=== PATIENT | male | born 1950 | race Caucasian/White ===

== ENCOUNTER 2020-09-12 17:52 | Inpatient (IN) | payer MEDICARE, MEDICAID ==
[~2020-09-12] VITALS: Ht 182.9 cm; Wt 71.2 kg
[2020-09-12 18:42] VITALS: BP 128/100
[2020-09-12 18:50] LABS: HEMATOCRIT 50.7 % (42.0-52.0); HEMOGLOBIN 16.4 G/DL (14.2-18.0); MEAN CORPUSCULAR VOLUME 89 FL (80-99); PLATELET COUNT 230 K/UL (150-450); RED CELL DISTRIBUTION WIDTH 14.4 % (11.6-14.8)
[2020-09-12 19:06] LABS: CALCIUM 8.7 MG/DL (8.5-10.1); CREATININE 1.7 MG/DL (0.55-1.30); POTASSIUM 3.9 MMOL/L (3.5-5.1)
--- NOTE | 2020-09-12 19:06 | Diagnostic Imaging Report ---
EXAM: CT Head Without Intravenous Contrast CLINICAL HISTORY: AMS TECHNIQUE: Axial computed tomography images of the head/brain without intravenous contrast. CTDI is 53.4 mGy and DLP is 1059.7 mGy-cm. One or more of the following dose reduction techniques were used: automated exposure control, adjustment of the mA and/or kV according to patient size, use of iterative reconstruction technique. COMPARISON: No previous studies. FINDINGS: Brain: No abnormal extra-axial collection. No hemorrhage. Midline shift: No midline shift or mass-effect Ventricles: There is prominence of the ventricular system, cortical sulci, basilar cisterns, compatible with age related atrophy. Bones/joints: Calvarium is within normal limits. No acute fracture. Soft tissues: Unremarkable. Sinuses: Visualized sinuses are unremarkable. Mastoid air cells: Mastoid air cells are well pneumatized. Other findings: Axial and coronal images are provided. IMPRESSION: 1. Age-related changes. 2. No acute intracranial pathology is detected. 3. If there is concern for etiology such as early acute lacunar infarcts, magnetic resonance imaging of the brain with diffusion-weighted sequences should be performed.
[2020-09-12 19:20] LABS: ALBUMIN 3.1 G/DL (3.4-5.0); ALBUMIN/GLOBULIN RATIO 0.9 (1.0-2.7); BILIRUBIN,TOTAL 0.7 MG/DL (0.2-1.0); CKMB 0.6 NG/ML (0.0-3.6)
[2020-09-12] MEDS ORDERED: Vancomycin 1 GM in NS 275 ML IVPB ONE (19:45)
[2020-09-12] MEDS ORDERED: Piperacillin/Tazobactam 3.375 GM in NS 110 ML IVPB ONE (19:45)
--- NOTE | 2020-09-12 19:45 | Emergency Room Report ---
History of Present Illness General Chief Complaint: Generalized Weakness Source: Medical Record Present Illness HPI 70-year-old male here with cough, shortness of breath, abdominal discomfort. Patient appears slightly confused and is slow to respond to questions. However he is able to answer questions albeit slowly. Says that he is having a cough with some shortness of breath and also lower abdominal pain. Patient is a history of COPD. However he is a poor historian and is unable to provide me with further information such as his past medical history or medication regimen or how long he has been having his symptoms. Denies headaches, vision changes, chest pain, back pain, diarrhea, dysuria. Allergies: Coded Allergies: No Known Allergies (Unverified , 09/12/20) COVID-19 Screening Contact w/high risk pt: Yes Experienced COVID-19 symptoms?: No COVID-19 Testing performed STOCK PARTS INSPECTOR: No COVID-19 Testing Source: [facility] Nursing Documentation-[facility] History Of Psychiatric Problem: Yes - schizophrenia Review of Systems All Other Systems: negative except mentioned in HPI Physical Exam Vital Signs Date Time Temp Pulse Resp B/P (MAP) Pulse Ox O2 Delivery O2 Flow Rate FiO2 09/12/20 18:05 99.5 133 18 128/100 (109) 96 Room Air Sp02 EP Interpretation: reviewed, normal General Appearance: no apparent distress, non-toxic, other - Appears slightly confused and slow to respond to questions, but does answer questions a ppropriately Head: normocephalic, atraumatic Eyes: bilateral eye normal inspection, bilateral eye PERRL ENT: hearing grossly normal, normal pharynx, no angioedema, normal voice Neck: full range of motion, supple/symm/no masses Respiratory: chest non-tender, lungs clear, normal breath sounds, speaking full sentences Cardiovascular #1: regular rate, rhythm, no edema Cardiovascular #2: 2+ carotid (R), 2+ carotid (L), 2+ radial (R), 2+ radial (L), 2+ dorsalis pedis (R), 2+ dorsalis pedis (L) Gastrointestinal: normal bowel sounds, soft, non-distended, no guarding, no rebound, other - Subjective abdominal mild tenderness on palpation diffusely, but no distention or rebound or guarding Rectal: deferred Genitourinary: normal inspection, no CVA tenderness Musculoskeletal: back normal, normal range of motion, calf tenderness, gait/station normal, non-tender Neurologic: alert, motor strength/tone normal, oriented x3, sensory intact, responsive, speech normal, other - Slow to respond to questions but is awake and alert and responsive Psychiatric: judgement/insight normal, memory normal, mood/affect normal, no suicidal/homicidal ideation Reflexes: 3+ bicep (R), 3+ bicep (L), 3+ tricep (R), 3+ tricep (L), 3+ knee (R), 3+ knee (L) Lymphatic: no adenopathy Medical Decision Making Diagnostic Impression: Primary Impression: SBO (small bowel obstruction) Additional Impressions: Bowel perforation Sepsis Lactic acidosis Abdominal pain ER Course EKG: Rate 129 bpm, no ischemia, intervals WNL. No ectopy Rhythm strip: patient monitored for arrhythmias - no malignant dysrhythmias, runs of PVCs, nor pauses noted Chest x-ray: No infiltrate/effusion. Mediastinum within normal limits. Distended stomach CT abdomen pelvis: Small bowel obstruction. Free amount of intra-abdominal free air. Inflammatory changes in the mesentery in the right midabdomen laterally possibly representing transition point for obstruction. Bowel ischemia cannot be excluded. Diffuse gallbladder wall thickening. Small loculated pneumothorax right posterior medial at the right lung base of uncertain significance CT head: Unremarkable Total critical care time: Approximately 45 minutes Due to a high probability of clinically significant, life threatening deteri oration, the patient required the highest level of preparedness to intervene emergently and I personally spent this critical care time directly and personally managing the patient. This critical care time included obtaining a history, examining the patient, pulse oximetry, ordering and reviewing studies, ordering treatments, evaluating response to treatment and updating management plan as needed, frequent reassessment and discussion with other providers as well as arranging for ultimate disposition. This critical to care time was performed to assess and manage the high probability of life-threatening deterioration that could result in multiorgan failure. This critical care time is separate from the separately billable procedures and treating other patients. Laboratory Tests Test 09/12/20 18:35 09/12/20 19:13 09/12/20 19:15 09/12/20 20:15 White Blood Count 11.0 K/UL (4.8-10.8) H Red Blood Count 5.70 M/UL (4.70-6.10) Hemoglobin 16.4 G/DL (14.2-18.0) Hematocrit 50.7 % (42.0-52.0) Mean Corpuscular Volume 89 FL (80-99) Mean Corpuscular Hemoglobin 28.8 PG (27.0-31.0) Mean Corpuscular Hemoglobin Concent 32.3 G/DL (32.0-36.0) Red Cell Distribution Width 14.4 % (11.6-14.8) Platelet Count 230 K/UL (150-450) Mean Platelet Volume 7.0 FL (6.5-10.1) Neutrophils (%) (Auto) % (45.0-75.0) Lymphocytes (%) (Auto) % (20.0-45.0) Monocytes (%) (Auto) % (1.0-10.0) Eosinophils (%) (Auto) % (0.0-3.0) Basophils (%) (Auto) % (0.0-2.0) Neutrophils % (Manual) Pending Lymphocytes % (Manual) Pending Platelet Estimate Pending Platelet Morphology Pending Prothrombin Time 13.0 SEC (9.30-11.50) H Prothrombin Time INR 1.2 (0.9-1.1) H Activated Partial Thromboplast Time 31 SEC (23-33) Sodium Level 139 MMOL/L (136-145) Potassium Level 3.9 MMOL/L (3.5-5.1) Chloride Level 105 MMOL/L (98-107) Carbon Dioxide Level 27 MMOL/L (21-32) Anion Gap 8 mmol/L (5-15) Blood Urea Nitrogen 15 mg/dL (7-18) Creatinine 1.7 MG/DL (0.55-1.30) H Estimated Glomerular Filtration Rate 40.0 mL/min (>60) Glucose Level 123 MG/DL (74-106) H Lactic Acid Level 3.70 mmol/L (0.4-2.0) H 2.40 mmol/L (0.66-2.22) H Calcium Level 8.7 MG/DL (8.5-10.1) Total Bilirubin 0.7 MG/DL (0.2-1.0) Aspartate Amino Transferase (AST) 12 U/L (15-37) L Alanine Aminotransferase (ALT) 7 U/L (12-78) L Alkaline Phosphatase 133 U/L (46-116) H Total Creatine Kinase 78 U/L (26-308) Creatine Kinase MB 0.6 NG/ML (0.0-3.6) Creatine Kinase MB Relative Index 0.7 Troponin I 0.000 ng/mL (0.000-0.056) Total Protein 6.7 G/DL (6.4-8.2) Albumin 3.1 G/DL (3.4-5.0) L Globulin 3.6 g/dL Albumin/Globulin Ratio 0.9 (1.0-2.7) L Arterial Blood pH 7.422 (7.350-7.450) Arterial Blood Partial Pressure CO2 36.8 mmHg (35.0-45.0) Arterial Blood Partial Pressure O2 74.4 mmHg (75.0-100.0) L Arterial Blood HCO3 23.4 mmol/L (22.0-26.0) Arterial Blood Oxygen Saturation 94.5 % (95-100) L Arterial Blood Base Excess -0.5 (-2-2) Josse Test Positive Ammonia 66 umol/L (11-32) H Microbiology Date/Time Source Procedure Growth Status 09/12/20 18:35 Nasopharynx SARS-CoV-2 RdRp Gene Assay - Final Complete 70-year-old male here with generalized weakness and abdominal distention. Patient was largely hemodynamically stable in the emergency department however was tachycardic at 125 bpm on arrival. His tachycardia resolved however with a 30 cc/kg fluid bolus. Initial lactate was 3.7. Repeat lactate after the 30 cc/kg fluid bolus was 2.4. Chest x-ray largely unremarkable aside from a distended abdomen. The patient underwent a CT abdomen pelvis which shows the acute findings noted above. Patient was merely started on vancomycin and Zosyn. I immediately consulted general surgery Dr. Morrow who agreed that the patient needed emergent surgery tonight. Patient will be kept in the emergency department until he is brought to the operating room. I informed the patient's admitting physician who agreed with the plan. Patient will be brought to the intensive care unit after the operating room. Last Vital Signs Date Time Temp Pulse Resp B/P (MAP) Pulse Ox O2 Delivery O2 Flow Rate FiO2 09/12/20 18:42 133 18 Room Air 09/12/20 18:42 99.5 128/100 96 Referrals: Vania Dwyer MD (PCP) Luis Carlos Ball M.D. Sep 12, 2020 19:45
[2020-09-12] MEDS ORDERED: Omnipaque-300 100ml vial INJ PRN (20:00)
--- NOTE | 2020-09-12 20:50 | Diagnostic Imaging Report ---
EXAM: CT Abdomen and Pelvis Without Intravenous Contrast CLINICAL HISTORY: PAIN TECHNIQUE: Axial computed tomography images of the abdomen and pelvis without intravenous contrast. CTDI is 6.4 mGy and DLP is 359.8 mGy-cm. One or more of the following dose reduction techniques were used: automated exposure control, adjustment of the mA and/or kV according to patient size, use of iterative reconstruction technique. COMPARISON: No previous study. FINDINGS: Lung bases: Evaluation of the right lung base reveals patchy airspace disease presumably on the basis of scarring and atelectasis. Atypical pneumonia cannot be excluded. Presumed areas of scarring atelectasis at the left lung base. Again atypical pneumonia cannot be excluded. Pleural space: Best seen on sagittal image 79 and axial image 32, there is a very small posterior medial loculated pneumothorax at the right lung base of uncertain etiology and significance. Mediastinum: Small hiatal hernia. The distal esophagus is patulous and fluid-filled. ABDOMEN: Liver: Diffuse fatty infiltration of the liver is noted. Gallbladder and bile ducts: Cholelithiasis within the gallbladder is noted. Evaluation of the wall the gallbladder is limited due to motion artifact. Minimal thickening of the gallbladder wall cannot be excluded. Ultrasound imaging is suggested. No ductal dilation. Pancreas: Unremarkable. No ductal dilation. Spleen: Spleen enhance uniformly. Adrenals: Unremarkable. No mass. Kidneys and ureters: Nonspecific stranding about the perinephric spaces without hydronephrosis. 0.2 cm nonobstructing calculus upper pole region of the left kidney. Stomach and bowel: No free intra-abdominal air raising concern for ruptured viscus. This finding is best seen on coronal image 4647 at the dome of the liver. Large quantity of our presumed ingested material in the stomach which is moderately distended. Dilated loops of small bowel containing fluid and fecal material are noted left hypogastrium extending to the right hypogastrium worrisome for are mid to distal small bowel obstruction. There is extensive inflammatory process at the lateral right mid abdomen with air gas bubbles indicative of microperforations of bowel. This finding is best seen on coronal image 30. This may be the transitional zone for obstruction. Minimal distention of the rectosigmoid with stool. No mucosal thickening. PELVIS: Appendix: No findings to suggest acute appendicitis. Bladder: Unremarkable. No stones. Reproductive: Prostate gland is enlarged and measures 4 x 5 cm with coarse calcifications within it centrally. ABDOMEN and PELVIS: Intraperitoneal space: Small quantity of ascites surrounding the liver. Minimal simple free fluid extending about the right paracolic gutter. No free air. Bones/joints: Evaluation of bone window images reveals findings of moderate degenerative disc disease. Moderate to severe osteoarthritic changes about the sacroiliac joints are noted. Alignment of the thoracolumbar spine is unremarkable. Sacrum and coccyx are unremarkable. No acute fracture. Soft tissues: Ischiorectal fat is clean. Vasculature: Atherosclerotic disease of the abdominal aorta without change in caliber. No abdominal aortic aneurysm. Lymph nodes: No retroperitoneal lymphadenopathy. No pelvic or inguinal lymphadenopathy. IMPRESSION: 1. The dominant finding on the current study is are small bowel obstruction. 2. Free intra-abdominal air is noted. 3. There is inflammatory changes in the mesentery of the mid right abdomen laterally possibly representing the transition point for obstruction. Bowel ischemia cannot be excluded. 4. There is cholelithiasis. 5. Possible diffuse gallbladder wall thickening. 6. Very small are loculated pneumothorax posterior medially at the right lung base of uncertain significance. 7. Surgical consultation is highly advised. <MYCVCSECTION> Communications: 09/12/20 20:52 Call Doctor Regarding Above results, called Dr. Ball on 09/12 20:55 (-07:00)
[2020-09-12 21:20] LABS: INR 1.2 (0.9-1.1)
[2020-09-12 21:27] VITALS: BP 119/67
--- NOTE | 2020-09-12 22:04 | Consultation ---
History of Present Illness General Date patient seen: Sep 12, 2020 Reason for Hospitalization: Generalized Weakness Present Illness HPI 70M with multiple medical comorbidities, hx of copd, tobacco abuse, presented to [facility] for weakness, sob, abdominal discomfort. mild leukocytosis, lactic acidosis, ct with sbo and free air. surgery called to evaluate and assist with care. patient seen in ED, chart reviewed, patient examined. he is awake, alert, responsive c/o abd pain. no n/v/f/c. cannot recall past history. no prior abd surgery he can recall, no prior colonoscopy he can recall. poor historian. Allergies: Coded Allergies: No Known Allergies (Unverified , 09/12/20) COVID-19 Screening Contact w/high risk pt: Yes Experienced COVID-19 symptoms?: No Patient History Limited by: age, other History Provided By: Patient, Medical Record, PMD Healthcare decision maker Resuscitation status Advanced Directive on File Past Medical/Surgical History Past Medical/Surgical History: (1) Lactic acidosis (2) Bowel perforation (3) Sepsis (4) SBO (small bowel obstruction) (5) Abdominal pain Review of Systems Review of Symptoms General ROS: no weight loss or fever Psychological ROS: no depression or mood changes, no memory loss Ophthalmic ROS: no visual changes or eye irritation ENT ROS: no nasal congestion, hearing loss, dizziness Allergy and Immunology ROS: no allergic symptoms or urticaria Hematological and Lymphatic ROS: no swollen glands, unusual bleeding or bruising Endocrine ROS: no polyuria, polydipsia, weight changes, temperature intolerance Respiratory ROS: no cough, shortness of breath, or wheezing Cardiovascular ROS: no chest pain or dyspnea on exertion Gastrointestinal ROS: ++ abdominal pain, --bright red blood in stool. Musculoskeletal ROS: no myalgias or arthralgias Neurological ROS: no TIA or stroke symptoms Dermatological ROS: no new or changing skin lesions, rashes or pruritis Physical Exam Physical Exam General appearance: alert, cooperative, no distress, appears stated age Head: Normocephalic, without obvious abnormality, atraumatic Eyes: conjunctivae/corneas clear. PERRL, EOM's intact. Fundi benign Throat: Lips, mucosa, and tongue normal. Teeth and gums normal Neck: supple, symmetrical, trachea midline, no adenopathy, thyroid: not enlarged, symmetric, no tenderness/mass/nodules, no carotid bruit and no JVD Lungs: clear to auscultation bilaterally Heart: regular rate and rhythm, S1, S2 normal, no murmur, click, rub or gallop Abdomen: somewhat firm, generalized tender. Bowel sounds decreased, peritonitis, distended. No masses, no organomegaly Extremities: extremities normal, atraumatic, no cyanosis or edema Pulses: 2+ and symmetric Skin: Skin color, texture, turgor normal. No rashes or lesions Neurologic: Grossly normal Last 24 Hour Vital Signs Date Time Temp Pulse Resp B/P (MAP) Pulse Ox O2 Delivery O2 Flow Rate FiO2 09/12/20 21:27 98.6 116 22 119/67 96 Room Air 09/12/20 18:42 133 18 Room Air 09/12/20 18:42 99.5 18 128/100 96 Room Air 09/12/20 18:05 99.5 133 18 128/100 (109) 96 Room Air Laboratory Tests Test 09/12/20 18:35 09/12/20 19:13 09/12/20 19:15 09/12/20 20:15 White Blood Count 11.0 K/UL (4.8-10.8) H Red Blood Count 5.70 M/UL (4.70-6.10) Hemoglobin 16.4 G/DL (14.2-18.0) Hematocrit 50.7 % (42.0-52.0) Mean Corpuscular Volume 89 FL (80-99) Mean Corpuscular Hemoglobin 28.8 PG (27.0-31.0) Mean Corpuscular Hemoglobin Concent 32.3 G/DL (32.0-36.0) Red Cell Distribution Width 14.4 % (11.6-14.8) Platelet Count 230 K/UL (150-450) Mean Platelet Volume 7.0 FL (6.5-10.1) Neutrophils (%) (Auto) % (45.0-75.0) Lymphocytes (%) (Auto) % (20.0-45.0) Monocytes (%) (Auto) % (1.0-10.0) Eosinophils (%) (Auto) % (0.0-3.0) Basophils (%) (Auto) % (0.0-2.0) Differential Total Cells Counted 100 Neutrophils % (Manual) 72 % (45-75) Lymphocytes % (Manual) 4 % (20-45) L Monocytes % (Manual) 1 % (1-10) Eosinophils % (Manual) 0 % (0-3) Basophils % (Manual) 0 % (0-2) Band Neutrophils 23 % (0-8) H Platelet Estimate Adequate Platelet Morphology Normal Polychromasia 1+ Prothrombin Time 13.0 SEC (9.30-11.50) H Prothromb Time International Ratio 1.2 (0.9-1.1) H Activated Partial Thromboplast Time 31 SEC (23-33) Sodium Level 139 MMOL/L (136-145) Potassium Level 3.9 MMOL/L (3.5-5.1) Chloride Level 105 MMOL/L (98-107) Carbon Dioxide Level 27 MMOL/L (21-32) Anion Gap 8 mmol/L (5-15) Blood Urea Nitrogen 15 mg/dL (7-18) Creatinine 1.7 MG/DL (0.55-1.30) H Estimat Glomerular Filtration Rate 40.0 mL/min (>60) Glucose Level 123 MG/DL (74-106) H Lactic Acid Level 3.70 mmol/L (0.4-2.0) H 2.40 mmol/L (0.66-2.22) H Calcium Level 8.7 MG/DL (8.5-10.1) Total Bilirubin 0.7 MG/DL (0.2-1.0) Aspartate Amino Transf (AST/SGOT) 12 U/L (15-37) L Alanine Aminotransferase (ALT/SGPT) 7 U/L (12-78) L Alkaline Phosphatase 133 U/L (46-116) H Total Creatine Kinase 78 U/L (26-308) Creatine Kinase MB 0.6 NG/ML (0.0-3.6) Creatine Kinase MB Relative Index 0.7 Troponin I 0.000 ng/mL (0.000-0.056) Total Protein 6.7 G/DL (6.4-8.2) Albumin 3.1 G/DL (3.4-5.0) L Globulin 3.6 g/dL Albumin/Globulin Ratio 0.9 (1.0-2.7) L Arterial Blood pH 7.422 (7.350-7.450) Arterial Blood Partial Pressure CO2 36.8 mmHg (35.0-45.0) Arterial Blood Partial Pressure O2 74.4 mmHg (75.0-100.0) L Arterial Blood HCO3 23.4 mmol/L (22.0-26.0) Arterial Blood Oxygen Saturation 94.5 % (95-100) L Arterial Blood Base Excess -0.5 (-2-2) Josse Test Positive Ammonia 66 umol/L (11-32) H Microbiology Date/Time Source Procedure Growth Status 09/12/20 18:35 Nasopharynx SARS-CoV-2 RdRp Gene Assay - Final Complete Height (Feet): 6 Height (Inches): 0.00 Weight (Pounds): 185 Medications Current Medications Medications (Trade) Dose Ordered Sig/Jojo Route PRN Reason Start Time Stop Time Status Last Admin Dose Admin Iohexol (OMNIPAQUE-300 100ml) 100 ml NOW PRN INJ Radiology Procedure 09/12/20 20:00 09/14/20 19:59 Assessment/Plan Problem List: (1) Lactic acidosis ICD Codes: E87.2 - Acidosis SNOMED: 73016308 (2) Bowel perforation Assessment & Plan: 70M sbo, free air, lactic acidosis, leukocytosis, generalized tenderness with peritonitis covid negative ct reviewed. labs reviewed exam as above. discussed findings with patient. unfortunately not sure if he truly understands that degree of concern given ct findings and exam. he is full code, expressed desire to live, and has been otherwise functional and per report goes outside to smoke daily. given above, condition, and goals of care surgery emergency is indicated and recommended. npo iv fluids iv abx to OR for exploratory laparotomy, possible bowel resection, possible ostomy thank you ICD Codes: K63.1 - Perforation of intestine (nontraumatic) SNOMED: 68976702 (3) Sepsis ICD Codes: A41.9 - Sepsis, unspecified organism SNOMED: 27243287 (4) SBO (small bowel obstruction) Assessment & Plan: Lung bases: Evaluation of the right lung base reveals patchy airspace disease presumably on the basis of scarring and atelectasis. Atypical pneumonia cannot be excluded. Presumed areas of scarring atelectasis at the left lung base. Again atypical pneumonia cannot be excluded. Pleural space: Best seen on sagittal image 79 and axial image 32, there is a very small posterior medial loculated pneumothorax at the right lung base of uncertain etiology and significance. Mediastinum: Small hiatal hernia. The distal esophagus is patulous and fluid-filled. ABDOMEN: Liver: Diffuse fatty infiltration of the liver is noted. Gallbladder and bile ducts: Cholelithiasis within the gallbladder is noted. Evaluation of the wall the gallbladder is limited due to motion artifact. Minimal thickening of the gallbladder wall cannot be excluded. Ultrasound imaging is suggested. No ductal dilation. Pancreas: Unremarkable. No ductal dilation. Spleen: Spleen enhance uniformly. Adrenals: Unremarkable. No mass. Kidneys and ureters: Nonspecific stranding about the perinephric spaces without hydronephrosis. 0.2 cm nonobstructing calculus upper pole region of the left kidney. Stomach and bowel: No free intra-abdominal air raising concern for ruptured viscus. This finding is best seen on coronal image 4647 at the dome of the liver. Large quantity of our presumed ingested material in the stomach which is moderately distended. Dilated loops of small bowel containing fluid and fecal material are noted left hypogastrium extending to the right hypogastrium worrisome for are mid to distal small bowel obstruction. There is extensive inflammatory process at the lateral right mid abdomen with air gas bubbles indicative of microperforations of bowel. This finding is best seen on coronal image 30. This may be the transitional zone for obstruction. Minimal distention of the rectosigmoid with stool. No mucosal thickening. PELVIS: Appendix: No findings to suggest acute appendicitis. Bladder: Unremarkable. No stones. Reproductive: Prostate gland is enlarged and measures 4 x 5 cm with coarse calcifications within it centrally. ABDOMEN and PELVIS: Intraperitoneal space: Small quantity of ascites surrounding the liver. Minimal simple free fluid extending about the right paracolic gutter. No free air. Bones/joints: Evaluation of bone window images reveals findings of moderate degenerative disc disease. Moderate to severe osteoarthritic changes about the sacroiliac joints are noted. Alignment of the thoracolumbar spine is unremarkable. Sacrum and coccyx are unremarkable. No acute fracture. Soft tissues: Ischiorectal fat is clean. Vasculature: Atherosclerotic disease of the abdominal aorta without change in caliber. No abdominal aortic aneurysm. Lymph nodes: No retroperitoneal lymphadenopathy. No pelvic or inguinal lymphadenopathy. IMPRESSION: 1. The dominant finding on the current study is are small bowel obstruction. 2. Free intra-abdominal air is noted. 3. There is inflammatory changes in the mesentery of the mid right abdomen laterally possibly representing the transition point for obstruction. Bowel ischemia cannot be excluded. 4. There is cholelithiasis. 5. Possible diffuse gallbladder wall thickening. 6. Very small are loculated pneumothorax posterior medially at the right lung base of uncertain significance. 7. Surgical consultation is highly advised. ICD Codes: K56.609 - Unspecified intestinal obstruction, unspecified as to partial versus complete obstruction SNOMED: 884205244 (5) Abdominal pain ICD Codes: R10.9 - Unspecified abdominal pain SNOMED: 35837715 Cam Morrow Sep 12, 2020 22:03
--- NOTE | 2020-09-12 22:04 | Pre-Procedure Note/Attestation ---
Pre-Procedure Note/Attestation Complete Prior to Procedure Planned Procedure: not applicable Procedure Narrative: exploratory laparotomy, possible bowel resection, possible ostomy Indications for Procedure Pre-Operative Diagnosis: sbo with perforated viscus Attestation I attest that I discussed the nature of the procedure; its benefits; risks and complications; and alternatives (and the risks and benefits of such alternatives), prior to the procedure, with the patient (or the patient's legal authorization representative). I attest that, if there was a reasonable possibility of needing a blood transfusion, the patient (or the patient's legal authorization representative) was given the [facility] standardized written summary, pursuant to the [place] Blood Safety Act ([place] Health and Safety Code # 1645, as amended). I attest that I re-evaluated the patient just prior to the surgery and that there has been no change in the patient's H&P, except as documented below: Cam Morrow Sep 12, 2020 22:04
--- NOTE | 2020-09-12 22:06 | Anethesia Preoperative Eval ---
Anesthesia Pre-op PMH/ROS General Date of Evaluation: Sep 12, 2020 Time of Evaluation: 22:31 Anesthesiologist: James ASA Score: ASA 4 - Emergency Mallampati Score Class I : Soft palate, uvula, fauces, pillars visible Class II: Soft palate, uvula, fauces visible Class III: Soft palate, base of uvula visible Class IV: Only hard plate visible Mallampati Classification: Class II Surgeon: Cristhian Diagnosis: Abd Pain Surgical Procedure: Exploratory Laparotomy, Bowel Resection Anesthesia History: none Social History: current smoker Family History: no anesthesia problems Allergies: Coded Allergies: No Known Allergies (Unverified , 09/12/20) Medications: see eMAR Patient NPO?: Yes Past Medical History Pulmonary: Reports: COPD Gastrointestinal/Genitourinary: Reports: other - Free Air Abd Neurologic/Psychiatric: Reports: dementia, CVA Anesthesia Pre-op Phys. Exam Physician Exam Last Vital Signs Date Time Temp Pulse Resp B/P (MAP) Pulse Ox O2 Delivery O2 Flow Rate FiO2 09/12/20 21:27 98.6 116 22 119/67 96 Room Air Constitutional: NAD Neurologic: CN 2-12 intact Cardiovascular: RRR Respiratory: CTA Gastrointestinal: S/NT/ND Airway Exam Mallampati Score: Class II MO: limited ROM: limited Teeth: missing, intact Anesthesia Pre-op A/P Labs Hematology Test 09/12/20 18:35 White Blood Count 11.0 K/UL (4.8-10.8) H Red Blood Count 5.70 M/UL (4.70-6.10) Hemoglobin 16.4 G/DL (14.2-18.0) Hematocrit 50.7 % (42.0-52.0) Mean Corpuscular Volume 89 FL (80-99) Mean Corpuscular Hemoglobin 28.8 PG (27.0-31.0) Mean Corpuscular Hemoglobin Concent 32.3 G/DL (32.0-36.0) Red Cell Distribution Width 14.4 % (11.6-14.8) Platelet Count 230 K/UL (150-450) Mean Platelet Volume 7.0 FL (6.5-10.1) Neutrophils (%) (Auto) % (45.0-75.0) Lymphocytes (%) (Auto) % (20.0-45.0) Monocytes (%) (Auto) % (1.0-10.0) Eosinophils (%) (Auto) % (0.0-3.0) Basophils (%) (Auto) % (0.0-2.0) Differential Total Cells Counted 100 Neutrophils % (Manual) 72 % (45-75) Lymphocytes % (Manual) 4 % (20-45) L Monocytes % (Manual) 1 % (1-10) Eosinophils % (Manual) 0 % (0-3) Basophils % (Manual) 0 % (0-2) Band Neutrophils 23 % (0-8) H Platelet Estimate Adequate Platelet Morphology Normal Polychromasia 1+ Coagulation Test 09/12/20 18:35 Prothrombin Time 13.0 SEC (9.30-11.50) H Prothromb Time International Ratio 1.2 (0.9-1.1) H Activated Partial Thromboplast Time 31 SEC (23-33) Chemistry Test 09/12/20 18:35 09/12/20 19:15 09/12/20 20:15 Sodium Level 139 MMOL/L (136-145) Potassium Level 3.9 MMOL/L (3.5-5.1) Chloride Level 105 MMOL/L (98-107) Carbon Dioxide Level 27 MMOL/L (21-32) Anion Gap 8 mmol/L (5-15) Blood Urea Nitrogen 15 mg/dL (7-18) Creatinine 1.7 MG/DL (0.55-1.30) H Estimat Glomerular Filtration Rate 40.0 mL/min (>60) Glucose Level 123 MG/DL (74-106) H Lactic Acid Level 3.70 mmol/L (0.4-2.0) H 2.40 mmol/L (0.66-2.22) H Calcium Level 8.7 MG/DL (8.5-10.1) Total Bilirubin 0.7 MG/DL (0.2-1.0) Aspartate Amino Transf (AST/SGOT) 12 U/L (15-37) L Alanine Aminotransferase (ALT/SGPT) 7 U/L (12-78) L Alkaline Phosphatase 133 U/L (46-116) H Total Creatine Kinase 78 U/L (26-308) Creatine Kinase MB 0.6 NG/ML (0.0-3.6) Creatine Kinase MB Relative Index 0.7 Troponin I 0.000 ng/mL (0.000-0.056) Total Protein 6.7 G/DL (6.4-8.2) Albumin 3.1 G/DL (3.4-5.0) L Globulin 3.6 g/dL Albumin/Globulin Ratio 0.9 (1.0-2.7) L Ammonia 66 umol/L (11-32) H Risk Assessment & Plan Assessment: ASA 4E Plan: GA, SED, GlideScope Status Change Before Surgery: No Pre-Antibiotics Dru Grams Ancef IV Given Within 1 Hr of Incision: Yes Time Given: 22:56 Willy Ramirez MD Sep 12, 2020 22:06
[2020-09-12] MEDS ORDERED: Rocuronium Bromide 50mg/5ml Inj IV ONE (22:09)
[2020-09-12] MEDS ORDERED: Midazolam 2mg/2ml Inj IVP PRN (22:15)
[2020-09-12] MEDS ORDERED: Labetalol 5mg/ml 20ml vial IV PRN (22:15)
[2020-09-12] MEDS ORDERED: oxyCODONE HCL/Acetaminophen 5/325mg ORAL PRN (22:15)
[2020-09-12] MEDS ORDERED: Hydromorphone 0.5mg/0.5ml inj IVP PRN (22:15)
[2020-09-12] MEDS ORDERED: DiphenhydrAMINE 50mg/ml Inj IVP PRN (22:15)
[2020-09-12] MEDS ORDERED: Meperidine 25mg/1ml Inj (FOR RIGORS ONLY) IV PRN (22:15)
[2020-09-12] MEDS ORDERED: HYDROcodone/Acetamin 7.5/325 tab ORAL PRN (22:15)
[2020-09-12] MEDS ORDERED: HYDROcodone/Acetamin 5/325 tab ORAL PRN (22:15)
[2020-09-12] MEDS ORDERED: fentaNYL 100 mcg/2 mL IV PRN (22:15)
[2020-09-12] MEDS ORDERED: Metoclopramide 10mg/2ml Inj IVP PRN (22:15)
[2020-09-12] MEDS ORDERED: LR 1000ml 1,000 ML IVLG SCH (22:15)
[2020-09-12] MEDS ORDERED: Atropine Sulfate 0.4mg/ml inj IVP PRN (22:15)
[2020-09-12] MEDS ORDERED: LORazepam Inj 2mg/ml 1ml IV PRN (22:15)
[2020-09-12] MEDS ORDERED: Ketorolac 30mg Inj IV PRN ×2 (22:15)
[2020-09-12] MEDS ORDERED: Sodium Chloride 10ml vial INJ ONE (22:16)
[2020-09-12] MEDS ORDERED: Lidocaine 1% MPF 10mg/ml 5ml ONE (22:16)
[2020-09-12] MEDS ORDERED: fentaNYL 100 mcg/2 mL IV ONE ×2 (22:20→23:43)
--- NOTE | 2020-09-12 22:27 | Immediate Post-Op Evaluation ---
Immediate Post-Op Evalulation Immediate Post-Op Evalulation Procedure: Exploratory Laparotomy, Bowel Resection Date of Evaluation: Sep 12, 2020 Time of Evaluation: 01:18 IV Fluids: 2000 LR Blood Products: 1000 ALB Estimated Blood Loss: 100 Urinary Output: 0 Blood Pressure Systolic: 148 Blood Pressure Diastolic: 78 Pulse Rate: 112 Respiratory Rate: 20 - Mech Vent O2 Sat by Pulse Oximetry: 100 Temperature (Fahrenheit): 98.4 Pain Score (1-10): 2 Nausea: No Vomiting: No Complications 0 Patient Status: no response, patent, ventilated, none Hydration Status: adequate Dru Grams Ancef IV Given Within 1 Hr of Incision: Yes Time Given: 22:56 Willy Ramirez MD Sep 12, 2020 22:27
[2020-09-12] MEDS ORDERED: NS Irrig 1000ml ONE (23:00)
[2020-09-12] MEDS ORDERED: LR 1000ml ONE (23:00)
[2020-09-12] MEDS ORDERED: Sterile Water Irrig 1000ml IRRIG ONE (23:00)
[2020-09-12] MEDS ORDERED: NeoSporin Gu Irrig 1ml Amp IRRIG ONE (23:11)
[2020-09-12] MEDS ORDERED: Bacitracin 50000 Units Vial ONE (23:11)
[2020-09-12] MEDS ORDERED: Ketamine 500mg/10ml vial ONE (23:41)
[2020-09-13] VITALS (43 sets, daily range): BP systolic 93–169; BP diastolic 45–86
[2020-09-13] MEDS ORDERED: Acetaminophen 650 MG SUPP RECTAL PRN (00:45)
--- NOTE | 2020-09-13 00:55 | Brief Operative Note ---
Immediate Post Operative Note Operative Note Pre-op Diagnosis: sbo with perforated viscus Procedure: 1. exploratory laparotomy 2. right colectomy with primary side to side anastomosis 3. small bowel resection 4. cholecystectomy 5. abdominal washout and closure Post-op Diagnosis: 1. small bowel obstruction at ileocecal valve etiology unknown possible mass 2. perforated cecum 3. acute cholecystitis Surgeon: nancy morrow md Anesthesiologist: kaveh allen md Anesthesia: general Specimen: yes - small bowel, right colectomy, gallbladder Complications: none Condition: stable Fluids: see records Estimated Blood Loss: volume - 50cc Drains: none Implant(s) used?: No Nancy Morrow Sep 13, 2020 00:55
[2020-09-13] MEDS ORDERED: Morphine Sulfate 4mg/ml Inj (IV USE ONLY) IVP PRN (01:00)
[2020-09-13] MEDS ORDERED: DiphenhydrAMINE 50mg/ml Inj IVP PRN (01:00)
[2020-09-13] MEDS ORDERED: Metoclopramide 10mg/2ml Inj IVP PRN (01:00)
[2020-09-13] MEDS ORDERED: Morphine Sulfate 2mg/ml Inj(IV/IM USE ONLY) IVP PRN ×2 (01:00)
[2020-09-13] MEDS: D5 1/2NS w/KCl 20mEq 1,000 ML IV SCH ×3 (01:39→17:26)
[2020-09-13] MEDS: Piperacillin/Tazobactam 3.375 GM in NS 110 ML IVPB SCH ×3 (01:40→17:25)
[2020-09-13 05:17] LABS: BASOPHILS % (AUTO) 2.8 % (0.0-2.0); HEMATOCRIT 40.4 % (42.0-52.0); HEMOGLOBIN 13.8 G/DL (14.2-18.0); LYMPHOCYTES % (AUTO) 7.4 % (20.0-45.0); MEAN CORPUSCULAR VOLUME 84 FL (80-99); NEUTROPHILS % (AUTO) 84.8 % (45.0-75.0); PLATELET COUNT 180 K/UL (150-450); RED BLOOD COUNT 4.83 M/UL (4.70-6.10); RED CELL DISTRIBUTION WIDTH 12.9 % (11.6-14.8); WHITE BLOOD COUNT 6.6 K/UL (4.8-10.8)
[2020-09-13 05:40] LABS: INR 1.6 (0.9-1.1)
[2020-09-13 05:57] LABS: ALANINE AMINOTRANSFERASE 16 U/L (12-78); ALBUMIN 3.1 G/DL (3.4-5.0); ALBUMIN/GLOBULIN RATIO 1.6 (1.0-2.7); ALKALINE PHOSPHATASE 73 U/L (46-116); ASPARTATE AMINO TRANSFERASE 40 U/L (15-37); BILIRUBIN,TOTAL 0.5 MG/DL (0.2-1.0); BLOOD UREA NITROGEN 16 mg/dL (7-18); CALCIUM 7.3 MG/DL (8.5-10.1); CARBON DIOXIDE 27 MMOL/L (21-32); CHLORIDE 105 MMOL/L (98-107); CREATININE 1.2 MG/DL (0.55-1.30); POTASSIUM 4.3 MMOL/L (3.5-5.1); SODIUM 139 MMOL/L (136-145)
--- NOTE | 2020-09-13 06:45 | Operative Note - Dictated ---
DATE OF OPERATION: 09/13/2020 PREOPERATIVE DIAGNOSES: 1. Perforated viscus. 2. Small-bowel obstruction. 3. Lactic acidosis. 4. Potential cholecystitis. POSTOPERATIVE DIAGNOSES: 1. Small bowel obstruction at the level of the ileocecal valve, secondary to unknown etiology, potential tumor mass in cecum. 2. Perforated cecum. 3. Cholecystitis with large gallstones in contracted thickened gallbladder. OPERATION PERFORMED: 1. Exploratory laparotomy. 2. Right colectomy.with primary side to side ileocolonic anastomosis 3. Small bowel resection. 4. Open cholecystectomy. 5. Abdominal washout and closure. ATTENDING SURGEON: Cam Morrow M.D. ATHLETIC SCOUT: None. ANESTHESIOLOGIST: Willy Ramirez M.D. 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 ESTIMATED BLOOD LOSS: 50 mL. IV FLUIDS: Please see anesthesia records. COMPLICATIONS: None. COUNTS: Sponge and needle count correct x2. WOUND CLASSIFICATION: Class 4. SPECIMENS: 1. Right colectomy. 2. Small bowel. 3. Gallbladder with contained stones. 4. Abdominal peritoneal cultures. DRAINS: None. INDICATIONS FOR PROCEDURE: This is a 70-year-old male, who presented to [facility] for evaluation, at which time was noted to be distended and have a tender abdomen and CT scan was performed identifying perforated viscus with free air and a small bowel obstruction, transition point in the right lower quadrant. The patient had lactic acidosis, leukocytosis, and on examination a generalized tender abdomen consistent with peritonitis. The patient was resuscitated in the emergency department and taken emergently to the operating room for intervention. I had a discussion with the patient regarding risks, benefits, and alternatives of the surgery, and I explained to him the findings and the serious concern given the perforated viscus of unknown etiology. The patient is a poor historian, but was very clear that he had the will and desire to live. Per him and report, he is a care facility patient, walks and lives normally, otherwise smokes cigarettes daily outside and lives a simple life. He has had no next of kin or power of emergency medical technician/driver and states he makes his own decisions. Given the above findings and the patient's condition, goals of care, and care plan, surgery is medically necessary indicated and strongly recommended. The patient was taken emergently to the operating room from the emergency department. OPERATIVE NOTE: The patient was taken to the operating room and placed on the operating table in supine position with bilateral arms out. All bony prominences were well padded. SCDs were placed. Preoperative time-out taken identifying the patient, procedure, operative staff, and surgical staff. General anesthesia was induced and the patient was intubated. NG-tube was placed and the stomach was decompressed and over 2 liters was evacuated. A Priest catheter was inserted using standard sterile technique. Abdomen was clipped, prepped, and draped in the standard surgical fashion. A midline incision was made and carried down through the subcutaneous tissue to the fascia, which was incised. Entry into the abdomen was obtained and purulent murky fluid was immediately identified and evacuated. A Bookwalter was placed and the abdomen was inspected. The small bowel was noted to be dilated and inflamed. Upon evaluation, there was murky purulent fluid throughout the abdomen in all quadrants and the pelvis. This was suctioned out. Abdomen was irrigated and suctioned clean. The bowel was then identified. The stomach was identified, otherwise in normal condition with NG-tube in place and being decompressed. Omentum was otherwise benign. The small bowel was run from the ligament of Treitz to the ileocecal valve. The small bowel was distended fluid-filled and gas-filled consistent with bowel obstruction and no abnormalities were noted from the ligament of Treitz to the terminal ileum. At the distal terminal ileum, there was a significant decrease in size of the terminal ileum leading into the cecum at the ileocecal valve. At this point, the cecum was clearly identified and viewed and noted to be perforated into the anterior portion of the mid cecum. The perforation was clearly identified as there were stool evacuating out of it. At this time, there were no large masses identified, but there was significant thickening and concern for potential tumor as the patient is unknown when his last colonoscopy was. Given these findings, we inspected the remainder of the bowel and proceeded with surgery. The ascending colon was severely inflamed followed by the transverse colon, which was otherwise normal, but distended with air and the descending colon and sigmoid colon within normal limits up to the peritoneal reflection. Of note, the sigmoid colon was floppy, but without complication. The spleen was not visualized, palpated, and no significant abnormality noted. The left and right lobe of the liver were palpated and coarse, but no masses identified. The gallbladder was identified and as stated in the CT scan and prior, there was concern for acute cholecystitis and it was clearly evident in the operating room that the patient did have a very thickened gallbladder wall and 2 very large stones within the gallbladder. There was concern for the potential active acute cholecystitis or cholecystitis chronic with potential acute and the current surgery being performed and the potential of a gallbladder disease or a problem. Given the gallbladder with stones and thickening wall and abnormal appearance, decision was made to proceed with a cholecystectomy in the patient's best interest. The gallbladder dome was grasped with a grasper and using the top-down technique, was divided off the liver bed with electrocautery. Once at the infundibulum was clearly identified, the cystic duct and artery were clearly noted. The cystic artery was tied off with a 3-0 silk tie and ligated with electrocautery. The cystic duct was identified at the level of the infundibulum and ligated and divided using a linear 55 mm stapler. The gallbladder was sent to pathology for review. Of note, this portion of the procedure was performed after the right colectomy, but prior to the re-anastomosis. Once the clear identifiable bowel obstruction level and the perforation of cecum was identified, decision made to proceed with a right colectomy. The white line of Toldt location was identified and the peritoneal lining was significantly inflamed. An incision was made in the peritoneal lining and was carried up towards the hepatic flexure. The splenic flexure was released and the right colon and cecum were released down to its mesenteric pedicle. The terminal ileum was identified approximately 5 to 10 cm away from the ileocecal valve. Window was made in the mesentery and the terminal ileum was divided using a 55 mm linear stapler. The mesentery was then divided using the LigaSure device. The level of the right colic artery was identified and taken down all the way to the mesentery. There were significant lymph nodes identified in this area potentially from tumor or as well inflammatory. The artery and vein were dissected clearly and the artery was doubly ligated with #0 silk tie and divided and the vein was ligated with #0 silk tie and divided high at the mesentery. A point of division was identified in the transverse colon right side. A window was made in the mesentery at the healthy portion of the colon and it was divided using a linear 55 mm stapler. The remainder of the mesentery was divided and the right colectomy was performed, so no pathology for review. The abdomen was irrigated and suctioned clear in all quadrants in the pelvis after the right colectomy was performed and the cholecystectomy was performed. At this time, the gallbladder fossa was identified, noted to be hemostatic and without complication. The remainder of the bowel was re-evaluated as was all abdominal organs. No other abnormalities or intraoperative complications identified. We then turned our attention to performing a meek-go-opyl anastomosis ileocolonic. The bowel ends of the right transverse colon and small bowel were identified. At this time, after the dissection, the small bowel did not look very healthy at the distal end potentially from inflammation as well as blood supply. A second piece of 5-10 cm of small bowel required resection. A window was made in the mesentery and a linear 55 stapler was used and the bowel was divided. The mesentery was then divided using the Virdiaunderbeat energy device. The bowel ends were then brought together and a small enterotomy made in the colon and the small bowel at the staple line. A linear stapler was inserted and fired. A iumw-sz-vwal anastomosis without complication was performed. Staple line was identified, noted to be hemostatic and intact. A second linear stapler was then used and the remaining enterotomy defect for anastomosis was closed. A hemostatic appropriately wide patent [id number] anastomosis was performed. Good blood supply was identified. No leakage or abnormality was noted. At this time, the bowel was returned to its anatomic position. The omentum was draped over the small bowel and we began the closure of the procedure. The fascia was reapproximated using #0 looped PDS suture. Skin incision was reapproximated after subcutaneous tissue was cleaned with surgical jennifer. Dressings were applied. The patient was taken directly to the intensive care unit for resuscitation and extubation when appropriate. The patient has the tobacco abuse history and COPD and will require slow weaning of ventilatory support. Cam Morrow M.D. DR: ELROY JOB#: [id number] CC: BRAXTON
[2020-09-13] MEDS ORDERED: Pantoprazole Inj IVP SCH (09:00)
--- NOTE | 2020-09-13 09:17 | Consultation ---
Consult Note Consult Note I am asked to evaluate the patient at the request of Dr. Barney for fluid and electrolyte management. Patient seen in ICU room D Patient examined, discussed with RN Patient intubated, has Priest catheter. Patient had exploratory laparotomy last night. Emergency room note: 70-year-old male here with cough, shortness of breath, abdominal discomfort. Patient appears slightly confused and is slow to respond to questions. However he is able to answer questions albeit slowly. Says that he is having a cough with some shortness of breath and also lower abdominal pain. Patient is a history of COPD. However he is a poor historian and is unable to provide me with further information such as his past medical history or medication regimen or how long he has been having his symptoms. Denies headaches, vision changes, chest pain, back pain, diarrhea, dysuria. Allergies: No Known Allergies (Unverified , 09/12/20) COVID-19 Screening Contact w/high risk pt: Yes Experienced COVID-19 symptoms?: No COVID-19 Testing performed MANTEL CRAFTSMAN: No COVID-19 Testing Source: unk History Of Psychiatric Problem: Yes - schizophrenia PHYSICAL EXAMINATION: GENERAL: Elderly man, seen in the ICU. HEENT: Normocephalic, atraumatic. The patient is intubated. NECK: Supple. CHEST: Revealed coarse breath sounds. CARDIOVASCULAR: Revealed a regular rate. ABDOMEN: Mildly distended with a large abdominal dressing. EXTREMITIES: Revealed no edema. LABORATORY AND DIAGNOSTIC DATA: Labs show white count of 6.6, hemoglobin of 13.8, hematocrit of 40, and platelet count is 180. Sodium 139, potassium 4.3, BUN of 16, creatinine 1.2, glucose of 166. Lactic acid 2.4. His initial troponin was negative. . Assessment/Plan Lactic acidosis Bowel perforation Sepsis COPD Fatty Liver Post surgery results: 1. Small bowel obstruction at the level of the ileocecal valve, secondary to unknown etiology, potential tumor mass. 2. Perforated cecum. 3. Acute cholecystitis. Plan: Postop care Check urine analysis IV fluid management Keep the electrolytes and renal parameters in check Antibiotics Per consultants CT scan of the abdomen and pelvis showed diffuse fatty liver and small bowel obstruction, free air in the peritoneum, cholelithiasis, diffuse gallbladder wall thickening. Price Heart MD Sep 13, 2020 09:17
--- NOTE | 2020-09-13 12:07 | Cardiology Report ---
APPROVED REPORT EKG Measurement Heart [id number] <Conclusion> Sinus tachycardia Otherwise normal ECG
--- NOTE | 2020-09-13 14:15 | Consultation ---
DATE OF CONSULTATION: 09/13/2020 INFECTIOUS DISEASES CONSULTATION CONSULTING PHYSICIAN: Delio Edgar MD PRIMARY ATTENDING PHYSICIAN: Vania Dwyer MD REASON FOR CONSULTATION: Sepsis, bowel perforation, acute cholecystitis. HISTORY OF PRESENT ILLNESS: This is a 70-year-old white male admitted yesterday from home complaining of weakness, shortness of breath, and abdominal discomfort. CT scan of the abdomen and pelvis showed free peritoneal air. He went to operation last night and had exploratory laparotomy that showed small bowel obstruction at the level of the ileocecal valve secondary to unknown etiology, perforated cecum, acute cholecystitis. The patient had small bowel resection, right colectomy, open cholecystectomy, and abdominal washout. He remains intubated after operation and is in ICU. PAST MEDICAL HISTORY: COPD and nicotine abuse. ALLERGIES: No known drug allergies. MEDICATIONS: Getting heparin, Protonix, Zosyn, Reglan, Zofran, morphine. SOCIAL HISTORY: Single. No other history obtainable. The patient currently is on restraints. PHYSICAL EXAMINATION: VITAL SIGNS: Temperature 96.7, pulse 107, blood pressure 124/63. GENERAL APPEARANCE: Seems to have normal weight. HEAD AND NECK: Orally intubated, has NG tube connected to suction. HEART: Tachycardic. LUNGS: Coarse sounds and rhonchi on mechanical ventilator. ABDOMEN: Flat. Has midline surgical dressing. EXTREMITIES: No edema. NEUROLOGIC: Open eyes and has some communication with nodding. LABORATORY AND DIAGNOSTIC DATA: WBC today is 6.6 and at the admission was 11, hemoglobin 13.8, hematocrit 40.4, platelet 180. Sodium 139, potassium 4.3, chloride 105, bicarb 27, BUN 16, creatinine 1.2. Lactic acid at the time of admission was 2.4, currently is 1. Lipase is 19. COVID-[address] scan of the abdomen and pelvis showed diffuse fatty liver and small bowel obstruction, free air in the peritoneum, cholelithiasis, diffuse gallbladder wall thickening. IMPRESSION: 1. Sepsis. 2. Small bowel obstruction and perforation. 3. Acute cholecystitis. 4. COPD. 5. Fatty liver. 6. Preoperative respiratory failure. RECOMMENDATION: 1. Continue Zosyn. 2. We will follow up the cultures. 3. We will follow up the pathology report. At the end of my exam, I thank Dr. Dwyer, for involving me in the care of this patient. Delio Edgar M.D. DR: Sapphire JOB#: [id number] CC: [email or web address]
--- NOTE | 2020-09-13 15:53 | Diagnostic Imaging Report ---
Indication: Reason For Exam: SOB Technique: Single AP view of the chest. Comparison: CT abdomen pelvis performed on same-day. Findings: The cardiomediastinal silhouette is within normal limits. Streaky left basilar airspace opacity is noted. There is patchy retrocardiac airspace opacity. There is a left upper lobe opacity, which may also be due to mucous plugging. No pneumothorax or pleural effusion. No acute osseous abnormality. Gaseous distention of multiple loops of bowel are partially visualized in the upper abdomen, better appreciated on same-day CT abdomen pelvis. IMPRESSION: Retrocardiac and left basilar airspace opacity corresponding to mucous plugging and atelectasis seen on same day CT abdomen pelvis.
--- NOTE | 2020-09-13 17:15 | Consultation ---
DATE OF CONSULTATION: 09/13/2020 PULMONARY/ICU CONSULTATION HISTORY OF PRESENT ILLNESS: This is a 70-year-old male admitted to the hospital with respiratory failure. The patient presented yesterday with cough, shortness of breath, and confusion. He was seen and evaluated and was found to have significant distention of the abdomen. He is tachycardic and hypotensive with high lactate. He underwent imaging studies including pelvic and abdomen CT, which showed free intra-abdominal air. The patient was seen urgently by General Surgery and he was taken expeditiously to the OR for laparotomy. He was found to have SBO at the level of ileocecal valve and a perforated cecum as well as cholecystitis. The patient underwent open cholecystectomy, abdominal washout and closure, small-bowel resection, right colectomy, and laparotomy by Dr. Cam Morrow. At this time, the patient remains intubated in ICU; he is currently being weaned. At this time, the patient is unable to provide any further history. PAST MEDICAL HISTORY: COPD. REVIEW OF SYSTEMS: Not obtainable. PHYSICAL EXAMINATION: GENERAL: Reveals a 70-year-old male. VITAL SIGNS: Blood pressure is 120/60, heart rate is 104, respirations are 22, O2 saturation 99% on AC/spontaneous mode on FiO2 of 40%. HEENT: Unremarkable. CHEST: Decreased breath sounds bilaterally. ABDOMEN: Soft and nondistended. Surgical dressings are noted. EXTREMITIES: There is no peripheral edema. NEUROLOGIC: Unavailable due to poor mental status. IMAGING STUDIES: As Discussed above. LABORATORY DATA: Lab testing shows normal CBC and BMP with glucose of 166. Lactic acid 1.0 now. CRP is 11.6. Coags are negative except for INR 1.6. ABG, pH 7.42, pCO2 of 36, pO2 of 74. IMPRESSION: 1. Cecal perforation. 2. Status post right colectomy, open cholecystectomy, and abdominal washout. 3. History of COPD. 4. Schizophrenia. DISCUSSION: Admit to ICU. We will wean and attempt to extubate. The patient needs broad-spectrum antibiotics. Currently, I note that he is on IV fluids, subcu heparin, morphine, Protonix, and Zosyn. IV fluids are in place. He received vancomycin also yesterday. We will monitor and wean. We will follow carefully. Venkatesh Lambert M.D. DR: Marsha JOB#: [id number] CC:
--- NOTE | 2020-09-13 17:45 | History and Physical Report ---
DATE OF ADMISSION: 09/12/2020 HISTORY OF PRESENT ILLNESS: Patient came in with weakness, altered mental status, was found to have free air on the imaging, was taken to the operating room emergently by Dr. Morrow, was found to have perforated colon with mass removed from the colon. Partial colectomy was done. Patient also was found to have acute cholecystitis, so cholecystectomy as well. Patient had fecal stool matter everywhere in the abdomen according to Dr. Morrow. Patient is admitted to ICU post operation exploratory laparotomy. Patient is intubated. Cannot get any history from the patient at this point. PAST MEDICAL HISTORY: COPD, heavy smoker, GERD, and psychosis. PAST SURGICAL HISTORY: Other than what he had before none. ALLERGIES: No known allergies. MEDICATIONS: Unable to obtain. Need to call the admitting facility to get the medications. FAMILY HISTORY: Unable to obtain. SOCIAL HISTORY: Patient has history of smoking. No history of alcohol or illicit drugs. Comes [facility] [place]. REVIEW OF SYSTEMS: Unable to obtain. Patient is intubated. However, according to facility patient came in because of weakness and altered mental status and confusion. PHYSICAL EXAMINATION: VITAL SIGNS: Pulse is 104, blood pressure is 111/61, temperature not recorded. HEENT: PERRLA. Patient is intubated. CHEST: Bilaterally clear to auscultation. CARDIOVASCULAR: Tachycardic. No murmurs. GASTROINTESTINAL: Soft. Positive bowel sounds. Hypoactive bowel sounds, but they are present. Status post exploratory laparotomy. EXTREMITIES: Dorsal pedis pulses are present. Moves all four extremities. Patient is actually restrained. LABORATORY DATA: Initially WBC was 11, hemoglobin 16.4, platelets 230. Sodium 139, potassium 4.3, chloride 105, glucose of 166, BUN of 16, creatinine 1.2. ASSESSMENT AND PLAN: Perforated viscus status post partial colectomy, acute cholecystitis status post cholecystectomy, mass was removed and biopsy was sent from the colon, stool fecal matter everywhere, sepsis, small bowel obstruction, COPD, respiratory failure, intubation. I have consulted Dr. Li, Dr. Heart, Dr. Venkatesh Lambert, Dr. Delio Edgar, Dr. Morrow, and Dr. De Paz to help with the management of this very complicated patient and the above findings on the imaging as well as abnormal laboratories. Antibiotics per Dr. Delio Edgar. Patient is in the intensive care unit. Vania Dwyer M.D. DR: MILTON JOB#: [id number] CC:
[2020-09-13 18:30] LABS: APPEARANCE,URINE VERY CLOUDY; BILIRUBIN, URINE NEGATIVE (NEGATIVE); COLOR,URINE AMBER; GLUCOSE, URINE (UA) NEGATIVE (NEGATIVE); KETONES,URINE 1+ (NEGATIVE); LEUKOCYTE ESTERASE ,URINE NEGATIVE (NEGATIVE); NITRITE,URINE NEGATIVE (NEGATIVE); PH,URINE 5 (4.5-8.0); PROTEIN,URINE 2+ (NEGATIVE); UROBILINOGEN,URINE NORMAL MG/DL (0.0-1.0)
--- NOTE | 2020-09-13 19:31 | Cardiac Electrophysiology PN ---
Subjective Subjective Seen in ICU and ICU team [id number] Objective Last 24 Hour Vital Signs Date Time Temp Pulse Resp B/P (MAP) Pulse Ox O2 Delivery O2 Flow Rate FiO2 09/13/20 18:45 115 25 30 09/13/20 18:00 110 24 115/69 (84) 99 09/13/20 17:23 106 22 30 09/13/20 17:00 103 25 117/66 (83) 99 09/13/20 16:00 Mechanical Ventilator 09/13/20 16:00 30 09/13/20 16:00 109 09/13/20 16:00 106 25 116/67 (83) 98 09/13/20 15:13 108 25 30 09/13/20 15:00 20 22 102/65 (77) 98 09/13/20 14:00 107 24 111/64 (80) 98 09/13/20 13:43 104 16 30 09/13/20 13:00 109 26 120/64 (82) 99 09/13/20 12:00 Mechanical Ventilator 09/13/20 12:00 30 09/13/20 12:00 107 24 111/61 (78) 99 09/13/20 12:00 104 09/13/20 11:13 106 28 40 40 09/13/20 11:00 109 25 108/61 (77) 99 09/13/20 10:00 109 31 120/54 (76) 99 09/13/20 09:00 107 25 124/63 (83) 99 09/13/20 08:48 105 24 40 40 09/13/20 08:30 103 22 103/56 (72) 100 09/13/20 08:20 100 09/13/20 08:20 40 09/13/20 08:20 102 22 40 40 09/13/20 08:00 40 09/13/20 08:00 Mechanical Ventilator 09/13/20 08:00 103 18 102/62 (75) 100 09/13/20 08:00 103 09/13/20 07:30 110 22 116/66 (83) 100 09/13/20 07:30 104 16 40 09/13/20 07:00 96.7 102 21 111/71 (84) 99 09/13/20 06:55 102 19 09/13/20 06:00 104 18 96/65 (75) 100 09/13/20 05:41 100 16 40 10 05:00 102 15 93/57 (69) 98 10 04:00 Mechanical Ventilator 50.0 09/13/20 04:00 97.7 109 12 121/70 (87) 98 10 04:00 110 10 04:00 40 10 03:45 108 12 100/45 (63) 97 09/13/20 03:30 106 12 101/67 (78) 98 10 03:28 108 12 50 10 03:00 108 12 108/69 (82) 97 09/13/20 02:45 105 12 97/62 (74) 98 09/13/20 02:30 106 12 100/63 (75) 98 09/13/20 02:15 97.7 109 12 101/63 (76) 98 09/13/20 02:00 111 12 105/67 (80) 98 09/13/20 01:55 112 12 111/65 (80) 98 09/13/20 01:50 112 12 109/65 (80) 98 09/13/20 01:50 113 12 113/64 (80) 98 09/13/20 01:45 113 12 113/64 (80) 98 09/13/20 01:40 114 12 111/64 (80) 99 09/13/20 01:35 114 12 105/64 (78) 99 09/13/20 01:30 115 12 109/67 (81) 99 09/13/20 01:26 115 12 100 Mechanical Ventilator 50 09/13/20 01:25 115 12 116/65 (82) 100 09/13/20 01:20 116 12 125/64 (84) 100 09/13/20 01:19 115 12 50 09/13/20 01:15 113 12 169/74 (105) 100 09/13/20 01:10 11 148/76 (100) 100 09/13/20 01:05 116 19 166/83 (110) 100 10 01:02 112 20 100 10 01:00 117 18 160/79 (106) 100 10 01:00 Mechanical Ventilator 50.0 09/13/20 01:00 Mechanical Ventilator 50.0 09/13/20 00:59 117 10 00:57 97.9 119 18 144/86 (105) 100 09/13/20 00:00 40 09/12/20 22:25 98.6 116 22 119/67 96 Room Air 09/12/20 21:27 98.6 116 22 119/67 96 Room Air Intake and Output 09/12/20 09/13/20 19:00 07:00 Intake Total 200 ml 707.5 ml Output Total 250 ml Balance 200 ml 457.5 ml Intake Oral 200 ml 0 ml IV Total 707.5 ml Output Gastric Drainage Total 250 ml # Voids 460 # Bowel Movements 3 Laboratory Tests Test 09/12/20 20:15 09/13/20 03:40 09/13/20 09:37 09/13/20 12:52 Lactic Acid Level 2.40 mmol/L (0.66-2.22) H 1.00 mmol/L (0.4-2.0) White Blood Count 6.6 K/UL (4.8-10.8) Red Blood Count 4.83 M/UL (4.70-6.10) Hemoglobin 13.8 G/DL (14.2-18.0) L Hematocrit 40.4 % (42.0-52.0) L Mean Corpuscular Volume 84 FL (80-99) Mean Corpuscular Hemoglobin 28.5 PG (27.0-31.0) Mean Corpuscular Hemoglobin Concent 34.1 G/DL (32.0-36.0) Red Cell Distribution Width 12.9 % (11.6-14.8) Platelet Count 180 K/UL (150-450) Mean Platelet Volume 6.4 FL (6.5-10.1) L Neutrophils (%) (Auto) 84.8 % (45.0-75.0) H Lymphocytes (%) (Auto) 7.4 % (20.0-45.0) L Monocytes (%) (Auto) 5.0 % (1.0-10.0) Eosinophils (%) (Auto) 0.0 % (0.0-3.0) Basophils (%) (Auto) 2.8 % (0.0-2.0) H Prothrombin Time 17.4 SEC (9.30-11.50) H Prothromb Time International Ratio 1.6 (0.9-1.1) H Activated Partial Thromboplast Time 43 SEC (23-33) H Sodium Level 139 MMOL/L (136-145) Potassium Level 4.3 MMOL/L (3.5-5.1) Chloride Level 105 MMOL/L (98-107) Carbon Dioxide Level 27 MMOL/L (21-32) Blood Urea Nitrogen 16 mg/dL (7-18) Creatinine 1.2 MG/DL (0.55-1.30) Estimat Glomerular Filtration Rate 59.9 mL/min (>60) Glucose Level 166 MG/DL (74-106) H Calcium Level 7.3 MG/DL (8.5-10.1) L Total Bilirubin 0.5 MG/DL (0.2-1.0) Aspartate Amino Transf (AST/SGOT) 40 U/L (15-37) H Alanine Aminotransferase (ALT/SGPT) 16 U/L (12-78) Alkaline Phosphatase 73 U/L (46-116) C-Reactive Protein, Quantitative 11.6 mg/dL (0.00-0.90) H Total Protein 5.0 G/DL (6.4-8.2) L Albumin 3.1 G/DL (3.4-5.0) L Globulin 1.9 g/dL Albumin/Globulin Ratio 1.6 (1.0-2.7) Amylase Level 17 U/L (25-115) L Lipase 19 U/L (73-393) L Arterial Blood pH 7.340 (7.350-7.450) 7.336 (7.350-7.450) Arterial Blood Partial Pressure CO2 45.4 mmHg (35.0-45.0) H 48.4 mmHg (35.0-45.0) H Arterial Blood Partial Pressure O2 88.3 mmHg (75.0-100.0) 213.1 mmHg (75.0-100.0) H Arterial Blood HCO3 23.9 mmol/L (22.0-26.0) 25.3 mmol/L (22.0-26.0) Arterial Blood Oxygen Saturation 96.1 % (95-100) 98.8 % (95-100) Arterial Blood Base Excess -2.0 (-2-2) -1.0 (-2-2) Josse Test Positive Positive Test 09/13/20 15:00 Urine Color Tatiana Urine Appearance Very cloudy Urine pH 5 (4.5-8.0) Urine Specific [place] 1.025 (1.005-1.035) Urine Protein 2+ (NEGATIVE) H Urine Glucose (UA) Negative (NEGATIVE) Urine Ketones 1+ (NEGATIVE) H Urine Blood 5+ (NEGATIVE) H Urine Nitrite Negative (NEGATIVE) Urine Bilirubin Negative (NEGATIVE) Urine Ictotest Negative (NEGATIVE) Urine Urobilinogen Normal MG/DL (0.0-1.0) Urine Leukocyte Esterase Negative (NEGATIVE) Urine RBC 20-30 /HPF (0 - 0) H Urine WBC 0-2 /HPF (0 - 0) Urine Squamous Epithelial Cells Occasional /LPF Urine Bacteria Many /HPF (NONE) H Microbiology Date/Time Source Procedure Growth Status 09/12/20 23:10 Peritoneal Fluid Gram Stain - Final Resulted 09/12/20 23:10 Peritoneal Fluid Aerobic Culture Pending Resulted 09/12/20 23:10 Peritoneal Fluid Anaerobic Culture Pending Resulted 09/12/20 21:00 Rectum Received 09/12/20 18:35 Nasopharynx SARS-CoV-2 RdRp Gene Assay - Final Complete Jason Li MD Sep 13, 2020 19:31
--- NOTE | 2020-09-13 20:13 | General Progress Note ---
Subjective Allergies: Coded Allergies: No Known Allergies (Unverified , 09/12/20) Objective Last 24 Hour Vital Signs Date Time Temp Pulse Resp B/P (MAP) Pulse Ox O2 Delivery O2 Flow Rate FiO2 09/13/20 18:45 115 25 30 09/13/20 18:00 110 24 115/69 (84) 99 09/13/20 17:23 106 22 30 09/13/20 17:00 103 25 117/66 (83) 99 09/13/20 16:00 Mechanical Ventilator 09/13/20 16:00 30 09/13/20 16:00 109 09/13/20 16:00 106 25 116/67 (83) 98 09/13/20 15:13 108 25 30 09/13/20 15:00 20 22 102/65 (77) 98 09/13/20 14:00 107 24 111/64 (80) 98 09/13/20 13:43 104 16 30 09/13/20 13:00 109 26 120/64 (82) 99 09/13/20 12:00 Mechanical Ventilator 09/13/20 12:00 30 09/13/20 12:00 107 24 111/61 (78) 99 09/13/20 12:00 104 09/13/20 11:13 106 28 40 40 09/13/20 11:00 109 25 108/61 (77) 99 09/13/20 10:00 109 31 120/54 (76) 99 09/13/20 09:00 107 25 124/63 (83) 99 09/13/20 08:48 105 24 40 40 09/13/20 08:30 103 22 103/56 (72) 100 09/13/20 08:20 100 09/13/20 08:20 40 09/13/20 08:20 102 22 40 40 09/13/20 08:00 40 09/13/20 08:00 Mechanical Ventilator 09/13/20 08:00 103 18 102/62 (75) 100 09/13/20 08:00 103 09/13/20 07:30 110 22 116/66 (83) 100 09/13/20 07:30 104 16 40 09/13/20 07:00 96.7 102 21 111/71 (84) 99 09/13/20 06:55 102 19 09/13/20 06:00 104 18 96/65 (75) 100 09/13/20 05:41 100 16 40 1020 05:00 102 15 93/57 (69) 98 10 04:00 Mechanical Ventilator 50.0 10 04:00 97.7 109 12 121/70 (87) 98 1020 04:00 110 1020 04:00 40 1020 03:45 108 12 100/45 (63) 97 10 03:30 106 12 101/67 (78) 98 1020 03:28 108 12 50 1020 03:00 108 12 108/69 (82) 97 1020 02:45 105 12 97/62 (74) 98 10 02:30 106 12 100/63 (75) 98 10 02:15 97.7 109 12 101/63 (76) 98 10 02:00 111 12 105/67 (80) 98 10 01:55 112 12 111/65 (80) 98 09/13/20 01:50 112 12 109/65 (80) 98 09/13/20 01:50 113 12 113/64 (80) 98 1020 01:45 113 12 113/64 (80) 98 09/13/20 01:40 114 12 111/64 (80) 99 10 01:35 114 12 105/64 (78) 99 10 01:30 115 12 109/67 (81) 99 10 01:26 115 12 100 Mechanical Ventilator 50 09/13/20 01:25 115 12 116/65 (82) 100 1020 01:20 116 12 125/64 (84) 100 1020 01:19 115 12 50 1020 01:15 113 12 169/74 (105) 100 10 01:10 11 148/76 (100) 100 10 01:05 116 19 166/83 (110) 100 1020 01:02 112 20 100 1020 01:00 117 18 160/79 (106) 100 10 01:00 Mechanical Ventilator 50.0 09/13/20 01:00 Mechanical Ventilator 50.0 09/13/20 00:59 117 09/13/20 00:57 97.9 119 18 144/86 (105) 100 09/13/20 00:00 40 09/12/20 22:25 98.6 116 22 119/67 96 Room Air 09/12/20 21:27 98.6 116 22 119/67 96 Room Air Intake and Output 09/12/20 09/13/20 19:00 07:00 Intake Total 200 ml 707.5 ml Output Total 250 ml Balance 200 ml 457.5 ml Intake Oral 200 ml 0 ml IV Total 707.5 ml Output Gastric Drainage Total 250 ml # Voids 460 # Bowel Movements 3 Laboratory Tests 09/12/20 20:15: Lactic Acid Level 2.40H 09/13/20 03:40: Lactic Acid Level 1.00, White Blood Count 6.6, Red Blood Count 4.83, Hemoglobin 13.8L, Hematocrit 40.4L, Mean Corpuscular Volume 84, Mean Corpuscular Hemoglobin 28.5, Mean Corpuscular Hemoglobin Concent 34.1, Red Cell Distribution Width 12.9, Platelet Count 180, Mean Platelet Volume 6.4L, Neutrophils (%) (Auto) 84.8H, Lymphocytes (%) (Auto) 7.4L, Monocytes (%) (Auto) 5.0, Eosinophils (%) (Auto) 0.0, Basophils (%) (Auto) 2.8H, Prothrombin Time 17.4H, Prothromb Time International Ratio 1.6H, Activated Partial Thromboplast Time 43H, Sodium Level 139, Potassium Level 4.3, Chloride Level 105, Carbon Dioxide Level 27, Blood Urea Nitrogen 16, Creatinine 1.2, Estimat Glomerular Filtration Rate 59.9, Glucose Level 166H, Calcium Level 7.3L, Total Bilirubin 0.5, Aspartate Amino Transf (AST/SGOT) 40H, Alanine Aminotransferase (ALT/SGPT) 16, Alkaline Phosphatase 73, C-Reactive Protein, Quantitative 11.6H, Total Protein 5.0L, Albumin 3.1L, Globulin 1.9, Albumin/Globulin Ratio 1.6, Amylase Level 17L, Lipase 19L 09/13/20 09:37: Arterial Blood pH 7.340L, Arterial Blood Partial Pressure CO2 45.4H, Arterial Blood Partial Pressure O2 88.3, Arterial Blood HCO3 23.9, Arterial Blood Oxygen Saturation 96.1, Arterial Blood Base Excess -2.0, Josse Test Positive 09/13/20 12:52: Arterial Blood pH 7.336L, Arterial Blood Partial Pressure CO2 48.4H, Arterial Blood Partial Pressure O2 213.1H, Arterial Blood HCO3 25.3, Arterial Blood Oxygen Saturation 98.8, Arterial Blood Base Excess -1.0, Josse Test Positive 09/13/20 15:00: Urine Color Tatiana, Urine Appearance Very cloudy, Urine pH 5, Urine Specific [place] 1.025, Urine Protein 2+H, Urine Glucose (UA) Negative, Urine Ketones 1+H , Urine Blood 5+H, Urine Nitrite Negative, Urine Bilirubin Negative, Urine Ictotest Negative, Urine Urobilinogen Normal, Urine Leukocyte Esterase Negative, Urine RBC 20-30H, Urine WBC 0-2, Urine Squamous Epithelial Cells Occasional, Urine Bacteria ManyH Height (Feet): 6 Height (Inches): 0.00 Weight (Pounds): 155 Assessment/Plan Assessment/Plan: Assessment - IC valve area SBO - Cecal perforation - s/p sancho for cholecystitis Recommendations - post op care - Feeds when OK'd by surgery - follow labs and exam Froilan De Paz MD Sep 13, 2020 20:13
[2020-09-13] MEDS: Pantoprazole Inj IVP SCH (20:17)
--- NOTE | 2020-09-13 20:45 | Consultation ---
DATE OF CONSULTATION: 09/13/2020 CARDIOLOGY CONSULTATION CONSULTING PHYSICIAN: Jason Li MD REFERRING PHYSICIAN: Vania Dwyer MD REASON FOR CONSULTATION: Tachycardia, respiratory failure. HISTORY OF PRESENT ILLNESS: Patient is a 70-year-old gentleman with history of COPD who presented to the hospital with shortness of breath, confusion, and abdominal distention. Patient was hypotensive and tachycardic with high lactate level. The CT of the abdomen and pelvis shows free intraabdominal air. Patient was taken urgently by Dr. Morrow to the OR and underwent laparotomy and found to have a small bowel obstruction at the level of the ileocecal valve as well as perforated cecum and cholecystitis. Patient underwent open cholecystectomy, abdominal washout, small bowel resection, right colectomy, and laparotomy. At the time of my evaluation, patient is in intensive care unit on the ventilator even though he is being weaned. Patient is alert, but is not able to provide any information at this point. REVIEW OF SYSTEMS: Cannot be obtained. Patient is currently intubated on a ventilator. PAST MEDICAL HISTORY: As mentioned above. SOCIAL HISTORY: Has no history of drinking alcohol or doing street drugs. PHYSICAL EXAMINATION: VITAL SIGNS: Show blood pressure of 115/69, pulse is 110, respirations 18. HEAD AND NECK: Shows no JVD. He is orally intubated with an NG-tube. LUNGS: Coarse rhonchi. CARDIOVASCULAR: Shows regular S1 and S2 with no gallop. ABDOMEN: Tender and is status post laparotomy. EXTREMITIES: No pitting edema. LABORATORY AND DIAGNOSTIC DATA: Labs show white count of 6.6, hemoglobin of 13.8, hematocrit of 40, and platelet count is 180. Sodium 139, potassium 4.3, BUN of 16, creatinine 1.2, glucose of 166. Lactic acid 2.4. His initial troponin was negative. ASSESSMENT AND PLAN: 1. Tachycardia. This is due to sepsis in this patient with respiratory failure and has just underwent surgery in intensive care unit on the ventilator. I will repeat cardiac enzymes. I will get an echocardiogram to evaluate for ejection fraction and wall motion abnormality. 2. Respiratory failure. This patient has history of COPD and currently is postop. Hopefully, we will wean the patient off the ventilator. 3. Tachycardia. I will repeat the troponin in the morning as well as EKG to make sure patient has not developed acute coronary syndrome. 4. Sepsis due to acute abdomen, status post surgery by Dr. Morrow including cholecystectomy as well as right colectomy and small bowel resection. Further evaluation by Dr. Morrow. Currently on IV antibiotics. Thank you very much, Dr. Dwyer, for allowing me to participate in the care of this patient. Please do not hesitate to contact me for any questions regarding my evaluation. The case was discussed with the ICU team. Jason Li M.D. DR: FLEX JOB#: [id number] CC:
[2020-09-14] VITALS (24 sets, daily range): BP systolic 96–144; BP diastolic 62–89
[2020-09-14] MEDS: Piperacillin/Tazobactam 3.375 GM in NS 110 ML IVPB SCH ×3 (01:08→17:06)
[2020-09-14] MEDS: D5 1/2NS w/KCl 20mEq 1,000 ML IV SCH ×3 (01:09→17:06)
[2020-09-14 05:52] LABS: HEMATOCRIT 40.7 % (42.0-52.0); HEMOGLOBIN 13.4 G/DL (14.2-18.0); MEAN CORPUSCULAR VOLUME 88 FL (80-99); PLATELET COUNT 166 K/UL (150-450); RED CELL DISTRIBUTION WIDTH 14.2 % (11.6-14.8)
[2020-09-14] MEDS: Heparin 5000 units/ml inj SUBQ SCH ×3 (06:18→20:58)
[2020-09-14 06:46] LABS: ALANINE AMINOTRANSFERASE 15 U/L (12-78); ALBUMIN 2.6 G/DL (3.4-5.0); ALKALINE PHOSPHATASE 81 U/L (46-116); ANION GAP 7 mmol/L (5-15); ASPARTATE AMINO TRANSFERASE 32 U/L (15-37); BILIRUBIN,TOTAL 0.5 MG/DL (0.2-1.0); BLOOD UREA NITROGEN 14 mg/dL (7-18); CALCIUM 7.2 MG/DL (8.5-10.1); CARBON DIOXIDE 27 MMOL/L (21-32); CHLORIDE 103 MMOL/L (98-107); CHOLESTEROL 82 MG/DL (< 200); CREATININE 1.1 MG/DL (0.55-1.30); GAMMA GLUTAMYL TRANSPEPTIDASE 12 U/L (5-85); HDL CHOLESTEROL 16 MG/DL (40-60); PHOSPHORUS 2.7 MG/DL (2.5-4.9); POTASSIUM 4.2 MMOL/L (3.5-5.1); SODIUM 137 MMOL/L (136-145); TRIGLYCERIDES 56 MG/DL (30-150)
[2020-09-14] MEDS: Pantoprazole Inj IVP SCH ×2 (08:34→20:58)
--- NOTE | 2020-09-14 10:27 | Nephrology Progress Note ---
Assessment/Plan Problem List: (1) Lactic acid increased (2) Electrolyte imbalance (3) SBO (small bowel obstruction) (4) Sepsis (5) Bowel perforation Assessment Lactic acidosis Bowel perforation Sepsis Plan Postop care, weaning from ventilator ~failed so far Check urine analysis, noted IV fluid management Keep the electrolytes and renal parameters in check Antibiotics Per consultants Post surgery results: 1. Small bowel obstruction at the level of the ileocecal valve, secondary to unknown etiology, potential tumor mass. 2. Perforated cecum. 3. Acute cholecystitis. Subjective ROS Limited/Unobtainable: Yes Objective Objective Last 24 Hour Vital Signs Date Time Temp Pulse Resp B/P (MAP) Pulse Ox O2 Delivery O2 Flow Rate FiO2 09/14/20 10:00 103 20 116/74 (88) 98 09/14/20 09:00 108 24 120/62 (81) 95 09/14/20 08:00 97.8 100 21 124/71 (88) 98 09/14/20 08:00 Mechanical Ventilator 09/14/20 08:00 30 09/14/20 07:55 101 09/14/20 07:00 101 21 128/66 (86) 99 09/14/20 06:30 104 20 09/14/20 06:00 107 23 119/70 (86) 100 09/14/20 05:15 113 18 30 09/14/20 05:00 121 23 144/63 (90) 100 09/14/20 04:00 30 09/14/20 04:00 Mechanical Ventilator 09/14/20 04:00 98.2 107 24 128/75 (92) 98 09/14/20 04:00 103 09/14/20 03:00 105 22 111/70 (84) 98 09/14/20 02:43 109 21 30 09/14/20 02:00 104 21 110/68 (82) 97 09/14/20 01:00 105 23 107/68 (81) 98 09/14/20 00:45 104 22 30 09/14/20 00:00 30 09/14/20 00:00 Mechanical Ventilator 09/14/20 00:00 98.4 105 22 111/67 (82) 99 09/14/20 00:00 107 09/13/20 23:00 109 25 110/77 (88) 98 09/13/20 22:35 108 22 30 09/13/20 22:00 107 23 119/65 (83) 99 09/13/20 21:00 106 21 134/71 (92) 100 09/13/20 20:59 106 26 30 09/13/20 20:00 110 09/13/20 20:00 Mechanical Ventilator 09/13/20 20:00 98.1 111 25 118/64 (82) 99 09/13/20 20:00 30 09/13/20 19:00 112 22 124/76 (92) 99 09/13/20 18:45 115 25 30 09/13/20 18:00 110 24 115/69 (84) 99 09/13/20 17:23 106 22 30 09/13/20 17:00 103 25 117/66 (83) 99 09/13/20 16:00 Mechanical Ventilator 09/13/20 16:00 30 09/13/20 16:00 109 09/13/20 16:00 106 25 116/67 (83) 98 09/13/20 15:13 108 25 30 09/13/20 15:00 20 22 102/65 (77) 98 09/13/20 14:00 107 24 111/64 (80) 98 09/13/20 13:43 104 16 30 09/13/20 13:00 109 26 120/64 (82) 99 09/13/20 12:00 Mechanical Ventilator 09/13/20 12:00 30 09/13/20 12:00 107 24 111/61 (78) 99 09/13/20 12:00 104 09/13/20 11:13 106 28 40 40 09/13/20 11:00 109 25 108/61 (77) 99 Intake and Output 09/13/20 09/14/20 19:00 07:00 Intake Total 1235.0 ml 1485.0 ml Output Total 105 ml 50 ml Balance 1130.0 ml 1435.0 ml Intake Oral 0 ml 0 ml IV Total 1235.0 ml 1485.0 ml Output Gastric Drainage Total 105 ml 50 ml # Voids 780 400 Laboratory Tests 09/13/20 12:52: Arterial Blood pH 7.336L, Arterial Blood Partial Pressure CO2 48.4H, Arterial Blood Partial Pressure O2 213.1H, Arterial Blood HCO3 25.3, Arterial Blood Oxygen Saturation 98.8, Arterial Blood Base Excess -1.0, Josse Test Positive 09/13/20 15:00: Urine Color Tatiana, Urine Appearance Very cloudy, Urine pH 5, Urine Specific [place] 1.025, Urine Protein 2+H, Urine Glucose (UA) Negative, Urine Ketones 1+H , Urine Blood 5+H, Urine Nitrite Negative, Urine Bilirubin Negative, Urine Ictotest Negative, Urine Urobilinogen Normal, Urine Leukocyte Esterase Negative, Urine RBC 20-30H, Urine WBC 0-2, Urine Squamous Epithelial Cells Occasional, Urine Bacteria ManyH 09/14/20 05:35: White Blood Count 10.0#, Red Blood Count 4.60L, Hemoglobin 13.4L, Hematocrit 40.7L, Mean Corpuscular Volume 88, Mean Corpuscular Hemoglobin 29.1, Mean Corpuscular Hemoglobin Concent 32.9, Red Cell Distribution Width 14.2, Platelet Count 166, Mean Platelet Volume 7.2, Neutrophils (%) (Auto) , Lymphocytes (%) (Auto) , Monocytes (%) (Auto) , Eosinophils (%) (Auto) , Basophils (%) (Auto) , Differential Total Cells Counted 100, Neutrophils % (Manual) 78H, Lymphocytes % (Manual) 6L, Monocytes % (Manual) 2, Eosinophils % (Manual) 0, Basophils % (Manual) 0, Band Neutrophils 14H, Platelet Estimate Adequate, Platelet Morphology Normal, Red Blood Cell Morphology Normal, Sodium Level 137, Potassium Level 4.2, Chloride Level 103, Carbon Dioxide Level 27, Anion Gap 7, Blood Urea Nitrogen 14, Creatinine 1.1, Estimat Glomerular Filtration Rate > 60, Glucose Level 123H, Hemoglobin A1c 5.6, Lactic Acid Level 1.70, Uric Acid 2.8, Calcium Level 7.2L, Phosphorus Level 2.7, Magnesium Level 1.6L, Total Bilirubin 0.5, Gamma Glutamyl Transpeptidase 12, Aspartate Amino Transf (AST/SGOT) 32, Alanine Aminotransferase (ALT/SGPT) 15, Alkaline Phosphatase 81, Troponin I 0.000, C- Reactive Protein, Quantitative 26.6H, Pro-B-Type Natriuretic Peptide 1072H, Total Protein 5.1L, Albumin 2.6L, Globulin 2.5, Albumin/Globulin Ratio 1.0, Triglycerides Level 56, Cholesterol Level 82, LDL Cholesterol 27, HDL Cholesterol 16L, Cholesterol/HDL Ratio 5.1H, Vitamin B12 Level 560, Folate 16.1, Thyroid Stimulating Hormone (TSH) 1.134 Height (Feet): 6 Height (Inches): 0.00 Weight (Pounds): 155 General Appearance: no apparent distress EENT: other Cardiovascular: tachycardia Respiratory/Chest: decreased breath sounds Abdomen: distended Price Heart MD Sep 14, 2020 10:27
--- NOTE | 2020-09-14 10:44 | Infectious Diseases Prog Note ---
Assessment/Plan Assessment/Plan IMPRESSION: 1. Sepsis. 2. Small bowel obstruction and perforation. 3. Acute cholecystitis. 4. COPD. 5. Fatty liver. 6. Preoperative respiratory failure. RECOMMENDATION: 1. Continue Zosyn. 2. We will follow up the cultures. 3. We will follow up the pathology report. Subjective ROS Limited/Unobtainable: Yes Constitutional: Denies: fever Respiratory: Reports: other - on weaning process Gastrointestinal/Abdominal: Reports: other - pain Allergies: Coded Allergies: No Known Allergies (Unverified , 09/12/20) Objective Last 24 Hour Vital Signs Date Time Temp Pulse Resp B/P (MAP) Pulse Ox O2 Delivery O2 Flow Rate FiO2 09/14/20 10:00 103 20 116/74 (88) 98 09/14/20 09:10 106 21 30 09/14/20 09:00 108 24 120/62 (81) 95 09/14/20 08:00 97.8 100 21 124/71 (88) 98 09/14/20 08:00 Mechanical Ventilator 09/14/20 08:00 30 09/14/20 07:55 101 09/14/20 07:25 105 21 30 09/14/20 07:00 101 21 128/66 (86) 99 09/14/20 06:30 104 20 09/14/20 06:00 107 23 119/70 (86) 100 09/14/20 05:15 113 18 30 09/14/20 05:00 121 23 144/63 (90) 100 09/14/20 04:00 30 09/14/20 04:00 Mechanical Ventilator 09/14/20 04:00 98.2 107 24 128/75 (92) 98 09/14/20 04:00 103 09/14/20 03:00 105 22 111/70 (84) 98 09/14/20 02:43 109 21 30 09/14/20 02:00 104 21 110/68 (82) 97 09/14/20 01:00 105 23 107/68 (81) 98 09/14/20 00:45 104 22 30 09/14/20 00:00 30 09/14/20 00:00 Mechanical Ventilator 09/14/20 00:00 98.4 105 22 111/67 (82) 99 09/14/20 00:00 107 09/13/20 23:00 109 25 110/77 (88) 98 09/13/20 22:35 108 22 30 09/13/20 22:00 107 23 119/65 (83) 99 09/13/20 21:00 106 21 134/71 (92) 100 09/13/20 20:59 106 26 30 09/13/20 20:00 110 09/13/20 20:00 Mechanical Ventilator 09/13/20 20:00 98.1 111 25 118/64 (82) 99 09/13/20 20:00 30 09/13/20 19:00 112 22 124/76 (92) 99 09/13/20 18:45 115 25 30 09/13/20 18:00 110 24 115/69 (84) 99 09/13/20 17:23 106 22 30 09/13/20 17:00 103 25 117/66 (83) 99 09/13/20 16:00 Mechanical Ventilator 09/13/20 16:00 30 09/13/20 16:00 109 09/13/20 16:00 106 25 116/67 (83) 98 09/13/20 15:13 108 25 30 09/13/20 15:00 20 22 102/65 (77) 98 09/13/20 14:00 107 24 111/64 (80) 98 09/13/20 13:43 104 16 30 09/13/20 13:00 109 26 120/64 (82) 99 09/13/20 12:00 Mechanical Ventilator 09/13/20 12:00 30 09/13/20 12:00 107 24 111/61 (78) 99 09/13/20 12:00 104 09/13/20 11:13 106 28 40 40 09/13/20 11:00 109 25 108/61 (77) 99 Height (Feet): 6 Height (Inches): 0.00 Weight (Pounds): 155 HEENT: other - orallly intubated Respiratory/Chest: lungs clear, other - on Ventilator Cardiovascular: tachycardia Abdomen: other - NG to suction Extremities: no edema Neurologic/Psychiatric: alert, responsive Microbiology Date/Time Source Procedure Growth Status 09/13/20 15:00 Urine,Clean Catch Urine Culture - Preliminary NO GROWTH Resulted 09/12/20 23:10 Peritoneal Fluid Gram Stain - Final Resulted 09/12/20 23:10 Aerobic Culture - Preliminary Gram Negative Bacillus 1 Gram Negative Bacillus 2 Resulted 09/12/20 23:10 Peritoneal Fluid Anaerobic Culture Pending Resulted 09/12/20 21:00 Rectum Received 09/12/20 18:35 Nasopharynx SARS-CoV-2 RdRp Gene Assay - Final Complete 09/12/20 18:35 Blood Blood Culture - Preliminary NO GROWTH AFTER 24 HOURS Resulted 09/12/20 18:20 Blood Blood Culture - Preliminary NO GROWTH AFTER 24 HOURS Resulted Laboratory Tests Test 09/13/20 12:52 09/13/20 15:00 09/14/20 05:35 Arterial Blood pH 7.336 (7.350-7.450) Arterial Blood Partial Pressure CO2 48.4 mmHg (35.0-45.0) H Arterial Blood Partial Pressure O2 213.1 mmHg (75.0-100.0) H Arterial Blood HCO3 25.3 mmol/L (22.0-26.0) Arterial Blood Oxygen Saturation 98.8 % (95-100) Arterial Blood Base Excess -1.0 (-2-2) Josse Test Positive Urine Color Tatiana Urine Appearance Very cloudy Urine pH 5 (4.5-8.0) Urine Specific [place] 1.025 (1.005-1.035) Urine Protein 2+ (NEGATIVE) H Urine Glucose (UA) Negative (NEGATIVE) Urine Ketones 1+ (NEGATIVE) H Urine Blood 5+ (NEGATIVE) H Urine Nitrite Negative (NEGATIVE) Urine Bilirubin Negative (NEGATIVE) Urine Ictotest Negative (NEGATIVE) Urine Urobilinogen Normal MG/DL (0.0-1.0) Urine Leukocyte Esterase Negative (NEGATIVE) Urine RBC 20-30 /HPF (0 - 0) H Urine WBC 0-2 /HPF (0 - 0) Urine Squamous Epithelial Cells Occasional /LPF Urine Bacteria Many /HPF (NONE) H White Blood Count 10.0 K/UL (4.8-10.8) # Red Blood Count 4.60 M/UL (4.70-6.10) L Hemoglobin 13.4 G/DL (14.2-18.0) L Hematocrit 40.7 % (42.0-52.0) L Mean Corpuscular Volume 88 FL (80-99) Mean Corpuscular Hemoglobin 29.1 PG (27.0-31.0) Mean Corpuscular Hemoglobin Concent 32.9 G/DL (32.0-36.0) Red Cell Distribution Width 14.2 % (11.6-14.8) Platelet Count 166 K/UL (150-450) Mean Platelet Volume 7.2 FL (6.5-10.1) Neutrophils (%) (Auto) % (45.0-75.0) Lymphocytes (%) (Auto) % (20.0-45.0) Monocytes (%) (Auto) % (1.0-10.0) Eosinophils (%) (Auto) % (0.0-3.0) Basophils (%) (Auto) % (0.0-2.0) Differential Total Cells Counted 100 Neutrophils % (Manual) 78 % (45-75) H Lymphocytes % (Manual) 6 % (20-45) L Monocytes % (Manual) 2 % (1-10) Eosinophils % (Manual) 0 % (0-3) Basophils % (Manual) 0 % (0-2) Band Neutrophils 14 % (0-8) H Platelet Estimate Adequate Platelet Morphology Normal Red Blood Cell Morphology Normal Sodium Level 137 MMOL/L (136-145) Potassium Level 4.2 MMOL/L (3.5-5.1) Chloride Level 103 MMOL/L (98-107) Carbon Dioxide Level 27 MMOL/L (21-32) Anion Gap 7 mmol/L (5-15) Blood Urea Nitrogen 14 mg/dL (7-18) Creatinine 1.1 MG/DL (0.55-1.30) Estimat Glomerular Filtration Rate > 60 mL/min (>60) Glucose Level 123 MG/DL (74-106) H Hemoglobin A1c 5.6 % (4.3-6.0) Lactic Acid Level 1.70 mmol/L (0.4-2.0) Uric Acid 2.8 MG/DL (2.6-7.2) Calcium Level 7.2 MG/DL (8.5-10.1) L Phosphorus Level 2.7 MG/DL (2.5-4.9) Magnesium Level 1.6 MG/DL (1.8-2.4) L Total Bilirubin 0.5 MG/DL (0.2-1.0) Gamma Glutamyl Transpeptidase 12 U/L (5-85) Aspartate Amino Transf (AST/SGOT) 32 U/L (15-37) Alanine Aminotransferase (ALT/SGPT) 15 U/L (12-78) Alkaline Phosphatase 81 U/L (46-116) Troponin I 0.000 ng/mL (0.000-0.056) C-Reactive Protein, Quantitative 26.6 mg/dL (0.00-0.90) H Pro-B-Type Natriuretic Peptide 1072 pg/mL (0-125) H Total Protein 5.1 G/DL (6.4-8.2) L Albumin 2.6 G/DL (3.4-5.0) L Globulin 2.5 g/dL Albumin/Globulin Ratio 1.0 (1.0-2.7) Triglycerides Level 56 MG/DL (30-150) Cholesterol Level 82 MG/DL (< 200) LDL Cholesterol 27 mg/dL (<100) HDL Cholesterol 16 MG/DL (40-60) L Cholesterol/HDL Ratio 5.1 (3.3-4.4) H Vitamin B12 Level 560 PG/ML (193-986) Folate 16.1 NG/ML (8.6-58.9) Thyroid Stimulating Hormone (TSH) 1.134 uiU/mL (0.358-3.740) Current Medications Medications (Trade) Dose Ordered Sig/Jojo Route PRN Reason Start Time Stop Time Status Last Admin Dose Admin Dextrose/ Electrolytes 1,000 ml @ 125 mls/hr Q8H IV 09/13/20 01:00 10/13/20 00:59 09/14/20 09:00 Heparin Sodium (Porcine) (Heparin 5000 units/ml) 5,000 units EVERY 8 HOURS SUBQ 09/14/20 06:00 10/29/20 05:59 09/14/20 06:18 Iohexol (OMNIPAQUE-300 100ml) 100 ml NOW PRN INJ Radiology Procedure 09/12/20 20:00 09/14/20 19:59 Lorazepam (Ativan 2mg/ml 1ml) 1 mg Q4H PRN IV For Anxiety 09/13/20 01:00 09/20/20 00:59 Magnesium Sulfate 100 ml @ 100 mls/hr Q1H IVPB 09/14/20 09:30 09/14/20 11:29 09/14/20 10:36 Metoclopramide HCl (Reglan) 10 mg Q6H PRN IVP Nausea & Vomiting 09/13/20 01:00 10/13/20 00:59 Morphine Sulfate (Morphine Sulfate) 1 mg Q4H PRN IVP pain scale 1-3 09/13/20 01:00 09/20/20 00:59 09/13/20 14:12 Morphine Sulfate (Morphine Sulfate) 2 mg Q4H PRN IVP pain scale 4-6 09/13/20 01:00 09/20/20 00:59 09/14/20 08:36 Morphine Sulfate (Morphine Sulfate) 4 mg Q4H PRN IVP pain score 7-10 09/13/20 01:00 09/20/20 00:59 Ondansetron HCl (Zofran) 4 mg Q6H PRN IVP Nausea & Vomiting 09/13/20 01:00 10/13/20 00:59 Pantoprazole (Protonix) 40 mg Q12HR IVP 09/13/20 21:00 10/13/20 08:59 09/14/20 08:34 Piperacillin Sod/ Tazobactam Sod 3.375 gm/Sodium Chloride 110 ml @ 27.5 mls/hr Q8H IVPB 09/13/20 01:00 09/20/20 00:59 09/14/20 08:35 Delio Edgar MD Sep 14, 2020 10:44
--- NOTE | 2020-09-14 11:06 | Pulmonology Progress Note ---
Subjective ROS Limited/Unobtainable: Yes Interval Events: None new Constitutional: Reports: no symptoms HEENT: Repors: no symptoms Respiratory: Reports: no symptoms Cardiovascular: Reports: no symptoms Gastrointestinal/Abdominal: Reports: no symptoms, other - pain Allergies: Coded Allergies: No Known Allergies (Unverified , 09/12/20) Objective Last 24 Hour Vital Signs Date Time Temp Pulse Resp B/P (MAP) Pulse Ox O2 Delivery O2 Flow Rate FiO2 09/14/20 10:00 103 20 116/74 (88) 98 09/14/20 09:10 106 21 30 09/14/20 09:00 108 24 120/62 (81) 95 09/14/20 08:00 97.8 100 21 124/71 (88) 98 09/14/20 08:00 Mechanical Ventilator 09/14/20 08:00 30 09/14/20 07:55 101 09/14/20 07:25 105 21 30 09/14/20 07:00 101 21 128/66 (86) 99 09/14/20 06:30 104 20 09/14/20 06:00 107 23 119/70 (86) 100 09/14/20 05:15 113 18 30 09/14/20 05:00 121 23 144/63 (90) 100 09/14/20 04:00 30 09/14/20 04:00 Mechanical Ventilator 09/14/20 04:00 98.2 107 24 128/75 (92) 98 09/14/20 04:00 103 09/14/20 03:00 105 22 111/70 (84) 98 09/14/20 02:43 109 21 30 09/14/20 02:00 104 21 110/68 (82) 97 09/14/20 01:00 105 23 107/68 (81) 98 09/14/20 00:45 104 22 30 09/14/20 00:00 30 09/14/20 00:00 Mechanical Ventilator 09/14/20 00:00 98.4 105 22 111/67 (82) 99 09/14/20 00:00 107 09/13/20 23:00 109 25 110/77 (88) 98 09/13/20 22:35 108 22 30 09/13/20 22:00 107 23 119/65 (83) 99 09/13/20 21:00 106 21 134/71 (92) 100 09/13/20 20:59 106 26 30 09/13/20 20:00 110 09/13/20 20:00 Mechanical Ventilator 09/13/20 20:00 98.1 111 25 118/64 (82) 99 09/13/20 20:00 30 09/13/20 19:00 112 22 124/76 (92) 99 09/13/20 18:45 115 25 30 09/13/20 18:00 110 24 115/69 (84) 99 09/13/20 17:23 106 22 30 09/13/20 17:00 103 25 117/66 (83) 99 09/13/20 16:00 Mechanical Ventilator 09/13/20 16:00 30 09/13/20 16:00 109 09/13/20 16:00 106 25 116/67 (83) 98 09/13/20 15:13 108 25 30 09/13/20 15:00 20 22 102/65 (77) 98 09/13/20 14:00 107 24 111/64 (80) 98 09/13/20 13:43 104 16 30 09/13/20 13:00 109 26 120/64 (82) 99 09/13/20 12:00 Mechanical Ventilator 09/13/20 12:00 30 09/13/20 12:00 107 24 111/61 (78) 99 09/13/20 12:00 104 09/13/20 11:13 106 28 40 40 Intake and Output 09/13/20 09/14/20 19:00 07:00 Intake Total 1235.0 ml 1485.0 ml Output Total 105 ml 50 ml Balance 1130.0 ml 1435.0 ml Intake Oral 0 ml 0 ml IV Total 1235.0 ml 1485.0 ml Output Gastric Drainage Total 105 ml 50 ml # Voids 780 400 General Appearance: no acute distress HEENT: normocephalic Respiratory: chest wall non-tender, lungs clear Cardiovascular: normal peripheral pulses, normal rate Abdomen: normal bowel sounds Microbiology Date/Time Source Procedure Growth Status 09/13/20 15:00 Urine,Clean Catch Urine Culture - Preliminary NO GROWTH Resulted 09/12/20 23:10 Peritoneal Fluid Gram Stain - Final Resulted 09/12/20 23:10 Aerobic Culture - Preliminary Gram Negative Bacillus 1 Gram Negative Bacillus 2 Resulted 09/12/20 23:10 Peritoneal Fluid Anaerobic Culture Pending Resulted 09/12/20 21:00 Rectum Received 09/12/20 18:35 Nasopharynx SARS-CoV-2 RdRp Gene Assay - Final Complete 09/12/20 18:35 Blood Blood Culture - Preliminary NO GROWTH AFTER 24 HOURS Resulted 09/12/20 18:20 Blood Blood Culture - Preliminary NO GROWTH AFTER 24 HOURS Resulted Laboratory Tests 09/13/20 12:52: Arterial Blood pH 7.336L, Arterial Blood Partial Pressure CO2 48.4H, Arterial Blood Partial Pressure O2 213.1H, Arterial Blood HCO3 25.3, Arterial Blood Oxygen Saturation 98.8, Arterial Blood Base Excess -1.0, Josse Test Positive 09/13/20 15:00: Urine Color Tatiana, Urine Appearance Very cloudy, Urine pH 5, Urine Specific [place] 1.025, Urine Protein 2+H, Urine Glucose (UA) Negative, Urine Ketones 1+H , Urine Blood 5+H, Urine Nitrite Negative, Urine Bilirubin Negative, Urine Ictotest Negative, Urine Urobilinogen Normal, Urine Leukocyte Esterase Negative, Urine RBC 20-30H, Urine WBC 0-2, Urine Squamous Epithelial Cells Occasional, Urine Bacteria ManyH 09/14/20 05:35: White Blood Count 10.0#, Red Blood Count 4.60L, Hemoglobin 13.4L, Hematocrit 40.7L, Mean Corpuscular Volume 88, Mean Corpuscular Hemoglobin 29.1, Mean Corpuscular Hemoglobin Concent 32.9, Red Cell Distribution Width 14.2, Platelet Count 166, Mean Platelet Volume 7.2, Neutrophils (%) (Auto) , Lymphocytes (%) (Auto) , Monocytes (%) (Auto) , Eosinophils (%) (Auto) , Basophils (%) (Auto) , Differential Total Cells Counted 100, Neutrophils % (Manual) 78H, Lymphocytes % (Manual) 6L, Monocytes % (Manual) 2, Eosinophils % (Manual) 0, Basophils % (Manual) 0, Band Neutrophils 14H, Platelet Estimate Adequate, Platelet Morphology Normal, Red Blood Cell Morphology Normal, Sodium Level 137, Potassium Level 4.2, Chloride Level 103, Carbon Dioxide Level 27, Anion Gap 7, Blood Urea Nitrogen 14, Creatinine 1.1, Estimat Glomerular Filtration Rate > 60, Glucose Level 123H, Hemoglobin A1c 5.6, Lactic Acid Level 1.70, Uric Acid 2.8, Calcium Level 7.2L, Phosphorus Level 2.7, Magnesium Level 1.6L, Total Bilirubin 0.5, Gamma Glutamyl Transpeptidase 12, Aspartate Amino Transf (AST/SGOT) 32, Alanine Aminotransferase (ALT/SGPT) 15, Alkaline Phosphatase 81, Troponin I 0.000, C- Reactive Protein, Quantitative 26.6H, Pro-B-Type Natriuretic Peptide 1072H, Total Protein 5.1L, Albumin 2.6L, Globulin 2.5, Albumin/Globulin Ratio 1.0, Triglycerides Level 56, Cholesterol Level 82, LDL Cholesterol 27, HDL Cholesterol 16L, Cholesterol/HDL Ratio 5.1H, Vitamin B12 Level 560, Folate 16.1, Thyroid Stimulating Hormone (TSH) 1.134 09/14/20 10:49: Arterial Blood pH 7.388, Arterial Blood Partial Pressure CO2 44.6, Arterial Blood Partial Pressure O2 84.4, Arterial Blood HCO3 26.3H, Arterial Blood Oxygen Saturation 96.1, Arterial Blood Base Excess 1.0, Josse Test Positive Current Medications Medications (Trade) Dose Ordered Sig/Jojo Route PRN Reason Start Time Stop Time Status Last Admin Dose Admin Dextrose/ Electrolytes 1,000 ml @ 125 mls/hr Q8H IV 09/13/20 01:00 10/13/20 00:59 09/14/20 09:00 Heparin Sodium (Porcine) (Heparin 5000 units/ml) 5,000 units EVERY 8 HOURS SUBQ 09/14/20 06:00 10/29/20 05:59 09/14/20 06:18 Iohexol (OMNIPAQUE-300 100ml) 100 ml NOW PRN INJ Radiology Procedure 09/12/20 20:00 09/14/20 19:59 Lorazepam (Ativan 2mg/ml 1ml) 1 mg Q4H PRN IV For Anxiety 09/13/20 01:00 09/20/20 00:59 Magnesium Sulfate 100 ml @ 100 mls/hr Q1H IVPB 09/14/20 09:30 09/14/20 11:29 09/14/20 10:36 Metoclopramide HCl (Reglan) 10 mg Q6H PRN IVP Nausea & Vomiting 09/13/20 01:00 10/13/20 00:59 Morphine Sulfate (Morphine Sulfate) 1 mg Q4H PRN IVP pain scale 1-3 09/13/20 01:00 09/20/20 00:59 09/13/20 14:12 Morphine Sulfate (Morphine Sulfate) 2 mg Q4H PRN IVP pain scale 4-6 09/13/20 01:00 09/20/20 00:59 09/14/20 08:36 Morphine Sulfate (Morphine Sulfate) 4 mg Q4H PRN IVP pain score 7-10 09/13/20 01:00 09/20/20 00:59 Ondansetron HCl (Zofran) 4 mg Q6H PRN IVP Nausea & Vomiting 09/13/20 01:00 10/13/20 00:59 Pantoprazole (Protonix) 40 mg Q12HR IVP 09/13/20 21:00 10/13/20 08:59 09/14/20 08:34 Piperacillin Sod/ Tazobactam Sod 3.375 gm/Sodium Chloride 110 ml @ 27.5 mls/hr Q8H IVPB 09/13/20 01:00 09/20/20 00:59 09/14/20 08:35 Assessment/Plan Assessment/Plan IMPRESSION: 1. Cecal perforation. 2. Status post right colectomy, open cholecystectomy, and abdominal washout. 3. History of COPD. 4. Schizophrenia. DISCUSSION: Continue ICU care I will wean and attempt to extubate. The patient needs broad-spectrum antibiotics. I will follow carefully. Tito Sheffield Omar Syed MD Sep 14, 2020 11:06
[2020-09-14] MEDS ORDERED: FOLIC ACID1 MG ORAL (11:39)
[2020-09-14] MEDS ORDERED: ZEGERID OTC 201 EACH ORAL (11:39)
[2020-09-14] MEDS ORDERED: FLOMAX0.4 MG ORAL (11:39)
[2020-09-14] MEDS ORDERED: LOSARTAN-HCTZ1 EACH ORAL (11:39)
--- NOTE | 2020-09-14 11:52 | Cardiac Electrophysiology PN ---
Assessment/Plan Assessment/Plan 1. Sinus tachycardia. This is due to sepsis in this patient with respiratory failure and has just underwent surgery in intensive care unit on the ventilator. EF 55%. Troponins negative 2. Respiratory failure. This patient has history of COPD We will wean the patient off the ventilator. 3. Acute abdomen, status post surgery by Dr. Morrow including cholecystectomy as well as right colectomy and small bowel resection. Currently on IV antibiotics. DW RNa nd Dr Morrow Subjective Subjective Doing well. On 30% Fio2 and alert. Extubation pending today Objective Last 24 Hour Vital Signs Date Time Temp Pulse Resp B/P (MAP) Pulse Ox O2 Delivery O2 Flow Rate FiO2 09/14/20 11:15 100 09/14/20 11:15 4.0 28 09/14/20 11:00 99 20 97/81 (86) 98 09/14/20 10:00 103 20 116/74 (88) 98 09/14/20 09:50 103 25 09/14/20 09:10 106 21 30 09/14/20 09:00 108 24 120/62 (81) 95 09/14/20 08:00 97.8 100 21 124/71 (88) 98 09/14/20 08:00 Mechanical Ventilator 09/14/20 08:00 30 09/14/20 07:55 101 09/14/20 07:25 105 21 30 09/14/20 07:00 101 21 128/66 (86) 99 09/14/20 06:30 104 20 09/14/20 06:00 107 23 119/70 (86) 100 09/14/20 05:15 113 18 30 09/14/20 05:00 121 23 144/63 (90) 100 09/14/20 04:00 30 09/14/20 04:00 Mechanical Ventilator 09/14/20 04:00 98.2 107 24 128/75 (92) 98 09/14/20 04:00 103 09/14/20 03:00 105 22 111/70 (84) 98 09/14/20 02:43 109 21 30 09/14/20 02:00 104 21 110/68 (82) 97 09/14/20 01:00 105 23 107/68 (81) 98 09/14/20 00:45 104 22 30 09/14/20 00:00 30 09/14/20 00:00 Mechanical Ventilator 09/14/20 00:00 98.4 105 22 111/67 (82) 99 09/14/20 00:00 107 09/13/20 23:00 109 25 110/77 (88) 98 09/13/20 22:35 108 22 30 09/13/20 22:00 107 23 119/65 (83) 99 09/13/20 21:00 106 21 134/71 (92) 100 09/13/20 20:59 106 26 30 09/13/20 20:00 110 09/13/20 20:00 Mechanical Ventilator 09/13/20 20:00 98.1 111 25 118/64 (82) 99 09/13/20 20:00 30 09/13/20 19:00 112 22 124/76 (92) 99 09/13/20 18:45 115 25 30 09/13/20 18:00 110 24 115/69 (84) 99 09/13/20 17:23 106 22 30 09/13/20 17:00 103 25 117/66 (83) 99 09/13/20 16:00 Mechanical Ventilator 09/13/20 16:00 30 09/13/20 16:00 109 09/13/20 16:00 106 25 116/67 (83) 98 09/13/20 15:13 108 25 30 09/13/20 15:00 20 22 102/65 (77) 98 09/13/20 14:00 107 24 111/64 (80) 98 09/13/20 13:43 104 16 30 09/13/20 13:00 109 26 120/64 (82) 99 09/13/20 12:00 Mechanical Ventilator 09/13/20 12:00 30 09/13/20 12:00 107 24 111/61 (78) 99 09/13/20 12:00 104 Intake and Output 09/13/20 09/14/20 19:00 07:00 Intake Total 1235.0 ml 1485.0 ml Output Total 105 ml 50 ml Balance 1130.0 ml 1435.0 ml Intake Oral 0 ml 0 ml IV Total 1235.0 ml 1485.0 ml Output Gastric Drainage Total 105 ml 50 ml # Voids 780 400 Laboratory Tests Test 09/13/20 12:52 09/13/20 15:00 09/14/20 05:35 09/14/20 10:49 Arterial Blood pH 7.336 (7.350-7.450) 7.388 (7.350-7.450) Arterial Blood Partial Pressure CO2 48.4 mmHg (35.0-45.0) H 44.6 mmHg (35.0-45.0) Arterial Blood Partial Pressure O2 213.1 mmHg (75.0-100.0) H 84.4 mmHg (75.0-100.0) Arterial Blood HCO3 25.3 mmol/L (22.0-26.0) 26.3 mmol/L (22.0-26.0) H Arterial Blood Oxygen Saturation 98.8 % (95-100) 96.1 % (95-100) Arterial Blood Base Excess -1.0 (-2-2) 1.0 (-2-2) Josse Test Positive Positive Urine Color Tatiana Urine Appearance Very cloudy Urine pH 5 (4.5-8.0) Urine Specific [place] 1.025 (1.005-1.035) Urine Protein 2+ (NEGATIVE) H Urine Glucose (UA) Negative (NEGATIVE) Urine Ketones 1+ (NEGATIVE) H Urine Blood 5+ (NEGATIVE) H Urine Nitrite Negative (NEGATIVE) Urine Bilirubin Negative (NEGATIVE) Urine Ictotest Negative (NEGATIVE) Urine Urobilinogen Normal MG/DL (0.0-1.0) Urine Leukocyte Esterase Negative (NEGATIVE) Urine RBC 20-30 /HPF (0 - 0) H Urine WBC 0-2 /HPF (0 - 0) Urine Squamous Epithelial Cells Occasional /LPF Urine Bacteria Many /HPF (NONE) H White Blood Count 10.0 K/UL (4.8-10.8) # Red Blood Count 4.60 M/UL (4.70-6.10) L Hemoglobin 13.4 G/DL (14.2-18.0) L Hematocrit 40.7 % (42.0-52.0) L Mean Corpuscular Volume 88 FL (80-99) Mean Corpuscular Hemoglobin 29.1 PG (27.0-31.0) Mean Corpuscular Hemoglobin Concent 32.9 G/DL (32.0-36.0) Red Cell Distribution Width 14.2 % (11.6-14.8) Platelet Count 166 K/UL (150-450) Mean Platelet Volume 7.2 FL (6.5-10.1) Neutrophils (%) (Auto) % (45.0-75.0) Lymphocytes (%) (Auto) % (20.0-45.0) Monocytes (%) (Auto) % (1.0-10.0) Eosinophils (%) (Auto) % (0.0-3.0) Basophils (%) (Auto) % (0.0-2.0) Differential Total Cells Counted 100 Neutrophils % (Manual) 78 % (45-75) H Lymphocytes % (Manual) 6 % (20-45) L Monocytes % (Manual) 2 % (1-10) Eosinophils % (Manual) 0 % (0-3) Basophils % (Manual) 0 % (0-2) Band Neutrophils 14 % (0-8) H Platelet Estimate Adequate Platelet Morphology Normal Red Blood Cell Morphology Normal Sodium Level 137 MMOL/L (136-145) Potassium Level 4.2 MMOL/L (3.5-5.1) Chloride Level 103 MMOL/L (98-107) Carbon Dioxide Level 27 MMOL/L (21-32) Anion Gap 7 mmol/L (5-15) Blood Urea Nitrogen 14 mg/dL (7-18) Creatinine 1.1 MG/DL (0.55-1.30) Estimat Glomerular Filtration Rate > 60 mL/min (>60) Glucose Level 123 MG/DL (74-106) H Hemoglobin A1c 5.6 % (4.3-6.0) Lactic Acid Level 1.70 mmol/L (0.4-2.0) Uric Acid 2.8 MG/DL (2.6-7.2) Calcium Level 7.2 MG/DL (8.5-10.1) L Phosphorus Level 2.7 MG/DL (2.5-4.9) Magnesium Level 1.6 MG/DL (1.8-2.4) L Total Bilirubin 0.5 MG/DL (0.2-1.0) Gamma Glutamyl Transpeptidase 12 U/L (5-85) Aspartate Amino Transf (AST/SGOT) 32 U/L (15-37) Alanine Aminotransferase (ALT/SGPT) 15 U/L (12-78) Alkaline Phosphatase 81 U/L (46-116) Troponin I 0.000 ng/mL (0.000-0.056) C-Reactive Protein, Quantitative 26.6 mg/dL (0.00-0.90) H Pro-B-Type Natriuretic Peptide 1072 pg/mL (0-125) H Total Protein 5.1 G/DL (6.4-8.2) L Albumin 2.6 G/DL (3.4-5.0) L Globulin 2.5 g/dL Albumin/Globulin Ratio 1.0 (1.0-2.7) Triglycerides Level 56 MG/DL (30-150) Cholesterol Level 82 MG/DL (< 200) LDL Cholesterol 27 mg/dL (<100) HDL Cholesterol 16 MG/DL (40-60) L Cholesterol/HDL Ratio 5.1 (3.3-4.4) H Vitamin B12 Level 560 PG/ML (193-986) Folate 16.1 NG/ML (8.6-58.9) Thyroid Stimulating Hormone (TSH) 1.134 uiU/mL (0.358-3.740) Microbiology Date/Time Source Procedure Growth Status 09/13/20 15:00 Urine,Clean Catch Urine Culture - Preliminary NO GROWTH Resulted 09/12/20 23:10 Peritoneal Fluid Gram Stain - Final Resulted 09/12/20 23:10 Aerobic Culture - Preliminary Gram Negative Bacillus 1 Gram Negative Bacillus 2 Resulted 09/12/20 23:10 Peritoneal Fluid Anaerobic Culture Pending Resulted 09/12/20 21:00 Rectum Received 09/12/20 18:35 Nasopharynx SARS-CoV-2 RdRp Gene Assay - Final Complete 09/12/20 18:35 Blood Blood Culture - Preliminary NO GROWTH AFTER 24 HOURS Resulted 09/12/20 18:20 Blood Blood Culture - Preliminary NO GROWTH AFTER 24 HOURS Resulted Objective HEAD AND NECK: Shows no JVD. He is orally intubated with an NG-tube. LUNGS: Coarse rhonchi. CARDIOVASCULAR: Shows regular S1 and S2 with no gallop. ABDOMEN: Tender and is status post laparotomy. EXTREMITIES: No pitting edema. Jason Li MD Sep 14, 2020 11:52
--- NOTE | 2020-09-14 13:36 | Diagnostic Imaging Report ---
. Indication: Dyspnea Technique: XRAY Chest 1v Comparison: 09/12/2020 Findings: Interval endotracheal intubation. Tip of the ET tube approximately 3 cm above the niels. NG tube tip in the proximal stomach. Heart size and mediastinal contours stable. There is worsening aeration with increasing patchy airspace opacities in the retrocardiac region. No pleural effusion or pneumothorax. Osseous structures demonstrate no acute abnormality. Impression: Interval endotracheal and enteric intubation. Worsening aeration with increasing patchy retrocardiac opacity.
--- NOTE | 2020-09-14 15:19 | Cardiology Report ---
APPROVED REPORT EXAM: Two-dimensional and M-mode echocardiogram with Doppler and color Doppler. INDICATION Left Ventricular Function M-Mode DIMENSIONS IVSd0.8 (0.7-1.1cm)Left Atrium (MM)3.1 (1.6-4.0cm) LVDd4.1 (3.5-5.6cm)Aortic Root3.6 (2.0-3.7cm) PWd1.0 (0.7-1.1cm)Aortic Cusp Exc.2.1 (1.5-2.0cm) IVSs1.0 cmEPSS0.7 (>1.0cm) LVDs2.0 (2.5-4.0cm) PWs1.1 cm <Conclusion> Technically difficult study due to poor acoustical windows & pt's breathing. Normal left ventricular chamber size, systolic function to extent visualized. Left ventricular ejection fraction grossly estimated to be 50-55 %. Study quality precludes accurate assessment of regional wall motion. No left ventricular hypertrophy. No evidence of pericardial effusion. All other cardiac chamber sizes are within normal limits. Focal aortic valve sclerosis with adequate cusp excursion. Thickened mitral valve leaflets with normal excursion. Mitral annulus and aortic root calcification. Pulmonic valve not well visualized. Normal tricuspid valve structure. IVC was unobtainable due to surgical bandage. A color flow and spectral Doppler study was performed and revealed: No aortic regurgitation. Trace mitral regurgitation. Mitral diastolic velocities suggest reduced left ventricular relaxation c/w mild LV diastolic dysfunction (Grade I ). No tricuspid regurgitation. Tricuspid systolic velocities suggests peak right ventricular systolic pressure of 9 mmHg.
--- NOTE | 2020-09-14 15:25 | Cardiology Report ---
APPROVED REPORT EKG Measurement Heart [id number] SC [id number] <Conclusion> Sinus tachycardia Otherwise normal ECG
--- NOTE | 2020-09-14 17:45 | Consultation ---
DATE OF CONSULTATION: 09/13/2020 GASTROENTEROLOGY CONSULTATION CONSULTING PHYSICIAN: Froilan De Paz M.D. CHIEF COMPLAINT: I was asked to see this patient by Dr. Vania Dwyer today for evaluation of abdominal perforation. HISTORY OF PRESENT ILLNESS: The patient is a 70-year-old white man, who presented yesterday to the hospital due to abdominal discomfort and free air under the diaphragm. There appeared to be a CT scan evidence of bowel obstruction. He underwent emergency surgery where the obstruction was noted at cecal perforation and acute cholecystitis. The patient underwent a right hemicolectomy with some small bowel obstruction as well as the primary anastomosis and cholecystectomy. He was seen in the ICU in the postoperative day 1, he was non-communicative in the postoperative state. Not much more information is available at this time to the patient's overall medical history. PAST MEDICAL HISTORY: Per chart records include some comorbidities including COPD. FAMILY HISTORY: Unavailable and unobtainable. SOCIAL HISTORY: Unavailable and unobtainable. MEDICATIONS: See the chart list for details. REVIEW OF SYSTEMS: Unavailable and unobtainable. PHYSICAL EXAMINATION: GENERAL: Elderly man, seen in the ICU. HEENT: Normocephalic, atraumatic. The patient is intubated. NECK: Supple. CHEST: Revealed coarse breath sounds. CARDIOVASCULAR: Revealed a regular rate. ABDOMEN: Mildly distended with a large abdominal dressing. EXTREMITIES: Revealed no edema. LABORATORY DATA: Laboratory data were noted. ASSESSMENT: This patient has had a perforated bowel, which appears to be in the cecum with a possible obstructive process of the cecal valve. The cecal volvulus can cause distention. This was not identified on the CT scan. The pathology specimen should be carefully evaluated for any obstructive process. In the meantime, the patient will need to undergo postoperative care. I would advance diet once seen by surgical team. His laboratory parameters and exam will be followed closely. RECOMMENDATIONS: Per above discussion and per orders written in the chart. Thank you for asking me to participate in the care of this patient. Froilan De Paz M.D. DR: EDDIE JOB#: [id number] CC: [email or web address]
--- NOTE | 2020-09-14 20:19 | General Progress Note ---
Subjective Allergies: Coded Allergies: No Known Allergies (Unverified , 09/12/20) Subjective extubated awake not talkative d/w RN Objective Last 24 Hour Vital Signs Date Time Temp Pulse Resp B/P (MAP) Pulse Ox O2 Delivery O2 Flow Rate FiO2 09/14/20 19:12 100 Venturi Mask 4.0 28 09/14/20 19:00 98 27 104/89 (94) 97 09/14/20 18:00 102 27 133/69 (90) 96 09/14/20 17:00 101 28 142/73 (96) 97 09/14/20 16:00 4.0 28 09/14/20 16:00 98.5 103 22 127/72 (90) 96 09/14/20 16:00 Mechanical Ventilator 09/14/20 16:00 100 09/14/20 15:00 105 25 127/69 (88) 97 09/14/20 14:00 103 25 127/70 (89) 97 09/14/20 13:00 97.5 101 22 118/72 (87) 98 09/14/20 12:00 Mechanical Ventilator 09/14/20 12:00 99 23 122/67 (85) 99 09/14/20 11:19 101 09/14/20 11:15 100 09/14/20 11:15 4.0 28 09/14/20 11:00 99 20 97/81 (86) 98 09/14/20 10:00 103 20 116/74 (88) 98 09/14/20 09:50 103 25 09/14/20 09:10 106 21 30 09/14/20 09:00 108 24 120/62 (81) 95 09/14/20 08:00 97.8 100 21 124/71 (88) 98 09/14/20 08:00 Mechanical Ventilator 09/14/20 08:00 30 09/14/20 07:55 101 09/14/20 07:25 105 21 30 09/14/20 07:00 101 21 128/66 (86) 99 09/14/20 06:30 104 20 09/14/20 06:00 107 23 119/70 (86) 100 09/14/20 05:15 113 18 30 09/14/20 05:00 121 23 144/63 (90) 100 09/14/20 04:00 30 09/14/20 04:00 Mechanical Ventilator 09/14/20 04:00 98.2 107 24 128/75 (92) 98 09/14/20 04:00 103 09/14/20 03:00 105 22 111/70 (84) 98 09/14/20 02:43 109 21 30 09/14/20 02:00 104 21 110/68 (82) 97 09/14/20 01:00 105 23 107/68 (81) 98 09/14/20 00:45 104 22 30 09/14/20 00:00 30 09/14/20 00:00 Mechanical Ventilator 09/14/20 00:00 98.4 105 22 111/67 (82) 99 09/14/20 00:00 107 09/13/20 23:00 109 25 110/77 (88) 98 09/13/20 22:35 108 22 30 09/13/20 22:00 107 23 119/65 (83) 99 09/13/20 21:00 106 21 134/71 (92) 100 09/13/20 20:59 106 26 30 Intake and Output 09/13/20 09/14/20 19:00 07:00 Intake Total 1235.0 ml 1485.0 ml Output Total 105 ml 50 ml Balance 1130.0 ml 1435.0 ml Intake Oral 0 ml 0 ml IV Total 1235.0 ml 1485.0 ml Output Gastric Drainage Total 105 ml 50 ml # Voids 780 400 Laboratory Tests 09/14/20 05:35: White Blood Count 10.0#, Red Blood Count 4.60L, Hemoglobin 13.4L, Hematocrit 40.7L, Mean Corpuscular Volume 88, Mean Corpuscular Hemoglobin 29.1, Mean Corpuscular Hemoglobin Concent 32.9, Red Cell Distribution Width 14.2, Platelet Count 166, Mean Platelet Volume 7.2, Neutrophils (%) (Auto) , Lymphocytes (%) (Auto) , Monocytes (%) (Auto) , Eosinophils (%) (Auto) , Basophils (%) (Auto) , Differential Total Cells Counted 100, Neutrophils % (Manual) 78H, Lymphocytes % (Manual) 6L, Monocytes % (Manual) 2, Eosinophils % (Manual) 0, Basophils % (Manual) 0, Band Neutrophils 14H, Platelet Estimate Adequate, Platelet Morphology Normal, Red Blood Cell Morphology Normal, Sodium Level 137, Potassium Level 4.2, Chloride Level 103, Carbon Dioxide Level 27, Anion Gap 7, Blood Urea Nitrogen 14, Creatinine 1.1, Estimat Glomerular Filtration Rate > 60, Glucose Level 123H, Hemoglobin A1c 5.6, Lactic Acid Level 1.70, Uric Acid 2.8, Calcium Level 7.2L, Phosphorus Level 2.7, Magnesium Level 1.6L, Total Bilirubin 0.5, Gamma Glutamyl Transpeptidase 12, Aspartate Amino Transf (AST/SGOT) 32, Alanine Aminotransferase (ALT/SGPT) 15, Alkaline Phosphatase 81, Troponin I 0.000, C- Reactive Protein, Quantitative 26.6H, Pro-B-Type Natriuretic Peptide 1072H, Total Protein 5.1L, Albumin 2.6L, Globulin 2.5, Albumin/Globulin Ratio 1.0, Triglycerides Level 56, Cholesterol Level 82, LDL Cholesterol 27, HDL Cholesterol 16L, Cholesterol/HDL Ratio 5.1H, Vitamin B12 Level 560, Folate 16.1, Thyroid Stimulating Hormone (TSH) 1.134 09/14/20 10:49: Arterial Blood pH 7.388, Arterial Blood Partial Pressure CO2 44.6, Arterial Blood Partial Pressure O2 84.4, Arterial Blood HCO3 26.3H, Arterial Blood Oxygen Saturation 96.1, Arterial Blood Base Excess 1.0, Josse Test Positive Height (Feet): 6 Height (Inches): 0.00 Weight (Pounds): 155 Objective Thin man NCAT supple CTA RR abd (+) large dressing no edema Assessment/Plan Assessment/Plan: Assessment - IC valve area SBO - Cecal perforation - s/p sancho for cholecystitis Recommendations - post op care - PO when OK'd by surgery - follow labs and exam Froilan De Paz MD Sep 14, 2020 20:19
[2020-09-14] MEDS: LORazepam Inj 2mg/ml 1ml IV PRN (20:58)
[2020-09-15] VITALS (27 sets, daily range): BP systolic 91–141; BP diastolic 57–106
[2020-09-15] MEDS: Piperacillin/Tazobactam 3.375 GM in NS 110 ML IVPB SCH ×3 (01:24→16:34)
[2020-09-15] MEDS: D5 1/2NS w/KCl 20mEq 1,000 ML IV SCH ×3 (01:24→17:00)
[2020-09-15 05:14] LABS: HEMATOCRIT 38.5 % (42.0-52.0); HEMOGLOBIN 12.7 G/DL (14.2-18.0); MEAN CORPUSCULAR VOLUME 85 FL (80-99); PLATELET COUNT 174 K/UL (150-450); WHITE BLOOD COUNT 11.3 K/UL (4.8-10.8)
[2020-09-15 05:53] LABS: ALANINE AMINOTRANSFERASE 16 U/L (12-78); ALBUMIN 2.3 G/DL (3.4-5.0); ALBUMIN/GLOBULIN RATIO 0.9 (1.0-2.7); ALKALINE PHOSPHATASE 92 U/L (46-116); ANION GAP 6 mmol/L (5-15); ASPARTATE AMINO TRANSFERASE 31 U/L (15-37); BILIRUBIN,TOTAL 0.5 MG/DL (0.2-1.0); BLOOD UREA NITROGEN 11 mg/dL (7-18); CALCIUM 7.5 MG/DL (8.5-10.1); CARBON DIOXIDE 27 MMOL/L (21-32); CHLORIDE 105 MMOL/L (98-107); CREATININE 0.9 MG/DL (0.55-1.30); POTASSIUM 4.3 MMOL/L (3.5-5.1); SODIUM 137 MMOL/L (136-145)
[2020-09-15] MEDS: Heparin 5000 units/ml inj SUBQ SCH ×3 (06:00→20:32)
--- NOTE | 2020-09-15 07:20 | Diagnostic Imaging Report ---
EXAM: XR Chest, 1 View CLINICAL HISTORY: SOB TECHNIQUE: Frontal view of the chest. COMPARISON: September 14, 2020. FINDINGS: Status post interval extubation and removal of enteric tube. There is volume loss in the left hemithorax with underlying infiltrates and effusion, significantly worse since prior exam. Patchy infiltrates also noted in the right lung. A component of central vascular congestion. Partially visualized dilated bowel loops in upper abdomen. IMPRESSION: Significant interval worsening of left lung infiltrates with volume loss. Increasing left pleural effusion. Patchy infiltrates in right lung. Dilated bowel loops in upper abdomen. <MYCVCSECTION> Communications: 09/15/20 07:22 Call Nurse Spoke to BOROUGH COORDINATORJAROD Womack on 09/15 07:22 (-07:00)
[2020-09-15] MEDS: Pantoprazole Inj IVP SCH ×2 (08:05→20:31)
--- NOTE | 2020-09-15 10:45 | Pulmonology Progress Note ---
Subjective ROS Limited/Unobtainable: Yes Interval Events: Extubated yesterday Constitutional: Reports: no symptoms HEENT: Repors: no symptoms Respiratory: Reports: no symptoms Cardiovascular: Reports: no symptoms Gastrointestinal/Abdominal: Reports: no symptoms, other - pain Allergies: Coded Allergies: No Known Allergies (Unverified , 09/12/20) Objective Last 24 Hour Vital Signs Date Time Temp Pulse Resp B/P (MAP) Pulse Ox O2 Delivery O2 Flow Rate FiO2 09/15/20 10:00 96 31 104/71 (82) 98 09/15/20 09:00 88 27 120/68 (85) 100 09/15/20 08:00 98.0 99 32 102/66 (78) 92 09/15/20 08:00 Venturi Mask 09/15/20 08:00 104 09/15/20 07:15 104 28 107/64 (78) 94 09/15/20 06:30 99 29 106/77 (87) 98 09/15/20 06:00 100 29 103/69 (80) 98 09/15/20 05:00 109 31 111/63 (79) 98 09/15/20 04:30 100 28 115/62 (79) 97 09/15/20 04:14 98.0 101 30 104/73 (83) 97 09/15/20 04:00 Venturi Mask 09/15/20 04:00 105 09/15/20 03:00 97 27 141/68 (92) 100 09/15/20 02:00 99 30 103/85 (91) 98 09/15/20 01:00 99 27 128/72 (90) 100 09/15/20 00:30 99 28 121/68 (85) 100 09/15/20 00:00 102 09/15/20 00:00 Venturi Mask 09/15/20 00:00 98.4 107 28 136/106 (116) 99 09/14/20 23:00 101 28 96/79 (85) 100 09/14/20 22:00 108 30 111/64 (80) 100 09/14/20 21:28 98 27 104/89 100 09/14/20 21:00 96 25 133/72 (92) 97 09/14/20 20:58 98 27 104/89 100 09/14/20 20:00 100 09/14/20 20:00 98.0 98 25 129/75 (93) 91 09/14/20 20:00 Venturi Mask 09/14/20 19:12 100 Venturi Mask 4.0 28 09/14/20 19:00 98 27 104/89 (94) 97 09/14/20 18:00 102 27 133/69 (90) 96 09/14/20 17:00 101 28 142/73 (96) 97 09/14/20 16:00 4.0 28 09/14/20 16:00 98.5 103 22 127/72 (90) 96 09/14/20 16:00 Mechanical Ventilator 09/14/20 16:00 100 09/14/20 15:00 105 25 127/69 (88) 97 09/14/20 14:00 103 25 127/70 (89) 97 09/14/20 13:00 97.5 101 22 118/72 (87) 98 09/14/20 12:00 Mechanical Ventilator 09/14/20 12:00 99 23 122/67 (85) 99 09/14/20 11:19 101 09/14/20 11:15 100 09/14/20 11:15 4.0 28 09/14/20 11:00 99 20 97/81 (86) 98 Intake and Output 09/14/20 09/15/20 19:00 07:00 Intake Total 1724.75 ml 1667.75 ml Output Total 400 ml Balance 1324.75 ml 1667.75 ml Intake Oral 0 ml 0 ml IV Total 1724.75 ml 1667.75 ml Output Gastric Drainage Total 400 ml # Voids 510 530 General Appearance: no acute distress HEENT: normocephalic Respiratory: chest wall non-tender, lungs clear Cardiovascular: normal peripheral pulses, normal rate Abdomen: normal bowel sounds Microbiology Date/Time Source Procedure Growth Status 09/13/20 15:00 Urine,Clean Catch Urine Culture - Preliminary NO GROWTH Resulted 09/12/20 23:10 Peritoneal Fluid Gram Stain - Final Resulted 09/12/20 23:10 Aerobic Culture - Preliminary Gram Negative Bacillus 1 Gram Negative Bacillus 2 Resulted 09/12/20 23:10 Peritoneal Fluid Anaerobic Culture Pending Resulted 09/12/20 21:00 Rectum - Final NO CARBAPENEM-RESISTANT ENTEROBACTERI... Complete 09/12/20 21:00 Rectum VRE Culture - Final NO VANCOMYCIN RESISTANT ENTEROCOCCUS ... Complete 09/12/20 18:35 Nasopharynx SARS-CoV-2 RdRp Gene Assay - Final Complete 09/12/20 18:35 Blood Blood Culture - Preliminary NO GROWTH AFTER 24 HOURS Resulted 09/12/20 18:20 Blood Blood Culture - Preliminary NO GROWTH AFTER 24 HOURS Resulted Laboratory Tests 09/14/20 10:49: Arterial Blood pH 7.388, Arterial Blood Partial Pressure CO2 44.6, Arterial Blood Partial Pressure O2 84.4, Arterial Blood HCO3 26.3H, Arterial Blood Oxygen Saturation 96.1, Arterial Blood Base Excess 1.0, Josse Test Positive 09/15/20 03:25: White Blood Count 11.3H, Red Blood Count 4.50L, Hemoglobin 12.7L, Hematocrit 38.5L, Mean Corpuscular Volume 85, Mean Corpuscular Hemoglobin 28.3, Mean Corpuscular Hemoglobin Concent 33.1, Red Cell Distribution Width 14.0, Platelet Count 174, Mean Platelet Volume 7.1, Neutrophils (%) (Auto) , Lymphocytes (%) (Auto) , Monocytes (%) (Auto) , Eosinophils (%) (Auto) , Basophils (%) (Auto) , Sodium Level 137, Potassium Level 4.3, Chloride Level 105, Carbon Dioxide Level 27, Anion Gap 6, Blood Urea Nitrogen 11, Creatinine 0.9, Estimat Glomerular Filtration Rate > 60, Glucose Level 92, Calcium Level 7.5L, Total Bilirubin 0.5, Aspartate Amino Transf (AST/SGOT) 31, Alanine Aminotransferase (ALT/SGPT) 16, Alkaline Phosphatase 92, Total Protein 4.9L, Albumin 2.3L, Globulin 2.6, Albumin/Globulin Ratio 0.9L Current Medications Medications (Trade) Dose Ordered Sig/Jojo Route PRN Reason Start Time Stop Time Status Last Admin Dose Admin Dextrose/ Electrolytes 1,000 ml @ 125 mls/hr Q8H IV 09/13/20 01:00 10/13/20 00:59 09/15/20 10:00 Heparin Sodium (Porcine) (Heparin 5000 units/ml) 5,000 units EVERY 8 HOURS SUBQ 09/14/20 06:00 10/29/20 05:59 09/14/20 06:18 Lorazepam (Ativan 2mg/ml 1ml) 1 mg Q4H PRN IV For Anxiety 09/13/20 01:00 09/20/20 00:59 09/14/20 20:58 Metoclopramide HCl (Reglan) 10 mg Q6H PRN IVP Nausea & Vomiting 09/13/20 01:00 10/13/20 00:59 Morphine Sulfate (Morphine Sulfate) 1 mg Q4H PRN IVP pain scale 1-3 09/13/20 01:00 09/20/20 00:59 09/13/20 14:12 Morphine Sulfate (Morphine Sulfate) 2 mg Q4H PRN IVP pain scale 4-6 09/13/20 01:00 09/20/20 00:59 09/14/20 08:36 Morphine Sulfate (Morphine Sulfate) 4 mg Q4H PRN IVP pain score 7-10 09/13/20 01:00 09/20/20 00:59 Ondansetron HCl (Zofran) 4 mg Q6H PRN IVP Nausea & Vomiting 09/13/20 01:00 10/13/20 00:59 Pantoprazole (Protonix) 40 mg Q12HR IVP 09/13/20 21:00 10/13/20 08:59 09/15/20 08:05 Piperacillin Sod/ Tazobactam Sod 3.375 gm/Sodium Chloride 110 ml @ 27.5 mls/hr Q8H IVPB 09/13/20 01:00 09/20/20 00:59 09/15/20 08:05 Assessment/Plan Assessment/Plan IMPRESSION: 1. Cecal perforation. 2. Status post right colectomy, open cholecystectomy, and abdominal washout. 3. History of COPD. 4. Schizophrenia. DISCUSSION: Continue ICU care Extubated 09/15/20 Continue broad-spectrum antibiotics. I will follow carefully. CXR shows atelectasis/partial collapse left lung Will intensify pulmonary hygiene Add VEST therapy May need bronchoscopy Tito Sheffield Omar Syed MD Sep 15, 2020 10:45
--- NOTE | 2020-09-15 11:01 | Cardiac Electrophysiology PN ---
Assessment/Plan Assessment/Plan 1. Sinus tachycardia. This is due to sepsis in this patient with respiratory failure and has just underwent surgery in intensive care unit on the ventilator. EF 55%. Troponins negative 2.S/P Respiratory failure. Extubated yesterday but CXR now Left white out. May need bronchoscopy per Dr Lambert. This patient has history of COPD 3. Acute abdomen, status post surgery by Dr. Morrow including cholecystectomy as well as right colectomy and small bowel resection. Currently on IV antibiotics. DW RNand Dr Lambert Subjective Subjective Extubated yesterday. CXR shows Left lung white out. Dr Lambert at bedside Objective Last 24 Hour Vital Signs Date Time Temp Pulse Resp B/P (MAP) Pulse Ox O2 Delivery O2 Flow Rate FiO2 09/15/20 10:00 96 31 104/71 (82) 98 09/15/20 09:00 88 27 120/68 (85) 100 09/15/20 08:00 98.0 99 32 102/66 (78) 92 09/15/20 08:00 Venturi Mask 09/15/20 08:00 104 09/15/20 07:15 104 28 107/64 (78) 94 09/15/20 06:30 99 29 106/77 (87) 98 09/15/20 06:00 100 29 103/69 (80) 98 09/15/20 05:00 109 31 111/63 (79) 98 09/15/20 04:30 100 28 115/62 (79) 97 09/15/20 04:14 98.0 101 30 104/73 (83) 97 09/15/20 04:00 Venturi Mask 09/15/20 04:00 105 09/15/20 03:00 97 27 141/68 (92) 100 09/15/20 02:00 99 30 103/85 (91) 98 09/15/20 01:00 99 27 128/72 (90) 100 09/15/20 00:30 99 28 121/68 (85) 100 09/15/20 00:00 102 09/15/20 00:00 Venturi Mask 09/15/20 00:00 98.4 107 28 136/106 (116) 99 09/14/20 23:00 101 28 96/79 (85) 100 09/14/20 22:00 108 30 111/64 (80) 100 09/14/20 21:28 98 27 104/89 100 09/14/20 21:00 96 25 133/72 (92) 97 09/14/20 20:58 98 27 104/89 100 09/14/20 20:00 100 09/14/20 20:00 98.0 98 25 129/75 (93) 91 09/14/20 20:00 Venturi Mask 09/14/20 19:12 100 Venturi Mask 4.0 28 09/14/20 19:00 98 27 104/89 (94) 97 09/14/20 18:00 102 27 133/69 (90) 96 09/14/20 17:00 101 28 142/73 (96) 97 09/14/20 16:00 4.0 28 09/14/20 16:00 98.5 103 22 127/72 (90) 96 09/14/20 16:00 Mechanical Ventilator 09/14/20 16:00 100 09/14/20 15:00 105 25 127/69 (88) 97 09/14/20 14:00 103 25 127/70 (89) 97 09/14/20 13:00 97.5 101 22 118/72 (87) 98 09/14/20 12:00 Mechanical Ventilator 09/14/20 12:00 99 23 122/67 (85) 99 09/14/20 11:19 101 09/14/20 11:15 100 09/14/20 11:15 4.0 28 09/14/20 11:00 99 20 97/81 (86) 98 Intake and Output 09/14/20 09/15/20 19:00 07:00 Intake Total 1724.75 ml 1667.75 ml Output Total 400 ml Balance 1324.75 ml 1667.75 ml Intake Oral 0 ml 0 ml IV Total 1724.75 ml 1667.75 ml Output Gastric Drainage Total 400 ml # Voids 510 530 Laboratory Tests Test 09/15/20 03:25 White Blood Count 11.3 K/UL (4.8-10.8) H Red Blood Count 4.50 M/UL (4.70-6.10) L Hemoglobin 12.7 G/DL (14.2-18.0) L Hematocrit 38.5 % (42.0-52.0) L Mean Corpuscular Volume 85 FL (80-99) Mean Corpuscular Hemoglobin 28.3 PG (27.0-31.0) Mean Corpuscular Hemoglobin Concent 33.1 G/DL (32.0-36.0) Red Cell Distribution Width 14.0 % (11.6-14.8) Platelet Count 174 K/UL (150-450) Mean Platelet Volume 7.1 FL (6.5-10.1) Neutrophils (%) (Auto) % (45.0-75.0) Lymphocytes (%) (Auto) % (20.0-45.0) Monocytes (%) (Auto) % (1.0-10.0) Eosinophils (%) (Auto) % (0.0-3.0) Basophils (%) (Auto) % (0.0-2.0) Sodium Level 137 MMOL/L (136-145) Potassium Level 4.3 MMOL/L (3.5-5.1) Chloride Level 105 MMOL/L (98-107) Carbon Dioxide Level 27 MMOL/L (21-32) Anion Gap 6 mmol/L (5-15) Blood Urea Nitrogen 11 mg/dL (7-18) Creatinine 0.9 MG/DL (0.55-1.30) Estimat Glomerular Filtration Rate > 60 mL/min (>60) Glucose Level 92 MG/DL (74-106) Calcium Level 7.5 MG/DL (8.5-10.1) L Total Bilirubin 0.5 MG/DL (0.2-1.0) Aspartate Amino Transf (AST/SGOT) 31 U/L (15-37) Alanine Aminotransferase (ALT/SGPT) 16 U/L (12-78) Alkaline Phosphatase 92 U/L (46-116) Total Protein 4.9 G/DL (6.4-8.2) L Albumin 2.3 G/DL (3.4-5.0) L Globulin 2.6 g/dL Albumin/Globulin Ratio 0.9 (1.0-2.7) L Microbiology Date/Time Source Procedure Growth Status 09/13/20 15:00 Urine,Clean Catch Urine Culture - Preliminary NO GROWTH Resulted 09/12/20 23:10 Peritoneal Fluid Gram Stain - Final Resulted 09/12/20 23:10 Aerobic Culture - Preliminary Gram Negative Bacillus 1 Gram Negative Bacillus 2 Resulted 09/12/20 23:10 Peritoneal Fluid Anaerobic Culture Pending Resulted 09/12/20 21:00 Rectum - Final NO CARBAPENEM-RESISTANT ENTEROBACTERI... Complete 09/12/20 21:00 Rectum VRE Culture - Final NO VANCOMYCIN RESISTANT ENTEROCOCCUS ... Complete 09/12/20 18:35 Nasopharynx SARS-CoV-2 RdRp Gene Assay - Final Complete 09/12/20 18:35 Blood Blood Culture - Preliminary NO GROWTH AFTER 24 HOURS Resulted 09/12/20 18:20 Blood Blood Culture - Preliminary NO GROWTH AFTER 24 HOURS Resulted Objective HEAD AND NECK: No JVD. LUNGS: Coarse rhonchi.Decrease breath sounds on Left CARDIOVASCULAR: Shows regular S1 and S2 with no gallop. ABDOMEN: Tender and is status post laparotomy. EXTREMITIES: No pitting edema. Jason Li MD Sep 15, 2020 11:01
[2020-09-15] MEDS: Albuterol/Ipratropium 3ml neb HHN SCH ×4 (11:49→23:15)
[2020-09-15] MEDS ORDERED: NS 275ml ONE (12:12)
[2020-09-15] MEDS ORDERED: Tubing IV Secondary IV ONE (12:12)
--- NOTE | 2020-09-15 12:40 | Nephrology Progress Note ---
Assessment/Plan Problem List: (1) Lactic acid increased (2) Electrolyte imbalance (3) SBO (small bowel obstruction) (4) Sepsis (5) Bowel perforation Assessment Lactic acidosis Bowel perforation Sepsis Plan September 15: On nasal cannula, renal parameters stable. Continue per consultants. Previously: Postop care, weaning from ventilator ~failed so far Check urine analysis, noted IV fluid management Keep the electrolytes and renal parameters in check Antibiotics Per consultants Post surgery results: 1. Small bowel obstruction at the level of the ileocecal valve, secondary to unknown etiology, potential tumor mass. 2. Perforated cecum. 3. Acute cholecystitis. Subjective ROS Limited/Unobtainable: No Constitutional: Reports: malaise Objective Objective Last 24 Hour Vital Signs Date Time Temp Pulse Resp B/P (MAP) Pulse Ox O2 Delivery O2 Flow Rate FiO2 09/15/20 12:06 99 32 139/73 (95) 100 09/15/20 12:00 Venturi Mask 09/15/20 12:00 99 09/15/20 11:59 104 20 100 Nasal Cannula 2.0 28 96 19 97 09/15/20 11:00 94 30 128/85 (99) 98 09/15/20 10:00 96 31 104/71 (82) 98 09/15/20 09:00 88 27 120/68 (85) 100 09/15/20 08:00 98.0 99 32 102/66 (78) 92 09/15/20 08:00 Venturi Mask 09/15/20 08:00 104 09/15/20 07:55 97 Nasal Cannula 2.0 28 09/15/20 07:15 104 28 107/64 (78) 94 09/15/20 06:30 99 29 106/77 (87) 98 09/15/20 06:00 100 29 103/69 (80) 98 09/15/20 05:00 109 31 111/63 (79) 98 09/15/20 04:30 100 28 115/62 (79) 97 09/15/20 04:14 98.0 101 30 104/73 (83) 97 09/15/20 04:00 Venturi Mask 09/15/20 04:00 105 09/15/20 03:00 97 27 141/68 (92) 100 09/15/20 02:00 99 30 103/85 (91) 98 09/15/20 01:00 99 27 128/72 (90) 100 09/15/20 00:30 99 28 121/68 (85) 100 09/15/20 00:00 102 09/15/20 00:00 Venturi Mask 09/15/20 00:00 98.4 107 28 136/106 (116) 99 09/14/20 23:00 101 28 96/79 (85) 100 09/14/20 22:00 108 30 111/64 (80) 100 09/14/20 21:28 98 27 104/89 100 09/14/20 21:00 96 25 133/72 (92) 97 09/14/20 20:58 98 27 104/89 100 09/14/20 20:00 100 09/14/20 20:00 98.0 98 25 129/75 (93) 91 09/14/20 20:00 Venturi Mask 09/14/20 19:12 100 Venturi Mask 4.0 28 09/14/20 19:00 98 27 104/89 (94) 97 09/14/20 18:00 102 27 133/69 (90) 96 09/14/20 17:00 101 28 142/73 (96) 97 09/14/20 16:00 4.0 28 09/14/20 16:00 98.5 103 22 127/72 (90) 96 09/14/20 16:00 Mechanical Ventilator 09/14/20 16:00 100 09/14/20 15:00 105 25 127/69 (88) 97 09/14/20 14:00 103 25 127/70 (89) 97 09/14/20 13:00 97.5 101 22 118/72 (87) 98 Intake and Output 09/14/20 09/15/20 19:00 07:00 Intake Total 1724.75 ml 1667.75 ml Output Total 400 ml Balance 1324.75 ml 1667.75 ml Intake Oral 0 ml 0 ml IV Total 1724.75 ml 1667.75 ml Output Gastric Drainage Total 400 ml # Voids 510 530 Current Medications Medications (Trade) Dose Ordered Sig/Jojo Route PRN Reason Start Time Stop Time Status Last Admin Dose Admin Albuterol/ Ipratropium (Albuterol/ Ipratropium) 3 ml Q4HRT HHN 09/15/20 11:30 09/20/20 11:29 09/15/20 11:49 Dextrose/ Electrolytes 1,000 ml @ 125 mls/hr Q8H IV 09/13/20 01:00 10/13/20 00:59 09/15/20 10:00 Heparin Sodium (Porcine) (Heparin 5000 units/ml) 5,000 units EVERY 8 HOURS SUBQ 09/14/20 06:00 10/29/20 05:59 09/14/20 06:18 Lorazepam (Ativan 2mg/ml 1ml) 1 mg Q4H PRN IV For Anxiety 09/13/20 01:00 09/20/20 00:59 09/14/20 20:58 Metoclopramide HCl (Reglan) 10 mg Q6H PRN IVP Nausea & Vomiting 09/13/20 01:00 10/13/20 00:59 Morphine Sulfate (Morphine Sulfate) 1 mg Q4H PRN IVP pain scale 1-3 09/13/20 01:00 09/20/20 00:59 09/13/20 14:12 Morphine Sulfate (Morphine Sulfate) 2 mg Q4H PRN IVP pain scale 4-6 09/13/20 01:00 09/20/20 00:59 09/14/20 08:36 Morphine Sulfate (Morphine Sulfate) 4 mg Q4H PRN IVP pain score 7-10 09/13/20 01:00 09/20/20 00:59 Ondansetron HCl (Zofran) 4 mg Q6H PRN IVP Nausea & Vomiting 09/13/20 01:00 10/13/20 00:59 Pantoprazole (Protonix) 40 mg Q12HR IVP 09/13/20 21:00 10/13/20 08:59 09/15/20 08:05 Piperacillin Sod/ Tazobactam Sod 3.375 gm/Sodium Chloride 110 ml @ 27.5 mls/hr Q8H IVPB 09/13/20 01:00 09/20/20 00:59 09/15/20 08:05 Laboratory Tests 09/15/20 03:25: White Blood Count 11.3H, Red Blood Count 4.50L, Hemoglobin 12.7L, Hematocrit 38.5L, Mean Corpuscular Volume 85, Mean Corpuscular Hemoglobin 28.3, Mean Corpuscular Hemoglobin Concent 33.1, Red Cell Distribution Width 14.0, Platelet Count 174, Mean Platelet Volume 7.1, Neutrophils (%) (Auto) , Lymphocytes (%) (Auto) , Monocytes (%) (Auto) , Eosinophils (%) (Auto) , Basophils (%) (Auto) , Sodium Level 137, Potassium Level 4.3, Chloride Level 105, Carbon Dioxide Level 27, Anion Gap 6, Blood Urea Nitrogen 11, Creatinine 0.9, Estimat Glomerular Filtration Rate > 60, Glucose Level 92, Calcium Level 7.5L, Total Bilirubin 0.5, Aspartate Amino Transf (AST/SGOT) 31, Alanine Aminotransferase (ALT/SGPT) 16, Alkaline Phosphatase 92, Total Protein 4.9L, Albumin 2.3L, Globulin 2.6, Albumin/Globulin Ratio 0.9L Height (Feet): 6 Height (Inches): 0.00 Weight (Pounds): 155 General Appearance: no apparent distress EENT: other - On nasal cannula Cardiovascular: tachycardia Respiratory/Chest: decreased breath sounds Abdomen: distended Price Heart MD Sep 15, 2020 12:40
--- NOTE | 2020-09-15 12:50 | Diagnostic Imaging Report ---
EXAM: ULTRASOUND Venous Duplex UPPR EXT Bilat CLINICAL HISTORY: Reason For Exam: DVT. Upper extremity pain and swelling COMPARISON: None TECHNIQUE: Doppler examination include grayscale images obtained with and without compression, and color and spectral doppler analysis. FINDINGS: Doppler examination shows normal spontaneity, phasicity, compressibility in the upper extremity veins including the bilateral jugular vein, subclavian vein, axillary veins, brachial veins, as well as cephalic and basilic veins.. There is no thrombus identified by grayscale. Normal color and spectral flow is identified. IMPRESSION: NO EVIDENCE OF DEEP VENOUS THROMBOSIS IN THE UPPER EXTREMITY VEINS.
--- NOTE | 2020-09-15 13:00 | Infectious Diseases Prog Note ---
Assessment/Plan Assessment/Plan IMPRESSION: 1. Sepsis. 2. Small bowel obstruction and perforation. 3. Acute cholecystitis. 4. COPD. 5. Fatty liver. 6. Preoperative respiratory failure. 7. Pneumonia RECOMMENDATION: 1. Continue Zosyn. 2. We will follow up the cultures. 3. We will follow up the pathology report. Subjective ROS Limited/Unobtainable: Yes Respiratory: Reports: other - extubated Neurologic: Reports: confusion - on restaint Allergies: Coded Allergies: No Known Allergies (Unverified , 09/12/20) Objective Last 24 Hour Vital Signs Date Time Temp Pulse Resp B/P (MAP) Pulse Ox O2 Delivery O2 Flow Rate FiO2 09/15/20 12:06 99 32 139/73 (95) 100 09/15/20 12:00 Venturi Mask 09/15/20 12:00 99 09/15/20 11:59 104 20 100 Nasal Cannula 2.0 28 96 19 97 09/15/20 11:00 94 30 128/85 (99) 98 09/15/20 10:00 96 31 104/71 (82) 98 09/15/20 09:00 88 27 120/68 (85) 100 09/15/20 08:00 98.0 99 32 102/66 (78) 92 09/15/20 08:00 Venturi Mask 09/15/20 08:00 104 09/15/20 07:55 97 Nasal Cannula 2.0 28 09/15/20 07:15 104 28 107/64 (78) 94 09/15/20 06:30 99 29 106/77 (87) 98 09/15/20 06:00 100 29 103/69 (80) 98 09/15/20 05:00 109 31 111/63 (79) 98 09/15/20 04:30 100 28 115/62 (79) 97 09/15/20 04:14 98.0 101 30 104/73 (83) 97 09/15/20 04:00 Venturi Mask 09/15/20 04:00 105 09/15/20 03:00 97 27 141/68 (92) 100 09/15/20 02:00 99 30 103/85 (91) 98 09/15/20 01:00 99 27 128/72 (90) 100 09/15/20 00:30 99 28 121/68 (85) 100 09/15/20 00:00 102 10/22/20 00:00 Venturi Mask 09/15/20 00:00 98.4 107 28 136/106 (116) 99 09/14/20 23:00 101 28 96/79 (85) 100 09/14/20 22:00 108 30 111/64 (80) 100 09/14/20 21:28 98 27 104/89 100 09/14/20 21:00 96 25 133/72 (92) 97 09/14/20 20:58 98 27 104/89 100 09/14/20 20:00 100 09/14/20 20:00 98.0 98 25 129/75 (93) 91 09/14/20 20:00 Venturi Mask 09/14/20 19:12 100 Venturi Mask 4.0 28 09/14/20 19:00 98 27 104/89 (94) 97 09/14/20 18:00 102 27 133/69 (90) 96 09/14/20 17:00 101 28 142/73 (96) 97 09/14/20 16:00 4.0 28 09/14/20 16:00 98.5 103 22 127/72 (90) 96 09/14/20 16:00 Mechanical Ventilator 09/14/20 16:00 100 09/14/20 15:00 105 25 127/69 (88) 97 09/14/20 14:00 103 25 127/70 (89) 97 09/14/20 13:00 97.5 101 22 118/72 (87) 98 Height (Feet): 6 Height (Inches): 0.00 Weight (Pounds): 155 Respiratory/Chest: crackles/rales, other - oxygen by nasal cannula Cardiovascular: tachycardia Abdomen: soft, non tender Extremities: no edema Neurologic/Psychiatric: alert, disoriented Microbiology Date/Time Source Procedure Growth Status 09/13/20 15:00 Urine,Clean Catch Urine Culture - Preliminary NO GROWTH Resulted 09/12/20 23:10 Peritoneal Fluid Gram Stain - Final Resulted 09/12/20 23:10 Aerobic Culture - Preliminary Escherichia Coli Gram Negative Bacillus 2 Resulted 09/12/20 23:10 Peritoneal Fluid Anaerobic Culture Pending Resulted 09/12/20 21:00 Rectum - Final NO CARBAPENEM-RESISTANT ENTEROBACTERI... Complete 09/12/20 21:00 Rectum VRE Culture - Final NO VANCOMYCIN RESISTANT ENTEROCOCCUS ... Complete 09/12/20 18:35 Nasopharynx SARS-CoV-2 RdRp Gene Assay - Final Complete 09/12/20 18:35 Blood Blood Culture - Preliminary NO GROWTH AFTER 24 HOURS Resulted 09/12/20 18:20 Blood Blood Culture - Preliminary NO GROWTH AFTER 24 HOURS Resulted Laboratory Tests Test 09/15/20 03:25 White Blood Count 11.3 K/UL (4.8-10.8) H Red Blood Count 4.50 M/UL (4.70-6.10) L Hemoglobin 12.7 G/DL (14.2-18.0) L Hematocrit 38.5 % (42.0-52.0) L Mean Corpuscular Volume 85 FL (80-99) Mean Corpuscular Hemoglobin 28.3 PG (27.0-31.0) Mean Corpuscular Hemoglobin Concent 33.1 G/DL (32.0-36.0) Red Cell Distribution Width 14.0 % (11.6-14.8) Platelet Count 174 K/UL (150-450) Mean Platelet Volume 7.1 FL (6.5-10.1) Neutrophils (%) (Auto) % (45.0-75.0) Lymphocytes (%) (Auto) % (20.0-45.0) Monocytes (%) (Auto) % (1.0-10.0) Eosinophils (%) (Auto) % (0.0-3.0) Basophils (%) (Auto) % (0.0-2.0) Sodium Level 137 MMOL/L (136-145) Potassium Level 4.3 MMOL/L (3.5-5.1) Chloride Level 105 MMOL/L (98-107) Carbon Dioxide Level 27 MMOL/L (21-32) Anion Gap 6 mmol/L (5-15) Blood Urea Nitrogen 11 mg/dL (7-18) Creatinine 0.9 MG/DL (0.55-1.30) Estimat Glomerular Filtration Rate > 60 mL/min (>60) Glucose Level 92 MG/DL (74-106) Calcium Level 7.5 MG/DL (8.5-10.1) L Total Bilirubin 0.5 MG/DL (0.2-1.0) Aspartate Amino Transf (AST/SGOT) 31 U/L (15-37) Alanine Aminotransferase (ALT/SGPT) 16 U/L (12-78) Alkaline Phosphatase 92 U/L (46-116) Total Protein 4.9 G/DL (6.4-8.2) L Albumin 2.3 G/DL (3.4-5.0) L Globulin 2.6 g/dL Albumin/Globulin Ratio 0.9 (1.0-2.7) L Current Medications Medications (Trade) Dose Ordered Sig/Jojo Route PRN Reason Start Time Stop Time Status Last Admin Dose Admin Albuterol/ Ipratropium (Albuterol/ Ipratropium) 3 ml Q4HRT HHN 09/15/20 11:30 09/20/20 11:29 09/15/20 11:49 Dextrose/ Electrolytes 1,000 ml @ 125 mls/hr Q8H IV 09/13/20 01:00 10/13/20 00:59 09/15/20 10:00 Heparin Sodium (Porcine) (Heparin 5000 units/ml) 5,000 units EVERY 8 HOURS SUBQ 09/14/20 06:00 10/29/20 05:59 09/14/20 06:18 Lorazepam (Ativan 2mg/ml 1ml) 1 mg Q4H PRN IV For Anxiety 09/13/20 01:00 09/20/20 00:59 09/14/20 20:58 Metoclopramide HCl (Reglan) 10 mg Q6H PRN IVP Nausea & Vomiting 09/13/20 01:00 10/13/20 00:59 Morphine Sulfate (Morphine Sulfate) 1 mg Q4H PRN IVP pain scale 1-3 09/13/20 01:00 09/20/20 00:59 09/13/20 14:12 Morphine Sulfate (Morphine Sulfate) 2 mg Q4H PRN IVP pain scale 4-6 09/13/20 01:00 09/20/20 00:59 09/14/20 08:36 Morphine Sulfate (Morphine Sulfate) 4 mg Q4H PRN IVP pain score 7-10 09/13/20 01:00 09/20/20 00:59 Ondansetron HCl (Zofran) 4 mg Q6H PRN IVP Nausea & Vomiting 09/13/20 01:00 10/13/20 00:59 Pantoprazole (Protonix) 40 mg Q12HR IVP 09/13/20 21:00 10/13/20 08:59 09/15/20 08:05 Piperacillin Sod/ Tazobactam Sod 3.375 gm/Sodium Chloride 110 ml @ 27.5 mls/hr Q8H IVPB 09/13/20 01:00 09/20/20 00:59 09/15/20 08:05 Delio Edgar MD Sep 15, 2020 13:00
--- NOTE | 2020-09-15 13:11 | General Progress Note ---
Subjective ROS Limited/Unobtainable: Yes Allergies: Coded Allergies: No Known Allergies (Unverified , 09/12/20) Objective Last 24 Hour Vital Signs Date Time Temp Pulse Resp B/P (MAP) Pulse Ox O2 Delivery O2 Flow Rate FiO2 09/15/20 13:00 97 28 117/70 (86) 100 09/15/20 12:06 99 32 139/73 (95) 100 09/15/20 12:00 Venturi Mask 09/15/20 12:00 99 09/15/20 11:59 104 20 100 Nasal Cannula 2.0 28 96 19 97 09/15/20 11:00 94 30 128/85 (99) 98 09/15/20 10:00 96 31 104/71 (82) 98 09/15/20 09:00 88 27 120/68 (85) 100 09/15/20 08:00 98.0 99 32 102/66 (78) 92 09/15/20 08:00 Venturi Mask 09/15/20 08:00 104 09/15/20 07:55 97 Nasal Cannula 2.0 28 09/15/20 07:15 104 28 107/64 (78) 94 09/15/20 06:30 99 29 106/77 (87) 98 09/15/20 06:00 100 29 103/69 (80) 98 09/15/20 05:00 109 31 111/63 (79) 98 09/15/20 04:30 100 28 115/62 (79) 97 09/15/20 04:14 98.0 101 30 104/73 (83) 97 09/15/20 04:00 Venturi Mask 09/15/20 04:00 105 09/15/20 03:00 97 27 141/68 (92) 100 09/15/20 02:00 99 30 103/85 (91) 98 09/15/20 01:00 99 27 128/72 (90) 100 09/15/20 00:30 99 28 121/68 (85) 100 09/15/20 00:00 102 09/15/20 00:00 Venturi Mask 09/15/20 00:00 98.4 107 28 136/106 (116) 99 09/14/20 23:00 101 28 96/79 (85) 100 09/14/20 22:00 108 30 111/64 (80) 100 09/14/20 21:28 98 27 104/89 100 09/14/20 21:00 96 25 133/72 (92) 97 09/14/20 20:58 98 27 104/89 100 09/14/20 20:00 100 09/14/20 20:00 98.0 98 25 129/75 (93) 91 09/14/20 20:00 Venturi Mask 09/14/20 19:12 100 Venturi Mask 4.0 28 09/14/20 19:00 98 27 104/89 (94) 97 09/14/20 18:00 102 27 133/69 (90) 96 09/14/20 17:00 101 28 142/73 (96) 97 09/14/20 16:00 4.0 28 09/14/20 16:00 98.5 103 22 127/72 (90) 96 09/14/20 16:00 Mechanical Ventilator 09/14/20 16:00 100 09/14/20 15:00 105 25 127/69 (88) 97 09/14/20 14:00 103 25 127/70 (89) 97 Intake and Output 09/14/20 09/15/20 19:00 07:00 Intake Total 1724.75 ml 1667.75 ml Output Total 400 ml Balance 1324.75 ml 1667.75 ml Intake Oral 0 ml 0 ml IV Total 1724.75 ml 1667.75 ml Output Gastric Drainage Total 400 ml # Voids 510 530 Laboratory Tests 09/15/20 03:25: White Blood Count 11.3H, Red Blood Count 4.50L, Hemoglobin 12.7L, Hematocrit 38.5L, Mean Corpuscular Volume 85, Mean Corpuscular Hemoglobin 28.3, Mean Corpuscular Hemoglobin Concent 33.1, Red Cell Distribution Width 14.0, Platelet Count 174, Mean Platelet Volume 7.1, Neutrophils (%) (Auto) , Lymphocytes (%) (Auto) , Monocytes (%) (Auto) , Eosinophils (%) (Auto) , Basophils (%) (Auto) , Sodium Level 137, Potassium Level 4.3, Chloride Level 105, Carbon Dioxide Level 27, Anion Gap 6, Blood Urea Nitrogen 11, Creatinine 0.9, Estimat Glomerular Filtration Rate > 60, Glucose Level 92, Calcium Level 7.5L, Total Bilirubin 0.5, Aspartate Amino Transf (AST/SGOT) 31, Alanine Aminotransferase (ALT/SGPT) 16, Alkaline Phosphatase 92, Total Protein 4.9L, Albumin 2.3L, Globulin 2.6, Albumin/Globulin Ratio 0.9L Height (Feet): 6 Height (Inches): 0.00 Weight (Pounds): 155 Assessment/Plan Problem List: (1) Bowel perforation ICD Codes: K63.1 - Perforation of intestine (nontraumatic) SNOMED: 22925429 (2) Sepsis ICD Codes: A41.9 - Sepsis, unspecified organism SNOMED: 65910573 (3) SBO (small bowel obstruction) ICD Codes: K56.609 - Unspecified intestinal obstruction, unspecified as to partial versus complete obstruction SNOMED: 764487346 (4) Lactic acidosis ICD Codes: E87.2 - Acidosis SNOMED: 43379483 (5) Abdominal pain ICD Codes: R10.9 - Unspecified abdominal pain SNOMED: 75297483 Assessment/Plan: extubated s/p exploratory lap for perforated bowel s/p cholycystectomy for acute cholycystectomy colon mass sent for biopsy sepsis abx per id afebrile UE edema ordered u/s also r/o cellulitis at iv site Vania Dwyer MD Sep 15, 2020 13:11
--- NOTE | 2020-09-15 22:02 | General Progress Note ---
Subjective Allergies: Coded Allergies: No Known Allergies (Unverified , 09/12/20) Subjective Seen in ICU no complaints Objective Last 24 Hour Vital Signs Date Time Temp Pulse Resp B/P (MAP) Pulse Ox O2 Delivery O2 Flow Rate FiO2 09/15/20 21:00 103 28 116/66 (83) 97 09/15/20 20:07 109 24 98 Nasal Cannula 2.0 28 09/15/20 20:07 109 24 98 Nasal Cannula 2.0 28 09/15/20 20:00 Nasal Cannula 2.0 09/15/20 20:00 99.1 115 40 119/71 (87) 100 09/15/20 19:51 103 22 96 Nasal Cannula 2.0 28 09/15/20 19:51 103 22 96 Nasal Cannula 2.0 28 09/15/20 19:51 96 Nasal Cannula 2.0 28 09/15/20 19:09 109 09/15/20 19:00 105 28 100/64 (76) 92 09/15/20 18:00 105 31 118/84 (95) 96 09/15/20 17:00 98 27 91/57 (68) 99 09/15/20 16:00 Venturi Mask 09/15/20 16:00 100 32 103/90 (94) 96 09/15/20 16:00 99 09/15/20 15:46 102 21 100 Nasal Cannula 2.0 28 100 20 100 09/15/20 15:00 95 29 123/71 (88) 100 09/15/20 14:00 98.0 100 33 111/61 (78) 94 09/15/20 13:32 105 20 97 Nasal Cannula 2.0 28 09/15/20 13:22 106 24 94 Nasal Cannula 2.0 28 09/15/20 13:00 97 28 117/70 (86) 100 09/15/20 12:06 99 32 139/73 (95) 100 09/15/20 12:00 Venturi Mask 09/15/20 12:00 99 09/15/20 11:59 104 20 100 Nasal Cannula 2.0 28 96 19 97 09/15/20 11:00 94 30 128/85 (99) 98 09/15/20 10:00 96 31 104/71 (82) 98 09/15/20 09:00 88 27 120/68 (85) 100 09/15/20 08:00 98.0 99 32 102/66 (78) 92 09/15/20 08:00 Venturi Mask 09/15/20 08:00 104 09/15/20 07:55 97 Nasal Cannula 2.0 28 09/15/20 07:15 104 28 107/64 (78) 94 09/15/20 06:30 99 29 106/77 (87) 98 09/15/20 06:00 100 29 103/69 (80) 98 09/15/20 05:00 109 31 111/63 (79) 98 09/15/20 04:30 100 28 115/62 (79) 97 09/15/20 04:14 98.0 101 30 104/73 (83) 97 09/15/20 04:00 Venturi Mask 09/15/20 04:00 105 09/15/20 03:00 97 27 141/68 (92) 100 09/15/20 02:00 99 30 103/85 (91) 98 09/15/20 01:00 99 27 128/72 (90) 100 09/15/20 00:30 99 28 121/68 (85) 100 09/15/20 00:00 102 09/15/20 00:00 Venturi Mask 09/15/20 00:00 98.4 107 28 136/106 (116) 99 09/14/20 23:00 101 28 96/79 (85) 100 Intake and Output 09/14/20 09/15/20 19:00 07:00 Intake Total 1724.75 ml 1667.75 ml Output Total 400 ml Balance 1324.75 ml 1667.75 ml Intake Oral 0 ml 0 ml IV Total 1724.75 ml 1667.75 ml Output Gastric Drainage Total 400 ml # Voids 510 530 Laboratory Tests 09/15/20 03:25: White Blood Count 11.3H, Red Blood Count 4.50L, Hemoglobin 12.7L, Hematocrit 38.5L, Mean Corpuscular Volume 85, Mean Corpuscular Hemoglobin 28.3, Mean Corpuscular Hemoglobin Concent 33.1, Red Cell Distribution Width 14.0, Platelet Count 174, Mean Platelet Volume 7.1, Neutrophils (%) (Auto) , Lymphocytes (%) (Auto) , Monocytes (%) (Auto) , Eosinophils (%) (Auto) , Basophils (%) (Auto) , Sodium Level 137, Potassium Level 4.3, Chloride Level 105, Carbon Dioxide Level 27, Anion Gap 6, Blood Urea Nitrogen 11, Creatinine 0.9, Estimat Glomerular Filtration Rate > 60, Glucose Level 92, Calcium Level 7.5L, Total Bilirubin 0.5, Aspartate Amino Transf (AST/SGOT) 31, Alanine Aminotransferase (ALT/SGPT) 16, Alkaline Phosphatase 92, Total Protein 4.9L, Albumin 2.3L, Globulin 2.6, Albumin/Globulin Ratio 0.9L Height (Feet): 6 Height (Inches): 0.00 Weight (Pounds): 155 Objective Thin man NCAT supple CTA RR abd (+) large dressing no edema Assessment/Plan Assessment/Plan: Assessment - IC valve area SBO - Cecal perforation - s/p sancho for cholecystitis Recommendations - post op care - PO per surgery - follow labs and exam Froilan De Paz MD Sep 15, 2020 22:02
[2020-09-15] MEDS: LORazepam Inj 2mg/ml 1ml IV PRN (22:15)
[2020-09-16] VITALS (30 sets, daily range): BP systolic 81–146; BP diastolic 45–91
[2020-09-16] MEDS: D5 1/2NS w/KCl 20mEq 1,000 ML IV SCH ×3 (00:52→16:20)
[2020-09-16] MEDS: Piperacillin/Tazobactam 3.375 GM in NS 110 ML IVPB SCH ×2 (00:54→08:21)
[2020-09-16] MEDS: Albuterol/Ipratropium 3ml neb HHN SCH ×6 (03:15→23:53)
[2020-09-16 04:57] LABS: HEMATOCRIT 38.9 % (42.0-52.0); HEMOGLOBIN 12.6 G/DL (14.2-18.0); MEAN CORPUSCULAR VOLUME 87 FL (80-99); PLATELET COUNT 211 K/UL (150-450); RED BLOOD COUNT 4.46 M/UL (4.70-6.10); RED CELL DISTRIBUTION WIDTH 13.5 % (11.6-14.8)
[2020-09-16 05:35] LABS: ANION GAP 6 mmol/L (5-15); BLOOD UREA NITROGEN 5 mg/dL (7-18); CALCIUM 7.3 MG/DL (8.5-10.1); CARBON DIOXIDE 26 MMOL/L (21-32); CHLORIDE 105 MMOL/L (98-107); CREATININE 0.8 MG/DL (0.55-1.30); SODIUM 137 MMOL/L (136-145)
[2020-09-16 05:36] LABS: ALANINE AMINOTRANSFERASE 10 U/L (12-78); ALBUMIN 2.1 G/DL (3.4-5.0); ALKALINE PHOSPHATASE 88 U/L (46-116); ASPARTATE AMINO TRANSFERASE 19 U/L (15-37); BILIRUBIN,DIRECT 0.2 MG/DL (0.0-0.3); BILIRUBIN,TOTAL 0.5 MG/DL (0.2-1.0); PHOSPHORUS 1.3 MG/DL (2.5-4.9)
[2020-09-16] MEDS: LORazepam Inj 2mg/ml 1ml IV PRN (05:42)
[2020-09-16] MEDS: Heparin 5000 units/ml inj SUBQ SCH ×3 (05:43→21:18)
[2020-09-16] MEDS: Pantoprazole Inj IVP SCH ×2 (08:21→20:50)
--- NOTE | 2020-09-16 09:55 | Pulmonology Progress Note ---
Subjective ROS Limited/Unobtainable: Yes Interval Events: Extubated on 09/14/20; today CXR shows complete opacification left lung Constitutional: Reports: no symptoms HEENT: Repors: no symptoms Respiratory: Reports: no symptoms Cardiovascular: Reports: no symptoms Gastrointestinal/Abdominal: Reports: no symptoms, other - pain Allergies: Coded Allergies: No Known Allergies (Unverified , 09/12/20) Objective Last 24 Hour Vital Signs Date Time Temp Pulse Resp B/P (MAP) Pulse Ox O2 Delivery O2 Flow Rate FiO2 09/16/20 08:33 118 25 113/75 (88) 99 09/16/20 08:30 115 26 83/52 (62) 99 09/16/20 08:01 118 23 100 Nasal Cannula 2.0 28 09/16/20 08:01 115 20 98 Nasal Cannula 2.0 28 09/16/20 08:01 97 Nasal Cannula 2.0 28 09/16/20 08:01 115 20 97 Nasal Cannula 2.0 28 09/16/20 08:00 97.9 111 26 81/45 (57) 95 09/16/20 08:00 Nasal Cannula 2.0 09/16/20 07:00 112 22 124/71 (88) 96 09/16/20 06:12 112 25 125/75 100 09/16/20 06:00 116 24 126/75 (92) 96 09/16/20 05:42 109 27 109/61 100 09/16/20 05:00 111 26 140/80 (100) 97 09/16/20 04:00 105 09/16/20 04:00 Nasal Cannula 2.0 09/16/20 04:00 98.8 114 27 102/73 (83) 96 09/16/20 03:26 114 24 100 Nasal Cannula 2.0 28 09/16/20 03:15 112 23 98 Nasal Cannula 2.0 28 09/16/20 03:00 106 23 119/91 (100) 97 09/16/20 02:00 108 26 116/69 (85) 97 09/16/20 01:23 113 22 98 Nasal Cannula 2.0 28 09/16/20 01:13 100 18 98 Nasal Cannula 2.0 28 09/16/20 01:00 108 25 108/65 (79) 96 09/16/20 00:00 104 09/16/20 00:00 99.0 112 25 102/61 (75) 96 09/16/20 00:00 Nasal Cannula 2.0 09/15/20 23:32 112 25 97 Nasal Cannula 2.0 28 09/15/20 23:15 106 22 97 Nasal Cannula 2.0 28 09/15/20 23:00 112 29 117/69 (85) 95 09/15/20 22:45 102 20 133/75 96 09/15/20 22:15 125 26 145/75 96 09/15/20 22:00 119 29 122/77 (92) 95 09/15/20 21:00 103 28 116/66 (83) 97 09/15/20 20:07 109 24 98 Nasal Cannula 2.0 28 09/15/20 20:07 109 24 98 Nasal Cannula 2.0 28 09/15/20 20:00 Nasal Cannula 2.0 09/15/20 20:00 99.1 115 40 119/71 (87) 100 09/15/20 19:51 103 22 96 Nasal Cannula 2.0 28 09/15/20 19:51 103 22 96 Nasal Cannula 2.0 28 09/15/20 19:51 96 Nasal Cannula 2.0 28 09/15/20 19:09 109 09/15/20 19:00 105 28 100/64 (76) 92 09/15/20 18:00 105 31 118/84 (95) 96 09/15/20 17:00 98 27 91/57 (68) 99 09/15/20 16:00 Venturi Mask 09/15/20 16:00 100 32 103/90 (94) 96 09/15/20 16:00 99 09/15/20 15:46 102 21 100 Nasal Cannula 2.0 28 100 20 100 09/15/20 15:00 95 29 123/71 (88) 100 09/15/20 14:00 98.0 100 33 111/61 (78) 94 09/15/20 13:32 105 20 97 Nasal Cannula 2.0 28 09/15/20 13:22 106 24 94 Nasal Cannula 2.0 28 09/15/20 13:00 97 28 117/70 (86) 100 09/15/20 12:06 99 32 139/73 (95) 100 09/15/20 12:00 Venturi Mask 09/15/20 12:00 99 09/15/20 11:59 104 20 100 Nasal Cannula 2.0 28 96 19 97 09/15/20 11:00 94 30 128/85 (99) 98 09/15/20 10:00 96 31 104/71 (82) 98 Intake and Output 09/15/20 09/16/20 19:00 07:00 Intake Total 1426.91 ml 1155.0 ml Balance 1426.91 ml 1155.0 ml Intake Oral 0 ml IV Total 1426.91 ml 1155.0 ml # Voids [phone] General Appearance: no acute distress HEENT: normocephalic Respiratory: chest wall non-tender, decreased breath sounds Cardiovascular: normal peripheral pulses, normal rate Abdomen: normal bowel sounds Microbiology Date/Time Source Procedure Growth Status 09/13/20 15:00 Urine,Clean Catch Urine Culture - Final NO GROWTH AFTER 48 HOURS Complete Laboratory Tests 09/16/20 03:45: White Blood Count 11.0H, Red Blood Count 4.46L, Hemoglobin 12.6L, Hematocrit 38.9L, Mean Corpuscular Volume 87, Mean Corpuscular Hemoglobin 28.3, Mean Corpuscular Hemoglobin Concent 32.4, Red Cell Distribution Width 13.5, Platelet Count 211, Mean Platelet Volume 6.5, Neutrophils (%) (Auto) , Lymphocytes (%) (Auto) , Monocytes (%) (Auto) , Eosinophils (%) (Auto) , Basophils (%) (Auto) , Differential Total Cells Counted 100, Neutrophils % (Manual) 79H, Lymphocytes % (Manual) 9L, Monocytes % (Manual) 5, Eosinophils % (Manual) 1, Basophils % (Manual) 0, Band Neutrophils 6, Platelet Estimate Adequate, Platelet Morphology Normal, Red Blood Cell Morphology Normal, Sodium Level 137, Potassium Level 4.0, Chloride Level 105, Carbon Dioxide Level 26, Anion Gap 6, Blood Urea Nitrogen 5L , Creatinine 0.8, Estimat Glomerular Filtration Rate > 60, Glucose Level 130H, Lactic Acid Level 0.70, Calcium Level 7.3L, Phosphorus Level 1.3L, Magnesium Level 1.9, Total Bilirubin 0.5, Direct Bilirubin 0.2, Aspartate Amino Transf (AST/SGOT) 19, Alanine Aminotransferase (ALT/SGPT) 10L, Alkaline Phosphatase 88, Total Protein 4.7L, Albumin 2.1L Current Medications Medications (Trade) Dose Ordered Sig/Jojo Route PRN Reason Start Time Stop Time Status Last Admin Dose Admin Albuterol/ Ipratropium (Albuterol/ Ipratropium) 3 ml Q4HRT HHN 09/15/20 11:30 09/20/20 11:29 09/16/20 08:01 Dextrose/ Electrolytes 1,000 ml @ 125 mls/hr Q8H IV 09/13/20 01:00 10/13/20 00:59 09/16/20 08:25 Heparin Sodium (Porcine) (Heparin 5000 units/ml) 5,000 units EVERY 8 HOURS SUBQ 09/14/20 06:00 10/29/20 05:59 09/16/20 05:43 Lorazepam (Ativan 2mg/ml 1ml) 1 mg Q4H PRN IV For Anxiety 09/13/20 01:00 09/20/20 00:59 09/16/20 05:42 Metoclopramide HCl (Reglan) 10 mg Q6H PRN IVP Nausea & Vomiting 09/13/20 01:00 10/13/20 00:59 Morphine Sulfate (Morphine Sulfate) 1 mg Q4H PRN IVP pain scale 1-3 09/13/20 01:00 09/20/20 00:59 09/13/20 14:12 Morphine Sulfate (Morphine Sulfate) 2 mg Q4H PRN IVP pain scale 4-6 09/13/20 01:00 09/20/20 00:59 09/14/20 08:36 Morphine Sulfate (Morphine Sulfate) 4 mg Q4H PRN IVP pain score 7-10 09/13/20 01:00 09/20/20 00:59 Ondansetron HCl (Zofran) 4 mg Q6H PRN IVP Nausea & Vomiting 09/13/20 01:00 10/13/20 00:59 Pantoprazole (Protonix) 40 mg Q12HR IVP 09/13/20 21:00 10/13/20 08:59 09/16/20 08:21 Piperacillin Sod/ Tazobactam Sod 3.375 gm/Sodium Chloride 110 ml @ 27.5 mls/hr Q8H IVPB 09/13/20 01:00 09/20/20 00:59 09/16/20 08:21 Assessment/Plan Assessment/Plan IMPRESSION: 1. Cecal perforation. 2. Status post right colectomy, open cholecystectomy, and abdominal washout. 3. History of COPD. 4. Schizophrenia. 5. Left lung complete atelectasis DISCUSSION: Continue ICU care Extubated 09/15/20 Continue broad-spectrum antibiotics. I will follow carefully. CXR shows atelectasis/complete collapse left lung Last 24 hours of suctioning and VEST not effective Will arrange bronchoscopy Unable to locate family Called number in chart.. is that of a homeless [facility] Will request 2 physicians consent .. bronchoscopy and removal of probable mucus plug MAY eliminate need for re-intubation Tito Sheffield Omar Syed MD Sep 16, 2020 09:55
[2020-09-16] MEDS ORDERED: Lidocaine HCl 2% Jelly 6ml Tube TOPIC SCH (10:06)
--- NOTE | 2020-09-16 10:54 | Nephrology Progress Note ---
Assessment/Plan Problem List: (1) Lactic acid increased (2) Electrolyte imbalance (3) SBO (small bowel obstruction) (4) Sepsis (5) Bowel perforation Assessment Lactic acidosis Bowel perforation Sepsis Plan September 16: Patient about to undergo bronchoscopy for white out left lung. Labs reviewed. Abnormal electrolytes and chemistries addressed. Continue per consultants. September 15: On nasal cannula, renal parameters stable. Continue per consultants. Previously: Postop care, weaning from ventilator ~failed so far Check urine analysis, noted IV fluid management Keep the electrolytes and renal parameters in check Antibiotics Per consultants Post surgery results: 1. Small bowel obstruction at the level of the ileocecal valve, secondary to unknown etiology, potential tumor mass. 2. Perforated cecum. 3. Acute cholecystitis. Subjective ROS Limited/Unobtainable: Yes Objective Objective Last 24 Hour Vital Signs Date Time Temp Pulse Resp B/P (MAP) Pulse Ox O2 Delivery O2 Flow Rate FiO2 09/16/20 10:30 117 25 131/64 (86) 95 09/16/20 10:00 108 16 115/74 (88) 94 09/16/20 09:30 114 25 118/70 (86) 94 09/16/20 09:00 128 24 97/77 (84) 91 09/16/20 08:33 118 25 113/75 (88) 99 09/16/20 08:30 115 26 83/52 (62) 99 09/16/20 08:01 118 23 100 Nasal Cannula 2.0 28 09/16/20 08:01 115 20 98 Nasal Cannula 2.0 28 09/16/20 08:01 97 Nasal Cannula 2.0 28 09/16/20 08:01 115 20 97 Nasal Cannula 2.0 28 09/16/20 08:00 97.9 111 26 81/45 (57) 95 09/16/20 08:00 Nasal Cannula 2.0 09/16/20 07:00 112 22 124/71 (88) 96 09/16/20 06:12 112 25 125/75 100 09/16/20 06:00 116 24 126/75 (92) 96 09/16/20 05:42 109 27 109/61 100 09/16/20 05:00 111 26 140/80 (100) 97 09/16/20 04:00 105 09/16/20 04:00 Nasal Cannula 2.0 09/16/20 04:00 98.8 114 27 102/73 (83) 96 09/16/20 03:26 114 24 100 Nasal Cannula 2.0 28 09/16/20 03:15 112 23 98 Nasal Cannula 2.0 28 09/16/20 03:00 106 23 119/91 (100) 97 09/16/20 02:00 108 26 116/69 (85) 97 09/16/20 01:23 113 22 98 Nasal Cannula 2.0 28 09/16/20 01:13 100 18 98 Nasal Cannula 2.0 28 09/16/20 01:00 108 25 108/65 (79) 96 09/16/20 00:00 104 09/16/20 00:00 99.0 112 25 102/61 (75) 96 09/16/20 00:00 Nasal Cannula 2.0 09/15/20 23:32 112 25 97 Nasal Cannula 2.0 28 09/15/20 23:15 106 22 97 Nasal Cannula 2.0 28 09/15/20 23:00 112 29 117/69 (85) 95 09/15/20 22:45 102 20 133/75 96 09/15/20 22:15 125 26 145/75 96 09/15/20 22:00 119 29 122/77 (92) 95 09/15/20 21:00 103 28 116/66 (83) 97 09/15/20 20:07 109 24 98 Nasal Cannula 2.0 28 09/15/20 20:07 109 24 98 Nasal Cannula 2.0 28 09/15/20 20:00 Nasal Cannula 2.0 09/15/20 20:00 99.1 115 40 119/71 (87) 100 09/15/20 19:51 103 22 96 Nasal Cannula 2.0 28 09/15/20 19:51 103 22 96 Nasal Cannula 2.0 28 09/15/20 19:51 96 Nasal Cannula 2.0 28 09/15/20 19:09 109 09/15/20 19:00 105 28 100/64 (76) 92 09/15/20 18:00 105 31 118/84 (95) 96 09/15/20 17:00 98 27 91/57 (68) 99 09/15/20 16:00 Venturi Mask 09/15/20 16:00 100 32 103/90 (94) 96 09/15/20 16:00 99 09/15/20 15:46 102 21 100 Nasal Cannula 2.0 28 100 20 100 09/15/20 15:00 95 29 123/71 (88) 100 09/15/20 14:00 98.0 100 33 111/61 (78) 94 09/15/20 13:32 105 20 97 Nasal Cannula 2.0 28 09/15/20 13:22 106 24 94 Nasal Cannula 2.0 28 09/15/20 13:00 97 28 117/70 (86) 100 09/15/20 12:06 99 32 139/73 (95) 100 09/15/20 12:00 Venturi Mask 09/15/20 12:00 99 09/15/20 11:59 104 20 100 Nasal Cannula 2.0 28 96 19 97 09/15/20 11:00 94 30 128/85 (99) 98 Intake and Output 09/15/20 09/16/20 19:00 07:00 Intake Total 1426.91 ml 1155.0 ml Balance 1426.91 ml 1155.0 ml Intake Oral 0 ml IV Total 1426.91 ml 1155.0 ml # Voids 385 590 Laboratory Tests 09/16/20 03:45: White Blood Count 11.0H, Red Blood Count 4.46L, Hemoglobin 12.6L, Hematocrit 38.9L, Mean Corpuscular Volume 87, Mean Corpuscular Hemoglobin 28.3, Mean Corpuscular Hemoglobin Concent 32.4, Red Cell Distribution Width 13.5, Platelet Count 211, Mean Platelet Volume 6.5, Neutrophils (%) (Auto) , Lymphocytes (%) (Auto) , Monocytes (%) (Auto) , Eosinophils (%) (Auto) , Basophils (%) (Auto) , Differential Total Cells Counted 100, Neutrophils % (Manual) 79H, Lymphocytes % (Manual) 9L, Monocytes % (Manual) 5, Eosinophils % (Manual) 1, Basophils % (M anual) 0, Band Neutrophils 6, Platelet Estimate Adequate, Platelet Morphology Normal, Red Blood Cell Morphology Normal, Sodium Level 137, Potassium Level 4.0, Chloride Level 105, Carbon Dioxide Level 26, Anion Gap 6, Blood Urea Nitrogen 5L , Creatinine 0.8, Estimat Glomerular Filtration Rate > 60, Glucose Level 130H, Lactic Acid Level 0.70, Calcium Level 7.3L, Phosphorus Level 1.3L, Magnesium Level 1.9, Total Bilirubin 0.5, Direct Bilirubin 0.2, Aspartate Amino Transf (AST/SGOT) 19, Alanine Aminotransferase (ALT/SGPT) 10L, Alkaline Phosphatase 88, Total Protein 4.7L, Albumin 2.1L Height (Feet): 6 Height (Inches): 0.00 Weight (Pounds): 155 General Appearance: mild distress Cardiovascular: tachycardia Respiratory/Chest: decreased breath sounds Abdomen: distended Price Heart MD Sep 16, 2020 10:54
--- NOTE | 2020-09-16 11:22 | Infectious Diseases Prog Note ---
Assessment/Plan Assessment/Plan IMPRESSION: 1. Sepsis. 2. Small bowel obstruction and perforation. 3. Acute cholecystitis. 4. COPD. 5. Fatty liver. 6. Preoperative respiratory failure. 7. Pneumonia 8. Peritonitis 9. Mucous plug RECOMMENDATION: 1. Change Zosyn to Meropenem 2. We will follow up the cultures. 3. We will follow up the pathology report. Subjective ROS Limited/Unobtainable: Yes Respiratory: Reports: other - had brochoscopy today Neurologic: Reports: confusion, other - on restraint Allergies: Coded Allergies: No Known Allergies (Unverified , 09/12/20) Objective Last 24 Hour Vital Signs Date Time Temp Pulse Resp B/P (MAP) Pulse Ox O2 Delivery O2 Flow Rate FiO2 09/16/20 10:30 117 25 131/64 (86) 95 09/16/20 10:00 108 16 115/74 (88) 94 09/16/20 09:30 114 25 118/70 (86) 94 09/16/20 09:00 128 24 97/77 (84) 91 09/16/20 08:33 118 25 113/75 (88) 99 09/16/20 08:30 115 26 83/52 (62) 99 09/16/20 08:01 118 23 100 Nasal Cannula 2.0 28 09/16/20 08:01 115 20 98 Nasal Cannula 2.0 28 09/16/20 08:01 97 Nasal Cannula 2.0 28 09/16/20 08:01 115 20 97 Nasal Cannula 2.0 28 09/16/20 08:00 97.9 111 26 81/45 (57) 95 09/16/20 08:00 Nasal Cannula 2.0 09/16/20 07:00 112 22 124/71 (88) 96 09/16/20 06:12 112 25 125/75 100 09/16/20 06:00 116 24 126/75 (92) 96 09/16/20 05:42 109 27 109/61 100 09/16/20 05:00 111 26 140/80 (100) 97 09/16/20 04:00 105 09/16/20 04:00 Nasal Cannula 2.0 09/16/20 04:00 98.8 114 27 102/73 (83) 96 09/16/20 03:26 114 24 100 Nasal Cannula 2.0 28 09/16/20 03:15 112 23 98 Nasal Cannula 2.0 28 09/16/20 03:00 106 23 119/91 (100) 97 09/16/20 02:00 108 26 116/69 (85) 97 09/16/20 01:23 113 22 98 Nasal Cannula 2.0 28 09/16/20 01:13 100 18 98 Nasal Cannula 2.0 28 09/16/20 01:00 108 25 108/65 (79) 96 09/16/20 00:00 104 09/16/20 00:00 99.0 112 25 102/61 (75) 96 09/16/20 00:00 Nasal Cannula 2.0 09/15/20 23:32 112 25 97 Nasal Cannula 2.0 28 09/15/20 23:15 106 22 97 Nasal Cannula 2.0 28 09/15/20 23:00 112 29 117/69 (85) 95 09/15/20 22:45 102 20 133/75 96 09/15/20 22:15 125 26 145/75 96 09/15/20 22:00 119 29 122/77 (92) 95 09/15/20 21:00 103 28 116/66 (83) 97 09/15/20 20:07 109 24 98 Nasal Cannula 2.0 28 09/15/20 20:07 109 24 98 Nasal Cannula 2.0 28 09/15/20 20:00 Nasal Cannula 2.0 09/15/20 20:00 99.1 115 40 119/71 (87) 100 09/15/20 19:51 103 22 96 Nasal Cannula 2.0 28 09/15/20 19:51 103 22 96 Nasal Cannula 2.0 28 09/15/20 19:51 96 Nasal Cannula 2.0 28 09/15/20 19:09 109 09/15/20 19:00 105 28 100/64 (76) 92 09/15/20 18:00 105 31 118/84 (95) 96 09/15/20 17:00 98 27 91/57 (68) 99 09/15/20 16:00 Venturi Mask 09/15/20 16:00 100 32 103/90 (94) 96 09/15/20 16:00 99 09/15/20 15:46 102 21 100 Nasal Cannula 2.0 28 100 20 100 09/15/20 15:00 95 29 123/71 (88) 100 09/15/20 14:00 98.0 100 33 111/61 (78) 94 09/15/20 13:32 105 20 97 Nasal Cannula 2.0 28 09/15/20 13:22 106 24 94 Nasal Cannula 2.0 28 09/15/20 13:00 97 28 117/70 (86) 100 09/15/20 12:06 99 32 139/73 (95) 100 09/15/20 12:00 Venturi Mask 09/15/20 12:00 99 09/15/20 11:59 104 20 100 Nasal Cannula 2.0 28 96 19 97 Height (Feet): 6 Height (Inches): 0.00 Weight (Pounds): 155 HEENT: mucous membranes moist Respiratory/Chest: crackles/rales, rhonchi - bilaterally Cardiovascular: tachycardia Abdomen: distended Extremities: no edema Neurologic/Psychiatric: disoriented Microbiology Date/Time Source Procedure Growth Status 09/13/20 15:00 Urine,Clean Catch Urine Culture - Final NO GROWTH AFTER 48 HOURS Complete Laboratory Tests Test 09/16/20 03:45 White Blood Count 11.0 K/UL (4.8-10.8) H Red Blood Count 4.46 M/UL (4.70-6.10) L Hemoglobin 12.6 G/DL (14.2-18.0) L Hematocrit 38.9 % (42.0-52.0) L Mean Corpuscular Volume 87 FL (80-99) Mean Corpuscular Hemoglobin 28.3 PG (27.0-31.0) Mean Corpuscular Hemoglobin Concent 32.4 G/DL (32.0-36.0) Red Cell Distribution Width 13.5 % (11.6-14.8) Platelet Count 211 K/UL (150-450) Mean Platelet Volume 6.5 FL (6.5-10.1) Neutrophils (%) (Auto) % (45.0-75.0) Lymphocytes (%) (Auto) % (20.0-45.0) Monocytes (%) (Auto) % (1.0-10.0) Eosinophils (%) (Auto) % (0.0-3.0) Basophils (%) (Auto) % (0.0-2.0) Differential Total Cells Counted 100 Neutrophils % (Manual) 79 % (45-75) H Lymphocytes % (Manual) 9 % (20-45) L Monocytes % (Manual) 5 % (1-10) Eosinophils % (Manual) 1 % (0-3) Basophils % (Manual) 0 % (0-2) Band Neutrophils 6 % (0-8) Platelet Estimate Adequate Platelet Morphology Normal Red Blood Cell Morphology Normal Sodium Level 137 MMOL/L (136-145) Potassium Level 4.0 MMOL/L (3.5-5.1) Chloride Level 105 MMOL/L (98-107) Carbon Dioxide Level 26 MMOL/L (21-32) Anion Gap 6 mmol/L (5-15) Blood Urea Nitrogen 5 mg/dL (7-18) L Creatinine 0.8 MG/DL (0.55-1.30) Estimat Glomerular Filtration Rate > 60 mL/min (>60) Glucose Level 130 MG/DL (74-106) H Lactic Acid Level 0.70 mmol/L (0.4-2.0) Calcium Level 7.3 MG/DL (8.5-10.1) L Phosphorus Level 1.3 MG/DL (2.5-4.9) L Magnesium Level 1.9 MG/DL (1.8-2.4) Total Bilirubin 0.5 MG/DL (0.2-1.0) Direct Bilirubin 0.2 MG/DL (0.0-0.3) Aspartate Amino Transf (AST/SGOT) 19 U/L (15-37) Alanine Aminotransferase (ALT/SGPT) 10 U/L (12-78) L Alkaline Phosphatase 88 U/L (46-116) Total Protein 4.7 G/DL (6.4-8.2) L Albumin 2.1 G/DL (3.4-5.0) L Current Medications Medications (Trade) Dose Ordered Sig/Jojo Route PRN Reason Start Time Stop Time Status Last Admin Dose Admin Albuterol/ Ipratropium (Albuterol/ Ipratropium) 3 ml Q4HRT HHN 09/15/20 11:30 09/20/20 11:29 09/16/20 08:01 Dextrose/ Electrolytes 1,000 ml @ 125 mls/hr Q8H IV 09/13/20 01:00 10/13/20 00:59 09/16/20 08:25 Heparin Sodium (Porcine) (Heparin 5000 units/ml) 5,000 units EVERY 8 HOURS SUBQ 09/14/20 06:00 10/29/20 05:59 09/16/20 05:43 Lidocaine HCl (Xylocaine Jelly 2%) 1 applic ONCE TOPIC 09/16/20 10:06 09/16/20 12:00 09/16/20 10:49 Lorazepam (Ativan 2mg/ml 1ml) 1 mg Q4H PRN IV For Anxiety 09/13/20 01:00 09/20/20 00:59 09/16/20 05:42 Metoclopramide HCl (Reglan) 10 mg Q6H PRN IVP Nausea & Vomiting 09/13/20 01:00 10/13/20 00:59 Morphine Sulfate (Morphine Sulfate) 1 mg Q4H PRN IVP pain scale 1-3 09/13/20 01:00 09/20/20 00:59 09/13/20 14:12 Morphine Sulfate (Morphine Sulfate) 2 mg Q4H PRN IVP pain scale 4-6 09/13/20 01:00 09/20/20 00:59 09/14/20 08:36 Morphine Sulfate (Morphine Sulfate) 4 mg Q4H PRN IVP pain score 7-10 09/13/20 01:00 09/20/20 00:59 Ondansetron HCl (Zofran) 4 mg Q6H PRN IVP Nausea & Vomiting 09/13/20 01:00 10/13/20 00:59 Pantoprazole (Protonix) 40 mg Q12HR IVP 09/13/20 21:00 10/13/20 08:59 09/16/20 08:21 Piperacillin Sod/ Tazobactam Sod 3.375 gm/Sodium Chloride 110 ml @ 27.5 mls/hr Q8H IVPB 09/13/20 01:00 09/20/20 00:59 09/16/20 08:21 Sodium Phosphate 30 mm/Sodium Chloride 285 ml @ 47.5 mls/hr ONCE ONCE IVPB 09/16/20 12:00 09/16/20 17:59 Delio Edgar MD Sep 16, 2020 11:22
[2020-09-16] MEDS ORDERED: Sodium Phosphate 30 MM in NS 275 ML IVPB ONE (12:00)
--- NOTE | 2020-09-16 13:04 | Cardiac Electrophysiology PN ---
Assessment/Plan Assessment/Plan 1. Sinus tachycardia. This is due to sepsis in this patient with respiratory failure and has just underwent surgery in intensive care unit on the ventilator. EF 55%. Troponins negative 2. S/P Respiratory failure. Extubated yesterday but CXR now Left white out. S/P bronchoscopy by Dr Lambert that showed mucus plug . This patient has history of COPD 3. Acute abdomen, status post surgery by Dr. Morrow including cholecystectomy as well as right colectomy and small bowel resection. ( Pathology showed perforated appendicitis) Currently on IV antibiotics. JARVIS RN and Dr Lambert Subjective Subjective Had bedside bronchoscopy today for Left lung white out by Dr Lambert Objective Last 24 Hour Vital Signs Date Time Temp Pulse Resp B/P (MAP) Pulse Ox O2 Delivery O2 Flow Rate FiO2 09/16/20 11:48 114 26 100 Nasal Cannula 2.0 28 115 22 95 09/16/20 10:30 117 25 131/64 (86) 95 09/16/20 10:00 108 16 115/74 (88) 94 09/16/20 09:30 114 25 118/70 (86) 94 09/16/20 09:00 128 24 97/77 (84) 91 09/16/20 08:33 118 25 113/75 (88) 99 09/16/20 08:30 115 26 83/52 (62) 99 09/16/20 08:01 118 23 100 Nasal Cannula 2.0 28 09/16/20 08:01 118 23 100 Nasal Cannula 2.0 28 115 20 98 09/16/20 08:01 97 Nasal Cannula 2.0 28 09/16/20 08:01 115 20 97 Nasal Cannula 2.0 28 09/16/20 08:00 97.9 111 26 81/45 (57) 95 09/16/20 08:00 Nasal Cannula 2.0 09/16/20 07:00 112 22 124/71 (88) 96 09/16/20 06:12 112 25 125/75 100 09/16/20 06:00 116 24 126/75 (92) 96 09/16/20 05:42 109 27 109/61 100 09/16/20 05:00 111 26 140/80 (100) 97 09/16/20 04:00 105 09/16/20 04:00 Nasal Cannula 2.0 09/16/20 04:00 98.8 114 27 102/73 (83) 96 09/16/20 03:26 114 24 100 Nasal Cannula 2.0 28 09/16/20 03:15 112 23 98 Nasal Cannula 2.0 28 09/16/20 03:00 106 23 119/91 (100) 97 09/16/20 02:00 108 26 116/69 (85) 97 09/16/20 01:23 113 22 98 Nasal Cannula 2.0 28 09/16/20 01:13 100 18 98 Nasal Cannula 2.0 28 09/16/20 01:00 108 25 108/65 (79) 96 09/16/20 00:00 104 09/16/20 00:00 99.0 112 25 102/61 (75) 96 09/16/20 00:00 Nasal Cannula 2.0 09/15/20 23:32 112 25 97 Nasal Cannula 2.0 28 09/15/20 23:15 106 22 97 Nasal Cannula 2.0 28 09/15/20 23:00 112 29 117/69 (85) 95 09/15/20 22:45 102 20 133/75 96 09/15/20 22:15 125 26 145/75 96 09/15/20 22:00 119 29 122/77 (92) 95 09/15/20 21:00 103 28 116/66 (83) 97 09/15/20 20:07 109 24 98 Nasal Cannula 2.0 28 09/15/20 20:07 109 24 98 Nasal Cannula 2.0 28 09/15/20 20:00 Nasal Cannula 2.0 09/15/20 20:00 99.1 115 40 119/71 (87) 100 09/15/20 19:51 103 22 96 Nasal Cannula 2.0 28 09/15/20 19:51 103 22 96 Nasal Cannula 2.0 28 09/15/20 19:51 96 Nasal Cannula 2.0 28 09/15/20 19:09 109 09/15/20 19:00 105 28 100/64 (76) 92 09/15/20 18:00 105 31 118/84 (95) 96 09/15/20 17:00 98 27 91/57 (68) 99 09/15/20 16:00 Venturi Mask 09/15/20 16:00 100 32 103/90 (94) 96 09/15/20 16:00 99 09/15/20 15:46 102 21 100 Nasal Cannula 2.0 28 100 20 100 09/15/20 15:00 95 29 123/71 (88) 100 09/15/20 14:00 98.0 100 33 111/61 (78) 94 09/15/20 13:32 105 20 97 Nasal Cannula 2.0 28 09/15/20 13:22 106 24 94 Nasal Cannula 2.0 28 09/15/20 13:00 97 28 117/70 (86) 100 Intake and Output 09/15/20 09/16/20 19:00 07:00 Intake Total 1426.91 ml 1155.0 ml Balance 1426.91 ml 1155.0 ml Intake Oral 0 ml IV Total 1426.91 ml 1155.0 ml # Voids 385 590 Laboratory Tests Test 09/16/20 03:45 White Blood Count 11.0 K/UL (4.8-10.8) H Red Blood Count 4.46 M/UL (4.70-6.10) L Hemoglobin 12.6 G/DL (14.2-18.0) L Hematocrit 38.9 % (42.0-52.0) L Mean Corpuscular Volume 87 FL (80-99) Mean Corpuscular Hemoglobin 28.3 PG (27.0-31.0) Mean Corpuscular Hemoglobin Concent 32.4 G/DL (32.0-36.0) Red Cell Distribution Width 13.5 % (11.6-14.8) Platelet Count 211 K/UL (150-450) Mean Platelet Volume 6.5 FL (6.5-10.1) Neutrophils (%) (Auto) % (45.0-75.0) Lymphocytes (%) (Auto) % (20.0-45.0) Monocytes (%) (Auto) % (1.0-10.0) Eosinophils (%) (Auto) % (0.0-3.0) Basophils (%) (Auto) % (0.0-2.0) Differential Total Cells Counted 100 Neutrophils % (Manual) 79 % (45-75) H Lymphocytes % (Manual) 9 % (20-45) L Monocytes % (Manual) 5 % (1-10) Eosinophils % (Manual) 1 % (0-3) Basophils % (Manual) 0 % (0-2) Band Neutrophils 6 % (0-8) Platelet Estimate Adequate Platelet Morphology Normal Red Blood Cell Morphology Normal Sodium Level 137 MMOL/L (136-145) Potassium Level 4.0 MMOL/L (3.5-5.1) Chloride Level 105 MMOL/L (98-107) Carbon Dioxide Level 26 MMOL/L (21-32) Anion Gap 6 mmol/L (5-15) Blood Urea Nitrogen 5 mg/dL (7-18) L Creatinine 0.8 MG/DL (0.55-1.30) Estimat Glomerular Filtration Rate > 60 mL/min (>60) Glucose Level 130 MG/DL (74-106) H Lactic Acid Level 0.70 mmol/L (0.4-2.0) Calcium Level 7.3 MG/DL (8.5-10.1) L Phosphorus Level 1.3 MG/DL (2.5-4.9) L Magnesium Level 1.9 MG/DL (1.8-2.4) Total Bilirubin 0.5 MG/DL (0.2-1.0) Direct Bilirubin 0.2 MG/DL (0.0-0.3) Aspartate Amino Transf (AST/SGOT) 19 U/L (15-37) Alanine Aminotransferase (ALT/SGPT) 10 U/L (12-78) L Alkaline Phosphatase 88 U/L (46-116) Total Protein 4.7 G/DL (6.4-8.2) L Albumin 2.1 G/DL (3.4-5.0) L Microbiology Date/Time Source Procedure Growth Status 09/13/20 15:00 Urine,Clean Catch Urine Culture - Final NO GROWTH AFTER 48 HOURS Complete Objective HEAD AND NECK: No JVD. LUNGS: Coarse rhonchi.Decrease breath sounds on Left CARDIOVASCULAR: Shows regular S1 and S2 with no gallop. ABDOMEN: Tender and is status post laparotomy. EXTREMITIES: No pitting edema. Jason Li MD Sep 16, 2020 13:03
--- NOTE | 2020-09-16 13:48 | Surgery Progress Note ---
Surgery Progress Note Subjective Procedure Performed 1. exploratory laparotomy 2. right colectomy with primary side to side anastomosis 3. small bowel resection 4. cholecystectomy 5. abdominal washout and closure Additional Comments Discussed case with pathology. Patient identified to have pus and lymph nodes as well as in the pericolonic tissue. In further discussion no mass was identified. Believe that this is likely acute appendicitis that is gone on for too long with periappendiceal inflammation of the cecum causing perforation as well as pus tracking into the lymph nodes from spread. This explains significant peritoneal inflammatory and infectious identified in the operating room. Patient has been extubated and slowly improving. Chest x-ray identified with plugging on the left side status post bronchoscopy today by pulmonology. NG tube placed as stomach noted to be distended on chest x-ray. Continue n.p.o. IV fluids IV antibiotics NG tube decompression Priest Monitor respiratory status with follow recommendations Objective Last 24 Hour Vital Signs Date Time Temp Pulse Resp B/P (MAP) Pulse Ox O2 Delivery O2 Flow Rate FiO2 09/16/20 13:00 112 26 133/73 (93) 98 09/16/20 12:00 98.3 111 25 143/80 (101) 99 09/16/20 12:00 Nasal Cannula 2.0 09/16/20 11:48 114 26 100 Nasal Cannula 2.0 28 115 22 95 09/16/20 11:00 117 24 146/74 (98) 94 09/16/20 10:30 117 25 131/64 (86) 95 09/16/20 10:00 108 16 115/74 (88) 94 09/16/20 09:30 114 25 118/70 (86) 94 09/16/20 09:00 128 24 97/77 (84) 91 09/16/20 08:33 118 25 113/75 (88) 99 09/16/20 08:30 115 26 83/52 (62) 99 09/16/20 08:01 118 23 100 Nasal Cannula 2.0 28 09/16/20 08:01 118 23 100 Nasal Cannula 2.0 28 115 20 98 09/16/20 08:01 97 Nasal Cannula 2.0 28 09/16/20 08:01 115 20 97 Nasal Cannula 2.0 28 09/16/20 08:00 97.9 111 26 81/45 (57) 95 09/16/20 08:00 Nasal Cannula 2.0 09/16/20 07:00 112 22 124/71 (88) 96 09/16/20 06:12 112 25 125/75 100 09/16/20 06:00 116 24 126/75 (92) 96 09/16/20 05:42 109 27 109/61 100 09/16/20 05:00 111 26 140/80 (100) 97 09/16/20 04:00 105 09/16/20 04:00 Nasal Cannula 2.0 09/16/20 04:00 98.8 114 27 102/73 (83) 96 09/16/20 03:26 114 24 100 Nasal Cannula 2.0 28 09/16/20 03:15 112 23 98 Nasal Cannula 2.0 28 09/16/20 03:00 106 23 119/91 (100) 97 09/16/20 02:00 108 26 116/69 (85) 97 09/16/20 01:23 113 22 98 Nasal Cannula 2.0 28 09/16/20 01:13 100 18 98 Nasal Cannula 2.0 28 09/16/20 01:00 108 25 108/65 (79) 96 09/16/20 00:00 104 09/16/20 00:00 99.0 112 25 102/61 (75) 96 09/16/20 00:00 Nasal Cannula 2.0 09/15/20 23:32 112 25 97 Nasal Cannula 2.0 28 09/15/20 23:15 106 22 97 Nasal Cannula 2.0 28 09/15/20 23:00 112 29 117/69 (85) 95 09/15/20 22:45 102 20 133/75 96 09/15/20 22:15 125 26 145/75 96 09/15/20 22:00 119 29 122/77 (92) 95 09/15/20 21:00 103 28 116/66 (83) 97 09/15/20 20:07 109 24 98 Nasal Cannula 2.0 28 09/15/20 20:07 109 24 98 Nasal Cannula 2.0 28 09/15/20 20:00 Nasal Cannula 2.0 09/15/20 20:00 99.1 115 40 119/71 (87) 100 09/15/20 19:51 103 22 96 Nasal Cannula 2.0 28 09/15/20 19:51 103 22 96 Nasal Cannula 2.0 28 09/15/20 19:51 96 Nasal Cannula 2.0 28 09/15/20 19:09 109 09/15/20 19:00 105 28 100/64 (76) 92 09/15/20 18:00 105 31 118/84 (95) 96 09/15/20 17:00 98 27 91/57 (68) 99 09/15/20 16:00 Venturi Mask 09/15/20 16:00 100 32 103/90 (94) 96 09/15/20 16:00 99 09/15/20 15:46 102 21 100 Nasal Cannula 2.0 28 100 20 100 09/15/20 15:00 95 29 123/71 (88) 100 09/15/20 14:00 98.0 100 33 111/61 (78) 94 I&O Intake and Output 09/15/20 09/16/20 19:00 07:00 Intake Total 1426.91 ml 1155.0 ml Balance 1426.91 ml 1155.0 ml Intake Oral 0 ml IV Total 1426.91 ml 1155.0 ml # Voids 385 590 Laboratory Tests Test 09/16/20 03:45 White Blood Count 11.0 K/UL (4.8-10.8) H Red Blood Count 4.46 M/UL (4.70-6.10) L Hemoglobin 12.6 G/DL (14.2-18.0) L Hematocrit 38.9 % (42.0-52.0) L Mean Corpuscular Volume 87 FL (80-99) Mean Corpuscular Hemoglobin 28.3 PG (27.0-31.0) Mean Corpuscular Hemoglobin Concent 32.4 G/DL (32.0-36.0) Red Cell Distribution Width 13.5 % (11.6-14.8) Platelet Count 211 K/UL (150-450) Mean Platelet Volume 6.5 FL (6.5-10.1) Neutrophils (%) (Auto) % (45.0-75.0) Lymphocytes (%) (Auto) % (20.0-45.0) Monocytes (%) (Auto) % (1.0-10.0) Eosinophils (%) (Auto) % (0.0-3.0) Basophils (%) (Auto) % (0.0-2.0) Differential Total Cells Counted 100 Neutrophils % (Manual) 79 % (45-75) H Lymphocytes % (Manual) 9 % (20-45) L Monocytes % (Manual) 5 % (1-10) Eosinophils % (Manual) 1 % (0-3) Basophils % (Manual) 0 % (0-2) Band Neutrophils 6 % (0-8) Platelet Estimate Adequate Platelet Morphology Normal Red Blood Cell Morphology Normal Sodium Level 137 MMOL/L (136-145) Potassium Level 4.0 MMOL/L (3.5-5.1) Chloride Level 105 MMOL/L (98-107) Carbon Dioxide Level 26 MMOL/L (21-32) Anion Gap 6 mmol/L (5-15) Blood Urea Nitrogen 5 mg/dL (7-18) L Creatinine 0.8 MG/DL (0.55-1.30) Estimat Glomerular Filtration Rate > 60 mL/min (>60) Glucose Level 130 MG/DL (74-106) H Lactic Acid Level 0.70 mmol/L (0.4-2.0) Calcium Level 7.3 MG/DL (8.5-10.1) L Phosphorus Level 1.3 MG/DL (2.5-4.9) L Magnesium Level 1.9 MG/DL (1.8-2.4) Total Bilirubin 0.5 MG/DL (0.2-1.0) Direct Bilirubin 0.2 MG/DL (0.0-0.3) Aspartate Amino Transf (AST/SGOT) 19 U/L (15-37) Alanine Aminotransferase (ALT/SGPT) 10 U/L (12-78) L Alkaline Phosphatase 88 U/L (46-116) Total Protein 4.7 G/DL (6.4-8.2) L Albumin 2.1 G/DL (3.4-5.0) L Assessment Post-op Diagnosis 1. small bowel obstruction at ileocecal valve etiology unknown possible mass 2. perforated cecum 3. acute cholecystitis Plan Problems: (1) Lactic acidosis (2) Bowel perforation Assessment & Plan: 70M sbo, free air, lactic acidosis, leukocytosis, generalized tenderness with peritonitis covid negative ct reviewed. labs reviewed exam as above. discussed findings with patient. unfortunately not sure if he truly understands that degree of concern given ct findings and exam. he is full code, expressed desire to live, and has been otherwise functional and per report goes outside to smoke daily. given above, condition, and goals of care surgery emergency is indicated and recommended. npo iv fluids iv abx to OR for exploratory laparotomy, possible bowel resection, possible ostomy thank you (3) Sepsis (4) SBO (small bowel obstruction) Assessment & Plan: Lung bases: Evaluation of the right lung base reveals patchy airspace disease presumably on the basis of scarring and atelectasis. Atypical pneumonia cannot be excluded. Presumed areas of scarring atelectasis at the left lung base. Again atypical pneumonia cannot be excluded. Pleural space: Best seen on sagittal image 79 and axial image 32, there is a very small posterior medial loculated pneumothorax at the right lung base of uncertain etiology and significance. Mediastinum: Small hiatal hernia. The distal esophagus is patulous and fluid-filled. ABDOMEN: Liver: Diffuse fatty infiltration of the liver is noted. Gallbladder and bile ducts: Cholelithiasis within the gallbladder is noted. Evaluation of the wall the gallbladder is limited due to motion artifact. Minimal thickening of the gallbladder wall cannot be excluded. Ultrasound imaging is suggested. No ductal dilation. Pancreas: Unremarkable. No ductal dilation. Spleen: Spleen enhance uniformly. Adrenals: Unremarkable. No mass. Kidneys and ureters: Nonspecific stranding about the perinephric spaces without hydronephrosis. 0.2 cm nonobstructing calculus upper pole region of the left kidney. Stomach and bowel: No free intra-abdominal air raising concern for ruptured viscus. This finding is best seen on coronal image 4647 at the dome of the liver. Large quantity of our presumed ingested material in the stomach which is moderately distended. Dilated loops of small bowel containing fluid and fecal material are noted left hypogastrium extending to the right hypogastrium worrisome for are mid to distal small bowel obstruction. There is extensive inflammatory process at the lateral right mid abdomen with air gas bubbles indicative of microperforations of bowel. This finding is best seen on coronal image 30. This may be the transitional zone for obstruction. Minimal distention of the rectosigmoid with stool. No mucosal thickening. PELVIS: Appendix: No findings to suggest acute appendicitis. Bladder: Unremarkable. No stones. Reproductive: Prostate gland is enlarged and measures 4 x 5 cm with coarse calcifications within it centrally. ABDOMEN and PELVIS: Intraperitoneal space: Small quantity of ascites surrounding the liver. Minimal simple free fluid extending about the right paracolic gutter. No free air. Bones/joints: Evaluation of bone window images reveals findings of moderate degenerative disc disease. Moderate to severe osteoarthritic changes about the sacroiliac joints are noted. Alignment of the thoracolumbar spine is unremarkable. Sacrum and coccyx are unremarkable. No acute fracture. Soft tissues: Ischiorectal fat is clean. Vasculature: Atherosclerotic disease of the abdominal aorta without change in caliber. No abdominal aortic aneurysm. Lymph nodes: No retroperitoneal lymphadenopathy. No pelvic or inguinal lymphadenopathy. IMPRESSION: 1. The dominant finding on the current study is are small bowel obstruction. 2. Free intra-abdominal air is noted. 3. There is inflammatory changes in the mesentery of the mid right abdomen laterally possibly representing the transition point for obstruction. Bowel ischemia cannot be excluded. 4. There is cholelithiasis. 5. Possible diffuse gallbladder wall thickening. 6. Very small are loculated pneumothorax posterior medially at the right lung base of uncertain significance. 7. Surgical consultation is highly advised. (5) Abdominal pain Cam Morrow Sep 16, 2020 13:48
[2020-09-16] MEDS: Meropenem 1 GM in NS 55 ML IVPB SCH ×2 (14:58→21:18)
--- NOTE | 2020-09-16 15:06 | Diagnostic Imaging Report ---
Procedure: XRAY Chest 1v Reason for study: Shortness of breath. Comparison films: 09/15/2020. FINDINGS: There is increased opacification of the left hemithorax likely increased effusion. Minimal residual aeration of the left lung. There is slightly increased right lung alveolar densities likely increasing infiltrates. Cardiac silhouette is obscured. Right CP angle is sharp. The bony thorax appear unremarkable. IMPRESSION: Increase opacity left hemithorax likely worsening effusion and decreased aeration of the left lung. Mildly increased right lung infiltrate as well.
--- NOTE | 2020-09-16 17:18 | Diagnostic Imaging Report ---
EXAM: XR Abdomen, 2 Views CLINICAL HISTORY: ABD DIST TECHNIQUE: Frontal view of the abdomen/pelvis with upright view of the abdomen. COMPARISON: None FINDINGS: Hardware: Enteric tube terminates in the region of the stomach. Abdomen: Distended gas-filled stomach and small bowel loops. No free air. Bones: Degenerative changes of the spine. Soft tissues: Midline skin jennifer. Lower chest: Retrocardiac opacity. IMPRESSION: 1. Distended gas-filled stomach and small bowel loops, concerning for small bowel obstruction or ileus. 2. Enteric tube terminates in the region of the stomach.
--- NOTE | 2020-09-16 17:22 | Diagnostic Imaging Report ---
EXAM: XR Chest, 1 View CLINICAL HISTORY: ABD DIST TECHNIQUE: Frontal view of the chest. COMPARISON: Chest radiograph On 09/16/2020 at 825 hours. FINDINGS: Hardware: Enteric tube terminates in the region of the stomach. Lungs/pleura: Slightly improved aeration in the left lung with left- sided pleural effusion and consolidations. Slightly increased patchy opacities in the right lung. Heart/mediastinum: Mild enlargement of the cardiomediastinal silhouette. Soft tissues: Unremarkable. Bones: No acute fracture. Upper abdomen: Gas-filled stomach and bowel partially visualized. IMPRESSION: 1. Slightly improved aeration in the left lung with left-sided pleural effusion and consolidations. Slightly increased patchy opacities in the right lung. 2. Enteric tube terminates in the region of the stomach.
--- NOTE | 2020-09-16 17:45 | Operative Note - Dictated ---
DATE OF OPERATION: 09/16/2020 PROCEDURES: Bronchoscopy and lavage. INDICATION: Left lung complete opacification/atelectasis. PREOPERATIVE DIAGNOSIS: Mucus plugging, left lower lobe. POSTOPERATIVE DIAGNOSIS: Removal of mucus plug, left lung field. DESCRIPTION OF PROCEDURE: After two-physician consent had been obtained due to lack of responsible republican, surrogate decision maker or DPOA. I personally contacted the listed members in chart and was notified that this was a homeless long-term, which the patient is a client of, but there is no responsible republican. The patient himself was unable to answer questions and in my opinion was incapable of making an informed decision about need for bronchoscopy. I requested Dr. Morrow and Dr. Dwyer to concur with my assessment that a bronchoscopy is needed urgently to improve left lung aeration, and by not doing so, he is at risk of re-intubation. After having obtained emergent approval by two other physicians, a bronchoscope was inserted through the nasal tracheal route down to nasal niels. The patient started having emesis and green fluid was aspirated from the lung as well as oropharynx. NG tube was inserted and placed suction. Bronchoscopy was completed and suction and lavage obtained from both lung lovelace, removal of mucus plugging from left lung field. There were no complications. The patient tolerated the procedure well. No preprocedure or postprocedure sedation was given. Venkatesh Lambert M.D. DR: DEONTE JOB#: [id number] CC: [email or web address]
--- NOTE | 2020-09-16 18:31 | General Progress Note ---
Subjective Allergies: Coded Allergies: No Known Allergies (Unverified , 09/12/20) Subjective Seen in ICU no complaints surgical comments re pathology noted Objective Last 24 Hour Vital Signs Date Time Temp Pulse Resp B/P (MAP) Pulse Ox O2 Delivery O2 Flow Rate FiO2 09/16/20 17:00 110 25 129/79 (96) 98 09/16/20 16:00 Nasal Cannula 2.0 09/16/20 16:00 99.6 111 24 120/79 (93) 98 09/16/20 15:08 118 25 100 Nasal Cannula 2.0 28 112 25 97 09/16/20 15:00 114 26 136/77 (96) 98 09/16/20 14:00 111 26 140/78 (98) 98 09/16/20 13:50 113 25 97 Nasal Cannula 2.0 28 09/16/20 13:40 114 22 96 Nasal Cannula 2.0 28 09/16/20 13:00 112 26 133/73 (93) 98 09/16/20 12:00 98.3 111 25 143/80 (101) 99 09/16/20 12:00 Nasal Cannula 2.0 09/16/20 11:48 114 26 100 Nasal Cannula 2.0 28 115 22 95 09/16/20 11:00 117 24 146/74 (98) 94 09/16/20 10:30 117 25 131/64 (86) 95 09/16/20 10:00 108 16 115/74 (88) 94 09/16/20 09:30 114 25 118/70 (86) 94 09/16/20 09:00 128 24 97/77 (84) 91 09/16/20 08:33 118 25 113/75 (88) 99 09/16/20 08:30 115 26 83/52 (62) 99 09/16/20 08:01 118 23 100 Nasal Cannula 2.0 28 09/16/20 08:01 118 23 100 Nasal Cannula 2.0 28 115 20 98 09/16/20 08:01 97 Nasal Cannula 2.0 28 09/16/20 08:01 115 20 97 Nasal Cannula 2.0 28 09/16/20 08:00 97.9 111 26 81/45 (57) 95 09/16/20 08:00 Nasal Cannula 2.0 09/16/20 07:00 112 22 124/71 (88) 96 09/16/20 06:12 112 25 125/75 100 09/16/20 06:00 116 24 126/75 (92) 96 09/16/20 05:42 109 27 109/61 100 09/16/20 05:00 111 26 140/80 (100) 97 09/16/20 04:00 105 09/16/20 04:00 Nasal Cannula 2.0 09/16/20 04:00 98.8 114 27 102/73 (83) 96 09/16/20 03:26 114 24 100 Nasal Cannula 2.0 28 09/16/20 03:15 112 23 98 Nasal Cannula 2.0 28 09/16/20 03:00 106 23 119/91 (100) 97 09/16/20 02:00 108 26 116/69 (85) 97 09/16/20 01:23 113 22 98 Nasal Cannula 2.0 28 09/16/20 01:13 100 18 98 Nasal Cannula 2.0 28 09/16/20 01:00 108 25 108/65 (79) 96 09/16/20 00:00 104 09/16/20 00:00 99.0 112 25 102/61 (75) 96 09/16/20 00:00 Nasal Cannula 2.0 09/15/20 23:32 112 25 97 Nasal Cannula 2.0 28 09/15/20 23:15 106 22 97 Nasal Cannula 2.0 28 09/15/20 23:00 112 29 117/69 (85) 95 09/15/20 22:45 102 20 133/75 96 09/15/20 22:15 125 26 145/75 96 09/15/20 22:00 119 29 122/77 (92) 95 09/15/20 21:00 103 28 116/66 (83) 97 09/15/20 20:07 109 24 98 Nasal Cannula 2.0 28 09/15/20 20:07 109 24 98 Nasal Cannula 2.0 28 09/15/20 20:00 Nasal Cannula 2.0 09/15/20 20:00 99.1 115 40 119/71 (87) 100 09/15/20 19:51 103 22 96 Nasal Cannula 2.0 28 09/15/20 19:51 103 22 96 Nasal Cannula 2.0 28 09/15/20 19:51 96 Nasal Cannula 2.0 28 09/15/20 19:09 109 09/15/20 19:00 105 28 100/64 (76) 92 Intake and Output 09/15/20 09/16/20 19:00 07:00 Intake Total 1426.91 ml 1155.0 ml Balance 1426.91 ml 1155.0 ml Intake Oral 0 ml IV Total 1426.91 ml 1155.0 ml # Voids 385 590 Laboratory Tests 09/16/20 03:45: White Blood Count 11.0H, Red Blood Count 4.46L, Hemoglobin 12.6L, Hematocrit 38.9L, Mean Corpuscular Volume 87, Mean Corpuscular Hemoglobin 28.3, Mean Corpuscular Hemoglobin Concent 32.4, Red Cell Distribution Width 13.5, Platelet Count 211, Mean Platelet Volume 6.5, Neutrophils (%) (Auto) , Lymphocytes (%) (Auto) , Monocytes (%) (Auto) , Eosinophils (%) (Auto) , Basophils (%) (Auto) , Differential Total Cells Counted 100, Neutrophils % (Manual) 79H, Lymphocytes % (Manual) 9L, Monocytes % (Manual) 5, Eosinophils % (Manual) 1, Basophils % (Manual) 0, Band Neutrophils 6, Platelet Estimate Adequate, Platelet Morphology Normal, Red Blood Cell Morphology Normal, Sodium Level 137, Potassium Level 4.0, Chloride Level 105, Carbon Dioxide Level 26, Anion Gap 6, Blood Urea Nitrogen 5L , Creatinine 0.8, Estimat Glomerular Filtration Rate > 60, Glucose Level 130H, Lactic Acid Level 0.70, Calcium Level 7.3L, Phosphorus Level 1.3L, Magnesium Level 1.9, Total Bilirubin 0.5, Direct Bilirubin 0.2, Aspartate Amino Transf (AST/SGOT) 19, Alanine Aminotransferase (ALT/SGPT) 10L, Alkaline Phosphatase 88, Total Protein 4.7L, Albumin 2.1L Height (Feet): 6 Height (Inches): 0.00 Weight (Pounds): 155 Objective Thin man NCAT supple CTA RR abd (+) large dressing no edema Assessment/Plan Assessment/Plan: Assessment - IC valve area SBO and cecal perforation, presumed from appendicitis - s/p sancho for cholecystitis Recommendations - post op care - PO per surgery - follow labs and exam Froilan De Paz MD Sep 16, 2020 18:31
--- NOTE | 2020-09-16 21:45 | General Progress Note ---
Subjective Allergies: Coded Allergies: No Known Allergies (Unverified , 09/12/20) Objective Last 24 Hour Vital Signs Date Time Temp Pulse Resp B/P (MAP) Pulse Ox O2 Delivery O2 Flow Rate FiO2 09/16/20 20:15 116 26 95 Nasal Cannula 2.0 28 09/16/20 20:05 108 23 98 Nasal Cannula 2.0 28 09/16/20 19:57 95 Nasal Cannula 2.0 28 09/16/20 19:57 108 23 100 Nasal Cannula 2.0 28 110 21 95 09/16/20 19:00 110 27 126/71 (89) 96 09/16/20 18:00 111 28 142/87 (105) 98 09/16/20 17:00 110 25 129/79 (96) 98 09/16/20 16:00 111 09/16/20 16:00 Nasal Cannula 2.0 09/16/20 16:00 99.6 111 24 120/79 (93) 98 09/16/20 15:08 118 25 100 Nasal Cannula 2.0 28 112 25 97 09/16/20 15:00 114 26 136/77 (96) 98 09/16/20 14:00 111 26 140/78 (98) 98 09/16/20 13:50 113 25 97 Nasal Cannula 2.0 28 09/16/20 13:40 114 22 96 Nasal Cannula 2.0 28 09/16/20 13:00 112 26 133/73 (93) 98 09/16/20 12:00 98.3 111 25 143/80 (101) 99 09/16/20 12:00 Nasal Cannula 2.0 09/16/20 12:00 111 09/16/20 11:48 114 26 100 Nasal Cannula 2.0 28 115 22 95 09/16/20 11:00 117 24 146/74 (98) 94 09/16/20 10:30 117 25 131/64 (86) 95 09/16/20 10:00 108 16 115/74 (88) 94 09/16/20 09:30 114 25 118/70 (86) 94 09/16/20 09:00 128 24 97/77 (84) 91 09/16/20 08:33 118 25 113/75 (88) 99 09/16/20 08:30 115 26 83/52 (62) 99 09/16/20 08:01 118 23 100 Nasal Cannula 2.0 28 09/16/20 08:01 118 23 100 Nasal Cannula 2.0 28 115 20 98 09/16/20 08:01 97 Nasal Cannula 2.0 28 09/16/20 08:01 115 20 97 Nasal Cannula 2.0 28 09/16/20 08:00 111 09/16/20 08:00 97.9 111 26 81/45 (57) 95 09/16/20 08:00 Nasal Cannula 2.0 09/16/20 07:00 112 22 124/71 (88) 96 09/16/20 06:12 112 25 125/75 100 09/16/20 06:00 116 24 126/75 (92) 96 09/16/20 05:42 109 27 109/61 100 09/16/20 05:00 111 26 140/80 (100) 97 09/16/20 04:00 105 09/16/20 04:00 Nasal Cannula 2.0 09/16/20 04:00 98.8 114 27 102/73 (83) 96 09/16/20 03:26 114 24 100 Nasal Cannula 2.0 28 09/16/20 03:15 112 23 98 Nasal Cannula 2.0 28 09/16/20 03:00 106 23 119/91 (100) 97 09/16/20 02:00 108 26 116/69 (85) 97 09/16/20 01:23 113 22 98 Nasal Cannula 2.0 28 09/16/20 01:13 100 18 98 Nasal Cannula 2.0 28 09/16/20 01:00 108 25 108/65 (79) 96 09/16/20 00:00 104 09/16/20 00:00 99.0 112 25 102/61 (75) 96 09/16/20 00:00 Nasal Cannula 2.0 09/15/20 23:32 112 25 97 Nasal Cannula 2.0 28 09/15/20 23:15 106 22 97 Nasal Cannula 2.0 28 09/15/20 23:00 112 29 117/69 (85) 95 09/15/20 22:45 102 20 133/75 96 09/15/20 22:15 125 26 145/75 96 09/15/20 22:00 119 29 122/77 (92) 95 Intake and Output 09/15/20 09/16/20 19:00 07:00 Intake Total 1426.91 ml 1155.0 ml Balance 1426.91 ml 1155.0 ml Intake Oral 0 ml IV Total 1426.91 ml 1155.0 ml # Voids 385 590 Laboratory Tests 09/16/20 03:45: White Blood Count 11.0H, Red Blood Count 4.46L, Hemoglobin 12.6L, Hematocrit 38.9L, Mean Corpuscular Volume 87, Mean Corpuscular Hemoglobin 28.3, Mean Corpuscular Hemoglobin Concent 32.4, Red Cell Distribution Width 13.5, Platelet Count 211, Mean Platelet Volume 6.5, Neutrophils (%) (Auto) , Lymphocytes (%) (Auto) , Monocytes (%) (Auto) , Eosinophils (%) (Auto) , Basophils (%) (Auto) , Differential Total Cells Counted 100, Neutrophils % (Manual) 79H, Lymphocytes % (Manual) 9L, Monocytes % (Manual) 5, Eosinophils % (Manual) 1, Basophils % (Manual) 0, Band Neutrophils 6, Platelet Estimate Adequate, Platelet Morphology Normal, Red Blood Cell Morphology Normal, Sodium Level 137, Potassium Level 4.0, Chloride Level 105, Carbon Dioxide Level 26, Anion Gap 6, Blood Urea Nitrogen 5L , Creatinine 0.8, Estimat Glomerular Filtration Rate > 60, Glucose Level 130H, Lactic Acid Level 0.70, Calcium Level 7.3L, Phosphorus Level 1.3L, Magnesium Level 1.9, Total Bilirubin 0.5, Direct Bilirubin 0.2, Aspartate Amino Transf (AST/SGOT) 19, Alanine Aminotransferase (ALT/SGPT) 10L, Alkaline Phosphatase 88, Total Protein 4.7L, Albumin 2.1L Height (Feet): 6 Height (Inches): 0.00 Weight (Pounds): 155 General Appearance: lethargic Respiratory/Chest: decreased breath sounds Assessment/Plan Problem List: (1) Bowel perforation ICD Codes: K63.1 - Perforation of intestine (nontraumatic) SNOMED: 60899710 (2) Sepsis ICD Codes: A41.9 - Sepsis, unspecified organism SNOMED: 31320945 (3) SBO (small bowel obstruction) ICD Codes: K56.609 - Unspecified intestinal obstruction, unspecified as to partial versus complete obstruction SNOMED: 123257971 (4) Lactic acidosis ICD Codes: E87.2 - Acidosis SNOMED: 89722206 (5) Abdominal pain ICD Codes: R10.9 - Unspecified abdominal pain SNOMED: 00650327 Assessment/Plan: has collapsed left lung and apparantly doesnt have any family and couldnt get hold of any family pt needs emergent therapeutic and diagnostiv bronchscopy since pt might have fatal event without bronchoscopy s/p exploratory lap for perforated bowel s/p cholycystectomy\ sepsis copd Vania Dwyer MD Sep 16, 2020 21:45
[2020-09-17] VITALS (27 sets, daily range): BP systolic 110–147; BP diastolic 61–94
[2020-09-17] MEDS: D5 1/2NS w/KCl 20mEq 1,000 ML IV SCH ×3 (01:21→16:30)
[2020-09-17] MEDS: Albuterol/Ipratropium 3ml neb HHN SCH ×6 (03:20→22:52)
[2020-09-17 05:10] LABS: HEMATOCRIT 42.3 % (42.0-52.0); HEMOGLOBIN 13.5 G/DL (14.2-18.0); MEAN CORPUSCULAR VOLUME 89 FL (80-99); PLATELET COUNT 96 K/UL (150-450); RED BLOOD COUNT 4.77 M/UL (4.70-6.10); RED CELL DISTRIBUTION WIDTH 13.6 % (11.6-14.8); WHITE BLOOD COUNT 9.3 K/UL (4.8-10.8)
[2020-09-17] MEDS: Meropenem 1 GM in NS 55 ML IVPB SCH ×3 (05:33→21:50)
[2020-09-17 05:52] LABS: ALANINE AMINOTRANSFERASE 12 U/L (12-78); ALBUMIN 1.9 G/DL (3.4-5.0); ALBUMIN/GLOBULIN RATIO 0.6 (1.0-2.7); ALKALINE PHOSPHATASE 79 U/L (46-116); ANION GAP 7 mmol/L (5-15); ASPARTATE AMINO TRANSFERASE 14 U/L (15-37); BILIRUBIN,TOTAL 0.5 MG/DL (0.2-1.0); BLOOD UREA NITROGEN 5 mg/dL (7-18); CALCIUM 7.2 MG/DL (8.5-10.1); CARBON DIOXIDE 25 MMOL/L (21-32); CHLORIDE 106 MMOL/L (98-107); CREATININE 0.6 MG/DL (0.55-1.30); SODIUM 138 MMOL/L (136-145)
[2020-09-17 05:55] LABS: PHOSPHORUS 1.7 MG/DL (2.5-4.9)
[2020-09-17] MEDS: Heparin 5000 units/ml inj SUBQ SCH ×3 (06:00→21:50)
--- NOTE | 2020-09-17 08:43 | Diagnostic Imaging Report ---
EXAM: XR Chest, 1 View CLINICAL HISTORY: ABN CHST TECHNIQUE: Frontal view of the chest. COMPARISON: 1 day prior FINDINGS: Lungs: There is unchanged moderate patchy diffuse left lung infiltrate as well as unchanged mild diffuse patchy right lung infiltrate. No new infiltrates are identified. Pleural space: There is unchanged small left pleural effusion. No pneumothorax. Heart: Unremarkable. No cardiomegaly. Mediastinum: Unremarkable. Bones/joints: Unremarkable. Tubes, lines and devices: There is an NG tube in good position with its tip in the mid stomach. IMPRESSION: There is unchanged moderate patchy diffuse left lung infiltrate as well as unchanged mild diffuse patchy right lung infiltrate. No new infiltrates are identified.
[2020-09-17] MEDS: Pantoprazole Inj IVP SCH ×2 (08:46→20:32)
--- NOTE | 2020-09-17 12:15 | Pulmonology Progress Note ---
Subjective ROS Limited/Unobtainable: Yes Interval Events: Extubated on 09/14/20; today CXR shows improved aeration left lung Constitutional: Reports: no symptoms HEENT: Repors: no symptoms Respiratory: Reports: no symptoms Cardiovascular: Reports: no symptoms Gastrointestinal/Abdominal: Reports: no symptoms, other - pain Allergies: Coded Allergies: No Known Allergies (Unverified , 09/12/20) Objective Last 24 Hour Vital Signs Date Time Temp Pulse Resp B/P (MAP) Pulse Ox O2 Delivery O2 Flow Rate FiO2 09/17/20 12:04 118 24 100 Nasal Cannula 2.0 28 09/17/20 12:04 122 22 100 Nasal Cannula 2.0 28 09/17/20 12:00 115 09/17/20 12:00 114 23 119/79 (92) 100 09/17/20 12:00 Nasal Cannula 2.0 09/17/20 11:58 120 26 100 Nasal Cannula 2.0 28 118 20 97 09/17/20 11:00 107 18 123/61 (81) 98 09/17/20 10:00 100 16 130/63 (85) 98 09/17/20 09:00 108 19 110/66 (81) 96 09/17/20 08:20 96 Nasal Cannula 2.0 28 09/17/20 08:18 116 22 97 Nasal Cannula 2.0 28 09/17/20 08:18 113 24 100 Nasal Cannula 2.0 28 09/17/20 08:00 103 09/17/20 08:00 98.9 115 26 132/72 (92) 98 09/17/20 08:00 Nasal Cannula 2.0 09/17/20 07:59 112 24 100 Nasal Cannula 2.0 28 117 22 97 09/17/20 07:00 104 19 122/74 (90) 96 09/17/20 06:00 109 22 137/77 (97) 97 09/17/20 05:00 111 24 125/68 (87) 97 09/17/20 04:30 112 26 127/76 (93) 96 09/17/20 04:00 105 09/17/20 04:00 98.7 109 25 119/72 (88) 96 09/17/20 04:00 Nasal Cannula 2.0 09/17/20 03:20 108 19 100 Nasal Cannula 2.0 28 108 25 97 09/17/20 03:08 110 23 96 Nasal Cannula 2.0 28 09/17/20 03:00 107 24 122/77 (92) 99 09/17/20 02:58 105 25 98 Nasal Cannula 2.0 28 09/17/20 02:30 106 25 130/66 (87) 99 09/17/20 02:00 108 25 121/79 (93) 98 09/17/20 01:30 107 24 135/72 (93) 98 09/17/20 01:00 105 23 129/94 (106) 99 09/17/20 00:00 111 09/17/20 00:00 98.4 108 24 147/82 (103) 100 09/17/20 00:00 Nasal Cannula 2.0 09/16/20 23:53 113 24 100 Nasal Cannula 2.0 28 107 26 97 09/16/20 23:30 109 24 116/91 (99) 97 09/16/20 23:00 109 26 115/86 (96) 95 09/16/20 22:00 111 27 137/85 (102) 95 09/16/20 21:30 111 27 141/71 (94) 94 09/16/20 21:00 114 28 134/73 (93) 92 09/16/20 20:15 116 26 95 Nasal Cannula 2.0 28 09/16/20 20:05 108 23 98 Nasal Cannula 2.0 28 09/16/20 20:00 99.8 109 26 143/81 (101) 95 09/16/20 20:00 109 09/16/20 20:00 Nasal Cannula 2.0 09/16/20 19:57 95 Nasal Cannula 2.0 28 09/16/20 19:57 108 23 100 Nasal Cannula 2.0 28 110 21 95 09/16/20 19:00 110 27 126/71 (89) 96 09/16/20 18:00 111 28 142/87 (105) 98 09/16/20 17:00 110 25 129/79 (96) 98 09/16/20 16:00 111 09/16/20 16:00 Nasal Cannula 2.0 09/16/20 16:00 99.6 111 24 120/79 (93) 98 09/16/20 15:08 118 25 100 Nasal Cannula 2.0 28 112 25 97 09/16/20 15:00 114 26 136/77 (96) 98 09/16/20 14:00 111 26 140/78 (98) 98 09/16/20 13:50 113 25 97 Nasal Cannula 2.0 28 09/16/20 13:40 114 22 96 Nasal Cannula 2.0 28 09/16/20 13:00 112 26 133/73 (93) 98 Intake and Output 09/16/20 09/17/20 19:00 07:00 Intake Total 1777.865 ml 1740 ml Balance 1777.865 ml 1740 ml IV Total 1777.865 ml 1740 ml # Voids [id number] General Appearance: no acute distress HEENT: normocephalic Respiratory: chest wall non-tender, decreased breath sounds Cardiovascular: normal peripheral pulses, normal rate Abdomen: normal bowel sounds Laboratory Tests 09/17/20 04:15: White Blood Count 9.3, Red Blood Count 4.77, Hemoglobin 13.5L, Hematocrit 42.3, Mean Corpuscular Volume 89, Mean Corpuscular Hemoglobin 28.3, Mean Corpuscular Hemoglobin Concent 31.9L, Red Cell Distribution Width 13.6, Platelet Count 96#L, Mean Platelet Volume 6.1L, Neutrophils (%) (Auto) , Lymphocytes (%) (Auto) , Monocytes (%) (Auto) , Eosinophils (%) (Auto) , Basophils (%) (Auto) , Differential Total Cells Counted 100, Neutrophils % (Manual) 80H, Lymphocytes % (Manual) 7L, Monocytes % (Manual) 2, Eosinophils % (Manual) 1, Basophils % (Manual) 0, Band Neutrophils 10H, Platelet Estimate DecreasedL, Platelet Morphology Normal, Hypochromasia 1+, Sodium Level 138, Potassium Level 4.0, Chloride Level 106, Carbon Dioxide Level 25, Anion Gap 7, Blood Urea Nitrogen 5L , Creatinine 0.6, Estimat Glomerular Filtration Rate > 60, Glucose Level 100, Calcium Level 7.2L, Phosphorus Level 1.7L, Magnesium Level 1.9, Total Bilirubin 0.5, Aspartate Amino Transf (AST/SGOT) 14L, Alanine Aminotransferase (ALT/SGPT) 12, Alkaline Phosphatase 79, C-Reactive Protein, Quantitative 13.1H, Pro-B-Type Natriuretic Peptide 1849H, Total Protein 5.0L, Albumin 1.9L, Globulin 3.1, Albumin/Globulin Ratio 0.6L Current Medications Medications (Trade) Dose Ordered Sig/Jojo Route PRN Reason Start Time Stop Time Status Last Admin Dose Admin Albuterol/ Ipratropium (Albuterol/ Ipratropium) 3 ml Q4HRT HHN 09/15/20 11:30 09/20/20 11:29 09/17/20 11:56 Dextrose/ Electrolytes 1,000 ml @ 125 mls/hr Q8H IV 09/13/20 01:00 10/13/20 00:59 09/17/20 08:46 Heparin Sodium (Porcine) (Heparin 5000 units/ml) 5,000 units EVERY 8 HOURS SUBQ 09/14/20 06:00 10/29/20 05:59 09/16/20 14:59 Lorazepam (Ativan 2mg/ml 1ml) 1 mg Q4H PRN IV For Anxiety 09/13/20 01:00 09/20/20 00:59 09/16/20 05:42 Meropenem 1 gm/ Sodium Chloride 55 ml @ 110 mls/hr Q8HR IVPB 09/16/20 14:00 09/21/20 13:59 09/17/20 05:33 Metoclopramide HCl (Reglan) 10 mg Q6H PRN IVP Nausea & Vomiting 09/13/20 01:00 10/13/20 00:59 Morphine Sulfate (Morphine Sulfate) 1 mg Q4H PRN IVP pain scale 1-3 09/13/20 01:00 09/20/20 00:59 09/13/20 14:12 Morphine Sulfate (Morphine Sulfate) 2 mg Q4H PRN IVP pain scale 4-6 09/13/20 01:00 09/20/20 00:59 09/14/20 08:36 Morphine Sulfate (Morphine Sulfate) 4 mg Q4H PRN IVP pain score 7-10 09/13/20 01:00 09/20/20 00:59 Ondansetron HCl (Zofran) 4 mg Q6H PRN IVP Nausea & Vomiting 09/13/20 01:00 10/13/20 00:59 Pantoprazole (Protonix) 40 mg Q12HR IVP 09/13/20 21:00 10/13/20 08:59 09/17/20 08:46 Assessment/Plan Assessment/Plan IMPRESSION: 1. Cecal perforation. 2. Status post right colectomy, open cholecystectomy, and abdominal washout. 3. History of COPD. 4. Schizophrenia. 5. Left lung complete atelectasis; resolved post bronchoscopy yesterday DISCUSSION: Continue ICU care Extubated 09/15/20 Continue broad-spectrum antibiotics. I will follow carefully. CXR shows improved aeration of left lung field Venkatesh Lambert M.D. Venkatesh Lambert MD Sep 17, 2020 12:15
--- NOTE | 2020-09-17 13:12 | Infectious Diseases Prog Note ---
Assessment/Plan Assessment/Plan IMPRESSION: 1. Sepsis. 2. Acute appendicitis with perforation. 3. Acute/ chronic cholecystitis. 4. COPD. 5. Fatty liver. 6. Preoperative respiratory failure. 7. Pneumonia 8. Peritonitis 9. Colitis with perforation 10. Mucous plug RECOMMENDATION: 1. Continue Meropenem 2. We will follow up the cultures. Subjective ROS Limited/Unobtainable: Yes Psychiatric: Reports: other - on restraint Allergies: Coded Allergies: No Known Allergies (Unverified , 09/12/20) Objective Last 24 Hour Vital Signs Date Time Temp Pulse Resp B/P (MAP) Pulse Ox O2 Delivery O2 Flow Rate FiO2 09/17/20 12:04 118 24 100 Nasal Cannula 2.0 28 09/17/20 12:04 122 22 100 Nasal Cannula 2.0 28 09/17/20 12:00 115 09/17/20 12:00 114 23 119/79 (92) 100 09/17/20 12:00 Nasal Cannula 2.0 09/17/20 11:58 120 26 100 Nasal Cannula 2.0 28 118 20 97 09/17/20 11:00 107 18 123/61 (81) 98 09/17/20 10:00 100 16 130/63 (85) 98 09/17/20 09:00 108 19 110/66 (81) 96 09/17/20 08:20 96 Nasal Cannula 2.0 28 09/17/20 08:18 116 22 97 Nasal Cannula 2.0 28 09/17/20 08:18 113 24 100 Nasal Cannula 2.0 28 09/17/20 08:00 103 09/17/20 08:00 98.9 115 26 132/72 (92) 98 09/17/20 08:00 Nasal Cannula 2.0 09/17/20 07:59 112 24 100 Nasal Cannula 2.0 28 117 22 97 09/17/20 07:00 104 19 122/74 (90) 96 09/17/20 06:00 109 22 137/77 (97) 97 09/17/20 05:00 111 24 125/68 (87) 97 09/17/20 04:30 112 26 127/76 (93) 96 09/17/20 04:00 105 09/17/20 04:00 98.7 109 25 119/72 (88) 96 09/17/20 04:00 Nasal Cannula 2.0 09/17/20 03:20 108 19 100 Nasal Cannula 2.0 28 108 25 97 09/17/20 03:08 110 23 96 Nasal Cannula 2.0 28 09/17/20 03:00 107 24 122/77 (92) 99 09/17/20 02:58 105 25 98 Nasal Cannula 2.0 28 09/17/20 02:30 106 25 130/66 (87) 99 09/17/20 02:00 108 25 121/79 (93) 98 09/17/20 01:30 107 24 135/72 (93) 98 09/17/20 01:00 105 23 129/94 (106) 99 09/17/20 00:00 111 09/17/20 00:00 98.4 108 24 147/82 (103) 100 09/17/20 00:00 Nasal Cannula 2.0 09/16/20 23:53 113 24 100 Nasal Cannula 2.0 28 107 26 97 09/16/20 23:30 109 24 116/91 (99) 97 09/16/20 23:00 109 26 115/86 (96) 95 09/16/20 22:00 111 27 137/85 (102) 95 09/16/20 21:30 111 27 141/71 (94) 94 09/16/20 21:00 114 28 134/73 (93) 92 09/16/20 20:15 116 26 95 Nasal Cannula 2.0 28 09/16/20 20:05 108 23 98 Nasal Cannula 2.0 28 09/16/20 20:00 99.8 109 26 143/81 (101) 95 09/16/20 20:00 109 09/16/20 20:00 Nasal Cannula 2.0 09/16/20 19:57 95 Nasal Cannula 2.0 28 09/16/20 19:57 108 23 100 Nasal Cannula 2.0 28 110 21 95 09/16/20 19:00 110 27 126/71 (89) 96 09/16/20 18:00 111 28 142/87 (105) 98 09/16/20 17:00 110 25 129/79 (96) 98 09/16/20 16:00 111 09/16/20 16:00 Nasal Cannula 2.0 09/16/20 16:00 99.6 111 24 120/79 (93) 98 09/16/20 15:08 118 25 100 Nasal Cannula 2.0 28 112 25 97 09/16/20 15:00 114 26 136/77 (96) 98 09/16/20 14:00 111 26 140/78 (98) 98 09/16/20 13:50 113 25 97 Nasal Cannula 2.0 28 09/16/20 13:40 114 22 96 Nasal Cannula 2.0 28 Height (Feet): 6 Height (Inches): 0.00 Weight (Pounds): 155 HEENT: mucous membranes moist Respiratory/Chest: inspiratory wheezing, other - oxygen by nsaal cannula Cardiovascular: tachycardia Abdomen: other - midline surgical dressing Extremities: no edema Neurologic/Psychiatric: other - sleeping Laboratory Tests Test 09/17/20 04:15 White Blood Count 9.3 K/UL (4.8-10.8) Red Blood Count 4.77 M/UL (4.70-6.10) Hemoglobin 13.5 G/DL (14.2-18.0) L Hematocrit 42.3 % (42.0-52.0) Mean Corpuscular Volume 89 FL (80-99) Mean Corpuscular Hemoglobin 28.3 PG (27.0-31.0) Mean Corpuscular Hemoglobin Concent 31.9 G/DL (32.0-36.0) L Red Cell Distribution Width 13.6 % (11.6-14.8) Platelet Count 96 K/UL (150-450) #L Mean Platelet Volume 6.1 FL (6.5-10.1) L Neutrophils (%) (Auto) % (45.0-75.0) Lymphocytes (%) (Auto) % (20.0-45.0) Monocytes (%) (Auto) % (1.0-10.0) Eosinophils (%) (Auto) % (0.0-3.0) Basophils (%) (Auto) % (0.0-2.0) Differential Total Cells Counted 100 Neutrophils % (Manual) 80 % (45-75) H Lymphocytes % (Manual) 7 % (20-45) L Monocytes % (Manual) 2 % (1-10) Eosinophils % (Manual) 1 % (0-3) Basophils % (Manual) 0 % (0-2) Band Neutrophils 10 % (0-8) H Platelet Estimate Decreased L Platelet Morphology Normal Hypochromasia 1+ Sodium Level 138 MMOL/L (136-145) Potassium Level 4.0 MMOL/L (3.5-5.1) Chloride Level 106 MMOL/L (98-107) Carbon Dioxide Level 25 MMOL/L (21-32) Anion Gap 7 mmol/L (5-15) Blood Urea Nitrogen 5 mg/dL (7-18) L Creatinine 0.6 MG/DL (0.55-1.30) Estimat Glomerular Filtration Rate > 60 mL/min (>60) Glucose Level 100 MG/DL (74-106) Calcium Level 7.2 MG/DL (8.5-10.1) L Phosphorus Level 1.7 MG/DL (2.5-4.9) L Magnesium Level 1.9 MG/DL (1.8-2.4) Total Bilirubin 0.5 MG/DL (0.2-1.0) Aspartate Amino Transf (AST/SGOT) 14 U/L (15-37) L Alanine Aminotransferase (ALT/SGPT) 12 U/L (12-78) Alkaline Phosphatase 79 U/L (46-116) C-Reactive Protein, Quantitative 13.1 mg/dL (0.00-0.90) H Pro-B-Type Natriuretic Peptide 1849 pg/mL (0-125) H Total Protein 5.0 G/DL (6.4-8.2) L Albumin 1.9 G/DL (3.4-5.0) L Globulin 3.1 g/dL Albumin/Globulin Ratio 0.6 (1.0-2.7) L Current Medications Medications (Trade) Dose Ordered Sig/Jojo Route PRN Reason Start Time Stop Time Status Last Admin Dose Admin Albuterol/ Ipratropium (Albuterol/ Ipratropium) 3 ml Q4HRT HHN 09/15/20 11:30 09/20/20 11:29 09/17/20 11:56 Dextrose/ Electrolytes 1,000 ml @ 125 mls/hr Q8H IV 09/13/20 01:00 10/13/20 00:59 09/17/20 08:46 Heparin Sodium (Porcine) (Heparin 5000 units/ml) 5,000 units EVERY 8 HOURS SUBQ 09/14/20 06:00 10/29/20 05:59 09/16/20 14:59 Lorazepam (Ativan 2mg/ml 1ml) 1 mg Q4H PRN IV For Anxiety 09/13/20 01:00 09/20/20 00:59 09/16/20 05:42 Meropenem 1 gm/ Sodium Chloride 55 ml @ 110 mls/hr Q8HR IVPB 09/16/20 14:00 09/21/20 13:59 09/17/20 05:33 Metoclopramide HCl (Reglan) 10 mg Q6H PRN IVP Nausea & Vomiting 09/13/20 01:00 10/13/20 00:59 Morphine Sulfate (Morphine Sulfate) 1 mg Q4H PRN IVP pain scale 1-3 09/13/20 01:00 09/20/20 00:59 09/13/20 14:12 Morphine Sulfate (Morphine Sulfate) 2 mg Q4H PRN IVP pain scale 4-6 09/13/20 01:00 09/20/20 00:59 09/14/20 08:36 Morphine Sulfate (Morphine Sulfate) 4 mg Q4H PRN IVP pain score 7-10 09/13/20 01:00 09/20/20 00:59 Ondansetron HCl (Zofran) 4 mg Q6H PRN IVP Nausea & Vomiting 09/13/20 01:00 10/13/20 00:59 Pantoprazole (Protonix) 40 mg Q12HR IVP 09/13/20 21:00 10/13/20 08:59 09/17/20 08:46 Delio Edgar MD Sep 17, 2020 13:12
--- NOTE | 2020-09-17 13:38 | General Progress Note ---
Subjective ROS Limited/Unobtainable: Yes Allergies: Coded Allergies: No Known Allergies (Unverified , 09/12/20) Objective Last 24 Hour Vital Signs Date Time Temp Pulse Resp B/P (MAP) Pulse Ox O2 Delivery O2 Flow Rate FiO2 09/17/20 13:00 108 20 119/68 (85) 98 09/17/20 12:04 118 24 100 Nasal Cannula 2.0 28 09/17/20 12:04 122 22 100 Nasal Cannula 2.0 28 09/17/20 12:00 115 09/17/20 12:00 114 23 119/79 (92) 100 09/17/20 12:00 Nasal Cannula 2.0 09/17/20 11:58 120 26 100 Nasal Cannula 2.0 28 118 20 97 09/17/20 11:00 107 18 123/61 (81) 98 09/17/20 10:00 100 16 130/63 (85) 98 09/17/20 09:00 108 19 110/66 (81) 96 09/17/20 08:20 96 Nasal Cannula 2.0 28 09/17/20 08:18 116 22 97 Nasal Cannula 2.0 28 09/17/20 08:18 113 24 100 Nasal Cannula 2.0 28 09/17/20 08:00 103 09/17/20 08:00 98.9 115 26 132/72 (92) 98 09/17/20 08:00 Nasal Cannula 2.0 09/17/20 07:59 112 24 100 Nasal Cannula 2.0 28 117 22 97 09/17/20 07:00 104 19 122/74 (90) 96 09/17/20 06:00 109 22 137/77 (97) 97 09/17/20 05:00 111 24 125/68 (87) 97 09/17/20 04:30 112 26 127/76 (93) 96 09/17/20 04:00 105 09/17/20 04:00 98.7 109 25 119/72 (88) 96 09/17/20 04:00 Nasal Cannula 2.0 09/17/20 03:20 108 19 100 Nasal Cannula 2.0 28 108 25 97 09/17/20 03:08 110 23 96 Nasal Cannula 2.0 28 09/17/20 03:00 107 24 122/77 (92) 99 09/17/20 02:58 105 25 98 Nasal Cannula 2.0 28 09/17/20 02:30 106 25 130/66 (87) 99 09/17/20 02:00 108 25 121/79 (93) 98 09/17/20 01:30 107 24 135/72 (93) 98 09/17/20 01:00 105 23 129/94 (106) 99 09/17/20 00:00 111 09/17/20 00:00 98.4 108 24 147/82 (103) 100 09/17/20 00:00 Nasal Cannula 2.0 09/16/20 23:53 113 24 100 Nasal Cannula 2.0 28 107 26 97 09/16/20 23:30 109 24 116/91 (99) 97 09/16/20 23:00 109 26 115/86 (96) 95 09/16/20 22:00 111 27 137/85 (102) 95 09/16/20 21:30 111 27 141/71 (94) 94 09/16/20 21:00 114 28 134/73 (93) 92 09/16/20 20:15 116 26 95 Nasal Cannula 2.0 28 09/16/20 20:05 108 23 98 Nasal Cannula 2.0 28 09/16/20 20:00 99.8 109 26 143/81 (101) 95 09/16/20 20:00 109 09/16/20 20:00 Nasal Cannula 2.0 09/16/20 19:57 95 Nasal Cannula 2.0 28 09/16/20 19:57 108 23 100 Nasal Cannula 2.0 28 110 21 95 09/16/20 19:00 110 27 126/71 (89) 96 09/16/20 18:00 111 28 142/87 (105) 98 09/16/20 17:00 110 25 129/79 (96) 98 09/16/20 16:00 111 09/16/20 16:00 Nasal Cannula 2.0 09/16/20 16:00 99.6 111 24 120/79 (93) 98 09/16/20 15:08 118 25 100 Nasal Cannula 2.0 28 112 25 97 09/16/20 15:00 114 26 136/77 (96) 98 09/16/20 14:00 111 26 140/78 (98) 98 09/16/20 13:50 113 25 97 Nasal Cannula 2.0 28 09/16/20 13:40 114 22 96 Nasal Cannula 2.0 28 Intake and Output 09/16/20 09/17/20 19:00 07:00 Intake Total 1777.865 ml 1740 ml Output Total 100 ml Balance 1777.865 ml 1640 ml IV Total 1777.865 ml 1740 ml Emesis 100 ml # Voids [id number] Laboratory Tests 09/17/20 04:15: White Blood Count 9.3, Red Blood Count 4.77, Hemoglobin 13.5L, Hematocrit 42.3, Mean Corpuscular Volume 89, Mean Corpuscular Hemoglobin 28.3, Mean Corpuscular Hemoglobin Concent 31.9L, Red Cell Distribution Width 13.6, Platelet Count 96#L, Mean Platelet Volume 6.1L, Neutrophils (%) (Auto) , Lymphocytes (%) (Auto) , Monocytes (%) (Auto) , Eosinophils (%) (Auto) , Basophils (%) (Auto) , Differential Total Cells Counted 100, Neutrophils % (Manual) 80H, Lymphocytes % (Manual) 7L, Monocytes % (Manual) 2, Eosinophils % (Manual) 1, Basophils % (Manual) 0, Band Neutrophils 10H, Platelet Estimate DecreasedL, Platelet Morphology Normal, Hypochromasia 1+, Sodium Level 138, Potassium Level 4.0, Chloride Level 106, Carbon Dioxide Level 25, Anion Gap 7, Blood Urea Nitrogen 5L , Creatinine 0.6, Estimat Glomerular Filtration Rate > 60, Glucose Level 100, Calcium Level 7.2L, Phosphorus Level 1.7L, Magnesium Level 1.9, Total Bilirubin 0.5, Aspartate Amino Transf (AST/SGOT) 14L, Alanine Aminotransferase (ALT/SGPT) 12, Alkaline Phosphatase 79, C-Reactive Protein, Quantitative 13.1H, Pro-B-Type Natriuretic Peptide 1849H, Total Protein 5.0L, Albumin 1.9L, Globulin 3.1, Albumin/Globulin Ratio 0.6L Height (Feet): 6 Height (Inches): 0.00 Weight (Pounds): 155 Assessment/Plan Problem List: (1) Bowel perforation ICD Codes: K63.1 - Perforation of intestine (nontraumatic) SNOMED: 15808482 (2) Sepsis ICD Codes: A41.9 - Sepsis, unspecified organism SNOMED: 28272805 (3) SBO (small bowel obstruction) ICD Codes: K56.609 - Unspecified intestinal obstruction, unspecified as to partial versus complete obstruction SNOMED: 867908991 (4) Lactic acidosis ICD Codes: E87.2 - Acidosis SNOMED: 91560663 (5) Abdominal pain ICD Codes: R10.9 - Unspecified abdominal pain SNOMED: 18841703 Assessment/Plan: s/p collapsed left lung bronchoscopy check labs continue iv abx s/p exploratory lap for perforated bowel s/p cholycystectomy\ sepsis Vania Dwyer MD Sep 17, 2020 13:38
--- NOTE | 2020-09-17 14:26 | Surgery Progress Note ---
Surgery Progress Note Subjective Procedure Performed 1. exploratory laparotomy 2. right colectomy with primary side to side anastomosis 3. small bowel resection 4. cholecystectomy 5. abdominal washout and closure Additional Comments less congested ng in place stable after bronch cont current care Objective Last 24 Hour Vital Signs Date Time Temp Pulse Resp B/P (MAP) Pulse Ox O2 Delivery O2 Flow Rate FiO2 09/17/20 13:00 108 20 119/68 (85) 98 09/17/20 12:04 118 24 100 Nasal Cannula 2.0 28 09/17/20 12:04 122 22 100 Nasal Cannula 2.0 28 09/17/20 12:00 115 09/17/20 12:00 114 23 119/79 (92) 100 09/17/20 12:00 Nasal Cannula 2.0 09/17/20 11:58 120 26 100 Nasal Cannula 2.0 28 118 20 97 09/17/20 11:00 107 18 123/61 (81) 98 09/17/20 10:00 100 16 130/63 (85) 98 09/17/20 09:00 108 19 110/66 (81) 96 09/17/20 08:20 96 Nasal Cannula 2.0 28 09/17/20 08:18 116 22 97 Nasal Cannula 2.0 28 09/17/20 08:18 113 24 100 Nasal Cannula 2.0 28 09/17/20 08:00 103 09/17/20 08:00 98.9 115 26 132/72 (92) 98 09/17/20 08:00 Nasal Cannula 2.0 09/17/20 07:59 112 24 100 Nasal Cannula 2.0 28 117 22 97 09/17/20 07:00 104 19 122/74 (90) 96 09/17/20 06:00 109 22 137/77 (97) 97 09/17/20 05:00 111 24 125/68 (87) 97 09/17/20 04:30 112 26 127/76 (93) 96 09/17/20 04:00 105 09/17/20 04:00 98.7 109 25 119/72 (88) 96 09/17/20 04:00 Nasal Cannula 2.0 09/17/20 03:20 108 19 100 Nasal Cannula 2.0 28 108 25 97 09/17/20 03:08 110 23 96 Nasal Cannula 2.0 28 09/17/20 03:00 107 24 122/77 (92) 99 09/17/20 02:58 105 25 98 Nasal Cannula 2.0 28 09/17/20 02:30 106 25 130/66 (87) 99 09/17/20 02:00 108 25 121/79 (93) 98 09/17/20 01:30 107 24 135/72 (93) 98 09/17/20 01:00 105 23 129/94 (106) 99 09/17/20 00:00 111 09/17/20 00:00 98.4 108 24 147/82 (103) 100 09/17/20 00:00 Nasal Cannula 2.0 09/16/20 23:53 113 24 100 Nasal Cannula 2.0 28 107 26 97 09/16/20 23:30 109 24 116/91 (99) 97 09/16/20 23:00 109 26 115/86 (96) 95 09/16/20 22:00 111 27 137/85 (102) 95 09/16/20 21:30 111 27 141/71 (94) 94 09/16/20 21:00 114 28 134/73 (93) 92 09/16/20 20:15 116 26 95 Nasal Cannula 2.0 28 09/16/20 20:05 108 23 98 Nasal Cannula 2.0 28 09/16/20 20:00 99.8 109 26 143/81 (101) 95 09/16/20 20:00 109 09/16/20 20:00 Nasal Cannula 2.0 09/16/20 19:57 95 Nasal Cannula 2.0 28 09/16/20 19:57 108 23 100 Nasal Cannula 2.0 28 110 21 95 09/16/20 19:00 110 27 126/71 (89) 96 09/16/20 18:00 111 28 142/87 (105) 98 09/16/20 17:00 110 25 129/79 (96) 98 09/16/20 16:00 111 09/16/20 16:00 Nasal Cannula 2.0 09/16/20 16:00 99.6 111 24 120/79 (93) 98 09/16/20 15:08 118 25 100 Nasal Cannula 2.0 28 112 25 97 09/16/20 15:00 114 26 136/77 (96) 98 I&O Intake and Output 10/23/20 10/24/20 19:00 07:00 Intake Total 1777.865 ml 1740 ml Output Total 100 ml Balance 1777.865 ml 1640 ml IV Total 1777.865 ml 1740 ml Emesis 100 ml # Voids [id number] Dressing: saturated Cardiovascular: RSR Respiratory: decreased breath sounds Abdomen: soft, distended, non-tender, decreased bowel sounds Extremities: no edema, no tenderness, no cyanosis Laboratory Tests Test 09/17/20 04:15 White Blood Count 9.3 K/UL (4.8-10.8) Red Blood Count 4.77 M/UL (4.70-6.10) Hemoglobin 13.5 G/DL (14.2-18.0) L Hematocrit 42.3 % (42.0-52.0) Mean Corpuscular Volume 89 FL (80-99) Mean Corpuscular Hemoglobin 28.3 PG (27.0-31.0) Mean Corpuscular Hemoglobin Concent 31.9 G/DL (32.0-36.0) L Red Cell Distribution Width 13.6 % (11.6-14.8) Platelet Count 96 K/UL (150-450) #L Mean Platelet Volume 6.1 FL (6.5-10.1) L Neutrophils (%) (Auto) % (45.0-75.0) Lymphocytes (%) (Auto) % (20.0-45.0) Monocytes (%) (Auto) % (1.0-10.0) Eosinophils (%) (Auto) % (0.0-3.0) Basophils (%) (Auto) % (0.0-2.0) Differential Total Cells Counted 100 Neutrophils % (Manual) 80 % (45-75) H Lymphocytes % (Manual) 7 % (20-45) L Monocytes % (Manual) 2 % (1-10) Eosinophils % (Manual) 1 % (0-3) Basophils % (Manual) 0 % (0-2) Band Neutrophils 10 % (0-8) H Platelet Estimate Decreased L Platelet Morphology Normal Hypochromasia 1+ Sodium Level 138 MMOL/L (136-145) Potassium Level 4.0 MMOL/L (3.5-5.1) Chloride Level 106 MMOL/L (98-107) Carbon Dioxide Level 25 MMOL/L (21-32) Anion Gap 7 mmol/L (5-15) Blood Urea Nitrogen 5 mg/dL (7-18) L Creatinine 0.6 MG/DL (0.55-1.30) Estimat Glomerular Filtration Rate > 60 mL/min (>60) Glucose Level 100 MG/DL (74-106) Calcium Level 7.2 MG/DL (8.5-10.1) L Phosphorus Level 1.7 MG/DL (2.5-4.9) L Magnesium Level 1.9 MG/DL (1.8-2.4) Total Bilirubin 0.5 MG/DL (0.2-1.0) Aspartate Amino Transf (AST/SGOT) 14 U/L (15-37) L Alanine Aminotransferase (ALT/SGPT) 12 U/L (12-78) Alkaline Phosphatase 79 U/L (46-116) C-Reactive Protein, Quantitative 13.1 mg/dL (0.00-0.90) H Pro-B-Type Natriuretic Peptide 1849 pg/mL (0-125) H Total Protein 5.0 G/DL (6.4-8.2) L Albumin 1.9 G/DL (3.4-5.0) L Globulin 3.1 g/dL Albumin/Globulin Ratio 0.6 (1.0-2.7) L Assessment Post-op Diagnosis 1. small bowel obstruction at ileocecal valve etiology unknown possible mass 2. perforated cecum 3. acute cholecystitis Plan Problems: (1) Lactic acidosis (2) Bowel perforation Assessment & Plan: 70M sbo, free air, lactic acidosis, leukocytosis, generalized tenderness with peritonitis covid negative ct reviewed. labs reviewed exam as above. discussed findings with patient. unfortunately not sure if he truly understands that degree of concern given ct findings and exam. he is full code, expressed desire to live, and has been otherwise functional and per report goes outside to smoke daily. given above, condition, and goals of care surgery emergency is ind icated and recommended. npo iv fluids iv abx to OR for exploratory laparotomy, possible bowel resection, possible ostomy thank you npo iv fluids ng tube respiratory support await return of bowel function (3) Sepsis (4) SBO (small bowel obstruction) Assessment & Plan: Lung bases: Evaluation of the right lung base reveals patchy airspace disease presumably on the basis of scarring and atelectasis. Atypical pneumonia cannot be excluded. Presumed areas of scarring atelectasis at the left lung base. Again atypical pneumonia cannot be excluded. Pleural space: Best seen on sagittal image 79 and axial image 32, there is a very small posterior medial loculated pneumothorax at the right lung base of uncertain etiology and significance. Mediastinum: Small hiatal hernia. The distal esophagus is patulous and fluid-filled. ABDOMEN: Liver: Diffuse fatty infiltration of the liver is noted. Gallbladder and bile ducts: Cholelithiasis within the gallbladder is noted. Evaluation of the wall the gallbladder is limited due to motion artifact. Minimal thickening of the gallbladder wall cannot be excluded. Ultrasound imaging is suggested. No ductal dilation. Pancreas: Unremarkable. No ductal dilation. Spleen: Spleen enhance uniformly. Adrenals: Unremarkable. No mass. Kidneys and ureters: Nonspecific stranding about the perinephric spaces without hydronephrosis. 0.2 cm nonobstructing calculus upper pole region of the left kidney. Stomach and bowel: No free intra-abdominal air raising concern for ruptured viscus. This finding is best seen on coronal image [id number] at the dome of the liver. Large quantity of our presumed ingested material in the stomach which is moderately distended. Dilated loops of small bowel containing fluid and fecal material are noted left hypogastrium extending to the right hypogastrium worrisome for are mid to distal small bowel obstruction. There is extensive inflammatory process at the lateral right mid abdomen with air gas bubbles indicative of microperforations of bowel. This finding is best seen on coronal image 30. This may be the transitional zone for obstruction. Minimal distention of the rectosigmoid with stool. No mucosal thickening. PELVIS: Appendix: No findings to suggest acute appendicitis. Bladder: Unremarkable. No stones. Reproductive: Prostate gland is enlarged and measures 4 x 5 cm with coarse calcifications within it centrally. ABDOMEN and PELVIS: Intraperitoneal space: Small quantity of ascites surrounding the liver. Minimal simple free fluid extending about the right paracolic gutter. No free air. Bones/joints: Evaluation of bone window images reveals findings of moderate degenerative disc disease. Moderate to severe osteoarthritic changes about the sacroiliac joints are noted. Alignment of the thoracolumbar spine is unremarkable. Sacrum and coccyx are unremarkable. No acute fracture. Soft tissues: Ischiorectal fat is clean. Vasculature: Atherosclerotic disease of the abdominal aorta without change in caliber. No abdominal aortic aneurysm. Lymph nodes: No retroperitoneal lymphadenopathy. No pelvic or inguinal lymphadenopathy. IMPRESSION: 1. The dominant finding on the current study is are small bowel obstruction. 2. Free intra-abdominal air is noted. 3. There is inflammatory changes in the mesentery of the mid right abdomen laterally possibly representing the transition point for obstruction. Bowel ischemia cannot be excluded. 4. There is cholelithiasis. 5. Possible diffuse gallbladder wall thickening. 6. Very small are loculated pneumothorax posterior medially at the right lung base of uncertain significance. 7. Surgical consultation is highly advised. (5) Abdominal pain Cam Morrow Sep 17, 2020 14:26
--- NOTE | 2020-09-17 14:48 | Nephrology Progress Note ---
Assessment/Plan Problem List: (1) Lactic acid increased (2) Electrolyte imbalance (3) SBO (small bowel obstruction) (4) Sepsis (5) Bowel perforation Assessment Lactic acidosis Bowel perforation Sepsis Plan September 17: All noted. Discussed with RN. Labs reviewed. Patient has NG tube to suction. It appears that the patient post abdominal surgery may not be started on feeding. Suggest TPN. Deferred to GI/surgeon. September 16: Patient about to undergo bronchoscopy for white out left lung. Labs reviewed. Abnormal electrolytes and chemistries addressed. Continue per consultants. September 15: On nasal cannula, renal parameters stable. Continue per consultants. Previously: Postop care, weaning from ventilator ~failed so far Check urine analysis, noted IV fluid management Keep the electrolytes and renal parameters in check Antibiotics Per consultants Post surgery results: 1. Small bowel obstruction at the level of the ileocecal valve, secondary to unknown etiology, potential tumor mass. 2. Perforated cecum. 3. Acute cholecystitis. Subjective ROS Limited/Unobtainable: Yes Objective Objective Last 24 Hour Vital Signs Date Time Temp Pulse Resp B/P (MAP) Pulse Ox O2 Delivery O2 Flow Rate FiO2 09/17/20 14:00 98.6 112 18 123/72 (89) 98 09/17/20 13:00 108 20 119/68 (85) 98 09/17/20 12:04 118 24 100 Nasal Cannula 2.0 28 09/17/20 12:04 122 22 100 Nasal Cannula 2.0 28 09/17/20 12:00 115 09/17/20 12:00 114 23 119/79 (92) 100 09/17/20 12:00 Nasal Cannula 2.0 09/17/20 11:58 120 26 100 Nasal Cannula 2.0 28 118 20 97 09/17/20 11:00 107 18 123/61 (81) 98 09/17/20 10:00 100 16 130/63 (85) 98 09/17/20 09:00 108 19 110/66 (81) 96 09/17/20 08:20 96 Nasal Cannula 2.0 28 09/17/20 08:18 116 22 97 Nasal Cannula 2.0 28 09/17/20 08:18 113 24 100 Nasal Cannula 2.0 28 09/17/20 08:00 103 09/17/20 08:00 98.9 115 26 132/72 (92) 98 09/17/20 08:00 Nasal Cannula 2.0 09/17/20 07:59 112 24 100 Nasal Cannula 2.0 28 117 22 97 09/17/20 07:00 104 19 122/74 (90) 96 09/17/20 06:00 109 22 137/77 (97) 97 09/17/20 05:00 111 24 125/68 (87) 97 09/17/20 04:30 112 26 127/76 (93) 96 09/17/20 04:00 105 09/17/20 04:00 98.7 109 25 119/72 (88) 96 09/17/20 04:00 Nasal Cannula 2.0 09/17/20 03:20 108 19 100 Nasal Cannula 2.0 28 108 25 97 09/17/20 03:08 110 23 96 Nasal Cannula 2.0 28 09/17/20 03:00 107 24 122/77 (92) 99 09/17/20 02:58 105 25 98 Nasal Cannula 2.0 28 09/17/20 02:30 106 25 130/66 (87) 99 09/17/20 02:00 108 25 121/79 (93) 98 09/17/20 01:30 107 24 135/72 (93) 98 09/17/20 01:00 105 23 129/94 (106) 99 09/17/20 00:00 111 09/17/20 00:00 98.4 108 24 147/82 (103) 100 09/17/20 00:00 Nasal Cannula 2.0 09/16/20 23:53 113 24 100 Nasal Cannula 2.0 28 107 26 97 09/16/20 23:30 109 24 116/91 (99) 97 09/16/20 23:00 109 26 115/86 (96) 95 09/16/20 22:00 111 27 137/85 (102) 95 09/16/20 21:30 111 27 141/71 (94) 94 09/16/20 21:00 114 28 134/73 (93) 92 09/16/20 20:15 116 26 95 Nasal Cannula 2.0 28 09/16/20 20:05 108 23 98 Nasal Cannula 2.0 28 09/16/20 20:00 99.8 109 26 143/81 (101) 95 09/16/20 20:00 109 09/16/20 20:00 Nasal Cannula 2.0 09/16/20 19:57 95 Nasal Cannula 2.0 28 09/16/20 19:57 108 23 100 Nasal Cannula 2.0 28 110 21 95 09/16/20 19:00 110 27 126/71 (89) 96 09/16/20 18:00 111 28 142/87 (105) 98 09/16/20 17:00 110 25 129/79 (96) 98 09/16/20 16:00 111 09/16/20 16:00 Nasal Cannula 2.0 09/16/20 16:00 99.6 111 24 120/79 (93) 98 09/16/20 15:08 118 25 100 Nasal Cannula 2.0 28 112 25 97 09/16/20 15:00 114 26 136/77 (96) 98 Intake and Output 09/16/20 09/17/20 19:00 07:00 Intake Total 1777.865 ml 1740 ml Output Total 100 ml Balance 1777.865 ml 1640 ml IV Total 1777.865 ml 1740 ml Emesis 100 ml # Voids 690 755 Current Medications Medications (Trade) Dose Ordered Sig/Jojo Route PRN Reason Start Time Stop Time Status Last Admin Dose Admin Albuterol/ Ipratropium (Albuterol/ Ipratropium) 3 ml Q4HRT HHN 09/15/20 11:30 09/20/20 11:29 09/17/20 11:56 Dextrose/ Electrolytes 1,000 ml @ 125 mls/hr Q8H IV 09/13/20 01:00 10/13/20 00:59 09/17/20 08:46 Heparin Sodium (Porcine) (Heparin 5000 units/ml) 5,000 units EVERY 8 HOURS SUBQ 09/14/20 06:00 10/29/20 05:59 09/16/20 14:59 Lorazepam (Ativan 2mg/ml 1ml) 1 mg Q4H PRN IV For Anxiety 09/13/20 01:00 09/20/20 00:59 09/16/20 05:42 Meropenem 1 gm/ Sodium Chloride 55 ml @ 110 mls/hr Q8HR IVPB 09/16/20 14:00 09/21/20 13:59 09/17/20 14:05 Metoclopramide HCl (Reglan) 10 mg Q6H PRN IVP Nausea & Vomiting 10/20/20 01:00 10/13/20 00:59 Morphine Sulfate (Morphine Sulfate) 1 mg Q4H PRN IVP pain scale 1-3 09/13/20 01:00 09/20/20 00:59 09/13/20 14:12 Morphine Sulfate (Morphine Sulfate) 2 mg Q4H PRN IVP pain scale 4-6 09/13/20 01:00 09/20/20 00:59 09/14/20 08:36 Morphine Sulfate (Morphine Sulfate) 4 mg Q4H PRN IVP pain score 7-10 09/13/20 01:00 09/20/20 00:59 Ondansetron HCl (Zofran) 4 mg Q6H PRN IVP Nausea & Vomiting 09/13/20 01:00 10/13/20 00:59 Pantoprazole (Protonix) 40 mg Q12HR IVP 09/13/20 21:00 10/13/20 08:59 09/17/20 08:46 Laboratory Tests 09/17/20 04:15: White Blood Count 9.3, Red Blood Count 4.77, Hemoglobin 13.5L, Hematocrit 42.3, Mean Corpuscular Volume 89, Mean Corpuscular Hemoglobin 28.3, Mean Corpuscular Hemoglobin Concent 31.9L, Red Cell Distribution Width 13.6, Platelet Count 96#L, Mean Platelet Volume 6.1L, Neutrophils (%) (Auto) , Lymphocytes (%) (Auto) , Monocytes (%) (Auto) , Eosinophils (%) (Auto) , Basophils (%) (Auto) , Differential Total Cells Counted 100, Neutrophils % (Manual) 80H, Lymphocytes % (Manual) 7L, Monocytes % (Manual) 2, Eosinophils % (Manual) 1, Basophils % (Manual) 0, Band Neutrophils 10H, Platelet Estimate DecreasedL, Platelet Morphology Normal, Hypochromasia 1+, Sodium Level 138, Potassium Level 4.0, Chloride Level 106, Carbon Dioxide Level 25, Anion Gap 7, Blood Urea Nitrogen 5L , Creatinine 0.6, Estimat Glomerular Filtration Rate > 60, Glucose Level 100, Calcium Level 7.2L, Phosphorus Level 1.7L, Magnesium Level 1.9, Total Bilirubin 0.5, Aspartate Amino Transf (AST/SGOT) 14L, Alanine Aminotransferase (ALT/SGPT) 12, Alkaline Phosphatase 79, C-Reactive Protein, Quantitative 13.1H, Pro-B-Type Natriuretic Peptide 1849H, Total Protein 5.0L, Albumin 1.9L, Globulin 3.1, Albumin/Globulin Ratio 0.6L Height (Feet): 6 Height (Inches): 0.00 Weight (Pounds): 155 General Appearance: no apparent distress, lethargic EENT: other - NG tube to suction Cardiovascular: tachycardia Respiratory/Chest: decreased breath sounds Abdomen: distended Price Heart MD Sep 17, 2020 14:48
[2020-09-17] MEDS ORDERED: NS 275ml ONE (15:20)
--- NOTE | 2020-09-17 16:37 | Cardiac Electrophysiology PN ---
Assessment/Plan Assessment/Plan 1. Sinus tachycardia due to sepsis in this patient with respiratory failure and who just underwent surgery in intensive care unit EF 55%. Troponins negative 2. S/P Respiratory failure. Extubated but CXR showed Left white out. S/P bronchoscopy by Dr. Lambert 09/16/20 that showed mucus plug . This patient has history of COPD 3. Acute abdomen, status post surgery by Dr. Morrow including cholecystectomy as well as right colectomy and small bowel resection. ( Pathology showed perforated appendicitis) Currently on IV antibiotics. NGT to suction 4. BNP 1800. Nl EF 55% DW RN and Dr Lambert Subjective Subjective Had bedside bronchoscopy 09/16/20 for Left lung white out by Dr Lambert. In ICU on oxygen.In restraints VSS NGT to suction Objective Last 24 Hour Vital Signs Date Time Temp Pulse Resp B/P (MAP) Pulse Ox O2 Delivery O2 Flow Rate FiO2 09/17/20 16:06 111 09/17/20 16:00 108 25 130/74 (92) 97 09/17/20 16:00 Nasal Cannula 2.0 09/17/20 15:00 110 15 114/70 (85) 98 09/17/20 14:00 98.6 112 18 123/72 (89) 98 09/17/20 13:00 108 20 119/68 (85) 98 09/17/20 12:04 118 24 100 Nasal Cannula 2.0 28 09/17/20 12:04 122 22 100 Nasal Cannula 2.0 28 09/17/20 12:00 115 09/17/20 12:00 114 23 119/79 (92) 100 09/17/20 12:00 Nasal Cannula 2.0 09/17/20 11:58 120 26 100 Nasal Cannula 2.0 28 118 20 97 09/17/20 11:00 107 18 123/61 (81) 98 09/17/20 10:00 100 16 130/63 (85) 98 09/17/20 09:00 108 19 110/66 (81) 96 09/17/20 08:20 96 Nasal Cannula 2.0 28 09/17/20 08:18 116 22 97 Nasal Cannula 2.0 28 09/17/20 08:18 113 24 100 Nasal Cannula 2.0 28 09/17/20 08:00 103 09/17/20 08:00 98.9 115 26 132/72 (92) 98 09/17/20 08:00 Nasal Cannula 2.0 09/17/20 07:59 112 24 100 Nasal Cannula 2.0 28 117 22 97 09/17/20 07:00 104 19 122/74 (90) 96 09/17/20 06:00 109 22 137/77 (97) 97 09/17/20 05:00 111 24 125/68 (87) 97 09/17/20 04:30 112 26 127/76 (93) 96 09/17/20 04:00 105 09/17/20 04:00 98.7 109 25 119/72 (88) 96 09/17/20 04:00 Nasal Cannula 2.0 09/17/20 03:20 108 19 100 Nasal Cannula 2.0 28 108 25 97 09/17/20 03:08 110 23 96 Nasal Cannula 2.0 28 09/17/20 03:00 107 24 122/77 (92) 99 09/17/20 02:58 105 25 98 Nasal Cannula 2.0 28 09/17/20 02:30 106 25 130/66 (87) 99 09/17/20 02:00 108 25 121/79 (93) 98 09/17/20 01:30 107 24 135/72 (93) 98 09/17/20 01:00 105 23 129/94 (106) 99 09/17/20 00:00 111 09/17/20 00:00 98.4 108 24 147/82 (103) 100 09/17/20 00:00 Nasal Cannula 2.0 09/16/20 23:53 113 24 100 Nasal Cannula 2.0 28 107 26 97 09/16/20 23:30 109 24 116/91 (99) 97 09/16/20 23:00 109 26 115/86 (96) 95 09/16/20 22:00 111 27 137/85 (102) 95 09/16/20 21:30 111 27 141/71 (94) 94 09/16/20 21:00 114 28 134/73 (93) 92 09/16/20 20:15 116 26 95 Nasal Cannula 2.0 28 09/16/20 20:05 108 23 98 Nasal Cannula 2.0 28 09/16/20 20:00 99.8 109 26 143/81 (101) 95 09/16/20 20:00 109 09/16/20 20:00 Nasal Cannula 2.0 09/16/20 19:57 95 Nasal Cannula 2.0 28 09/16/20 19:57 108 23 100 Nasal Cannula 2.0 28 110 21 95 09/16/20 19:00 110 27 126/71 (89) 96 09/16/20 18:00 111 28 142/87 (105) 98 09/16/20 17:00 110 25 129/79 (96) 98 Intake and Output 09/16/20 09/17/20 19:00 07:00 Intake Total 1777.865 ml 1740 ml Output Total 100 ml Balance 1777.865 ml 1640 ml IV Total 1777.865 ml 1740 ml Emesis 100 ml # Voids 690 755 Laboratory Tests Test 09/17/20 04:15 White Blood Count 9.3 K/UL (4.8-10.8) Red Blood Count 4.77 M/UL (4.70-6.10) Hemoglobin 13.5 G/DL (14.2-18.0) L Hematocrit 42.3 % (42.0-52.0) Mean Corpuscular Volume 89 FL (80-99) Mean Corpuscular Hemoglobin 28.3 PG (27.0-31.0) Mean Corpuscular Hemoglobin Concent 31.9 G/DL (32.0-36.0) L Red Cell Distribution Width 13.6 % (11.6-14.8) Platelet Count 96 K/UL (150-450) #L Mean Platelet Volume 6.1 FL (6.5-10.1) L Neutrophils (%) (Auto) % (45.0-75.0) Lymphocytes (%) (Auto) % (20.0-45.0) Monocytes (%) (Auto) % (1.0-10.0) Eosinophils (%) (Auto) % (0.0-3.0) Basophils (%) (Auto) % (0.0-2.0) Differential Total Cells Counted 100 Neutrophils % (Manual) 80 % (45-75) H Lymphocytes % (Manual) 7 % (20-45) L Monocytes % (Manual) 2 % (1-10) Eosinophils % (Manual) 1 % (0-3) Basophils % (Manual) 0 % (0-2) Band Neutrophils 10 % (0-8) H Platelet Estimate Decreased L Platelet Morphology Normal Hypochromasia 1+ Sodium Level 138 MMOL/L (136-145) Potassium Level 4.0 MMOL/L (3.5-5.1) Chloride Level 106 MMOL/L (98-107) Carbon Dioxide Level 25 MMOL/L (21-32) Anion Gap 7 mmol/L (5-15) Blood Urea Nitrogen 5 mg/dL (7-18) L Creatinine 0.6 MG/DL (0.55-1.30) Estimat Glomerular Filtration Rate > 60 mL/min (>60) Glucose Level 100 MG/DL (74-106) Calcium Level 7.2 MG/DL (8.5-10.1) L Phosphorus Level 1.7 MG/DL (2.5-4.9) L Magnesium Level 1.9 MG/DL (1.8-2.4) Total Bilirubin 0.5 MG/DL (0.2-1.0) Aspartate Amino Transf (AST/SGOT) 14 U/L (15-37) L Alanine Aminotransferase (ALT/SGPT) 12 U/L (12-78) Alkaline Phosphatase 79 U/L (46-116) C-Reactive Protein, Quantitative 13.1 mg/dL (0.00-0.90) H Pro-B-Type Natriuretic Peptide 1849 pg/mL (0-125) H Total Protein 5.0 G/DL (6.4-8.2) L Albumin 1.9 G/DL (3.4-5.0) L Globulin 3.1 g/dL Albumin/Globulin Ratio 0.6 (1.0-2.7) L Microbiology Date/Time Source Procedure Growth Status 09/15/20 23:30 Sputum Gram Stain - Final Resulted 09/15/20 23:30 Sputum Sputum Culture Pending Resulted Objective HEAD AND NECK: No JVD. LUNGS: Coarse rhonchi.Decrease breath sounds on Left CARDIOVASCULAR: Shows regular S1 and S2 with no gallop. ABDOMEN: Tender and is status post laparotomy. EXTREMITIES: No pitting edema. Jason Li MD Sep 17, 2020 16:37
--- NOTE | 2020-09-17 17:01 | General Progress Note ---
Subjective Allergies: Coded Allergies: No Known Allergies (Unverified , 09/12/20) Subjective Seen in ICU no new complaints Objective Last 24 Hour Vital Signs Date Time Temp Pulse Resp B/P (MAP) Pulse Ox O2 Delivery O2 Flow Rate FiO2 09/17/20 16:06 111 09/17/20 16:00 108 25 130/74 (92) 97 09/17/20 16:00 Nasal Cannula 2.0 09/17/20 15:00 110 15 114/70 (85) 98 09/17/20 14:00 98.6 112 18 123/72 (89) 98 09/17/20 13:00 108 20 119/68 (85) 98 09/17/20 12:04 118 24 100 Nasal Cannula 2.0 28 09/17/20 12:04 122 22 100 Nasal Cannula 2.0 28 09/17/20 12:00 115 09/17/20 12:00 114 23 119/79 (92) 100 09/17/20 12:00 Nasal Cannula 2.0 09/17/20 11:58 120 26 100 Nasal Cannula 2.0 28 118 20 97 09/17/20 11:00 107 18 123/61 (81) 98 09/17/20 10:00 100 16 130/63 (85) 98 09/17/20 09:00 108 19 110/66 (81) 96 09/17/20 08:20 96 Nasal Cannula 2.0 28 09/17/20 08:18 116 22 97 Nasal Cannula 2.0 28 09/17/20 08:18 113 24 100 Nasal Cannula 2.0 28 09/17/20 08:00 103 09/17/20 08:00 98.9 115 26 132/72 (92) 98 09/17/20 08:00 Nasal Cannula 2.0 09/17/20 07:59 112 24 100 Nasal Cannula 2.0 28 117 22 97 09/17/20 07:00 104 19 122/74 (90) 96 09/17/20 06:00 109 22 137/77 (97) 97 09/17/20 05:00 111 24 125/68 (87) 97 09/17/20 04:30 112 26 127/76 (93) 96 09/17/20 04:00 105 09/17/20 04:00 98.7 109 25 119/72 (88) 96 09/17/20 04:00 Nasal Cannula 2.0 09/17/20 03:20 108 19 100 Nasal Cannula 2.0 28 108 25 97 09/17/20 03:08 110 23 96 Nasal Cannula 2.0 28 09/17/20 03:00 107 24 122/77 (92) 99 09/17/20 02:58 105 25 98 Nasal Cannula 2.0 28 09/17/20 02:30 106 25 130/66 (87) 99 09/17/20 02:00 108 25 121/79 (93) 98 09/17/20 01:30 107 24 135/72 (93) 98 09/17/20 01:00 105 23 129/94 (106) 99 09/17/20 00:00 111 09/17/20 00:00 98.4 108 24 147/82 (103) 100 09/17/20 00:00 Nasal Cannula 2.0 09/16/20 23:53 113 24 100 Nasal Cannula 2.0 28 107 26 97 09/16/20 23:30 109 24 116/91 (99) 97 09/16/20 23:00 109 26 115/86 (96) 95 09/16/20 22:00 111 27 137/85 (102) 95 09/16/20 21:30 111 27 141/71 (94) 94 09/16/20 21:00 114 28 134/73 (93) 92 09/16/20 20:15 116 26 95 Nasal Cannula 2.0 28 09/16/20 20:05 108 23 98 Nasal Cannula 2.0 28 09/16/20 20:00 99.8 109 26 143/81 (101) 95 09/16/20 20:00 109 09/16/20 20:00 Nasal Cannula 2.0 09/16/20 19:57 95 Nasal Cannula 2.0 28 09/16/20 19:57 108 23 100 Nasal Cannula 2.0 28 110 21 95 09/16/20 19:00 110 27 126/71 (89) 96 09/16/20 18:00 111 28 142/87 (105) 98 Intake and Output 09/16/20 09/17/20 19:00 07:00 Intake Total 1777.865 ml 1740 ml Output Total 100 ml Balance 1777.865 ml 1640 ml IV Total 1777.865 ml 1740 ml Emesis 100 ml # Voids [id number] Laboratory Tests 09/17/20 04:15: White Blood Count 9.3, Red Blood Count 4.77, Hemoglobin 13.5L, Hematocrit 42.3, Mean Corpuscular Volume 89, Mean Corpuscular Hemoglobin 28.3, Mean Corpuscular Hemoglobin Concent 31.9L, Red Cell Distribution Width 13.6, Platelet Count 96#L, Mean Platelet Volume 6.1L, Neutrophils (%) (Auto) , Lymphocytes (%) (Auto) , Monocytes (%) (Auto) , Eosinophils (%) (Auto) , Basophils (%) (Auto) , Differential Total Cells Counted 100, Neutrophils % (Manual) 80H, Lymphocytes % (Manual) 7L, Monocytes % (Manual) 2, Eosinophils % (Manual) 1, Basophils % (Manual) 0, Band Neutrophils 10H, Platelet Estimate DecreasedL, Platelet Morphology Normal, Hypochromasia 1+, Sodium Level 138, Potassium Level 4.0, Chloride Level 106, Carbon Dioxide Level 25, Anion Gap 7, Blood Urea Nitrogen 5L , Creatinine 0.6, Estimat Glomerular Filtration Rate > 60, Glucose Level 100, Calcium Level 7.2L, Phosphorus Level 1.7L, Magnesium Level 1.9, Total Bilirubin 0.5, Aspartate Amino Transf (AST/SGOT) 14L, Alanine Aminotransferase (ALT/SGPT) 12, Alkaline Phosphatase 79, C-Reactive Protein, Quantitative 13.1H, Pro-B-Type Natriuretic Peptide 1849H, Total Protein 5.0L, Albumin 1.9L, Globulin 3.1, Albumin/Globulin Ratio 0.6L Height (Feet): 6 Height (Inches): 0.00 Weight (Pounds): 155 Objective Thin man NCAT supple CTA RR abd soft flat no edema Assessment/Plan Assessment/Plan: Assessment - IC valve area SBO and cecal perforation, presumed from appendicitis - s/p ex lap and bowel resection with primary anastomosis - s/p sancho for cholecystitis Recommendations - post op care - PO per surgery - follow labs and exam Froilan De Paz MD Sep 17, 2020 17:01
[2020-09-18] VITALS (25 sets, daily range): BP systolic 83–134; BP diastolic 60–82
[2020-09-18] MEDS: D5 1/2NS w/KCl 20mEq 1,000 ML IV SCH ×3 (00:35→17:00)
[2020-09-18] MEDS: Albuterol/Ipratropium 3ml neb HHN SCH ×6 (05:10→23:10)
[2020-09-18] MEDS: Meropenem 1 GM in NS 55 ML IVPB SCH ×3 (05:21→21:32)
[2020-09-18] MEDS: Heparin 5000 units/ml inj SUBQ SCH ×3 (05:21→21:35)
[2020-09-18 05:42] LABS: BASOPHILS % (AUTO) 1.2 % (0.0-2.0); EOSINOPHILS % (AUTO) 1.6 % (0.0-3.0); HEMATOCRIT 40.8 % (42.0-52.0); HEMOGLOBIN 13.2 G/DL (14.2-18.0); LYMPHOCYTES % (AUTO) 6.3 % (20.0-45.0); MEAN CORPUSCULAR VOLUME 87 FL (80-99); MONOCYTES % (AUTO) 13.6 % (1.0-10.0); NEUTROPHILS % (AUTO) 77.3 % (45.0-75.0); PLATELET COUNT 212 K/UL (150-450); RED CELL DISTRIBUTION WIDTH 13.7 % (11.6-14.8); WHITE BLOOD COUNT 10.9 K/UL (4.8-10.8)
[2020-09-18 06:19] LABS: ALANINE AMINOTRANSFERASE 9 U/L (12-78); ALBUMIN 1.8 G/DL (3.4-5.0); ALBUMIN/GLOBULIN RATIO 0.6 (1.0-2.7); ALKALINE PHOSPHATASE 75 U/L (46-116); ANION GAP 3 mmol/L (5-15); ASPARTATE AMINO TRANSFERASE 12 U/L (15-37); BILIRUBIN,TOTAL 0.4 MG/DL (0.2-1.0); BLOOD UREA NITROGEN 4 mg/dL (7-18); CALCIUM 7.4 MG/DL (8.5-10.1); CARBON DIOXIDE 28 MMOL/L (21-32); CHLORIDE 105 MMOL/L (98-107); CREATININE 0.6 MG/DL (0.55-1.30); POTASSIUM 4.2 MMOL/L (3.5-5.1); SODIUM 136 MMOL/L (136-145)
[2020-09-18 06:23] LABS: PHOSPHORUS 1.3 MG/DL (2.5-4.9)
--- NOTE | 2020-09-18 08:10 | Pulmonology Progress Note ---
Subjective ROS Limited/Unobtainable: Yes Interval Events: Extubated on 09/14/20; CXR shows improved aeration left lung Constitutional: Reports: no symptoms HEENT: Repors: no symptoms Respiratory: Reports: no symptoms Cardiovascular: Reports: no symptoms Gastrointestinal/Abdominal: Reports: no symptoms, other - pain Psychiatric: Reports: other - on restraint Allergies: Coded Allergies: No Known Allergies (Unverified , 09/12/20) Objective Last 24 Hour Vital Signs Date Time Temp Pulse Resp B/P (MAP) Pulse Ox O2 Delivery O2 Flow Rate FiO2 09/18/20 07:46 99 21 98 Nasal Cannula 2.0 28 105 24 97 09/18/20 07:46 105 24 97 Nasal Cannula 2.0 28 09/18/20 07:46 97 Nasal Cannula 2.0 28 09/18/20 07:00 105 25 113/67 (82) 95 09/18/20 06:00 102 18 121/64 (83) 98 09/18/20 05:00 108 23 127/67 (87) 97 09/18/20 04:07 97.7 106 21 118/70 (86) 95 09/18/20 04:00 97.7 109 25 83/60 (68) 97 09/18/20 04:00 110 09/18/20 04:00 Nasal Cannula 2.0 09/18/20 03:03 109 20 23 Nasal Cannula 2.0 28 112 20 97 09/18/20 03:00 104 13 124/74 (91) 98 09/18/20 02:00 105 18 108/65 (79) 98 09/18/20 01:07 106 22 96 Nasal Cannula 2.0 28 09/18/20 01:07 111 18 94 Nasal Cannula 2.0 28 09/18/20 01:06 108 22 95 Nasal Cannula 2.0 28 09/18/20 01:00 113 27 114/71 (85) 95 09/18/20 00:00 107 09/18/20 00:00 98.5 105 18 115/65 (82) 94 09/18/20 00:00 Nasal Cannula 2.0 09/17/20 23:00 106 22 119/76 (90) 100 09/17/20 22:53 111 20 100 Nasal Cannula 2.0 28 105 18 97 09/17/20 22:00 108 22 131/66 (87) 96 09/17/20 21:00 110 25 130/65 (86) 97 09/17/20 20:00 Nasal Cannula 2.0 09/17/20 20:00 98.8 111 23 116/74 (88) 97 09/17/20 20:00 106 09/17/20 19:00 119 24 135/69 (91) 96 09/17/20 18:51 106 22 95 Nasal Cannula 2.0 28 09/17/20 18:51 108 23 96 Nasal Cannula 2.0 28 09/17/20 18:49 97 Nasal Cannula 2.0 28 09/17/20 18:00 108 11 117/70 (86) 99 09/17/20 17:00 108 22 133/67 (89) 98 09/17/20 16:06 111 09/17/20 16:00 108 25 130/74 (92) 97 09/17/20 16:00 Nasal Cannula 2.0 09/17/20 15:00 110 15 114/70 (85) 98 09/17/20 14:00 98.6 112 18 123/72 (89) 98 09/17/20 13:00 108 20 119/68 (85) 98 09/17/20 12:04 118 24 100 Nasal Cannula 2.0 28 09/17/20 12:04 122 22 100 Nasal Cannula 2.0 28 09/17/20 12:00 115 09/17/20 12:00 114 23 119/79 (92) 100 09/17/20 12:00 Nasal Cannula 2.0 09/17/20 11:58 120 26 100 Nasal Cannula 2.0 28 118 20 97 09/17/20 11:00 107 18 123/61 (81) 98 09/17/20 10:00 100 16 130/63 (85) 98 09/17/20 09:00 108 19 110/66 (81) 96 09/17/20 08:20 96 Nasal Cannula 2.0 28 09/17/20 08:18 116 22 97 Nasal Cannula 2.0 28 09/17/20 08:18 113 24 100 Nasal Cannula 2.0 28 Intake and Output 09/17/20 09/18/20 19:00 07:00 Intake Total 1367.5 ml 1794.5 ml Output Total 945 ml 755 ml Balance 422.5 ml 1039.5 ml IV Total 1367.5 ml 1794.5 ml Output Urine Total 895 ml 755 ml Emesis 50 ml # Bowel Movements 5 General Appearance: no acute distress HEENT: normocephalic Respiratory: chest wall non-tender, decreased breath sounds Cardiovascular: normal peripheral pulses, normal rate Abdomen: normal bowel sounds Microbiology Date/Time Source Procedure Growth Status 09/15/20 23:30 Sputum Gram Stain - Final Complete 09/15/20 23:30 Sputum Culture - Final Sarah Albicans Usual Upper Respiratory Rani Complete Laboratory Tests 09/18/20 05:14: White Blood Count 10.9H, Red Blood Count 4.70, Hemoglobin 13.2L, Hematocrit 40.8L, Mean Corpuscular Volume 87, Mean Corpuscular Hemoglobin 28.0, Mean Corpuscular Hemoglobin Concent 32.3, Red Cell Distribution Width 13.7, Platelet Count 212#, Mean Platelet Volume 6.2L, Neutrophils (%) (Auto) 77.3H, Lymphocytes (%) (Auto) 6.3L, Monocytes (%) (Auto) 13.6H, Eosinophils (%) (Auto) 1.6, Basophils (%) (Auto) 1.2, Sodium Level 136, Potassium Level 4.2, Chloride Level 105, Carbon Dioxide Level 28, Anion Gap 3L, Blood Urea Nitrogen 4L, Creatinine 0.6, Estimat Glomerular Filtration Rate > 60, Glucose Level 124H, Calcium Level 7.4L, Phosphorus Level 1.3L, Magnesium Level 2.0, Total Bilirubin 0.4, Gamma Glutamyl Transpeptidase 12, Aspartate Amino Transf (AST/SGOT) 12L, Alanine Aminotransferase (ALT/SGPT) 9L, Alkaline Phosphatase 75, C-Reactive Protein, Quantitative 9.9H, Pro-B-Type Natriuretic Peptide 851H, Total Protein 4.9L, Albumin 1.8L, Globulin 3.1, Albumin/Globulin Ratio 0.6L Current Medications Medications (Trade) Dose Ordered Sig/Jojo Route PRN Reason Start Time Stop Time Status Last Admin Dose Admin Albuterol/ Ipratropium (Albuterol/ Ipratropium) 3 ml Q4HRT HHN 09/15/20 11:30 09/20/20 11:29 09/18/20 07:46 Dextrose/ Electrolytes 1,000 ml @ 125 mls/hr Q8H IV 09/13/20 01:00 10/13/20 00:59 09/18/20 00:35 Heparin Sodium (Porcine) (Heparin 5000 units/ml) 5,000 units EVERY 8 HOURS SUBQ 09/14/20 06:00 10/29/20 05:59 09/16/20 14:59 Lorazepam (Ativan 2mg/ml 1ml) 1 mg Q4H PRN IV For Anxiety 09/13/20 01:00 09/20/20 00:59 09/16/20 05:42 Meropenem 1 gm/ Sodium Chloride 55 ml @ 110 mls/hr Q8HR IVPB 09/16/20 14:00 09/21/20 13:59 09/18/20 05:21 Metoclopramide HCl (Reglan) 10 mg Q6H PRN IVP Nausea & Vomiting 09/13/20 01:00 10/13/20 00:59 Morphine Sulfate (Morphine Sulfate) 1 mg Q4H PRN IVP pain scale 1-3 09/13/20 01:00 09/20/20 00:59 09/13/20 14:12 Morphine Sulfate (Morphine Sulfate) 2 mg Q4H PRN IVP pain scale 4-6 09/13/20 01:00 09/20/20 00:59 09/14/20 08:36 Morphine Sulfate (Morphine Sulfate) 4 mg Q4H PRN IVP pain score 7-10 09/13/20 01:00 09/20/20 00:59 Ondansetron HCl (Zofran) 4 mg Q6H PRN IVP Nausea & Vomiting 09/13/20 01:00 10/13/20 00:59 Pantoprazole (Protonix) 40 mg Q12HR IVP 09/13/20 21:00 10/13/20 08:59 09/17/20 20:32 Assessment/Plan Assessment/Plan IMPRESSION: 1. Cecal perforation. 2. Status post right colectomy, open cholecystectomy, and abdominal washout. 3. History of COPD. 4. Schizophrenia. 5. Left lung complete atelectasis; resolved post bronchoscopy yesterday DISCUSSION: Continue ICU care Extubated 09/15/20 Continue broad-spectrum antibiotics. I will follow carefully. CXR shows improved aeration of left lung field Tito Sheffield Omar Syed MD Sep 18, 2020 08:10
[2020-09-18] MEDS: Pantoprazole Inj IVP SCH ×2 (08:15→20:49)
[2020-09-18] MEDS ORDERED: Sodium Phosphate 30 MM in NS 275 ML IVPB ONE (11:00)
--- NOTE | 2020-09-18 11:57 | Nephrology Progress Note ---
Assessment/Plan Problem List: (1) Lactic acid increased (2) Electrolyte imbalance (3) SBO (small bowel obstruction) (4) Sepsis (5) Bowel perforation Assessment Lactic acidosis Bowel perforation Sepsis Plan September 18: NG tube to suction. Output minimal. Labs reviewed. Phosphorus supplement intravenously ordered. Discussed with Dr. Leslie regarding the need for TPN. Will await for general surgery comment. Continue to monitor renal parameters and electrolytes. September 17: All noted. Discussed with RN. Labs reviewed. Patient has NG tube to suction. It appears that the patient post abdominal surgery may not be started on feeding. Suggest TPN. Deferred to GI/surgeon. September 16: Patient about to undergo bronchoscopy for white out left lung. Labs reviewed. Abnormal electrolytes and chemistries addressed. Continue per consultants. September 15: On nasal cannula, renal parameters stable. Continue per consultants. Previously: Postop care, weaning from ventilator ~failed so far Check urine analysis, noted IV fluid management Keep the electrolytes and renal parameters in check Antibiotics Per consultants Post surgery results: 1. Small bowel obstruction at the level of the ileocecal valve, secondary to unknown etiology, potential tumor mass. 2. Perforated cecum. 3. Acute cholecystitis. Subjective ROS Limited/Unobtainable: No Constitutional: Reports: malaise, weakness Objective Objective Last 24 Hour Vital Signs Date Time Temp Pulse Resp B/P (MAP) Pulse Ox O2 Delivery O2 Flow Rate FiO2 09/18/20 11:29 102 23 99 Nasal Cannula 2.0 28 106 21 99 09/18/20 11:00 104 22 127/70 (89) 96 09/18/20 10:00 97 16 120/63 (82) 99 09/18/20 09:00 101 13 117/61 (79) 99 09/18/20 08:00 98.8 98 18 123/64 (83) 100 09/18/20 08:00 Nasal Cannula 2.0 09/18/20 07:48 115 22 100 Nasal Cannula 2.0 28 09/18/20 07:46 99 21 98 Nasal Cannula 2.0 28 105 24 97 09/18/20 07:46 105 24 97 Nasal Cannula 2.0 28 09/18/20 07:46 97 Nasal Cannula 2.0 28 09/18/20 07:32 108 09/18/20 07:00 105 25 113/67 (82) 95 09/18/20 06:00 102 18 121/64 (83) 98 09/18/20 05:00 108 23 127/67 (87) 97 09/18/20 04:07 97.7 106 21 118/70 (86) 95 09/18/20 04:00 97.7 109 25 83/60 (68) 97 09/18/20 04:00 110 09/18/20 04:00 Nasal Cannula 2.0 09/18/20 03:03 109 20 23 Nasal Cannula 2.0 28 112 20 97 09/18/20 03:00 104 13 124/74 (91) 98 09/18/20 02:00 105 18 108/65 (79) 98 09/18/20 01:07 106 22 96 Nasal Cannula 2.0 28 09/18/20 01:07 111 18 94 Nasal Cannula 2.0 28 09/18/20 01:06 108 22 95 Nasal Cannula 2.0 28 09/18/20 01:00 113 27 114/71 (85) 95 09/18/20 00:00 107 09/18/20 00:00 98.5 105 18 115/65 (82) 94 09/18/20 00:00 Nasal Cannula 2.0 09/17/20 23:00 106 22 119/76 (90) 100 09/17/20 22:53 111 20 100 Nasal Cannula 2.0 28 105 18 97 09/17/20 22:00 108 22 131/66 (87) 96 09/17/20 21:00 110 25 130/65 (86) 97 09/17/20 20:00 Nasal Cannula 2.0 09/17/20 20:00 98.8 111 23 116/74 (88) 97 09/17/20 20:00 106 09/17/20 19:00 119 24 135/69 (91) 96 09/17/20 18:51 106 22 95 Nasal Cannula 2.0 28 09/17/20 18:51 108 23 96 Nasal Cannula 2.0 28 09/17/20 18:49 97 Nasal Cannula 2.0 28 09/17/20 18:00 108 11 117/70 (86) 99 09/17/20 17:00 108 22 133/67 (89) 98 09/17/20 16:06 111 09/17/20 16:00 108 25 130/74 (92) 97 09/17/20 16:00 Nasal Cannula 2.0 09/17/20 15:00 110 15 114/70 (85) 98 09/17/20 14:00 98.6 112 18 123/72 (89) 98 09/17/20 13:00 108 20 119/68 (85) 98 09/17/20 12:04 118 24 100 Nasal Cannula 2.0 28 09/17/20 12:04 122 22 100 Nasal Cannula 2.0 28 09/17/20 12:00 115 09/17/20 12:00 114 23 119/79 (92) 100 09/17/20 12:00 Nasal Cannula 2.0 09/17/20 11:58 120 26 100 Nasal Cannula 2.0 28 118 20 97 Intake and Output 09/17/20 09/18/20 19:00 07:00 Intake Total 1367.5 ml 1794.5 ml Output Total 945 ml 755 ml Balance 422.5 ml 1039.5 ml IV Total 1367.5 ml 1794.5 ml Output Urine Total 895 ml 755 ml Emesis 50 ml # Bowel Movements 5 Laboratory Tests 09/18/20 05:14: White Blood Count 10.9H, Red Blood Count 4.70, Hemoglobin 13.2L, Hematocrit 40.8L, Mean Corpuscular Volume 87, Mean Corpuscular Hemoglobin 28.0, Mean Corpuscular Hemoglobin Concent 32.3, Red Cell Distribution Width 13.7, Platelet Count 212#, Mean Platelet Volume 6.2L, Neutrophils (%) (Auto) 77.3H, Lymphocytes (%) (Auto) 6.3L, Monocytes (%) (Auto) 13.6H, Eosinophils (%) (Auto) 1.6, Basophils (%) (Auto) 1.2, Sodium Level 136, Potassium Level 4.2, Chloride Level 105, Carbon Dioxide Level 28, Anion Gap 3L, Blood Urea Nitrogen 4L, Creatinine 0.6, Estimat Glomerular Filtration Rate > 60, Glucose Level 124H, Calcium Level 7.4L, Phosphorus Level 1.3L, Magnesium Level 2.0, Total Bilirubin 0.4, Gamma Glutamyl Transpeptidase 12, Aspartate Amino Transf (AST/SGOT) 12L, Alanine Aminotransferase (ALT/SGPT) 9L, Alkaline Phosphatase 75, C-Reactive Protein, Quantitative 9.9H, Pro-B-Type Natriuretic Peptide 851H, Total Protein 4.9L, Albumin 1.8L, Globulin 3.1, Albumin/Globulin Ratio 0.6L Height (Feet): 6 Height (Inches): 0.00 Weight (Pounds): 155 General Appearance: no apparent distress EENT: other - NG tube to suction Cardiovascular: tachycardia Respiratory/Chest: decreased breath sounds Abdomen: distended - Call [facility] MD Sep 18, 2020 11:57
--- NOTE | 2020-09-18 17:52 | General Progress Note ---
Subjective Allergies: Coded Allergies: No Known Allergies (Unverified , 09/12/20) Subjective Seen in ICU no new complaints d/w renal and RN Objective Last 24 Hour Vital Signs Date Time Temp Pulse Resp B/P (MAP) Pulse Ox O2 Delivery O2 Flow Rate FiO2 09/18/20 17:00 98 26 122/82 (95) 98 09/18/20 16:00 Nasal Cannula 2.0 09/18/20 16:00 98.9 104 21 130/69 (89) 97 09/18/20 15:33 108 24 100 Nasal Cannula 2.0 28 104 23 98 09/18/20 15:26 98 09/18/20 15:00 105 20 129/67 (87) 99 09/18/20 14:00 98 19 134/69 (90) 97 09/18/20 13:38 99 21 100 Nasal Cannula 2.0 28 09/18/20 13:38 110 23 100 Nasal Cannula 2.0 28 09/18/20 13:00 101 20 127/70 (89) 99 09/18/20 12:00 101 09/18/20 12:00 Nasal Cannula 2.0 09/18/20 12:00 98.8 104 21 118/64 (82) 97 09/18/20 11:29 102 23 99 Nasal Cannula 2.0 28 106 21 99 09/18/20 11:00 104 22 127/70 (89) 96 09/18/20 10:00 97 16 120/63 (82) 99 09/18/20 09:00 101 13 117/61 (79) 99 09/18/20 08:00 98.8 98 18 123/64 (83) 100 09/18/20 08:00 Nasal Cannula 2.0 09/18/20 07:48 115 22 100 Nasal Cannula 2.0 28 09/18/20 07:46 99 21 98 Nasal Cannula 2.0 28 105 24 97 09/18/20 07:46 105 24 97 Nasal Cannula 2.0 28 09/18/20 07:46 97 Nasal Cannula 2.0 28 09/18/20 07:32 108 09/18/20 07:00 105 25 113/67 (82) 95 09/18/20 06:00 102 18 121/64 (83) 98 09/18/20 05:00 108 23 127/67 (87) 97 09/18/20 04:07 97.7 106 21 118/70 (86) 95 09/18/20 04:00 97.7 109 25 83/60 (68) 97 09/18/20 04:00 110 09/18/20 04:00 Nasal Cannula 2.0 09/18/20 03:03 109 20 23 Nasal Cannula 2.0 28 112 20 97 09/18/20 03:00 104 13 124/74 (91) 98 09/18/20 02:00 105 18 108/65 (79) 98 09/18/20 01:07 106 22 96 Nasal Cannula 2.0 28 09/18/20 01:07 111 18 94 Nasal Cannula 2.0 28 09/18/20 01:06 108 22 95 Nasal Cannula 2.0 28 09/18/20 01:00 113 27 114/71 (85) 95 09/18/20 00:00 107 09/18/20 00:00 98.5 105 18 115/65 (82) 94 09/18/20 00:00 Nasal Cannula 2.0 09/17/20 23:00 106 22 119/76 (90) 100 09/17/20 22:53 111 20 100 Nasal Cannula 2.0 28 105 18 97 09/17/20 22:00 108 22 131/66 (87) 96 09/17/20 21:00 110 25 130/65 (86) 97 09/17/20 20:00 Nasal Cannula 2.0 09/17/20 20:00 98.8 111 23 116/74 (88) 97 09/17/20 20:00 106 09/17/20 19:00 119 24 135/69 (91) 96 09/17/20 18:51 106 22 95 Nasal Cannula 2.0 28 09/17/20 18:51 108 23 96 Nasal Cannula 2.0 28 09/17/20 18:49 97 Nasal Cannula 2.0 28 09/17/20 18:00 108 11 117/70 (86) 99 Intake and Output 09/17/20 09/18/20 19:00 07:00 Intake Total 1367.5 ml 1794.5 ml Output Total 945 ml 755 ml Balance 422.5 ml 1039.5 ml IV Total 1367.5 ml 1794.5 ml Output Urine Total 895 ml 755 ml Emesis 50 ml # Bowel Movements 5 Laboratory Tests 09/18/20 05:14: White Blood Count 10.9H, Red Blood Count 4.70, Hemoglobin 13.2L, Hematocrit 40.8L, Mean Corpuscular Volume 87, Mean Corpuscular Hemoglobin 28.0, Mean Corpuscular Hemoglobin Concent 32.3, Red Cell Distribution Width 13.7, Platelet Count 212#, Mean Platelet Volume 6.2L, Neutrophils (%) (Auto) 77.3H, Lymphocytes (%) (Auto) 6.3L, Monocytes (%) (Auto) 13.6H, Eosinophils (%) (Auto) 1.6, Basophils (%) (Auto) 1.2, Sodium Level 136, Potassium Level 4.2, Chloride Level 105, Carbon Dioxide Level 28, Anion Gap 3L, Blood Urea Nitrogen 4L, Creatinine 0.6, Estimat Glomerular Filtration Rate > 60, Glucose Level 124H, Calcium Level 7.4L, Phosphorus Level 1.3L, Magnesium Level 2.0, Total Bilirubin 0.4, Gamma Glutamyl Transpeptidase 12, Aspartate Amino Transf (AST/SGOT) 12L, Alanine Aminotransferase (ALT/SGPT) 9L, Alkaline Phosphatase 75, C-Reactive Protein, Quantitative 9.9H, Pro-B-Type Natriuretic Peptide 851H, Total Protein 4.9L, Albumin 1.8L, Globulin 3.1, Albumin/Globulin Ratio 0.6L Height (Feet): 6 Height (Inches): 0.00 Weight (Pounds): 155 Objective Thin man NCAT supple CTA RR abd soft more distended today no edema Assessment/Plan Assessment/Plan: Assessment - IC valve area SBO and cecal perforation, presumed from appendicitis - s/p ex lap and bowel resection with primary anastomosis - s/p sancho for cholecystitis - post op ileus Recommendations - post op care - PO per surgery - follow labs and exam - re check Froilan Silva MD Sep 18, 2020 17:52
--- NOTE | 2020-09-18 19:18 | Cardiac Electrophysiology PN ---
Assessment/Plan Assessment/Plan 1. Sinus tachycardia due to sepsis in this patient with respiratory failure and who just underwent surgery in intensive care unit EF 55%. Troponins negative 2. S/P Respiratory failure. Extubated but CXR showed Left white out. S/P bronchoscopy by Dr. Lambert 09/16/20 that showed mucus plug Has history of COPD 3. Acute abdomen, status post surgery by Dr. Morrow including cholecystectomy as well as right colectomy and small bowel resection. ( Pathology showed perforated appendicitis) Currently on IV antibiotics. NGT to suction 4. BNP 1800. Nl EF 55% DW RN and Dr Lambert Subjective Subjective Had bedside bronchoscopy 09/16/20 for Left lung white out by Dr Lambert. In ICU on oxygen VSS NGT to suction. Alert but confused Objective Last 24 Hour Vital Signs Date Time Temp Pulse Resp B/P (MAP) Pulse Ox O2 Delivery O2 Flow Rate FiO2 09/18/20 19:11 109 23 100 Nasal Cannula 2.0 28 09/18/20 19:11 97 Nasal Cannula 2.0 28 09/18/20 19:11 107 21 98 Nasal Cannula 2.0 28 09/18/20 19:09 108 23 100 Nasal Cannula 2.0 28 107 21 97 09/18/20 19:00 109 17 133/70 (91) 98 09/18/20 18:00 102 22 128/67 (87) 98 09/18/20 17:00 98 26 122/82 (95) 98 09/18/20 16:00 Nasal Cannula 2.0 09/18/20 16:00 98.9 104 21 130/69 (89) 97 09/18/20 15:33 108 24 100 Nasal Cannula 2.0 28 104 23 98 09/18/20 15:26 98 09/18/20 15:00 105 20 129/67 (87) 99 09/18/20 14:00 98 19 134/69 (90) 97 09/18/20 13:38 99 21 100 Nasal Cannula 2.0 28 09/18/20 13:38 110 23 100 Nasal Cannula 2.0 28 09/18/20 13:00 101 20 127/70 (89) 99 09/18/20 12:00 101 09/18/20 12:00 Nasal Cannula 2.0 09/18/20 12:00 98.8 104 21 118/64 (82) 97 09/18/20 11:29 102 23 99 Nasal Cannula 2.0 28 106 21 99 09/18/20 11:00 104 22 127/70 (89) 96 09/18/20 10:00 97 16 120/63 (82) 99 09/18/20 09:00 101 13 117/61 (79) 99 09/18/20 08:00 98.8 98 18 123/64 (83) 100 09/18/20 08:00 Nasal Cannula 2.0 09/18/20 07:48 115 22 100 Nasal Cannula 2.0 28 09/18/20 07:46 99 21 98 Nasal Cannula 2.0 28 105 24 97 09/18/20 07:46 105 24 97 Nasal Cannula 2.0 28 09/18/20 07:46 97 Nasal Cannula 2.0 28 09/18/20 07:32 108 09/18/20 07:00 105 25 113/67 (82) 95 09/18/20 06:00 102 18 121/64 (83) 98 09/18/20 05:00 108 23 127/67 (87) 97 09/18/20 04:07 97.7 106 21 118/70 (86) 95 09/18/20 04:00 97.7 109 25 83/60 (68) 97 09/18/20 04:00 110 09/18/20 04:00 Nasal Cannula 2.0 09/18/20 03:03 109 20 23 Nasal Cannula 2.0 28 112 20 97 09/18/20 03:00 104 13 124/74 (91) 98 09/18/20 02:00 105 18 108/65 (79) 98 09/18/20 01:07 106 22 96 Nasal Cannula 2.0 28 09/18/20 01:07 111 18 94 Nasal Cannula 2.0 28 09/18/20 01:06 108 22 95 Nasal Cannula 2.0 28 09/18/20 01:00 113 27 114/71 (85) 95 09/18/20 00:00 107 09/18/20 00:00 98.5 105 18 115/65 (82) 94 09/18/20 00:00 Nasal Cannula 2.0 09/17/20 23:00 106 22 119/76 (90) 100 09/17/20 22:53 111 20 100 Nasal Cannula 2.0 28 105 18 97 09/17/20 22:00 108 22 131/66 (87) 96 09/17/20 21:00 110 25 130/65 (86) 97 09/17/20 20:00 Nasal Cannula 2.0 09/17/20 20:00 98.8 111 23 116/74 (88) 97 09/17/20 20:00 106 Intake and Output 09/17/20 09/18/20 19:00 07:00 Intake Total 1367.5 ml 1794.5 ml Output Total 945 ml 755 ml Balance 422.5 ml 1039.5 ml IV Total 1367.5 ml 1794.5 ml Output Urine Total 895 ml 755 ml Emesis 50 ml # Bowel Movements 5 Laboratory Tests Test 09/18/20 05:14 White Blood Count 10.9 K/UL (4.8-10.8) H Red Blood Count 4.70 M/UL (4.70-6.10) Hemoglobin 13.2 G/DL (14.2-18.0) L Hematocrit 40.8 % (42.0-52.0) L Mean Corpuscular Volume 87 FL (80-99) Mean Corpuscular Hemoglobin 28.0 PG (27.0-31.0) Mean Corpuscular Hemoglobin Concent 32.3 G/DL (32.0-36.0) Red Cell Distribution Width 13.7 % (11.6-14.8) Platelet Count 212 K/UL (150-450) # Mean Platelet Volume 6.2 FL (6.5-10.1) L Neutrophils (%) (Auto) 77.3 % (45.0-75.0) H Lymphocytes (%) (Auto) 6.3 % (20.0-45.0) L Monocytes (%) (Auto) 13.6 % (1.0-10.0) H Eosinophils (%) (Auto) 1.6 % (0.0-3.0) Basophils (%) (Auto) 1.2 % (0.0-2.0) Sodium Level 136 MMOL/L (136-145) Potassium Level 4.2 MMOL/L (3.5-5.1) Chloride Level 105 MMOL/L (98-107) Carbon Dioxide Level 28 MMOL/L (21-32) Anion Gap 3 mmol/L (5-15) L Blood Urea Nitrogen 4 mg/dL (7-18) L Creatinine 0.6 MG/DL (0.55-1.30) Estimat Glomerular Filtration Rate > 60 mL/min (>60) Glucose Level 124 MG/DL (74-106) H Calcium Level 7.4 MG/DL (8.5-10.1) L Phosphorus Level 1.3 MG/DL (2.5-4.9) L Magnesium Level 2.0 MG/DL (1.8-2.4) Total Bilirubin 0.4 MG/DL (0.2-1.0) Gamma Glutamyl Transpeptidase 12 U/L (5-85) Aspartate Amino Transf (AST/SGOT) 12 U/L (15-37) L Alanine Aminotransferase (ALT/SGPT) 9 U/L (12-78) L Alkaline Phosphatase 75 U/L (46-116) C-Reactive Protein, Quantitative 9.9 mg/dL (0.00-0.90) H Pro-B-Type Natriuretic Peptide 851 pg/mL (0-125) H Total Protein 4.9 G/DL (6.4-8.2) L Albumin 1.8 G/DL (3.4-5.0) L Globulin 3.1 g/dL Albumin/Globulin Ratio 0.6 (1.0-2.7) L Microbiology Date/Time Source Procedure Growth Status 09/15/20 23:30 Sputum Gram Stain - Final Complete 09/15/20 23:30 Sputum Culture - Final Sraah Albicans Usual Upper Respiratory Rani Complete Objective HEAD AND NECK: No JVD. LUNGS: Coarse rhonchi.Decrease breath sounds on Left CARDIOVASCULAR: Shows regular S1 and S2 with no gallop. ABDOMEN: Tender and is status post laparotomy. EXTREMITIES: No pitting edema. Jason Li MD Sep 18, 2020 19:18
--- NOTE | 2020-09-18 20:57 | General Progress Note ---
Subjective ROS Limited/Unobtainable: Yes Allergies: Coded Allergies: No Known Allergies (Unverified , 09/12/20) Objective Last 24 Hour Vital Signs Date Time Temp Pulse Resp B/P (MAP) Pulse Ox O2 Delivery O2 Flow Rate FiO2 09/18/20 19:11 109 23 100 Nasal Cannula 2.0 28 09/18/20 19:11 97 Nasal Cannula 2.0 28 09/18/20 19:11 107 21 98 Nasal Cannula 2.0 28 09/18/20 19:09 108 23 100 Nasal Cannula 2.0 28 107 21 97 09/18/20 19:00 109 17 133/70 (91) 98 09/18/20 18:00 102 22 128/67 (87) 98 09/18/20 17:00 98 26 122/82 (95) 98 09/18/20 16:00 Nasal Cannula 2.0 09/18/20 16:00 98.9 104 21 130/69 (89) 97 09/18/20 15:33 108 24 100 Nasal Cannula 2.0 28 104 23 98 09/18/20 15:26 98 09/18/20 15:00 105 20 129/67 (87) 99 09/18/20 14:00 98 19 134/69 (90) 97 09/18/20 13:38 99 21 100 Nasal Cannula 2.0 28 09/18/20 13:38 110 23 100 Nasal Cannula 2.0 28 09/18/20 13:00 101 20 127/70 (89) 99 09/18/20 12:00 101 09/18/20 12:00 Nasal Cannula 2.0 09/18/20 12:00 98.8 104 21 118/64 (82) 97 09/18/20 11:29 102 23 99 Nasal Cannula 2.0 28 106 21 99 09/18/20 11:00 104 22 127/70 (89) 96 09/18/20 10:00 97 16 120/63 (82) 99 09/18/20 09:00 101 13 117/61 (79) 99 09/18/20 08:00 98.8 98 18 123/64 (83) 100 09/18/20 08:00 Nasal Cannula 2.0 09/18/20 07:48 115 22 100 Nasal Cannula 2.0 28 09/18/20 07:46 99 21 98 Nasal Cannula 2.0 28 105 24 97 09/18/20 07:46 105 24 97 Nasal Cannula 2.0 28 09/18/20 07:46 97 Nasal Cannula 2.0 28 09/18/20 07:32 108 09/18/20 07:00 105 25 113/67 (82) 95 09/18/20 06:00 102 18 121/64 (83) 98 09/18/20 05:00 108 23 127/67 (87) 97 09/18/20 04:07 97.7 106 21 118/70 (86) 95 09/18/20 04:00 97.7 109 25 83/60 (68) 97 09/18/20 04:00 110 09/18/20 04:00 Nasal Cannula 2.0 09/18/20 03:03 109 20 23 Nasal Cannula 2.0 28 112 20 97 09/18/20 03:00 104 13 124/74 (91) 98 09/18/20 02:00 105 18 108/65 (79) 98 09/18/20 01:07 106 22 96 Nasal Cannula 2.0 28 09/18/20 01:07 111 18 94 Nasal Cannula 2.0 28 09/18/20 01:06 108 22 95 Nasal Cannula 2.0 28 09/18/20 01:00 113 27 114/71 (85) 95 09/18/20 00:00 107 09/18/20 00:00 98.5 105 18 115/65 (82) 94 09/18/20 00:00 Nasal Cannula 2.0 09/17/20 23:00 106 22 119/76 (90) 100 09/17/20 22:53 111 20 100 Nasal Cannula 2.0 28 105 18 97 09/17/20 22:00 108 22 131/66 (87) 96 09/17/20 21:00 110 25 130/65 (86) 97 Intake and Output 09/17/20 09/18/20 19:00 07:00 Intake Total 1367.5 ml 1794.5 ml Output Total 945 ml 755 ml Balance 422.5 ml 1039.5 ml IV Total 1367.5 ml 1794.5 ml Output Urine Total 895 ml 755 ml Emesis 50 ml # Bowel Movements 5 Laboratory Tests 09/18/20 05:14: White Blood Count 10.9H, Red Blood Count 4.70, Hemoglobin 13.2L, Hematocrit 40.8L, Mean Corpuscular Volume 87, Mean Corpuscular Hemoglobin 28.0, Mean Corpuscular Hemoglobin Concent 32.3, Red Cell Distribution Width 13.7, Platelet Count 212#, Mean Platelet Volume 6.2L, Neutrophils (%) (Auto) 77.3H, Lymphocytes (%) (Auto) 6.3L, Monocytes (%) (Auto) 13.6H, Eosinophils (%) (Auto) 1.6, Basophils (%) (Auto) 1.2, Sodium Level 136, Potassium Level 4.2, Chloride Level 105, Carbon Dioxide Level 28, Anion Gap 3L, Blood Urea Nitrogen 4L, Creatinine 0.6, Estimat Glomerular Filtration Rate > 60, Glucose Level 124H, Calcium Level 7.4L, Phosphorus Level 1.3L, Magnesium Level 2.0, Total Bilirubin 0.4, Gamma Glutamyl Transpeptidase 12, Aspartate Amino Transf (AST/SGOT) 12L, Alanine Aminotransferase (ALT/SGPT) 9L, Alkaline Phosphatase 75, C-Reactive Protein, Quantitative 9.9H, Pro-B-Type Natriuretic Peptide 851H, Total Protein 4.9L, Albumin 1.8L, Globulin 3.1, Albumin/Globulin Ratio 0.6L Height (Feet): 6 Height (Inches): 0.00 Weight (Pounds): 155 Assessment/Plan Problem List: (1) Bowel perforation ICD Codes: K63.1 - Perforation of intestine (nontraumatic) SNOMED: 52471677 (2) Sepsis ICD Codes: A41.9 - Sepsis, unspecified organism SNOMED: 26651872 (3) SBO (small bowel obstruction) ICD Codes: K56.609 - Unspecified intestinal obstruction, unspecified as to partial versus complete obstruction SNOMED: 380657135 (4) Lactic acidosis ICD Codes: E87.2 - Acidosis SNOMED: 94956940 (5) Abdominal pain ICD Codes: R10.9 - Unspecified abdominal pain SNOMED: 80832548 Status: progressing Assessment/Plan: s/p collapsed left lung bronchoscopy s/p exploratory lap for perforated bowel s/p cholycystectomy sepsis reviewed chart and labs resp failure copd no wheezing Vania Dwyer MD Sep 18, 2020 20:57
[2020-09-19] VITALS (27 sets, daily range): BP systolic 108–141; BP diastolic 25–104
[2020-09-19] MEDS: D5 1/2NS w/KCl 20mEq 1,000 ML IV SCH ×3 (01:41→18:21)
[2020-09-19] MEDS: Albuterol/Ipratropium 3ml neb HHN SCH ×6 (02:59→23:44)
[2020-09-19 05:03] LABS: BASOPHILS % (AUTO) 0.8 % (0.0-2.0); EOSINOPHILS % (AUTO) 2.3 % (0.0-3.0); HEMATOCRIT 38.7 % (42.0-52.0); HEMOGLOBIN 12.6 G/DL (14.2-18.0); LYMPHOCYTES % (AUTO) 10.5 % (20.0-45.0); MEAN CORPUSCULAR VOLUME 87 FL (80-99); MONOCYTES % (AUTO) 12.2 % (1.0-10.0); NEUTROPHILS % (AUTO) 74.3 % (45.0-75.0); PLATELET COUNT 221 K/UL (150-450); RED BLOOD COUNT 4.47 M/UL (4.70-6.10); RED CELL DISTRIBUTION WIDTH 13.6 % (11.6-14.8); WHITE BLOOD COUNT 8.7 K/UL (4.8-10.8)
[2020-09-19 05:23] LABS: ALANINE AMINOTRANSFERASE 6 U/L (12-78); ALBUMIN 1.7 G/DL (3.4-5.0); ALBUMIN/GLOBULIN RATIO 0.7 (1.0-2.7); ALKALINE PHOSPHATASE 72 U/L (46-116); ANION GAP 3 mmol/L (5-15); ASPARTATE AMINO TRANSFERASE 13 U/L (15-37); BILIRUBIN,TOTAL 0.5 MG/DL (0.2-1.0); BLOOD UREA NITROGEN 1 mg/dL (7-18); CALCIUM 7.4 MG/DL (8.5-10.1); CARBON DIOXIDE 30 MMOL/L (21-32); CHLORIDE 104 MMOL/L (98-107); CREATININE 0.7 MG/DL (0.55-1.30); PHOSPHORUS 1.5 MG/DL (2.5-4.9); POTASSIUM 4.3 MMOL/L (3.5-5.1); SODIUM 137 MMOL/L (136-145)
[2020-09-19] MEDS: Heparin 5000 units/ml inj SUBQ SCH ×3 (05:39→21:28)
[2020-09-19] MEDS: Meropenem 1 GM in NS 55 ML IVPB SCH ×3 (05:39→21:27)
[2020-09-19] MEDS: Pantoprazole Inj IVP SCH ×2 (09:01→20:49)
--- NOTE | 2020-09-19 10:54 | General Progress Note ---
Subjective ROS Limited/Unobtainable: Yes Allergies: Coded Allergies: No Known Allergies (Unverified , 09/12/20) Objective Last 24 Hour Vital Signs Date Time Temp Pulse Resp B/P (MAP) Pulse Ox O2 Delivery O2 Flow Rate FiO2 09/19/20 10:00 105 18 114/25 (54) 97 09/19/20 09:00 103 19 118/64 (82) 97 09/19/20 08:09 98.1 104 16 141/65 (90) 97 09/19/20 08:00 Nasal Cannula 2.0 09/19/20 08:00 96 09/19/20 07:53 100 34 100 Nasal Cannula 3.0 105 23 97 09/19/20 07:53 97 Nasal Cannula 3.0 32 09/19/20 07:00 102 20 109/64 (79) 100 09/19/20 06:00 102 20 128/60 (82) 99 09/19/20 05:00 107 17 130/87 (101) 97 09/19/20 04:00 Nasal Cannula 2.0 09/19/20 04:00 98.4 109 20 128/71 (90) 98 09/19/20 04:00 105 09/19/20 03:00 112 24 118/80 (93) 94 09/19/20 02:59 111 22 99 Nasal Cannula 2.0 28 112 23 97 09/19/20 02:00 99 19 129/66 (87) 95 09/19/20 01:00 111 25 100 Nasal Cannula 2.0 28 09/19/20 01:00 109 23 97 Nasal Cannula 2.0 28 09/19/20 01:00 106 23 117/67 (84) 97 09/19/20 00:00 Nasal Cannula 2.0 09/19/20 00:00 98.5 103 19 112/67 (82) 96 09/19/20 00:00 104 09/18/20 23:12 106 22 100 Nasal Cannula 2.0 28 104 21 98 09/18/20 23:00 102 22 131/75 (93) 99 09/18/20 22:00 99 21 132/71 (91) 97 09/18/20 21:00 103 21 120/68 (85) 97 09/18/20 20:00 98.5 105 21 124/65 (84) 98 10/25/20 20:00 Nasal Cannula 2.0 09/18/20 20:00 105 09/18/20 19:11 109 23 100 Nasal Cannula 2.0 28 09/18/20 19:11 97 Nasal Cannula 2.0 28 09/18/20 19:11 107 21 98 Nasal Cannula 2.0 28 09/18/20 19:09 108 23 100 Nasal Cannula 2.0 28 107 21 97 09/18/20 19:00 109 17 133/70 (91) 98 09/18/20 18:00 102 22 128/67 (87) 98 09/18/20 17:00 98 26 122/82 (95) 98 09/18/20 16:00 Nasal Cannula 2.0 09/18/20 16:00 98.9 104 21 130/69 (89) 97 09/18/20 15:33 108 24 100 Nasal Cannula 2.0 28 104 23 98 09/18/20 15:26 98 09/18/20 15:00 105 20 129/67 (87) 99 09/18/20 14:00 98 19 134/69 (90) 97 09/18/20 13:38 99 21 100 Nasal Cannula 2.0 28 09/18/20 13:38 110 23 100 Nasal Cannula 2.0 28 09/18/20 13:00 101 20 127/70 (89) 99 09/18/20 12:00 101 09/18/20 12:00 Nasal Cannula 2.0 09/18/20 12:00 98.8 104 21 118/64 (82) 97 09/18/20 11:29 102 23 99 Nasal Cannula 2.0 28 106 21 99 09/18/20 11:00 104 22 127/70 (89) 96 Intake and Output 09/18/20 09/19/20 19:00 07:00 Intake Total 1432.5 ml 1430 ml Output Total 1120 ml 1220 ml Balance 312.5 ml 210 ml IV Total 1432.5 ml 1430 ml Output Urine Total 1090 ml 1220 ml Emesis 30 ml # Bowel Movements 1 Laboratory Tests 09/19/20 03:42: White Blood Count 8.7, Red Blood Count 4.47L, Hemoglobin 12.6L, Hematocrit 38.7L , Mean Corpuscular Volume 87, Mean Corpuscular Hemoglobin 28.1, Mean Corpuscular Hemoglobin Concent 32.5, Red Cell Distribution Width 13.6, Platelet Count 221, Mean Platelet Volume 6.0L, Neutrophils (%) (Auto) 74.3, Lymphocytes (%) (Auto) 10.5L, Monocytes (%) (Auto) 12.2H, Eosinophils (%) (Auto) 2.3, Basophils (%) (Auto) 0.8, Sodium Level 137, Potassium Level 4.3, Chloride Level 104, Carbon Dioxide Level 30, Anion Gap 3L, Blood Urea Nitrogen 1L, Creatinine 0.7, Estimat Glomerular Filtration Rate > 60, Glucose Level 122H, Calcium Level 7.4L, Phosphorus Level 1.5L, Magnesium Level 1.6L, Total Bilirubin 0.5, Aspartate Amino Transf (AST/SGOT) 13L, Alanine Aminotransferase (ALT/SGPT) 6L, Alkaline Phosphatase 72, Total Protein 4.1L, Albumin 1.7L, Globulin 2.4, Albumin/Globulin Ratio 0.7L Height (Feet): 6 Height (Inches): 0.00 Weight (Pounds): 155 Assessment/Plan Problem List: (1) Bowel perforation ICD Codes: K63.1 - Perforation of intestine (nontraumatic) SNOMED: 48058494 (2) Sepsis ICD Codes: A41.9 - Sepsis, unspecified organism SNOMED: 87290271 (3) SBO (small bowel obstruction) ICD Codes: K56.609 - Unspecified intestinal obstruction, unspecified as to partial versus complete obstruction SNOMED: 964109949 (4) Lactic acidosis ICD Codes: E87.2 - Acidosis SNOMED: 24979690 (5) Abdominal pain ICD Codes: R10.9 - Unspecified abdominal pain SNOMED: 99488774 Status: progressing Assessment/Plan: s/p collapsed left lung getting better vitals stable s/p exploratory lap for perforated bowel s/p cholycystectomy sepsis reviewed chart and labs Vania Dwyer MD Sep 19, 2020 10:54
--- NOTE | 2020-09-19 11:31 | Cardiac Electrophysiology PN ---
Assessment/Plan Assessment/Plan 1. Sinus tachycardia due to sepsis/respiratory failure and post op in intensive care unit EF 55%. Troponins negative 2. S/P Respiratory failure. Extubated but CXR showed Left white out. S/P bronchoscopy by Dr. Lambert 09/16/20 that showed mucus plug Has history of COPD 3. Acute abdomen, status post surgery by Dr. Morrow including cholecystectomy as well as right colectomy and small bowel resection. ( Pathology showed perforated appendicitis) Currently on IV antibiotics. NGT to suction 4. BNP 1800. Nl EF 55% DW RN Subjective Subjective Had bedside bronchoscopy 09/16/20 for Left lung white out by Dr. Lambert. In ICU on oxygen NGT to suction. Alert and oriented x2. RN at bedside Objective Last 24 Hour Vital Signs Date Time Temp Pulse Resp B/P (MAP) Pulse Ox O2 Delivery O2 Flow Rate FiO2 09/19/20 11:06 102 16 120/65 (83) 98 09/19/20 10:00 105 18 114/25 (54) 97 09/19/20 09:00 103 19 118/64 (82) 97 09/19/20 08:09 98.1 104 16 141/65 (90) 97 09/19/20 08:00 Nasal Cannula 2.0 09/19/20 08:00 96 09/19/20 07:53 100 34 100 Nasal Cannula 3.0 105 23 97 09/19/20 07:53 97 Nasal Cannula 3.0 32 09/19/20 07:00 102 20 109/64 (79) 100 09/19/20 06:00 102 20 128/60 (82) 99 09/19/20 05:00 107 17 130/87 (101) 97 09/19/20 04:00 Nasal Cannula 2.0 09/19/20 04:00 98.4 109 20 128/71 (90) 98 09/19/20 04:00 105 09/19/20 03:00 112 24 118/80 (93) 94 09/19/20 02:59 111 22 99 Nasal Cannula 2.0 28 112 23 97 09/19/20 02:00 99 19 129/66 (87) 95 09/19/20 01:00 111 25 100 Nasal Cannula 2.0 28 09/19/20 01:00 109 23 97 Nasal Cannula 2.0 28 09/19/20 01:00 106 23 117/67 (84) 97 09/19/20 00:00 Nasal Cannula 2.0 09/19/20 00:00 98.5 103 19 112/67 (82) 96 09/19/20 00:00 104 09/18/20 23:12 106 22 100 Nasal Cannula 2.0 28 104 21 98 09/18/20 23:00 102 22 131/75 (93) 99 09/18/20 22:00 99 21 132/71 (91) 97 09/18/20 21:00 103 21 120/68 (85) 97 09/18/20 20:00 98.5 105 21 124/65 (84) 98 09/18/20 20:00 Nasal Cannula 2.0 09/18/20 20:00 105 09/18/20 19:11 109 23 100 Nasal Cannula 2.0 28 09/18/20 19:11 97 Nasal Cannula 2.0 28 09/18/20 19:11 107 21 98 Nasal Cannula 2.0 28 09/18/20 19:09 108 23 100 Nasal Cannula 2.0 28 107 21 97 09/18/20 19:00 109 17 133/70 (91) 98 09/18/20 18:00 102 22 128/67 (87) 98 09/18/20 17:00 98 26 122/82 (95) 98 09/18/20 16:00 Nasal Cannula 2.0 09/18/20 16:00 98.9 104 21 130/69 (89) 97 09/18/20 15:33 108 24 100 Nasal Cannula 2.0 28 104 23 98 09/18/20 15:26 98 09/18/20 15:00 105 20 129/67 (87) 99 09/18/20 14:00 98 19 134/69 (90) 97 09/18/20 13:38 99 21 100 Nasal Cannula 2.0 28 09/18/20 13:38 110 23 100 Nasal Cannula 2.0 28 09/18/20 13:00 101 20 127/70 (89) 99 09/18/20 12:00 101 09/18/20 12:00 Nasal Cannula 2.0 09/18/20 12:00 98.8 104 21 118/64 (82) 97 Intake and Output 09/18/20 09/19/20 19:00 07:00 Intake Total 1432.5 ml 1555 ml Output Total 1120 ml 1220 ml Balance 312.5 ml 335 ml IV Total 1432.5 ml 1555 ml Output Urine Total 1090 ml 1220 ml Emesis 30 ml # Bowel Movements 1 Laboratory Tests Test 09/19/20 03:42 White Blood Count 8.7 K/UL (4.8-10.8) Red Blood Count 4.47 M/UL (4.70-6.10) L Hemoglobin 12.6 G/DL (14.2-18.0) L Hematocrit 38.7 % (42.0-52.0) L Mean Corpuscular Volume 87 FL (80-99) Mean Corpuscular Hemoglobin 28.1 PG (27.0-31.0) Mean Corpuscular Hemoglobin Concent 32.5 G/DL (32.0-36.0) Red Cell Distribution Width 13.6 % (11.6-14.8) Platelet Count 221 K/UL (150-450) Mean Platelet Volume 6.0 FL (6.5-10.1) L Neutrophils (%) (Auto) 74.3 % (45.0-75.0) Lymphocytes (%) (Auto) 10.5 % (20.0-45.0) L Monocytes (%) (Auto) 12.2 % (1.0-10.0) H Eosinophils (%) (Auto) 2.3 % (0.0-3.0) Basophils (%) (Auto) 0.8 % (0.0-2.0) Sodium Level 137 MMOL/L (136-145) Potassium Level 4.3 MMOL/L (3.5-5.1) Chloride Level 104 MMOL/L (98-107) Carbon Dioxide Level 30 MMOL/L (21-32) Anion Gap 3 mmol/L (5-15) L Blood Urea Nitrogen 1 mg/dL (7-18) L Creatinine 0.7 MG/DL (0.55-1.30) Estimat Glomerular Filtration Rate > 60 mL/min (>60) Glucose Level 122 MG/DL (74-106) H Calcium Level 7.4 MG/DL (8.5-10.1) L Phosphorus Level 1.5 MG/DL (2.5-4.9) L Magnesium Level 1.6 MG/DL (1.8-2.4) L Total Bilirubin 0.5 MG/DL (0.2-1.0) Aspartate Amino Transf (AST/SGOT) 13 U/L (15-37) L Alanine Aminotransferase (ALT/SGPT) 6 U/L (12-78) L Alkaline Phosphatase 72 U/L (46-116) Total Protein 4.1 G/DL (6.4-8.2) L Albumin 1.7 G/DL (3.4-5.0) L Globulin 2.4 g/dL Albumin/Globulin Ratio 0.7 (1.0-2.7) L Objective HEAD AND NECK: No JVD. NGT to suction LUNGS: Coarse rhonchi.Decrease breath sounds on Left CARDIOVASCULAR: Shows regular S1 and S2 with no gallop. ABDOMEN: Tender and is status post laparotomy. EXTREMITIES: No pitting edema. Jason Li MD Sep 19, 2020 11:31
--- NOTE | 2020-09-19 11:37 | Nephrology Progress Note ---
Assessment/Plan Problem List: (1) Lactic acid increased (2) Electrolyte imbalance (3) SBO (small bowel obstruction) (4) Sepsis (5) Bowel perforation Assessment Lactic acidosis Bowel perforation Sepsis Plan September 19: Labs reviewed. Magnesium and phosphorus supplement intravenously ordered. Discussed with RN. Continue to monitor renal parameters. Defer TPN and feeding to GI/general surgery. September 18: NG tube to suction. Output minimal. Labs reviewed. Phosphorus supplement intravenously ordered. Discussed with Dr. Leslie regarding the need for TPN. Will await for general surgery comment. Continue to monitor renal parameters and electrolytes. September 17: All noted. Discussed with RN. Labs reviewed. Patient has NG tube to suction. It appears that the patient post abdominal surgery may not be started on feeding. Suggest TPN. Deferred to GI/surgeon. September 16: Patient about to undergo bronchoscopy for white out left lung. Labs reviewed. Abnormal electrolytes and chemistries addressed. Continue per consultants. September 15: On nasal cannula, renal parameters stable. Continue per consultants. Previously: Postop care, weaning from ventilator ~failed so far Check urine analysis, noted IV fluid management Keep the electrolytes and renal parameters in check Antibiotics Per consultants Post surgery results: 1. Small bowel obstruction at the level of the ileocecal valve, secondary to unknown etiology, potential tumor mass. 2. Perforated cecum. 3. Acute cholecystitis. Subjective ROS Limited/Unobtainable: Yes Objective Objective Last 24 Hour Vital Signs Date Time Temp Pulse Resp B/P (MAP) Pulse Ox O2 Delivery O2 Flow Rate FiO2 09/19/20 11:06 102 16 120/65 (83) 98 09/19/20 10:00 105 18 114/25 (54) 97 09/19/20 09:00 103 19 118/64 (82) 97 09/19/20 08:09 98.1 104 16 141/65 (90) 97 09/19/20 08:00 Nasal Cannula 2.0 09/19/20 08:00 96 09/19/20 07:53 100 34 100 Nasal Cannula 3.0 105 23 97 09/19/20 07:53 97 Nasal Cannula 3.0 32 09/19/20 07:00 102 20 109/64 (79) 100 09/19/20 06:00 102 20 128/60 (82) 99 09/19/20 05:00 107 17 130/87 (101) 97 09/19/20 04:00 Nasal Cannula 2.0 09/19/20 04:00 98.4 109 20 128/71 (90) 98 09/19/20 04:00 105 09/19/20 03:00 112 24 118/80 (93) 94 09/19/20 02:59 111 22 99 Nasal Cannula 2.0 28 112 23 97 09/19/20 02:00 99 19 129/66 (87) 95 09/19/20 01:00 111 25 100 Nasal Cannula 2.0 28 09/19/20 01:00 109 23 97 Nasal Cannula 2.0 28 09/19/20 01:00 106 23 117/67 (84) 97 09/19/20 00:00 Nasal Cannula 2.0 09/19/20 00:00 98.5 103 19 112/67 (82) 96 09/19/20 00:00 104 09/18/20 23:12 106 22 100 Nasal Cannula 2.0 28 104 21 98 09/18/20 23:00 102 22 131/75 (93) 99 09/18/20 22:00 99 21 132/71 (91) 97 09/18/20 21:00 103 21 120/68 (85) 97 09/18/20 20:00 98.5 105 21 124/65 (84) 98 09/18/20 20:00 Nasal Cannula 2.0 09/18/20 20:00 105 09/18/20 19:11 109 23 100 Nasal Cannula 2.0 28 09/18/20 19:11 97 Nasal Cannula 2.0 28 09/18/20 19:11 107 21 98 Nasal Cannula 2.0 28 09/18/20 19:09 108 23 100 Nasal Cannula 2.0 28 107 21 97 09/18/20 19:00 109 17 133/70 (91) 98 09/18/20 18:00 102 22 128/67 (87) 98 09/18/20 17:00 98 26 122/82 (95) 98 09/18/20 16:00 Nasal Cannula 2.0 09/18/20 16:00 98.9 104 21 130/69 (89) 97 09/18/20 15:33 108 24 100 Nasal Cannula 2.0 28 104 23 98 09/18/20 15:26 98 09/18/20 15:00 105 20 129/67 (87) 99 09/18/20 14:00 98 19 134/69 (90) 97 09/18/20 13:38 99 21 100 Nasal Cannula 2.0 28 09/18/20 13:38 110 23 100 Nasal Cannula 2.0 28 09/18/20 13:00 101 20 127/70 (89) 99 09/18/20 12:00 101 09/18/20 12:00 Nasal Cannula 2.0 09/18/20 12:00 98.8 104 21 118/64 (82) 97 Intake and Output 09/18/20 09/19/20 19:00 07:00 Intake Total 1432.5 ml 1555 ml Output Total 1120 ml 1220 ml Balance 312.5 ml 335 ml IV Total 1432.5 ml 1555 ml Output Urine Total 1090 ml 1220 ml Emesis 30 ml # Bowel Movements 1 Current Medications Medications (Trade) Dose Ordered Sig/Jojo Route PRN Reason Start Time Stop Time Status Last Admin Dose Admin Albuterol/ Ipratropium (Albuterol/ Ipratropium) 3 ml Q4HRT HHN 09/15/20 11:30 09/20/20 11:29 09/19/20 07:53 Dextrose/ Electrolytes 1,000 ml @ 125 mls/hr Q8H IV 09/13/20 01:00 10/13/20 00:59 09/19/20 09:01 Heparin Sodium (Porcine) (Heparin 5000 units/ml) 5,000 units EVERY 8 HOURS SUBQ 09/14/20 06:00 10/29/20 05:59 09/16/20 14:59 Lorazepam (Ativan 2mg/ml 1ml) 1 mg Q4H PRN IV For Anxiety 09/13/20 01:00 09/20/20 00:59 09/16/20 05:42 Magnesium Sulfate 100 ml @ 100 mls/hr Q1H IVPB 09/19/20 11:30 09/19/20 15:29 UNV Meropenem 1 gm/ Sodium Chloride 55 ml @ 110 mls/hr Q8HR IVPB 09/16/20 14:00 09/21/20 13:59 09/19/20 05:39 Metoclopramide HCl (Reglan) 10 mg Q6H PRN IVP Nausea & Vomiting 09/13/20 01:00 10/13/20 00:59 Morphine Sulfate (Morphine Sulfate) 1 mg Q4H PRN IVP pain scale 1-3 09/13/20 01:00 09/20/20 00:59 09/13/20 14:12 Morphine Sulfate (Morphine Sulfate) 2 mg Q4H PRN IVP pain scale 4-6 09/13/20 01:00 09/20/20 00:59 09/14/20 08:36 Morphine Sulfate (Morphine Sulfate) 4 mg Q4H PRN IVP pain score 7-10 09/13/20 01:00 09/20/20 00:59 Ondansetron HCl (Zofran) 4 mg Q6H PRN IVP Nausea & Vomiting 09/13/20 01:00 10/13/20 00:59 Pantoprazole (Protonix) 40 mg Q12HR IVP 09/13/20 21:00 10/13/20 08:59 09/19/20 09:01 Sodium Phosphate 30 mm/Sodium Chloride 285 ml @ 47.5 mls/hr ONCE ONCE IVPB 09/19/20 11:30 09/19/20 17:29 UNV Laboratory Tests 09/19/20 03:42: White Blood Count 8.7, Red Blood Count 4.47L, Hemoglobin 12.6L, Hematocrit 38.7L , Mean Corpuscular Volume 87, Mean Corpuscular Hemoglobin 28.1, Mean Corpuscular Hemoglobin Concent 32.5, Red Cell Distribution Width 13.6, Platelet Count 221, Mean Platelet Volume 6.0L, Neutrophils (%) (Auto) 74.3, Lymphocytes (%) (Auto) 10.5L, Monocytes (%) (Auto) 12.2H, Eosinophils (%) (Auto) 2.3, Basophils (%) (Auto) 0.8, Sodium Level 137, Potassium Level 4.3, Chloride Level 104, Carbon Dioxide Level 30, Anion Gap 3L, Blood Urea Nitrogen 1L, Creatinine 0.7, Estimat Glomerular Filtration Rate > 60, Glucose Level 122H, Calcium Level 7.4L, Phosphorus Level 1.5L, Magnesium Level 1.6L, Total Bilirubin 0.5, Aspartate Amino Transf (AST/SGOT) 13L, Alanine Aminotransferase (ALT/SGPT) 6L, Alkaline Phosphatase 72, Total Protein 4.1L, Albumin 1.7L, Globulin 2.4, Albumin/Globulin Ratio 0.7L Height (Feet): 6 Height (Inches): 0.00 Weight (Pounds): 155 General Appearance: no apparent distress EENT: other - NGT in place Cardiovascular: tachycardia Respiratory/Chest: decreased breath sounds Abdomen: distended Price Heart MD Sep 19, 2020 11:37
--- NOTE | 2020-09-19 11:58 | Infectious Diseases Prog Note ---
Assessment/Plan Assessment/Plan IMPRESSION: 1. Sepsis improving 2. Acute appendicitis with perforation. 3. Acute/ chronic cholecystitis. 4. COPD. 5. Fatty liver. 6. Preoperative respiratory failure resolved 7. Pneumonia 8. Peritonitis 9. Colitis with perforation 10. Mucous plug RECOMMENDATION: 1. Continue Meropenem 2. We will follow up the cultures. Subjective ROS Limited/Unobtainable: Yes Constitutional: Denies: fever Respiratory: Reports: productive cough Psychiatric: Reports: other - on restraint Allergies: Coded Allergies: No Known Allergies (Unverified , 09/12/20) Objective Last 24 Hour Vital Signs Date Time Temp Pulse Resp B/P (MAP) Pulse Ox O2 Delivery O2 Flow Rate FiO2 09/19/20 11:06 102 16 120/65 (83) 98 09/19/20 10:00 105 18 114/25 (54) 97 09/19/20 09:00 103 19 118/64 (82) 97 09/19/20 08:09 98.1 104 16 141/65 (90) 97 09/19/20 08:00 Nasal Cannula 2.0 09/19/20 08:00 96 09/19/20 07:53 100 34 100 Nasal Cannula 3.0 105 23 97 09/19/20 07:53 97 Nasal Cannula 3.0 32 09/19/20 07:00 102 20 109/64 (79) 100 09/19/20 06:00 102 20 128/60 (82) 99 09/19/20 05:00 107 17 130/87 (101) 97 09/19/20 04:00 Nasal Cannula 2.0 09/19/20 04:00 98.4 109 20 128/71 (90) 98 09/19/20 04:00 105 09/19/20 03:00 112 24 118/80 (93) 94 09/19/20 02:59 111 22 99 Nasal Cannula 2.0 28 112 23 97 09/19/20 02:00 99 19 129/66 (87) 95 09/19/20 01:00 111 25 100 Nasal Cannula 2.0 28 09/19/20 01:00 109 23 97 Nasal Cannula 2.0 28 09/19/20 01:00 106 23 117/67 (84) 97 09/19/20 00:00 Nasal Cannula 2.0 09/19/20 00:00 98.5 103 19 112/67 (82) 96 1026/20 00:00 104 09/18/20 23:12 106 22 100 Nasal Cannula 2.0 28 104 21 98 09/18/20 23:00 102 22 131/75 (93) 99 09/18/20 22:00 99 21 132/71 (91) 97 09/18/20 21:00 103 21 120/68 (85) 97 09/18/20 20:00 98.5 105 21 124/65 (84) 98 09/18/20 20:00 Nasal Cannula 2.0 09/18/20 20:00 105 09/18/20 19:11 109 23 100 Nasal Cannula 2.0 28 09/18/20 19:11 97 Nasal Cannula 2.0 28 09/18/20 19:11 107 21 98 Nasal Cannula 2.0 28 09/18/20 19:09 108 23 100 Nasal Cannula 2.0 28 107 21 97 09/18/20 19:00 109 17 133/70 (91) 98 09/18/20 18:00 102 22 128/67 (87) 98 09/18/20 17:00 98 26 122/82 (95) 98 09/18/20 16:00 Nasal Cannula 2.0 09/18/20 16:00 98.9 104 21 130/69 (89) 97 09/18/20 15:33 108 24 100 Nasal Cannula 2.0 28 104 23 98 09/18/20 15:26 98 09/18/20 15:00 105 20 129/67 (87) 99 09/18/20 14:00 98 19 134/69 (90) 97 09/18/20 13:38 99 21 100 Nasal Cannula 2.0 28 09/18/20 13:38 110 23 100 Nasal Cannula 2.0 28 09/18/20 13:00 101 20 127/70 (89) 99 09/18/20 12:00 101 09/18/20 12:00 Nasal Cannula 2.0 09/18/20 12:00 98.8 104 21 118/64 (82) 97 Height (Feet): 6 Height (Inches): 0.00 Weight (Pounds): 155 HEENT: mucous membranes moist Respiratory/Chest: other - oxygen by nasal cannula Cardiovascular: tachycardia Abdomen: other - soft, surgical dressing Extremities: no edema Neurologic/Psychiatric: alert, responsive Laboratory Tests Test 09/19/20 03:42 White Blood Count 8.7 K/UL (4.8-10.8) Red Blood Count 4.47 M/UL (4.70-6.10) L Hemoglobin 12.6 G/DL (14.2-18.0) L Hematocrit 38.7 % (42.0-52.0) L Mean Corpuscular Volume 87 FL (80-99) Mean Corpuscular Hemoglobin 28.1 PG (27.0-31.0) Mean Corpuscular Hemoglobin Concent 32.5 G/DL (32.0-36.0) Red Cell Distribution Width 13.6 % (11.6-14.8) Platelet Count 221 K/UL (150-450) Mean Platelet Volume 6.0 FL (6.5-10.1) L Neutrophils (%) (Auto) 74.3 % (45.0-75.0) Lymphocytes (%) (Auto) 10.5 % (20.0-45.0) L Monocytes (%) (Auto) 12.2 % (1.0-10.0) H Eosinophils (%) (Auto) 2.3 % (0.0-3.0) Basophils (%) (Auto) 0.8 % (0.0-2.0) Sodium Level 137 MMOL/L (136-145) Potassium Level 4.3 MMOL/L (3.5-5.1) Chloride Level 104 MMOL/L (98-107) Carbon Dioxide Level 30 MMOL/L (21-32) Anion Gap 3 mmol/L (5-15) L Blood Urea Nitrogen 1 mg/dL (7-18) L Creatinine 0.7 MG/DL (0.55-1.30) Estimat Glomerular Filtration Rate > 60 mL/min (>60) Glucose Level 122 MG/DL (74-106) H Calcium Level 7.4 MG/DL (8.5-10.1) L Phosphorus Level 1.5 MG/DL (2.5-4.9) L Magnesium Level 1.6 MG/DL (1.8-2.4) L Total Bilirubin 0.5 MG/DL (0.2-1.0) Aspartate Amino Transf (AST/SGOT) 13 U/L (15-37) L Alanine Aminotransferase (ALT/SGPT) 6 U/L (12-78) L Alkaline Phosphatase 72 U/L (46-116) Total Protein 4.1 G/DL (6.4-8.2) L Albumin 1.7 G/DL (3.4-5.0) L Globulin 2.4 g/dL Albumin/Globulin Ratio 0.7 (1.0-2.7) L Current Medications Medications (Trade) Dose Ordered Sig/Jojo Route PRN Reason Start Time Stop Time Status Last Admin Dose Admin Albuterol/ Ipratropium (Albuterol/ Ipratropium) 3 ml Q4HRT HHN 09/15/20 11:30 09/20/20 11:29 09/19/20 11:43 Dextrose/ Electrolytes 1,000 ml @ 75 mls/hr [id number] IV 09/13/20 01:00 10/13/20 00:59 09/19/20 09:01 Heparin Sodium (Porcine) (Heparin 5000 units/ml) 5,000 units EVERY 8 HOURS SUBQ 09/14/20 06:00 10/29/20 05:59 09/16/20 14:59 Lorazepam (Ativan 2mg/ml 1ml) 1 mg Q4H PRN IV For Anxiety 09/13/20 01:00 09/20/20 00:59 09/16/20 05:42 Magnesium Sulfate 100 ml @ 100 mls/hr Q1H IVPB 09/19/20 11:30 09/19/20 15:29 09/19/20 11:50 Meropenem 1 gm/ Sodium Chloride 55 ml @ 110 mls/hr Q8HR IVPB 09/16/20 14:00 09/21/20 13:59 09/19/20 05:39 Metoclopramide HCl (Reglan) 10 mg Q6H PRN IVP Nausea & Vomiting 09/13/20 01:00 10/13/20 00:59 Morphine Sulfate (Morphine Sulfate) 1 mg Q4H PRN IVP pain scale 1-3 09/13/20 01:00 09/20/20 00:59 09/13/20 14:12 Morphine Sulfate (Morphine Sulfate) 2 mg Q4H PRN IVP pain scale 4-6 09/13/20 01:00 09/20/20 00:59 09/14/20 08:36 Morphine Sulfate (Morphine Sulfate) 4 mg Q4H PRN IVP pain score 7-10 09/13/20 01:00 09/20/20 00:59 Ondansetron HCl (Zofran) 4 mg Q6H PRN IVP Nausea & Vomiting 09/13/20 01:00 10/13/20 00:59 Pantoprazole (Protonix) 40 mg Q12HR IVP 09/13/20 21:00 10/13/20 08:59 09/19/20 09:01 Sodium Phosphate 30 mm/Sodium Chloride 285 ml @ 47.5 mls/hr ONCE ONCE IVPB 09/19/20 12:30 09/19/20 18:29 Delio Edgar MD Sep 19, 2020 11:58
[2020-09-19] MEDS ORDERED: Sodium Phosphate 30 MM in NS 275 ML IVPB ONE (12:30)
--- NOTE | 2020-09-19 13:08 | Diagnostic Imaging Report ---
Indication: Abdominal distention Technique: Supine view of the abdomen Comparison: 09/16/2020 Findings: Bowel loops are dilated and gas filled, similar to or minimally improved from the previous exam. There are midline skin jennifer. Nasogastric tube tip projects at the level of the gastric antrum. There is a Priest catheter in place. Impression: Stable to slightly improved small bowel diffuse gaseous distention, probably postoperative ileus given evidence of midline incision.
[2020-09-19] MEDS ORDERED: Varibar Pudding 230ml MC PRN (13:15)
[2020-09-19] MEDS ORDERED: Varibar Nectar 240ml MC PRN (13:15)
[2020-09-19] MEDS ORDERED: Varibar Thin Liquid powder 148gm MC PRN (13:15)
[2020-09-19] MEDS ORDERED: Varibar Honey 250ml MC PRN (13:15)
[2020-09-19] MEDS ORDERED: NS 275ml ONE (16:51)
[2020-09-19] MEDS ORDERED: Tubing IV Secondary IV ONE (16:51)
[2020-09-19] MEDS ORDERED: NS Irrig 1000ml ONE (16:51)
--- NOTE | 2020-09-19 17:11 | Surgery Progress Note ---
Surgery Progress Note Subjective Procedure Performed 1. exploratory laparotomy 2. right colectomy with primary side to side anastomosis 3. small bowel resection 4. cholecystectomy 5. abdominal washout and closure Additional Comments improving no n/v comfortable talkative ng removed start clears Objective Last 24 Hour Vital Signs Date Time Temp Pulse Resp B/P (MAP) Pulse Ox O2 Delivery O2 Flow Rate FiO2 09/19/20 17:03 104 23 112/65 (81) 99 09/19/20 17:00 106 22 108/57 (74) 96 09/19/20 16:04 105 09/19/20 16:00 97.8 100 21 128/60 (82) 97 09/19/20 15:33 108 22 100 Nasal Cannula 2.0 28 100 19 99 09/19/20 15:00 97 23 112/65 (81) 99 09/19/20 14:00 100 16 116/60 (78) 100 09/19/20 13:20 99 20 99 Nasal Cannula 2.0 28 09/19/20 13:20 105 17 98 Nasal Cannula 2.0 28 09/19/20 13:00 94 21 110/65 (80) 98 09/19/20 12:00 Nasal Cannula 2.0 09/19/20 12:00 98 09/19/20 12:00 102 22 122/66 (84) 98 09/19/20 11:43 100 36 100 Nasal Cannula 3.0 32 100 30 97 09/19/20 11:06 102 16 120/65 (83) 98 09/19/20 10:00 105 18 114/25 (54) 97 09/19/20 09:00 103 19 118/64 (82) 97 09/19/20 08:09 98.1 104 16 141/65 (90) 97 09/19/20 08:00 Nasal Cannula 2.0 09/19/20 08:00 96 09/19/20 07:53 100 34 100 Nasal Cannula 3.0 105 23 97 09/19/20 07:53 97 Nasal Cannula 3.0 32 09/19/20 07:00 102 20 109/64 (79) 100 09/19/20 06:00 102 20 128/60 (82) 99 09/19/20 05:00 107 17 130/87 (101) 97 09/19/20 04:00 Nasal Cannula 2.0 09/19/20 04:00 98.4 109 20 128/71 (90) 98 09/19/20 04:00 105 09/19/20 03:00 112 24 118/80 (93) 94 09/19/20 02:59 111 22 99 Nasal Cannula 2.0 28 112 23 97 09/19/20 02:00 99 19 129/66 (87) 95 09/19/20 01:00 111 25 100 Nasal Cannula 2.0 28 09/19/20 01:00 109 23 97 Nasal Cannula 2.0 28 09/19/20 01:00 106 23 117/67 (84) 97 09/19/20 00:00 Nasal Cannula 2.0 09/19/20 00:00 98.5 103 19 112/67 (82) 96 09/19/20 00:00 104 09/18/20 23:12 106 22 100 Nasal Cannula 2.0 28 104 21 98 09/18/20 23:00 102 22 131/75 (93) 99 09/18/20 22:00 99 21 132/71 (91) 97 09/18/20 21:00 103 21 120/68 (85) 97 09/18/20 20:00 98.5 105 21 124/65 (84) 98 09/18/20 20:00 Nasal Cannula 2.0 09/18/20 20:00 105 09/18/20 19:11 109 23 100 Nasal Cannula 2.0 28 09/18/20 19:11 97 Nasal Cannula 2.0 28 09/18/20 19:11 107 21 98 Nasal Cannula 2.0 28 09/18/20 19:09 108 23 100 Nasal Cannula 2.0 28 107 21 97 09/18/20 19:00 109 17 133/70 (91) 98 09/18/20 18:00 102 22 128/67 (87) 98 I&O Intake and Output 09/18/20 09/19/20 19:00 07:00 Intake Total 1432.5 ml 1555 ml Output Total 1120 ml 1220 ml Balance 312.5 ml 335 ml IV Total 1432.5 ml 1555 ml Output Urine Total 1090 ml 1220 ml Emesis 30 ml # Bowel Movements 1 Laboratory Tests Test 09/19/20 03:42 White Blood Count 8.7 K/UL (4.8-10.8) Red Blood Count 4.47 M/UL (4.70-6.10) L Hemoglobin 12.6 G/DL (14.2-18.0) L Hematocrit 38.7 % (42.0-52.0) L Mean Corpuscular Volume 87 FL (80-99) Mean Corpuscular Hemoglobin 28.1 PG (27.0-31.0) Mean Corpuscular Hemoglobin Concent 32.5 G/DL (32.0-36.0) Red Cell Distribution Width 13.6 % (11.6-14.8) Platelet Count 221 K/UL (150-450) Mean Platelet Volume 6.0 FL (6.5-10.1) L Neutrophils (%) (Auto) 74.3 % (45.0-75.0) Lymphocytes (%) (Auto) 10.5 % (20.0-45.0) L Monocytes (%) (Auto) 12.2 % (1.0-10.0) H Eosinophils (%) (Auto) 2.3 % (0.0-3.0) Basophils (%) (Auto) 0.8 % (0.0-2.0) Sodium Level 137 MMOL/L (136-145) Potassium Level 4.3 MMOL/L (3.5-5.1) Chloride Level 104 MMOL/L (98-107) Carbon Dioxide Level 30 MMOL/L (21-32) Anion Gap 3 mmol/L (5-15) L Blood Urea Nitrogen 1 mg/dL (7-18) L Creatinine 0.7 MG/DL (0.55-1.30) Estimat Glomerular Filtration Rate > 60 mL/min (>60) Glucose Level 122 MG/DL (74-106) H Calcium Level 7.4 MG/DL (8.5-10.1) L Phosphorus Level 1.5 MG/DL (2.5-4.9) L Magnesium Level 1.6 MG/DL (1.8-2.4) L Total Bilirubin 0.5 MG/DL (0.2-1.0) Aspartate Amino Transf (AST/SGOT) 13 U/L (15-37) L Alanine Aminotransferase (ALT/SGPT) 6 U/L (12-78) L Alkaline Phosphatase 72 U/L (46-116) Total Protein 4.1 G/DL (6.4-8.2) L Albumin 1.7 G/DL (3.4-5.0) L Globulin 2.4 g/dL Albumin/Globulin Ratio 0.7 (1.0-2.7) L Assessment Post-op Diagnosis 1. small bowel obstruction at ileocecal valve etiology unknown possible mass 2. perforated cecum 3. acute cholecystitis Plan Problems: (1) Lactic acidosis (2) Bowel perforation Assessment & Plan: 70M sbo, free air, lactic acidosis, leukocytosis, generalized tenderness with peritonitis covid negative ct reviewed. labs reviewed exam as above. discussed findings with patient. unfortunately not sure if he truly understands that degree of concern given ct findings and exam. he is full code, expressed desire to live, and has been otherwise functional and per report goes outside to smoke daily. given above, condition, and goals of care surgery emergency is indicated and recommended. npo iv fluids iv abx to OR for exploratory laparotomy, possible bowel resection, possible ostomy thank you npo iv fluids ng tube respiratory support await return of bowel function (3) Sepsis (4) SBO (small bowel obstruction) Assessment & Plan: Lung bases: Evaluation of the right lung base reveals patchy airspace disease presumably on the basis of scarring and atelectasis. Atypical pneumonia cannot be excluded. Presumed areas of scarring atelectasis at the left lung base. Again atypical pneumonia cannot be excluded. Pleural space: Best seen on sagittal image 79 and axial image 32, there is a very small posterior medial loculated pneumothorax at the right lung base of uncertain etiology and significance. Mediastinum: Small hiatal hernia. The distal esophagus is patulous and fluid-filled. ABDOMEN: Liver: Diffuse fatty infiltration of the liver is noted. Gallbladder and bile ducts: Cholelithiasis within the gallbladder is noted. Evaluation of the wall the gallbladder is limited due to motion artifact. Minimal thickening of the gallbladder wall cannot be excluded. Ultrasound imaging is suggested. No ductal dilation. Pancreas: Unremarkable. No ductal dilation. Spleen: Spleen enhance uniformly. Adrenals: Unremarkable. No mass. Kidneys and ureters: Nonspecific stranding about the perinephric spaces without hydronephrosis. 0.2 cm nonobstructing calculus upper pole region of the left kidney. Stomach and bowel: No free intra-abdominal air raising concern for ruptured viscus. This finding is best seen on coronal image [id number] at the dome of the liver. Large quantity of our presumed ingested material in the stomach which is moderately distended. Dilated loops of small bowel containing fluid and fecal material are noted left hypogastrium extending to the right hypogastrium worrisome for are mid to distal small bowel obstruction. There is extensive inflammatory process at the lateral right mid abdomen with air gas bubbles indicative of microperforations of bowel. This finding is best seen on coronal image 30. This may be the transitional zone for obstruction. Minimal distention of the rectosigmoid with stool. No mucosal thickening. PELVIS: Appendix: No findings to suggest acute appendicitis. Bladder: Unremarkable. No stones. Reproductive: Prostate gland is enlarged and measures 4 x 5 cm with coarse calcifications within it centrally. ABDOMEN and PELVIS: Intraperitoneal space: Small quantity of ascites surrounding the liver. Minimal simple free fluid extending about the right paracolic gutter. No free air. Bones/joints: Evaluation of bone window images reveals findings of moderate degenerative disc disease. Moderate to severe osteoarthritic changes about the sacroiliac joints are noted. Alignment of the thoracolumbar spine is unremarkable. Sacrum and coccyx are unremarkable. No acute fracture. Soft tissues: Ischiorectal fat is clean. Vasculature: Atherosclerotic disease of the abdominal aorta without change in caliber. No abdominal aortic aneurysm. Lymph nodes: No retroperitoneal lymphadenopathy. No pelvic or inguinal lymphadenopathy. IMPRESSION: 1. The dominant finding on the current study is are small bowel obstruction. 2. Free intra-abdominal air is noted. 3. There is inflammatory changes in the mesentery of the mid right abdomen laterally possibly representing the transition point for obstruction. Bowel ischemia cannot be excluded. 4. There is cholelithiasis. 5. Possible diffuse gallbladder wall thickening. 6. Very small are loculated pneumothorax posterior medially at the right lung base of uncertain significance. 7. Surgical consultation is highly advised. (5) Abdominal pain Cam Morrow Sep 19, 2020 17:11
--- NOTE | 2020-09-19 22:01 | General Progress Note ---
Subjective Allergies: Coded Allergies: No Known Allergies (Unverified , 09/12/20) Subjective Seen in ICU no new complaints Objective Last 24 Hour Vital Signs Date Time Temp Pulse Resp B/P (MAP) Pulse Ox O2 Delivery O2 Flow Rate FiO2 09/19/20 21:00 109 22 120/68 (85) 95 09/19/20 20:08 108 20 99 Nasal Cannula 3.0 32 09/19/20 20:00 Nasal Cannula 2.0 09/19/20 20:00 97.5 110 23 120/104 (109) 97 09/19/20 19:58 106 17 95 Nasal Cannula 3.0 32 09/19/20 19:39 95 Nasal Cannula 3.0 32 09/19/20 19:38 105 22 99 Nasal Cannula 2.0 28 106 19 95 09/19/20 19:00 104 22 116/68 (84) 97 09/19/20 18:02 107 30 130/64 (86) 96 09/19/20 17:03 104 23 112/65 (81) 99 09/19/20 17:00 106 22 108/57 (74) 96 09/19/20 16:04 105 09/19/20 16:00 97.8 100 21 128/60 (82) 97 09/19/20 16:00 Nasal Cannula 2.0 09/19/20 15:33 108 22 100 Nasal Cannula 2.0 28 100 19 99 09/19/20 15:00 97 23 112/65 (81) 99 09/19/20 14:00 100 16 116/60 (78) 100 09/19/20 13:20 99 20 99 Nasal Cannula 2.0 28 09/19/20 13:20 105 17 98 Nasal Cannula 2.0 28 09/19/20 13:00 94 21 110/65 (80) 98 09/19/20 12:00 Nasal Cannula 2.0 09/19/20 12:00 98 09/19/20 12:00 102 22 122/66 (84) 98 09/19/20 11:43 100 36 100 Nasal Cannula 3.0 32 100 30 97 09/19/20 11:06 102 16 120/65 (83) 98 09/19/20 10:00 105 18 114/25 (54) 97 09/19/20 09:00 103 19 118/64 (82) 97 09/19/20 08:09 98.1 104 16 141/65 (90) 97 09/19/20 08:00 Nasal Cannula 2.0 09/19/20 08:00 96 09/19/20 07:53 100 34 100 Nasal Cannula 3.0 105 23 97 09/19/20 07:53 97 Nasal Cannula 3.0 32 09/19/20 07:00 102 20 109/64 (79) 100 09/19/20 06:00 102 20 128/60 (82) 99 09/19/20 05:00 107 17 130/87 (101) 97 09/19/20 04:00 Nasal Cannula 2.0 09/19/20 04:00 98.4 109 20 128/71 (90) 98 09/19/20 04:00 105 09/19/20 03:00 112 24 118/80 (93) 94 09/19/20 02:59 111 22 99 Nasal Cannula 2.0 28 112 23 97 09/19/20 02:00 99 19 129/66 (87) 95 09/19/20 01:00 111 25 100 Nasal Cannula 2.0 28 09/19/20 01:00 109 23 97 Nasal Cannula 2.0 28 09/19/20 01:00 106 23 117/67 (84) 97 09/19/20 00:00 Nasal Cannula 2.0 09/19/20 00:00 98.5 103 19 112/67 (82) 96 09/19/20 00:00 104 09/18/20 23:12 106 22 100 Nasal Cannula 2.0 28 104 21 98 09/18/20 23:00 102 22 131/75 (93) 99 09/18/20 22:00 99 21 132/71 (91) 97 Intake and Output 09/18/20 09/19/20 19:00 07:00 Intake Total 1432.5 ml 1555 ml Output Total 1120 ml 1220 ml Balance 312.5 ml 335 ml IV Total 1432.5 ml 1555 ml Output Urine Total 1090 ml 1220 ml Emesis 30 ml # Bowel Movements 1 Laboratory Tests 09/19/20 03:42: White Blood Count 8.7, Red Blood Count 4.47L, Hemoglobin 12.6L, Hematocrit 38.7L , Mean Corpuscular Volume 87, Mean Corpuscular Hemoglobin 28.1, Mean Corpuscular Hemoglobin Concent 32.5, Red Cell Distribution Width 13.6, Platelet Count 221, Mean Platelet Volume 6.0L, Neutrophils (%) (Auto) 74.3, Lymphocytes (%) (Auto) 10.5L, Monocytes (%) (Auto) 12.2H, Eosinophils (%) (Auto) 2.3, Basophils (%) (Auto) 0.8, Sodium Level 137, Potassium Level 4.3, Chloride Level 104, Carbon Dioxide Level 30, Anion Gap 3L, Blood Urea Nitrogen 1L, Creatinine 0.7, Estimat Glomerular Filtration Rate > 60, Glucose Level 122H, Calcium Level 7.4L, Phosphorus Level 1.5L, Magnesium Level 1.6L, Total Bilirubin 0.5, Aspartate Amino Transf (AST/SGOT) 13L, Alanine Aminotransferase (ALT/SGPT) 6L, Alkaline Phosphatase 72, Total Protein 4.1L, Albumin 1.7L, Globulin 2.4, Albumin/Globulin Ratio 0.7L Height (Feet): 6 Height (Inches): 0.00 Weight (Pounds): 155 Objective Thin man NCAT supple CTA RR abd soft , flat no edema Assessment/Plan Status: progressing Assessment/Plan: Assessment - IC valve area SBO and cecal perforation, presumed from appendicitis - s/p ex lap and bowel resection with primary anastomosis - s/p sancho for cholecystitis - post op ileus Recommendations - post op care - PO clears per surgery - follow labs and exam Froilan De Paz MD Sep 19, 2020 22:01
[2020-09-20] VITALS (30 sets, daily range): BP systolic 101–148; BP diastolic 58–76
[2020-09-20] MEDS: Albuterol/Ipratropium 3ml neb HHN SCH ×3 (03:15→10:34)
[2020-09-20] MEDS: Meropenem 1 GM in NS 55 ML IVPB SCH ×3 (05:46→22:18)
[2020-09-20] MEDS: Heparin 5000 units/ml inj SUBQ SCH ×3 (05:47→22:15)
[2020-09-20] MEDS: Pantoprazole Inj IVP SCH ×2 (08:52→20:44)
[2020-09-20] MEDS: D5 1/2NS w/KCl 20mEq 1,000 ML IV SCH ×2 (08:53→22:00)
--- NOTE | 2020-09-20 09:25 | Nephrology Progress Note ---
Assessment/Plan Problem List: (1) Lactic acid increased (2) Electrolyte imbalance (3) SBO (small bowel obstruction) (4) Sepsis (5) Bowel perforation Assessment Lactic acidosis Bowel perforation Sepsis Plan September 20: Discussed with JAROD Rivas. Patient due for speech therapy evaluation. Labs reviewed. Magnesium and phosphorus supplement ordered. Continue per consultants. Continue to monitor renal parameters and electrolytes. September 19: Labs reviewed. Magnesium and phosphorus supplement intravenously ordered. Discussed with RN. Continue to monitor renal parameters. Defer TPN and feeding to GI/general surgery. September 18: NG tube to suction. Output minimal. Labs reviewed. Phosphorus supplement intravenously ordered. Discussed with Dr. Leslie regarding the need for TPN. Will await for general surgery comment. Continue to monitor renal parameters and electrolytes. September 17: All noted. Discussed with RN. Labs reviewed. Patient has NG tube to suction. It appears that the patient post abdominal surgery may not be started on feeding. Suggest TPN. Deferred to GI/surgeon. September 16: Patient about to undergo bronchoscopy for white out left lung. Labs reviewed. Abnormal electrolytes and chemistries addressed. Continue per consultants. September 15: On nasal cannula, renal parameters stable. Continue per consultants. Previously: Postop care, weaning from ventilator ~failed so far Check urine analysis, noted IV fluid management Keep the electrolytes and renal parameters in check Antibiotics Per consultants Post surgery results: 1. Small bowel obstruction at the level of the ileocecal valve, secondary to unknown etiology, potential tumor mass. 2. Perforated cecum. 3. Acute cholecystitis. Subjective ROS Limited/Unobtainable: No Constitutional: Reports: malaise, weakness Objective Objective Last 24 Hour Vital Signs Date Time Temp Pulse Resp B/P (MAP) Pulse Ox O2 Delivery O2 Flow Rate FiO2 09/20/20 09:00 90 16 112/64 (80) 98 09/20/20 08:00 88 09/20/20 08:00 100.2 92 11 132/65 (87) 100 09/20/20 07:47 101 15 97 Nasal Cannula 2.0 28 09/20/20 07:36 96 Nasal Cannula 2.0 28 09/20/20 07:36 104 19 96 Nasal Cannula 2.0 28 09/20/20 07:36 99 21 99 Nasal Cannula 2.0 28 104 19 96 09/20/20 07:00 97 13 125/62 (83) 98 09/20/20 06:00 98.5 104 18 112/62 (79) 09/20/20 05:00 98.5 104 18 112/62 (79) 09/20/20 04:00 106 18 116/59 (78) 09/20/20 04:00 Nasal Cannula 2.0 09/20/20 04:00 105 09/20/20 03:15 113 22 98 Nasal Cannula 2.0 28 101 19 96 09/20/20 03:00 102 19 119/63 (81) 09/20/20 02:00 104 19 120/58 (78) 99 09/20/20 02:00 108 21 130/59 (82) 99 09/20/20 01:00 108 21 130/59 (82) 99 09/20/20 00:38 104 20 97 Nasal Cannula 2.0 28 09/20/20 00:28 114 17 96 Nasal Cannula 2.0 28 09/20/20 00:00 98.5 111 21 130/73 (92) 99 09/20/20 00:00 Nasal Cannula 2.0 09/20/20 00:00 104 09/19/20 23:45 113 22 98 Nasal Cannula 2.0 28 116 19 94 09/19/20 23:00 107 21 120/69 (86) 98 09/19/20 22:30 105 24 112/67 (82) 99 09/19/20 22:00 105 23 117/45 (69) 98 09/19/20 21:00 109 22 120/68 (85) 95 09/19/20 20:08 108 20 99 Nasal Cannula 3.0 32 09/19/20 20:00 Nasal Cannula 2.0 09/19/20 20:00 102 09/19/20 20:00 97.5 110 23 120/104 (109) 97 09/19/20 19:58 106 17 95 Nasal Cannula 3.0 32 09/19/20 19:39 95 Nasal Cannula 3.0 32 09/19/20 19:38 105 22 99 Nasal Cannula 2.0 28 106 19 95 09/19/20 19:00 104 22 116/68 (84) 97 09/19/20 18:02 107 30 130/64 (86) 96 09/19/20 17:03 104 23 112/65 (81) 99 09/19/20 17:00 106 22 108/57 (74) 96 09/19/20 16:04 105 09/19/20 16:00 97.8 100 21 128/60 (82) 97 09/19/20 16:00 Nasal Cannula 2.0 09/19/20 15:33 108 22 100 Nasal Cannula 2.0 28 100 19 99 09/19/20 15:00 97 23 112/65 (81) 99 09/19/20 14:00 100 16 116/60 (78) 100 09/19/20 13:20 99 20 99 Nasal Cannula 2.0 28 09/19/20 13:20 105 17 98 Nasal Cannula 2.0 28 09/19/20 13:00 94 21 110/65 (80) 98 09/19/20 12:00 Nasal Cannula 2.0 09/19/20 12:00 98 09/19/20 12:00 102 22 122/66 (84) 98 09/19/20 11:43 100 36 100 Nasal Cannula 3.0 32 100 30 97 09/19/20 11:06 102 16 120/65 (83) 98 09/19/20 10:00 105 18 114/25 (54) 97 Intake and Output 09/19/20 09/20/20 19:00 07:00 Intake Total 1362.5 ml 935 ml Output Total 2300 ml 2025 ml Balance -937.5 ml -1090 ml IV Total 1362.5 ml 935 ml Output Urine Total 2300 ml 2025 ml # Bowel Movements 1 3 Height (Feet): 6 Height (Inches): 0.00 Weight (Pounds): 155 Cardiovascular: tachycardia Respiratory/Chest: decreased breath sounds Abdomen: soft Price Heart MD Sep 20, 2020 09:25
--- NOTE | 2020-09-20 10:05 | Pulmonology Progress Note ---
Subjective ROS Limited/Unobtainable: No Interval Events: Extubated on 09/14/20; CXR shows improved aeration left lung Constitutional: Denies: fever HEENT: Repors: no symptoms Respiratory: Reports: no symptoms Cardiovascular: Reports: no symptoms Gastrointestinal/Abdominal: Reports: no symptoms, other - pain Psychiatric: Reports: other - on restraint Allergies: Coded Allergies: No Known Allergies (Unverified , 09/12/20) Objective Last 24 Hour Vital Signs Date Time Temp Pulse Resp B/P (MAP) Pulse Ox O2 Delivery O2 Flow Rate FiO2 09/20/20 10:00 100 15 125/65 (85) 98 09/20/20 09:00 90 16 112/64 (80) 98 09/20/20 08:00 88 09/20/20 08:00 100.2 92 11 132/65 (87) 100 09/20/20 07:47 101 15 97 Nasal Cannula 2.0 28 09/20/20 07:36 96 Nasal Cannula 2.0 28 09/20/20 07:36 104 19 96 Nasal Cannula 2.0 28 09/20/20 07:36 99 21 99 Nasal Cannula 2.0 28 104 19 96 09/20/20 07:00 97 13 125/62 (83) 98 09/20/20 06:00 98.5 104 18 112/62 (79) 09/20/20 05:00 98.5 104 18 112/62 (79) 09/20/20 04:00 106 18 116/59 (78) 09/20/20 04:00 Nasal Cannula 2.0 09/20/20 04:00 105 09/20/20 03:15 113 22 98 Nasal Cannula 2.0 28 101 19 96 09/20/20 03:00 102 19 119/63 (81) 09/20/20 02:00 104 19 120/58 (78) 99 09/20/20 02:00 108 21 130/59 (82) 99 09/20/20 01:00 108 21 130/59 (82) 99 09/20/20 00:38 104 20 97 Nasal Cannula 2.0 28 09/20/20 00:28 114 17 96 Nasal Cannula 2.0 28 09/20/20 00:00 98.5 111 21 130/73 (92) 99 09/20/20 00:00 Nasal Cannula 2.0 09/20/20 00:00 104 09/19/20 23:45 113 22 98 Nasal Cannula 2.0 28 116 19 94 09/19/20 23:00 107 21 120/69 (86) 98 09/19/20 22:30 105 24 112/67 (82) 99 09/19/20 22:00 105 23 117/45 (69) 98 09/19/20 21:00 109 22 120/68 (85) 95 09/19/20 20:08 108 20 99 Nasal Cannula 3.0 32 09/19/20 20:00 Nasal Cannula 2.0 09/19/20 20:00 102 09/19/20 20:00 97.5 110 23 120/104 (109) 97 09/19/20 19:58 106 17 95 Nasal Cannula 3.0 32 09/19/20 19:39 95 Nasal Cannula 3.0 32 09/19/20 19:38 105 22 99 Nasal Cannula 2.0 28 106 19 95 09/19/20 19:00 104 22 116/68 (84) 97 09/19/20 18:02 107 30 130/64 (86) 96 09/19/20 17:03 104 23 112/65 (81) 99 09/19/20 17:00 106 22 108/57 (74) 96 09/19/20 16:04 105 09/19/20 16:00 97.8 100 21 128/60 (82) 97 09/19/20 16:00 Nasal Cannula 2.0 09/19/20 15:33 108 22 100 Nasal Cannula 2.0 28 100 19 99 09/19/20 15:00 97 23 112/65 (81) 99 09/19/20 14:00 100 16 116/60 (78) 100 09/19/20 13:20 99 20 99 Nasal Cannula 2.0 28 09/19/20 13:20 105 17 98 Nasal Cannula 2.0 28 09/19/20 13:00 94 21 110/65 (80) 98 09/19/20 12:00 Nasal Cannula 2.0 09/19/20 12:00 98 09/19/20 12:00 102 22 122/66 (84) 98 09/19/20 11:43 100 36 100 Nasal Cannula 3.0 32 100 30 97 09/19/20 11:06 102 16 120/65 (83) 98 Intake and Output 09/19/20 09/20/20 19:00 07:00 Intake Total 1362.5 ml 935 ml Output Total 2300 ml 2025 ml Balance -937.5 ml -1090 ml IV Total 1362.5 ml 935 ml Output Urine Total 2300 ml 2025 ml # Bowel Movements 1 3 General Appearance: no acute distress HEENT: normocephalic Respiratory: chest wall non-tender, decreased breath sounds Cardiovascular: normal peripheral pulses, normal rate Abdomen: normal bowel sounds Current Medications Medications (Trade) Dose Ordered Sig/Jojo Route PRN Reason Start Time Stop Time Status Last Admin Dose Admin Albuterol/ Ipratropium (Albuterol/ Ipratropium) 3 ml Q4HRT HHN 09/15/20 11:30 09/20/20 11:29 09/20/20 07:42 Barium Sulfate (Varibar Honey) 250 ml NOW PRN MC RAD 09/19/20 13:15 09/22/20 13:06 Barium Sulfate (Varibar Crum) 240 ml NOW PRN MC RAD 09/19/20 13:15 09/22/20 13:06 Barium Sulfate (Varibar Pudding) 230 ml NOW PRN MC RAD 09/19/20 13:15 09/22/20 13:06 Barium Sulfate (Varibar Thin Liquid powder) 148 gm NOW PRN MC RAD 09/19/20 13:15 09/22/20 13:06 Dextrose/ Electrolytes 1,000 ml @ 75 mls/hr [id number] IV 09/13/20 01:00 10/13/20 00:59 09/20/20 08:53 Heparin Sodium (Porcine) (Heparin 5000 units/ml) 5,000 units EVERY 8 HOURS SUBQ 09/14/20 06:00 10/29/20 05:59 09/19/20 14:36 Magnesium Sulfate 100 ml @ 100 mls/hr Q1H IVPB 09/20/20 08:30 09/20/20 12:29 09/20/20 08:53 Meropenem 1 gm/ Sodium Chloride 55 ml @ 110 mls/hr Q8HR IVPB 09/20/20 14:00 09/25/20 13:59 Metoclopramide HCl (Reglan) 10 mg Q6H PRN IVP Nausea & Vomiting 09/13/20 01:00 10/13/20 00:59 Ondansetron HCl (Zofran) 4 mg Q6H PRN IVP Nausea & Vomiting 09/13/20 01:00 10/13/20 00:59 Pantoprazole (Protonix) 40 mg Q12HR IVP 09/13/20 21:00 10/13/20 08:59 09/20/20 08:52 Potassium Phosphate 250 ml @ 62.5 mls/hr Q4H IVPB 09/20/20 09:00 09/20/20 16:59 Assessment/Plan Assessment/Plan IMPRESSION: 1. Cecal perforation. 2. Status post right colectomy, open cholecystectomy, and abdominal washout. 3. History of COPD. 4. Schizophrenia. 5. Left lung complete atelectasis; resolved post bronchoscopy DISCUSSION: Transfer out of ICU Extubated 09/15/20 Continue broad-spectrum antibiotics. I will follow carefully. CXR shows improved aeration of left lung field Tito Sheffield Omar Syed MD Sep 20, 2020 10:05
[2020-09-20] MEDS: Potassium Phosphate 15mm/250ml 250 ML IVPB SCH ×2 (10:24→14:47)
--- NOTE | 2020-09-20 12:21 | Cardiac Electrophysiology PN ---
Assessment/Plan Assessment/Plan 1. Sinus tachycardia due to sepsis/respiratory failure and post op in intensive care unit EF 55%. Troponins negative 2. S/P Respiratory failure. Extubated but CXR showed Left white out. S/P bronchoscopy by Dr. Lambert 09/16/20 that showed mucus plug Has history of COPD 3. Acute abdomen, status post surgery by Dr. Morrow including cholecystectomy as well as right colectomy and small bowel resection. ( Pathology showed perforated appendicitis) Currently on IV antibiotics. NGT removed and now has clear liquis diet 4. BNP 1800. Nl EF 55% DW RN and Dr Morrow Subjective Subjective Had bedside bronchoscopy 09/16/20 for Left lung white out by Dr. Lambert. In ICU on oxygen Alert and oriented. NGT removed and now eating. RN at bedside Objective Last 24 Hour Vital Signs Date Time Temp Pulse Resp B/P (MAP) Pulse Ox O2 Delivery O2 Flow Rate FiO2 09/20/20 12:00 Nasal Cannula 2.0 09/20/20 12:00 89 09/20/20 12:00 88 24 101/69 (80) 99 09/20/20 11:00 90 18 126/62 (83) 99 09/20/20 10:34 100 17 100 Nasal Cannula 2.0 28 99 15 98 09/20/20 10:00 100 15 125/65 (85) 98 09/20/20 09:00 90 16 112/64 (80) 98 09/20/20 08:00 Nasal Cannula 2.0 09/20/20 08:00 88 09/20/20 08:00 100.2 92 11 132/65 (87) 100 09/20/20 07:47 101 15 97 Nasal Cannula 2.0 28 09/20/20 07:36 96 Nasal Cannula 2.0 28 09/20/20 07:36 104 19 96 Nasal Cannula 2.0 28 09/20/20 07:36 99 21 99 Nasal Cannula 2.0 28 104 19 96 09/20/20 07:00 97 13 125/62 (83) 98 09/20/20 06:00 98.5 104 18 112/62 (79) 09/20/20 05:00 98.5 104 18 112/62 (79) 09/20/20 04:00 106 18 116/59 (78) 09/20/20 04:00 Nasal Cannula 2.0 10/27/20 04:00 105 09/20/20 03:15 113 22 98 Nasal Cannula 2.0 28 101 19 96 09/20/20 03:00 102 19 119/63 (81) 09/20/20 02:00 104 19 120/58 (78) 99 09/20/20 02:00 108 21 130/59 (82) 99 09/20/20 01:00 108 21 130/59 (82) 99 09/20/20 00:38 104 20 97 Nasal Cannula 2.0 28 09/20/20 00:28 114 17 96 Nasal Cannula 2.0 28 09/20/20 00:00 98.5 111 21 130/73 (92) 99 09/20/20 00:00 Nasal Cannula 2.0 09/20/20 00:00 104 09/19/20 23:45 113 22 98 Nasal Cannula 2.0 28 116 19 94 09/19/20 23:00 107 21 120/69 (86) 98 09/19/20 22:30 105 24 112/67 (82) 99 09/19/20 22:00 105 23 117/45 (69) 98 09/19/20 21:00 109 22 120/68 (85) 95 09/19/20 20:08 108 20 99 Nasal Cannula 3.0 32 09/19/20 20:00 Nasal Cannula 2.0 09/19/20 20:00 102 09/19/20 20:00 97.5 110 23 120/104 (109) 97 09/19/20 19:58 106 17 95 Nasal Cannula 3.0 32 09/19/20 19:39 95 Nasal Cannula 3.0 32 09/19/20 19:38 105 22 99 Nasal Cannula 2.0 28 106 19 95 09/19/20 19:00 104 22 116/68 (84) 97 09/19/20 18:02 107 30 130/64 (86) 96 09/19/20 17:03 104 23 112/65 (81) 99 09/19/20 17:00 106 22 108/57 (74) 96 09/19/20 16:04 105 09/19/20 16:00 97.8 100 21 128/60 (82) 97 09/19/20 16:00 Nasal Cannula 2.0 09/19/20 15:33 108 22 100 Nasal Cannula 2.0 28 100 19 99 09/19/20 15:00 97 23 112/65 (81) 99 09/19/20 14:00 100 16 116/60 (78) 100 09/19/20 13:20 99 20 99 Nasal Cannula 2.0 28 09/19/20 13:20 105 17 98 Nasal Cannula 2.0 28 09/19/20 13:00 94 21 110/65 (80) 98 Intake and Output 09/19/20 09/20/20 19:00 07:00 Intake Total 1362.5 ml 935 ml Output Total 2300 ml 2025 ml Balance -937.5 ml -1090 ml IV Total 1362.5 ml 935 ml Output Urine Total 2300 ml 2025 ml # Bowel Movements 1 3 Objective HEAD AND NECK: No JVD. LUNGS: Coarse rhonchi CARDIOVASCULAR: Shows regular S1 and S2 with no gallop. ABDOMEN: Tender and is status post laparotomy. EXTREMITIES: No pitting edema. Jason Li MD Sep 20, 2020 12:21
--- NOTE | 2020-09-20 12:23 | Infectious Diseases Prog Note ---
Assessment/Plan Assessment/Plan IMPRESSION: 1. Sepsis improving 2. Acute appendicitis with perforation. 3. Acute/ chronic cholecystitis. 4. COPD. 5. Fatty liver. 6. Preoperative respiratory failure resolved 7. Pneumonia 8. Peritonitis 9. Colitis with perforation 10. Mucous plug RECOMMENDATION: 1. Continue Meropenem 2. We will follow up the cultures. Subjective ROS Limited/Unobtainable: No Constitutional: Reports: fever, other - T=100.2 Respiratory: Reports: productive cough Cardiovascular: Reports: no symptoms Gastrointestinal/Abdominal: Reports: no symptoms, other - started on liquid diet Allergies: Coded Allergies: No Known Allergies (Unverified , 09/12/20) Objective Last 24 Hour Vital Signs Date Time Temp Pulse Resp B/P (MAP) Pulse Ox O2 Delivery O2 Flow Rate FiO2 09/20/20 12:00 Nasal Cannula 2.0 09/20/20 12:00 89 09/20/20 12:00 88 24 101/69 (80) 99 09/20/20 11:00 90 18 126/62 (83) 99 09/20/20 10:34 100 17 100 Nasal Cannula 2.0 28 99 15 98 09/20/20 10:00 100 15 125/65 (85) 98 09/20/20 09:00 90 16 112/64 (80) 98 09/20/20 08:00 Nasal Cannula 2.0 09/20/20 08:00 88 09/20/20 08:00 100.2 92 11 132/65 (87) 100 09/20/20 07:47 101 15 97 Nasal Cannula 2.0 28 09/20/20 07:36 96 Nasal Cannula 2.0 28 09/20/20 07:36 104 19 96 Nasal Cannula 2.0 28 09/20/20 07:36 99 21 99 Nasal Cannula 2.0 28 104 19 96 09/20/20 07:00 97 13 125/62 (83) 98 09/20/20 06:00 98.5 104 18 112/62 (79) 09/20/20 05:00 98.5 104 18 112/62 (79) 09/20/20 04:00 106 18 116/59 (78) 09/20/20 04:00 Nasal Cannula 2.0 09/20/20 04:00 105 09/20/20 03:15 113 22 98 Nasal Cannula 2.0 28 101 19 96 09/20/20 03:00 102 19 119/63 (81) 09/20/20 02:00 104 19 120/58 (78) 99 09/20/20 02:00 108 21 130/59 (82) 99 09/20/20 01:00 108 21 130/59 (82) 99 09/20/20 00:38 104 20 97 Nasal Cannula 2.0 28 09/20/20 00:28 114 17 96 Nasal Cannula 2.0 28 09/20/20 00:00 98.5 111 21 130/73 (92) 99 09/20/20 00:00 Nasal Cannula 2.0 09/20/20 00:00 104 09/19/20 23:45 113 22 98 Nasal Cannula 2.0 28 116 19 94 09/19/20 23:00 107 21 120/69 (86) 98 09/19/20 22:30 105 24 112/67 (82) 99 09/19/20 22:00 105 23 117/45 (69) 98 09/19/20 21:00 109 22 120/68 (85) 95 09/19/20 20:08 108 20 99 Nasal Cannula 3.0 32 09/19/20 20:00 Nasal Cannula 2.0 09/19/20 20:00 102 09/19/20 20:00 97.5 110 23 120/104 (109) 97 09/19/20 19:58 106 17 95 Nasal Cannula 3.0 32 09/19/20 19:39 95 Nasal Cannula 3.0 32 09/19/20 19:38 105 22 99 Nasal Cannula 2.0 28 106 19 95 09/19/20 19:00 104 22 116/68 (84) 97 09/19/20 18:02 107 30 130/64 (86) 96 09/19/20 17:03 104 23 112/65 (81) 99 09/19/20 17:00 106 22 108/57 (74) 96 09/19/20 16:04 105 09/19/20 16:00 97.8 100 21 128/60 (82) 97 09/19/20 16:00 Nasal Cannula 2.0 09/19/20 15:33 108 22 100 Nasal Cannula 2.0 28 100 19 99 09/19/20 15:00 97 23 112/65 (81) 99 09/19/20 14:00 100 16 116/60 (78) 100 09/19/20 13:20 99 20 99 Nasal Cannula 2.0 28 09/19/20 13:20 105 17 98 Nasal Cannula 2.0 28 09/19/20 13:00 94 21 110/65 (80) 98 Height (Feet): 6 Height (Inches): 0.00 Weight (Pounds): 155 HEENT: mucous membranes moist Respiratory/Chest: other - few crackles Cardiovascular: normal rate Abdomen: soft, non tender, other - rectal tube Extremities: no edema Neurologic/Psychiatric: alert, responsive Current Medications Medications (Trade) Dose Ordered Sig/Jojo Route PRN Reason Start Time Stop Time Status Last Admin Dose Admin Barium Sulfate (Varibar Honey) 250 ml NOW PRN MC RAD 09/19/20 13:15 09/22/20 13:06 Barium Sulfate (Varibar Murdo) 240 ml NOW PRN MC RAD 09/19/20 13:15 09/22/20 13:06 Barium Sulfate (Varibar Pudding) 230 ml NOW PRN RAD 09/19/20 13:15 09/22/20 13:06 Barium Sulfate (Varibar Thin Liquid powder) 148 gm NOW PRN MC RAD 09/19/20 13:15 09/22/20 13:06 Dextrose/ Electrolytes 1,000 ml @ 75 mls/hr [id number] IV 09/13/20 01:00 10/13/20 00:59 09/20/20 08:53 Heparin Sodium (Porcine) (Heparin 5000 units/ml) 5,000 units EVERY 8 HOURS SUBQ 09/14/20 06:00 10/29/20 05:59 09/19/20 14:36 Magnesium Sulfate 100 ml @ 100 mls/hr Q1H IVPB 09/20/20 08:30 09/20/20 12:29 09/20/20 11:50 Meropenem 1 gm/ Sodium Chloride 55 ml @ 110 mls/hr Q8HR IVPB 09/20/20 14:00 09/25/20 13:59 Metoclopramide HCl (Reglan) 10 mg Q6H PRN IVP Nausea & Vomiting 09/13/20 01:00 10/13/20 00:59 Ondansetron HCl (Zofran) 4 mg Q6H PRN IVP Nausea & Vomiting 09/13/20 01:00 10/13/20 00:59 Pantoprazole (Protonix) 40 mg Q12HR IVP 09/13/20 21:00 10/13/20 08:59 09/20/20 08:52 Potassium Phosphate 250 ml @ 62.5 mls/hr Q4H IVPB 09/20/20 09:00 09/20/20 16:59 09/20/20 10:24 Delio Edgar MD Sep 20, 2020 12:22
--- NOTE | 2020-09-20 16:56 | General Progress Note ---
Subjective Allergies: Coded Allergies: No Known Allergies (Unverified , 09/12/20) Objective Last 24 Hour Vital Signs Date Time Temp Pulse Resp B/P (MAP) Pulse Ox O2 Delivery O2 Flow Rate FiO2 09/20/20 16:04 89 18 113/58 (76) 96 09/20/20 16:00 82 09/20/20 16:00 Nasal Cannula 2.0 09/20/20 15:00 93 17 107/62 (77) 96 09/20/20 14:00 90 16 110/62 (78) 99 09/20/20 13:00 106 24 108/72 (84) 99 09/20/20 12:01 97.9 88 24 101/69 (80) 99 09/20/20 12:00 Nasal Cannula 2.0 09/20/20 12:00 89 09/20/20 12:00 88 24 101/69 (80) 99 09/20/20 11:00 90 18 126/62 (83) 99 09/20/20 10:34 100 17 100 Nasal Cannula 2.0 28 99 15 98 09/20/20 10:00 100 15 125/65 (85) 98 09/20/20 09:00 90 16 112/64 (80) 98 09/20/20 08:00 Nasal Cannula 2.0 09/20/20 08:00 88 09/20/20 08:00 100.2 92 11 132/65 (87) 100 09/20/20 07:47 101 15 97 Nasal Cannula 2.0 28 09/20/20 07:36 96 Nasal Cannula 2.0 28 09/20/20 07:36 104 19 96 Nasal Cannula 2.0 28 09/20/20 07:36 99 21 99 Nasal Cannula 2.0 28 104 19 96 09/20/20 07:00 97 13 125/62 (83) 98 09/20/20 06:00 98.5 104 18 112/62 (79) 09/20/20 05:00 98.5 104 18 112/62 (79) 09/20/20 04:00 106 18 116/59 (78) 09/20/20 04:00 Nasal Cannula 2.0 09/20/20 04:00 105 09/20/20 03:15 113 22 98 Nasal Cannula 2.0 28 101 19 96 09/20/20 03:00 102 19 119/63 (81) 09/20/20 02:00 104 19 120/58 (78) 99 09/20/20 02:00 108 21 130/59 (82) 99 09/20/20 01:00 108 21 130/59 (82) 99 09/20/20 00:38 104 20 97 Nasal Cannula 2.0 28 09/20/20 00:28 114 17 96 Nasal Cannula 2.0 28 09/20/20 00:00 98.5 111 21 130/73 (92) 99 09/20/20 00:00 Nasal Cannula 2.0 09/20/20 00:00 104 09/19/20 23:45 113 22 98 Nasal Cannula 2.0 28 116 19 94 09/19/20 23:00 107 21 120/69 (86) 98 09/19/20 22:30 105 24 112/67 (82) 99 09/19/20 22:00 105 23 117/45 (69) 98 09/19/20 21:00 109 22 120/68 (85) 95 09/19/20 20:08 108 20 99 Nasal Cannula 3.0 32 09/19/20 20:00 Nasal Cannula 2.0 09/19/20 20:00 102 09/19/20 20:00 97.5 110 23 120/104 (109) 97 09/19/20 19:58 106 17 95 Nasal Cannula 3.0 32 09/19/20 19:39 95 Nasal Cannula 3.0 32 09/19/20 19:38 105 22 99 Nasal Cannula 2.0 28 106 19 95 09/19/20 19:00 104 22 116/68 (84) 97 09/19/20 18:02 107 30 130/64 (86) 96 09/19/20 17:03 104 23 112/65 (81) 99 09/19/20 17:00 106 22 108/57 (74) 96 Intake and Output 09/19/20 09/20/20 19:00 07:00 Intake Total 1362.5 ml 1010 ml Output Total 2300 ml 2025 ml Balance -937.5 ml -1015 ml IV Total 1362.5 ml 1010 ml Output Urine Total 2300 ml 2025 ml # Bowel Movements 1 3 Height (Feet): 6 Height (Inches): 0.00 Weight (Pounds): 155 General Appearance: lethargic Assessment/Plan Problem List: (1) Bowel perforation ICD Codes: K63.1 - Perforation of intestine (nontraumatic) SNOMED: 32223440 (2) Sepsis ICD Codes: A41.9 - Sepsis, unspecified organism SNOMED: 07240338 (3) SBO (small bowel obstruction) ICD Codes: K56.609 - Unspecified intestinal obstruction, unspecified as to partial versus complete obstruction SNOMED: 131312438 (4) Lactic acidosis ICD Codes: E87.2 - Acidosis SNOMED: 42924599 (5) Abdominal pain ICD Codes: R10.9 - Unspecified abdominal pain SNOMED: 90420776 Status: progressing Assessment/Plan: resp failure weak malnutrtion no fever abx per id s/p exploratory lap for perforated bowel s/p cholycystectomy sepsis Vania Dwyer MD Sep 20, 2020 16:56
--- NOTE | 2020-09-20 17:03 | General Progress Note ---
Subjective Allergies: Coded Allergies: No Known Allergies (Unverified , 09/12/20) Subjective Seen in ICU no new complaints passed swallow eval Objective Last 24 Hour Vital Signs Date Time Temp Pulse Resp B/P (MAP) Pulse Ox O2 Delivery O2 Flow Rate FiO2 09/20/20 16:04 89 18 113/58 (76) 96 09/20/20 16:00 82 09/20/20 16:00 Nasal Cannula 2.0 09/20/20 15:00 93 17 107/62 (77) 96 09/20/20 14:00 90 16 110/62 (78) 99 09/20/20 13:00 106 24 108/72 (84) 99 09/20/20 12:01 97.9 88 24 101/69 (80) 99 09/20/20 12:00 Nasal Cannula 2.0 09/20/20 12:00 89 09/20/20 12:00 88 24 101/69 (80) 99 09/20/20 11:00 90 18 126/62 (83) 99 09/20/20 10:34 100 17 100 Nasal Cannula 2.0 28 99 15 98 09/20/20 10:00 100 15 125/65 (85) 98 09/20/20 09:00 90 16 112/64 (80) 98 09/20/20 08:00 Nasal Cannula 2.0 09/20/20 08:00 88 09/20/20 08:00 100.2 92 11 132/65 (87) 100 09/20/20 07:47 101 15 97 Nasal Cannula 2.0 28 09/20/20 07:36 96 Nasal Cannula 2.0 28 09/20/20 07:36 104 19 96 Nasal Cannula 2.0 28 09/20/20 07:36 99 21 99 Nasal Cannula 2.0 28 104 19 96 09/20/20 07:00 97 13 125/62 (83) 98 09/20/20 06:00 98.5 104 18 112/62 (79) 09/20/20 05:00 98.5 104 18 112/62 (79) 09/20/20 04:00 106 18 116/59 (78) 09/20/20 04:00 Nasal Cannula 2.0 09/20/20 04:00 105 09/20/20 03:15 113 22 98 Nasal Cannula 2.0 28 101 19 96 09/20/20 03:00 102 19 119/63 (81) 09/20/20 02:00 104 19 120/58 (78) 99 09/20/20 02:00 108 21 130/59 (82) 99 09/20/20 01:00 108 21 130/59 (82) 99 09/20/20 00:38 104 20 97 Nasal Cannula 2.0 28 09/20/20 00:28 114 17 96 Nasal Cannula 2.0 28 09/20/20 00:00 98.5 111 21 130/73 (92) 99 09/20/20 00:00 Nasal Cannula 2.0 09/20/20 00:00 104 09/19/20 23:45 113 22 98 Nasal Cannula 2.0 28 116 19 94 09/19/20 23:00 107 21 120/69 (86) 98 09/19/20 22:30 105 24 112/67 (82) 99 09/19/20 22:00 105 23 117/45 (69) 98 09/19/20 21:00 109 22 120/68 (85) 95 09/19/20 20:08 108 20 99 Nasal Cannula 3.0 32 09/19/20 20:00 Nasal Cannula 2.0 09/19/20 20:00 102 09/19/20 20:00 97.5 110 23 120/104 (109) 97 09/19/20 19:58 106 17 95 Nasal Cannula 3.0 32 09/19/20 19:39 95 Nasal Cannula 3.0 32 09/19/20 19:38 105 22 99 Nasal Cannula 2.0 28 106 19 95 09/19/20 19:00 104 22 116/68 (84) 97 09/19/20 18:02 107 30 130/64 (86) 96 09/19/20 17:03 104 23 112/65 (81) 99 Intake and Output 09/19/20 09/20/20 19:00 07:00 Intake Total 1362.5 ml 1010 ml Output Total 2300 ml 2025 ml Balance -937.5 ml -1015 ml IV Total 1362.5 ml 1010 ml Output Urine Total 2300 ml 2025 ml # Bowel Movements 1 3 Height (Feet): 6 Height (Inches): 0.00 Weight (Pounds): 155 Objective Thin man NCAT supple CTA RR abd soft , flat no edema Assessment/Plan Status: progressing Assessment/Plan: Assessment - IC valve area SBO and cecal perforation, presumed from appendicitis - s/p ex lap and bowel resection with primary anastomosis - s/p sancho for cholecystitis - post op ileus Recommendations - post op care - PO per surgery - follow labs and exam Froilan De Paz MD Sep 20, 2020 17:03
[2020-09-21] VITALS (32 sets, daily range): BP systolic 94–151; BP diastolic 53–75
[2020-09-21 05:01] LABS: EOSINOPHILS % (AUTO) 5.6 % (0.0-3.0); HEMATOCRIT 35.1 % (42.0-52.0); HEMOGLOBIN 11.6 G/DL (14.2-18.0); MEAN CORPUSCULAR VOLUME 86 FL (80-99); MONOCYTES % (AUTO) 5.6 % (1.0-10.0); NEUTROPHILS % (AUTO) 76.8 % (45.0-75.0); PLATELET COUNT 242 K/UL (150-450); RED BLOOD COUNT 4.09 M/UL (4.70-6.10); RED CELL DISTRIBUTION WIDTH 13.6 % (11.6-14.8); WHITE BLOOD COUNT 11.3 K/UL (4.8-10.8)
[2020-09-21] MEDS: Meropenem 1 GM in NS 55 ML IVPB SCH ×3 (05:11→21:43)
[2020-09-21] MEDS: Heparin 5000 units/ml inj SUBQ SCH ×3 (05:13→21:43)
[2020-09-21 05:21] LABS: ALANINE AMINOTRANSFERASE 10 U/L (12-78); ALBUMIN 1.7 G/DL (3.4-5.0); ALBUMIN/GLOBULIN RATIO 0.7 (1.0-2.7); ALKALINE PHOSPHATASE 82 U/L (46-116); ANION GAP 3 mmol/L (5-15); ASPARTATE AMINO TRANSFERASE 16 U/L (15-37); BILIRUBIN,TOTAL 0.4 MG/DL (0.2-1.0); BLOOD UREA NITROGEN 1 mg/dL (7-18); CALCIUM 7.2 MG/DL (8.5-10.1); CARBON DIOXIDE 29 MMOL/L (21-32); CHLORIDE 103 MMOL/L (98-107); CREATININE 0.6 MG/DL (0.55-1.30); PHOSPHORUS 1.9 MG/DL (2.5-4.9); POTASSIUM 4.6 MMOL/L (3.5-5.1); SODIUM 135 MMOL/L (136-145)
--- NOTE | 2020-09-21 09:40 | Cardiac Electrophysiology PN ---
Assessment/Plan Assessment/Plan 1. Sinus tachycardia due to sepsis/respiratory failure and post op in intensive care unit EF 55%. Troponins negative 2. S/P Respiratory failure. Extubated but CXR showed Left white out. S/P bronchoscopy by Dr. Lambert 09/16/20 that showed mucus plug Has history of COPD 3. Acute abdomen, status post surgery by Dr. Morrow including cholecystectomy as well as right colectomy and small bowel resection. ( Pathology showed perforated appendicitis) Currently on IV antibiotics. NGT removed and now has clear liquis diet 4. BNP 1800. Nl EF 55%. No clinical CHF DW RN Subjective Subjective Had bedside bronchoscopy 09/16/20 for Left lung white out by Dr. Lambert. In ICU on oxygen Alert and oriented. NGT removed and now eating. RN at bedside. Still in restraints Objective Last 24 Hour Vital Signs Date Time Temp Pulse Resp B/P (MAP) Pulse Ox O2 Delivery O2 Flow Rate FiO2 09/21/20 07:00 92 20 114/59 (77) 96 09/21/20 06:30 95 22 124/68 (86) 96 09/21/20 06:00 98.5 91 19 115/67 (83) 96 09/21/20 05:00 96 19 122/63 (82) 94 09/21/20 04:30 96 21 118/65 (82) 96 09/21/20 04:00 95 09/21/20 04:00 Nasal Cannula 2.0 09/21/20 04:00 95 19 122/54 (76) 97 09/21/20 03:30 99 21 120/61 (80) 95 09/21/20 03:00 100 25 115/64 (81) 94 09/21/20 02:30 95 18 118/67 (84) 94 09/21/20 02:00 98 22 118/62 (80) 94 09/21/20 01:30 96 22 118/68 (85) 95 09/21/20 01:00 97 23 124/60 (81) 94 09/21/20 00:30 95 23 120/62 (81) 92 09/21/20 00:00 98.0 93 21 128/63 (84) 94 09/21/20 00:00 Nasal Cannula 2.0 09/21/20 00:00 93 09/20/20 23:30 94 20 126/61 (82) 96 09/20/20 23:00 94 20 121/59 (79) 98 09/20/20 22:30 95 14 116/70 (85) 96 09/20/20 22:00 102 20 136/71 (92) 96 09/20/20 21:30 103 20 148/58 (88) 94 09/20/20 21:00 101 19 134/70 (91) 95 09/20/20 20:30 94 21 133/63 (86) 96 09/20/20 20:00 Nasal Cannula 2.0 09/20/20 20:00 97.9 93 17 122/68 (86) 98 09/20/20 20:00 93 09/20/20 19:35 98 Nasal Cannula 2.0 28 09/20/20 19:00 91 19 115/76 (89) 99 09/20/20 18:00 85 16 114/66 (82) 97 09/20/20 17:00 84 16 121/68 (85) 97 09/20/20 16:04 89 18 113/58 (76) 96 09/20/20 16:00 82 09/20/20 16:00 Nasal Cannula 2.0 09/20/20 16:00 97.8 89 18 113/58 (76) 96 09/20/20 15:00 93 17 107/62 (77) 96 09/20/20 14:00 90 16 110/62 (78) 99 09/20/20 13:00 106 24 108/72 (84) 99 09/20/20 12:01 97.9 88 24 101/69 (80) 99 09/20/20 12:00 Nasal Cannula 2.0 09/20/20 12:00 89 09/20/20 12:00 88 24 101/69 (80) 99 09/20/20 11:00 90 18 126/62 (83) 99 09/20/20 10:34 100 17 100 Nasal Cannula 2.0 28 99 15 98 09/20/20 10:00 100 15 125/65 (85) 98 Intake and Output 09/20/20 09/21/20 19:00 07:00 Intake Total 3305.0 ml 1170 ml Output Total 2370 ml 1675 ml Balance 935.0 ml -505 ml Intake Oral 1480 ml 420 ml IV Total 1795.0 ml 750 ml Other 30 ml Output Urine Total 2370 ml 1400 ml Stool Total 275 ml Laboratory Tests Test 09/21/20 03:15 White Blood Count 11.3 K/UL (4.8-10.8) H Red Blood Count 4.09 M/UL (4.70-6.10) L Hemoglobin 11.6 G/DL (14.2-18.0) L Hematocrit 35.1 % (42.0-52.0) L Mean Corpuscular Volume 86 FL (80-99) Mean Corpuscular Hemoglobin 28.2 PG (27.0-31.0) Mean Corpuscular Hemoglobin Concent 32.9 G/DL (32.0-36.0) Red Cell Distribution Width 13.6 % (11.6-14.8) Platelet Count 242 K/UL (150-450) Mean Platelet Volume 5.9 FL (6.5-10.1) L Neutrophils (%) (Auto) 76.8 % (45.0-75.0) H Lymphocytes (%) (Auto) 11.0 % (20.0-45.0) L Monocytes (%) (Auto) 5.6 % (1.0-10.0) Eosinophils (%) (Auto) 5.6 % (0.0-3.0) H Basophils (%) (Auto) 1.0 % (0.0-2.0) Sodium Level 135 MMOL/L (136-145) L Potassium Level 4.6 MMOL/L (3.5-5.1) Chloride Level 103 MMOL/L (98-107) Carbon Dioxide Level 29 MMOL/L (21-32) Anion Gap 3 mmol/L (5-15) L Blood Urea Nitrogen 1 mg/dL (7-18) L Creatinine 0.6 MG/DL (0.55-1.30) Estimat Glomerular Filtration Rate > 60 mL/min (>60) Glucose Level 97 MG/DL (74-106) Uric Acid 1.6 MG/DL (2.6-7.2) L Calcium Level 7.2 MG/DL (8.5-10.1) L Phosphorus Level 1.9 MG/DL (2.5-4.9) L Magnesium Level 2.2 MG/DL (1.8-2.4) Total Bilirubin 0.4 MG/DL (0.2-1.0) Aspartate Amino Transf (AST/SGOT) 16 U/L (15-37) Alanine Aminotransferase (ALT/SGPT) 10 U/L (12-78) L Alkaline Phosphatase 82 U/L (46-116) Total Protein 4.3 G/DL (6.4-8.2) L Albumin 1.7 G/DL (3.4-5.0) L Globulin 2.6 g/dL Albumin/Globulin Ratio 0.7 (1.0-2.7) L Objective HEAD AND NECK: No JVD. LUNGS: Coarse rhonchi CARDIOVASCULAR: Shows regular S1 and S2 with no gallop. ABDOMEN: Tender and is status post laparotomy. EXTREMITIES: No pitting edema. Jason Li MD Sep 21, 2020 09:40
--- NOTE | 2020-09-21 10:03 | Pulmonology Progress Note ---
Subjective ROS Limited/Unobtainable: No Interval Events: Extubated on 09/14/20; CXR shows improved aeration left lung Constitutional: Reports: fever, other - T=100.2 HEENT: Repors: no symptoms Respiratory: Reports: no symptoms Cardiovascular: Reports: no symptoms Gastrointestinal/Abdominal: Reports: no symptoms, other - started on liquid diet Psychiatric: Reports: other - on restraint Allergies: Coded Allergies: No Known Allergies (Unverified , 09/12/20) Objective Last 24 Hour Vital Signs Date Time Temp Pulse Resp B/P (MAP) Pulse Ox O2 Delivery O2 Flow Rate FiO2 09/21/20 07:00 92 20 114/59 (77) 96 09/21/20 06:30 95 22 124/68 (86) 96 09/21/20 06:00 98.5 91 19 115/67 (83) 96 09/21/20 05:00 96 19 122/63 (82) 94 09/21/20 04:30 96 21 118/65 (82) 96 09/21/20 04:00 95 09/21/20 04:00 Nasal Cannula 2.0 09/21/20 04:00 95 19 122/54 (76) 97 09/21/20 03:30 99 21 120/61 (80) 95 09/21/20 03:00 100 25 115/64 (81) 94 09/21/20 02:30 95 18 118/67 (84) 94 09/21/20 02:00 98 22 118/62 (80) 94 09/21/20 01:30 96 22 118/68 (85) 95 09/21/20 01:00 97 23 124/60 (81) 94 09/21/20 00:30 95 23 120/62 (81) 92 09/21/20 00:00 98.0 93 21 128/63 (84) 94 09/21/20 00:00 Nasal Cannula 2.0 09/21/20 00:00 93 09/20/20 23:30 94 20 126/61 (82) 96 09/20/20 23:00 94 20 121/59 (79) 98 09/20/20 22:30 95 14 116/70 (85) 96 09/20/20 22:00 102 20 136/71 (92) 96 09/20/20 21:30 103 20 148/58 (88) 94 09/20/20 21:00 101 19 134/70 (91) 95 09/20/20 20:30 94 21 133/63 (86) 96 09/20/20 20:00 Nasal Cannula 2.0 09/20/20 20:00 97.9 93 17 122/68 (86) 98 09/20/20 20:00 93 09/20/20 19:35 98 Nasal Cannula 2.0 28 09/20/20 19:00 91 19 115/76 (89) 99 09/20/20 18:00 85 16 114/66 (82) 97 09/20/20 17:00 84 16 121/68 (85) 97 09/20/20 16:04 89 18 113/58 (76) 96 09/20/20 16:00 82 09/20/20 16:00 Nasal Cannula 2.0 09/20/20 16:00 97.8 89 18 113/58 (76) 96 09/20/20 15:00 93 17 107/62 (77) 96 09/20/20 14:00 90 16 110/62 (78) 99 09/20/20 13:00 106 24 108/72 (84) 99 09/20/20 12:01 97.9 88 24 101/69 (80) 99 09/20/20 12:00 Nasal Cannula 2.0 09/20/20 12:00 89 09/20/20 12:00 88 24 101/69 (80) 99 09/20/20 11:00 90 18 126/62 (83) 99 09/20/20 10:34 100 17 100 Nasal Cannula 2.0 28 99 15 98 Intake and Output 09/20/20 09/21/20 19:00 07:00 Intake Total 3305.0 ml 1170 ml Output Total 2370 ml 1675 ml Balance 935.0 ml -505 ml Intake Oral 1480 ml 420 ml IV Total 1795.0 ml 750 ml Other 30 ml Output Urine Total 2370 ml 1400 ml Stool Total 275 ml General Appearance: no acute distress HEENT: normocephalic Respiratory: chest wall non-tender, decreased breath sounds Cardiovascular: normal peripheral pulses, normal rate Abdomen: normal bowel sounds Laboratory Tests 09/21/20 03:15: White Blood Count 11.3H, Red Blood Count 4.09L, Hemoglobin 11.6L, Hematocrit 35.1L, Mean Corpuscular Volume 86, Mean Corpuscular Hemoglobin 28.2, Mean Corpuscular Hemoglobin Concent 32.9, Red Cell Distribution Width 13.6, Platelet Count 242, Mean Platelet Volume 5.9L, Neutrophils (%) (Auto) 76.8H, Lymphocytes (%) (Auto) 11.0L, Monocytes (%) (Auto) 5.6, Eosinophils (%) (Auto) 5.6H, Basophils (%) (Auto) 1.0, Sodium Level 135L, Potassium Level 4.6, Chloride Level 103, Carbon Dioxide Level 29, Anion Gap 3L, Blood Urea Nitrogen 1L, Creatinine 0.6, Estimat Glomerular Filtration Rate > 60, Glucose Level 97, Uric Acid 1.6L, Calcium Level 7.2L, Phosphorus Level 1.9L, Magnesium Level 2.2, Total Bilirubin 0.4, Aspartate Amino Transf (AST/SGOT) 16, Alanine Aminotransferase (ALT/SGPT) 10L, Alkaline Phosphatase 82, Total Protein 4.3L, Albumin 1.7L, Globulin 2.6, Albumin/Globulin Ratio 0.7L Current Medications Medications (Trade) Dose Ordered Sig/Jojo Route PRN Reason Start Time Stop Time Status Last Admin Dose Admin Barium Sulfate (Varibar Honey) 250 ml NOW PRN MC RAD 09/19/20 13:15 09/22/20 13:06 Barium Sulfate (Varibar [place]) 240 ml NOW PRN MC RAD 09/19/20 13:15 09/22/20 13:06 Barium Sulfate (Varibar Pudding) 230 ml NOW PRN MC RAD 09/19/20 13:15 09/22/20 13:06 Barium Sulfate (Varibar Thin Liquid powder) 148 gm NOW PRN MC RAD 09/19/20 13:15 09/22/20 13:06 Dextrose/ Electrolytes 1,000 ml @ 75 mls/hr [id number] IV 09/13/20 01:00 10/13/20 00:59 09/20/20 22:00 Heparin Sodium (Porcine) (Heparin 5000 units/ml) 5,000 units EVERY 8 HOURS SUBQ 09/14/20 06:00 10/29/20 05:59 09/21/20 05:13 Meropenem 1 gm/ Sodium Chloride 55 ml @ 110 mls/hr Q8HR IVPB 09/20/20 14:00 09/25/20 13:59 09/21/20 05:11 Metoclopramide HCl (Reglan) 10 mg Q6H PRN IVP Nausea & Vomiting 09/13/20 01:00 10/13/20 00:59 Ondansetron HCl (Zofran) 4 mg Q6H PRN IVP Nausea & Vomiting 09/13/20 01:00 10/13/20 00:59 Pantoprazole (Protonix) 40 mg Q12HR IVP 09/13/20 21:00 10/13/20 08:59 09/20/20 20:44 Assessment/Plan Assessment/Plan IMPRESSION: 1. Cecal perforation. 2. Status post right colectomy, open cholecystectomy, and abdominal washout. 3. History of COPD. 4. Schizophrenia. 5. Left lung complete atelectasis; resolved post bronchoscopy DISCUSSION: Transfer out of ICU Extubated 09/15/20 Continue broad-spectrum antibiotics. I will follow carefully. CXR shows improved aeration of left lung field Transfer out of ICU Tito Sheffield Omar Syed MD Sep 21, 2020 10:03
--- NOTE | 2020-09-21 10:32 | Nephrology Progress Note ---
Assessment/Plan Problem List: (1) Lactic acid increased (2) Electrolyte imbalance (3) SBO (small bowel obstruction) (4) Sepsis (5) Bowel perforation Assessment Lactic acidosis Bowel perforation Sepsis Plan September 21: Patient on clear liquid. Labs reviewed. Abnormalities addressed. IV sodium phosphate ordered. Continue per consultants. September 20: Discussed with JAROD Rivas. Patient due for speech therapy evaluation. Labs reviewed. Magnesium and phosphorus supplement ordered. Continue per consultants. Continue to monitor renal parameters and electrolytes. September 19: Labs reviewed. Magnesium and phosphorus supplement intravenously ordered. Discussed with RN. Continue to monitor renal parameters. Defer TPN and feeding to GI/general surgery. September 18: NG tube to suction. Output minimal. Labs reviewed. Phosphorus supplement intravenously ordered. Discussed with Dr. Leslie regarding the need for TPN. Will await for general surgery comment. Continue to monitor renal parameters and electrolytes. September 17: All noted. Discussed with RN. Labs reviewed. Patient has NG tube to suction. It appears that the patient post abdominal surgery may not be started on feeding. Suggest TPN. Deferred to GI/surgeon. September 16: Patient about to undergo bronchoscopy for white out left lung. Labs reviewed. Abnormal electrolytes and chemistries addressed. Continue per consultants. September 15: On nasal cannula, renal parameters stable. Continue per consultants. Previously: Postop care, weaning from ventilator ~failed so far Check urine analysis, noted IV fluid management Keep the electrolytes and renal parameters in check Antibiotics Per consultants Post surgery results: 1. Small bowel obstruction at the level of the ileocecal valve, secondary to unknown etiology, potential tumor mass. 2. Perforated cecum. 3. Acute cholecystitis. Subjective ROS Limited/Unobtainable: No Constitutional: Reports: malaise Objective Objective Last 24 Hour Vital Signs Date Time Temp Pulse Resp B/P (MAP) Pulse Ox O2 Delivery O2 Flow Rate FiO2 09/21/20 07:00 92 20 114/59 (77) 96 09/21/20 06:30 95 22 124/68 (86) 96 09/21/20 06:00 98.5 91 19 115/67 (83) 96 09/21/20 05:00 96 19 122/63 (82) 94 09/21/20 04:30 96 21 118/65 (82) 96 09/21/20 04:00 95 09/21/20 04:00 Nasal Cannula 2.0 09/21/20 04:00 95 19 122/54 (76) 97 09/21/20 03:30 99 21 120/61 (80) 95 09/21/20 03:00 100 25 115/64 (81) 94 09/21/20 02:30 95 18 118/67 (84) 94 09/21/20 02:00 98 22 118/62 (80) 94 09/21/20 01:30 96 22 118/68 (85) 95 09/21/20 01:00 97 23 124/60 (81) 94 09/21/20 00:30 95 23 120/62 (81) 92 09/21/20 00:00 98.0 93 21 128/63 (84) 94 09/21/20 00:00 Nasal Cannula 2.0 09/21/20 00:00 93 09/20/20 23:30 94 20 126/61 (82) 96 09/20/20 23:00 94 20 121/59 (79) 98 09/20/20 22:30 95 14 116/70 (85) 96 09/20/20 22:00 102 20 136/71 (92) 96 09/20/20 21:30 103 20 148/58 (88) 94 09/20/20 21:00 101 19 134/70 (91) 95 09/20/20 20:30 94 21 133/63 (86) 96 09/20/20 20:00 Nasal Cannula 2.0 09/20/20 20:00 97.9 93 17 122/68 (86) 98 09/20/20 20:00 93 09/20/20 19:35 98 Nasal Cannula 2.0 28 09/20/20 19:00 91 19 115/76 (89) 99 09/20/20 18:00 85 16 114/66 (82) 97 09/20/20 17:00 84 16 121/68 (85) 97 09/20/20 16:04 89 18 113/58 (76) 96 09/20/20 16:00 82 09/20/20 16:00 Nasal Cannula 2.0 09/20/20 16:00 97.8 89 18 113/58 (76) 96 09/20/20 15:00 93 17 107/62 (77) 96 09/20/20 14:00 90 16 110/62 (78) 99 09/20/20 13:00 106 24 108/72 (84) 99 09/20/20 12:01 97.9 88 24 101/69 (80) 99 09/20/20 12:00 Nasal Cannula 2.0 09/20/20 12:00 89 09/20/20 12:00 88 24 101/69 (80) 99 09/20/20 11:00 90 18 126/62 (83) 99 09/20/20 10:34 100 17 100 Nasal Cannula 2.0 28 99 15 98 Intake and Output 09/20/20 09/21/20 19:00 07:00 Intake Total 3305.0 ml 1170 ml Output Total 2370 ml 1675 ml Balance 935.0 ml -505 ml Intake Oral 1480 ml 420 ml IV Total 1795.0 ml 750 ml Other 30 ml Output Urine Total 2370 ml 1400 ml Stool Total 275 ml Current Medications Medications (Trade) Dose Ordered Sig/Ojjo Route PRN Reason Start Time Stop Time Status Last Admin Dose Admin Barium Sulfate (Varibar Honey) 250 ml NOW PRN MC RAD 09/19/20 13:15 09/22/20 13:06 Barium Sulfate (Varibar [place]) 240 ml NOW PRN MC RAD 09/19/20 13:15 09/22/20 13:06 Barium Sulfate (Varibar Pudding) 230 ml NOW PRN MC RAD 09/19/20 13:15 09/22/20 13:06 Barium Sulfate (Varibar Thin Liquid powder) 148 gm NOW PRN MC RAD 09/19/20 13:15 09/22/20 13:06 Dextrose/ Electrolytes 1,000 ml @ 75 mls/hr [id number] IV 09/13/20 01:00 10/13/20 00:59 09/20/20 22:00 Heparin Sodium (Porcine) (Heparin 5000 units/ml) 5,000 units EVERY 8 HOURS SUBQ 09/14/20 06:00 10/29/20 05:59 09/21/20 05:13 Meropenem 1 gm/ Sodium Chloride 55 ml @ 110 mls/hr Q8HR IVPB 09/20/20 14:00 09/25/20 13:59 09/21/20 05:11 Metoclopramide HCl (Reglan) 10 mg Q6H PRN IVP Nausea & Vomiting 09/13/20 01:00 10/13/20 00:59 Nicotine (Nicoderm) 1 patch Q24H TDERMAL 09/21/20 10:30 12/20/20 10:29 UNV Ondansetron HCl (Zofran) 4 mg Q6H PRN IVP Nausea & Vomiting 09/13/20 01:00 10/13/20 00:59 Pantoprazole (Protonix) 40 mg Q12HR IVP 09/13/20 21:00 10/13/20 08:59 09/20/20 20:44 Laboratory Tests 09/21/20 03:15: White Blood Count 11.3H, Red Blood Count 4.09L, Hemoglobin 11.6L, Hematocrit 35.1L, Mean Corpuscular Volume 86, Mean Corpuscular Hemoglobin 28.2, Mean Corpuscular Hemoglobin Concent 32.9, Red Cell Distribution Width 13.6, Platelet Count 242, Mean Platelet Volume 5.9L, Neutrophils (%) (Auto) 76.8H, Lymphocytes (%) (Auto) 11.0L, Monocytes (%) (Auto) 5.6, Eosinophils (%) (Auto) 5.6H, Basophils (%) (Auto) 1.0, Sodium Level 135L, Potassium Level 4.6, Chloride Level 103, Carbon Dioxide Level 29, Anion Gap 3L, Blood Urea Nitrogen 1L, Creatinine 0.6, Estimat Glomerular Filtration Rate > 60, Glucose Level 97, Uric Acid 1.6L, Calcium Level 7.2L, Phosphorus Level 1.9L, Magnesium Level 2.2, Total Bilirubin 0.4, Aspartate Amino Transf (AST/SGOT) 16, Alanine Aminotransferase (ALT/SGPT) 10L, Alkaline Phosphatase 82, Total Protein 4.3L, Albumin 1.7L, Globulin 2.6, Albumin/Globulin Ratio 0.7L Height (Feet): 6 Height (Inches): 0.00 Weight (Pounds): 155 General Appearance: no apparent distress Cardiovascular: tachycardia Respiratory/Chest: decreased breath sounds Abdomen: distended [facility] MD Sep 21, 2020 10:32
[2020-09-21] MEDS: Pantoprazole Inj IVP SCH ×2 (10:33→21:42)
[2020-09-21] MEDS ORDERED: Sodium Phosphate 30 MM in NS 275 ML IVPB SCH (12:00)
[2020-09-21] MEDS: D5 1/2NS w/KCl 20mEq 1,000 ML IV SCH (12:32)
--- NOTE | 2020-09-21 12:40 | General Progress Note ---
Subjective ROS Limited/Unobtainable: Yes Allergies: Coded Allergies: No Known Allergies (Unverified , 09/12/20) Objective Last 24 Hour Vital Signs Date Time Temp Pulse Resp B/P (MAP) Pulse Ox O2 Delivery O2 Flow Rate FiO2 09/21/20 11:30 89 18 120/62 (81) 98 09/21/20 11:00 92 19 123/63 (83) 98 09/21/20 10:30 88 22 129/62 (84) 97 09/21/20 10:00 99 18 128/72 (90) 95 09/21/20 09:30 128/67 (87) 95 09/21/20 09:00 109 22 151/75 (100) 95 09/21/20 08:30 106 24 124/66 (85) 95 09/21/20 08:00 88 20 116/58 (77) 97 09/21/20 07:00 92 20 114/59 (77) 96 09/21/20 06:30 95 22 124/68 (86) 96 09/21/20 06:00 98.5 91 19 115/67 (83) 96 09/21/20 05:00 96 19 122/63 (82) 94 09/21/20 04:30 96 21 118/65 (82) 96 09/21/20 04:00 95 09/21/20 04:00 Nasal Cannula 2.0 09/21/20 04:00 95 19 122/54 (76) 97 09/21/20 03:30 99 21 120/61 (80) 95 09/21/20 03:00 100 25 115/64 (81) 94 09/21/20 02:30 95 18 118/67 (84) 94 09/21/20 02:00 98 22 118/62 (80) 94 09/21/20 01:30 96 22 118/68 (85) 95 09/21/20 01:00 97 23 124/60 (81) 94 09/21/20 00:30 95 23 120/62 (81) 92 09/21/20 00:00 98.0 93 21 128/63 (84) 94 09/21/20 00:00 Nasal Cannula 2.0 09/21/20 00:00 93 09/20/20 23:30 94 20 126/61 (82) 96 09/20/20 23:00 94 20 121/59 (79) 98 09/20/20 22:30 95 14 116/70 (85) 96 09/20/20 22:00 102 20 136/71 (92) 96 09/20/20 21:30 103 20 148/58 (88) 94 09/20/20 21:00 101 19 134/70 (91) 95 09/20/20 20:30 94 21 133/63 (86) 96 09/20/20 20:00 Nasal Cannula 2.0 09/20/20 20:00 97.9 93 17 122/68 (86) 98 09/20/20 20:00 93 09/20/20 19:35 98 Nasal Cannula 2.0 28 09/20/20 19:00 91 19 115/76 (89) 99 09/20/20 18:00 85 16 114/66 (82) 97 09/20/20 17:00 84 16 121/68 (85) 97 09/20/20 16:04 89 18 113/58 (76) 96 09/20/20 16:00 82 09/20/20 16:00 Nasal Cannula 2.0 09/20/20 16:00 97.8 89 18 113/58 (76) 96 09/20/20 15:00 93 17 107/62 (77) 96 09/20/20 14:00 90 16 110/62 (78) 99 09/20/20 13:00 106 24 108/72 (84) 99 Intake and Output 09/20/20 09/21/20 19:00 07:00 Intake Total 3305.0 ml 1170 ml Output Total 2370 ml 1675 ml Balance 935.0 ml -505 ml Intake Oral 1480 ml 420 ml IV Total 1795.0 ml 750 ml Other 30 ml Output Urine Total 2370 ml 1400 ml Stool Total 275 ml Laboratory Tests 09/21/20 03:15: White Blood Count 11.3H, Red Blood Count 4.09L, Hemoglobin 11.6L, Hematocrit 35.1L, Mean Corpuscular Volume 86, Mean Corpuscular Hemoglobin 28.2, Mean Corpuscular Hemoglobin Concent 32.9, Red Cell Distribution Width 13.6, Platelet Count 242, Mean Platelet Volume 5.9L, Neutrophils (%) (Auto) 76.8H, Lymphocytes (%) (Auto) 11.0L, Monocytes (%) (Auto) 5.6, Eosinophils (%) (Auto) 5.6H, Basophils (%) (Auto) 1.0, Sodium Level 135L, Potassium Level 4.6, Chloride Level 103, Carbon Dioxide Level 29, Anion Gap 3L, Blood Urea Nitrogen 1L, Creatinine 0.6, Estimat Glomerular Filtration Rate > 60, Glucose Level 97, Uric Acid 1.6L, Calcium Level 7.2L, Phosphorus Level 1.9L, Magnesium Level 2.2, Total Bilirubin 0.4, Aspartate Amino Transf (AST/SGOT) 16, Alanine Aminotransferase (ALT/SGPT) 10L, Alkaline Phosphatase 82, Total Protein 4.3L, Albumin 1.7L, Globulin 2.6, Albumin/Globulin Ratio 0.7L Height (Feet): 6 Height (Inches): 0.00 Weight (Pounds): 155 Assessment/Plan Problem List: (1) Bowel perforation ICD Codes: K63.1 - Perforation of intestine (nontraumatic) SNOMED: 80969468 (2) Sepsis ICD Codes: A41.9 - Sepsis, unspecified organism SNOMED: 80234439 (3) SBO (small bowel obstruction) ICD Codes: K56.609 - Unspecified intestinal obstruction, unspecified as to partial versus complete obstruction SNOMED: 070657944 (4) Lactic acidosis ICD Codes: E87.2 - Acidosis SNOMED: 80229461 (5) Abdominal pain ICD Codes: R10.9 - Unspecified abdominal pain SNOMED: 16945816 Status: progressing Assessment/Plan: extubated has rectal tube in getting kcl and fluids afebrile abx per id s/p exploratory lap for perforated bowel s/p cholycystectomy Vania Dwyer MD Sep 21, 2020 12:40
--- NOTE | 2020-09-21 13:04 | Infectious Diseases Prog Note ---
Assessment/Plan Assessment/Plan IMPRESSION: 1. Sepsis improving 2. Acute appendicitis with perforation. 3. Acute/ chronic cholecystitis. 4. COPD. 5. Fatty liver. 6. Preoperative respiratory failure resolved 7. Pneumonia 8. Peritonitis 9. Colitis with perforation 10. Mucous plug RECOMMENDATION: 1. Continue Meropenem 2. We will follow up the cultures. Subjective ROS Limited/Unobtainable: Yes Constitutional: Reports: no symptoms, other - feels better Gastrointestinal/Abdominal: Reports: other - on clear liquid diet Psychiatric: Reports: other - off of restraint Allergies: Coded Allergies: No Known Allergies (Unverified , 09/12/20) Objective Last 24 Hour Vital Signs Date Time Temp Pulse Resp B/P (MAP) Pulse Ox O2 Delivery O2 Flow Rate FiO2 09/21/20 11:30 89 18 120/62 (81) 98 09/21/20 11:00 92 19 123/63 (83) 98 09/21/20 10:30 88 22 129/62 (84) 97 09/21/20 10:00 99 18 128/72 (90) 95 09/21/20 09:30 128/67 (87) 95 09/21/20 09:00 109 22 151/75 (100) 95 09/21/20 08:30 106 24 124/66 (85) 95 09/21/20 08:00 88 20 116/58 (77) 97 09/21/20 07:00 92 20 114/59 (77) 96 09/21/20 06:30 95 22 124/68 (86) 96 09/21/20 06:00 98.5 91 19 115/67 (83) 96 09/21/20 05:00 96 19 122/63 (82) 94 09/21/20 04:30 96 21 118/65 (82) 96 09/21/20 04:00 95 09/21/20 04:00 Nasal Cannula 2.0 09/21/20 04:00 95 19 122/54 (76) 97 09/21/20 03:30 99 21 120/61 (80) 95 09/21/20 03:00 100 25 115/64 (81) 94 09/21/20 02:30 95 18 118/67 (84) 94 09/21/20 02:00 98 22 118/62 (80) 94 09/21/20 01:30 96 22 118/68 (85) 95 10/28/20 01:00 97 23 124/60 (81) 94 09/21/20 00:30 95 23 120/62 (81) 92 09/21/20 00:00 98.0 93 21 128/63 (84) 94 09/21/20 00:00 Nasal Cannula 2.0 09/21/20 00:00 93 09/20/20 23:30 94 20 126/61 (82) 96 09/20/20 23:00 94 20 121/59 (79) 98 09/20/20 22:30 95 14 116/70 (85) 96 09/20/20 22:00 102 20 136/71 (92) 96 09/20/20 21:30 103 20 148/58 (88) 94 09/20/20 21:00 101 19 134/70 (91) 95 09/20/20 20:30 94 21 133/63 (86) 96 09/20/20 20:00 Nasal Cannula 2.0 09/20/20 20:00 97.9 93 17 122/68 (86) 98 09/20/20 20:00 93 09/20/20 19:35 98 Nasal Cannula 2.0 28 09/20/20 19:00 91 19 115/76 (89) 99 09/20/20 18:00 85 16 114/66 (82) 97 09/20/20 17:00 84 16 121/68 (85) 97 09/20/20 16:04 89 18 113/58 (76) 96 09/20/20 16:00 82 09/20/20 16:00 Nasal Cannula 2.0 09/20/20 16:00 97.8 89 18 113/58 (76) 96 09/20/20 15:00 93 17 107/62 (77) 96 09/20/20 14:00 90 16 110/62 (78) 99 Height (Feet): 6 Height (Inches): 0.00 Weight (Pounds): 155 HEENT: mucous membranes moist, other - red conjunctiva R> L Respiratory/Chest: lungs clear, other - oxygen by nasal cannula Cardiovascular: normal rate Abdomen: other - sofr, surgical dressing Extremities: no edema Neurologic/Psychiatric: alert, responsive Laboratory Tests Test 09/21/20 03:15 White Blood Count 11.3 K/UL (4.8-10.8) H Red Blood Count 4.09 M/UL (4.70-6.10) L Hemoglobin 11.6 G/DL (14.2-18.0) L Hematocrit 35.1 % (42.0-52.0) L Mean Corpuscular Volume 86 FL (80-99) Mean Corpuscular Hemoglobin 28.2 PG (27.0-31.0) Mean Corpuscular Hemoglobin Concent 32.9 G/DL (32.0-36.0) Red Cell Distribution Width 13.6 % (11.6-14.8) Platelet Count 242 K/UL (150-450) Mean Platelet Volume 5.9 FL (6.5-10.1) L Neutrophils (%) (Auto) 76.8 % (45.0-75.0) H Lymphocytes (%) (Auto) 11.0 % (20.0-45.0) L Monocytes (%) (Auto) 5.6 % (1.0-10.0) Eosinophils (%) (Auto) 5.6 % (0.0-3.0) H Basophils (%) (Auto) 1.0 % (0.0-2.0) Sodium Level 135 MMOL/L (136-145) L Potassium Level 4.6 MMOL/L (3.5-5.1) Chloride Level 103 MMOL/L (98-107) Carbon Dioxide Level 29 MMOL/L (21-32) Anion Gap 3 mmol/L (5-15) L Blood Urea Nitrogen 1 mg/dL (7-18) L Creatinine 0.6 MG/DL (0.55-1.30) Estimat Glomerular Filtration Rate > 60 mL/min (>60) Glucose Level 97 MG/DL (74-106) Uric Acid 1.6 MG/DL (2.6-7.2) L Calcium Level 7.2 MG/DL (8.5-10.1) L Phosphorus Level 1.9 MG/DL (2.5-4.9) L Magnesium Level 2.2 MG/DL (1.8-2.4) Total Bilirubin 0.4 MG/DL (0.2-1.0) Aspartate Amino Transf (AST/SGOT) 16 U/L (15-37) Alanine Aminotransferase (ALT/SGPT) 10 U/L (12-78) L Alkaline Phosphatase 82 U/L (46-116) Total Protein 4.3 G/DL (6.4-8.2) L Albumin 1.7 G/DL (3.4-5.0) L Globulin 2.6 g/dL Albumin/Globulin Ratio 0.7 (1.0-2.7) L Current Medications Medications (Trade) Dose Ordered Sig/Jojo Route PRN Reason Start Time Stop Time Status Last Admin Dose Admin Barium Sulfate (Varibar Honey) 250 ml NOW PRN MC RAD 09/19/20 13:15 09/22/20 13:06 Barium Sulfate (Varibar [place]) 240 ml NOW PRN RAD 09/19/20 13:15 09/22/20 13:06 Barium Sulfate (Varibar Pudding) 230 ml NOW PRN RAD 09/19/20 13:15 09/22/20 13:06 Barium Sulfate (Varibar Thin Liquid powder) 148 gm NOW PRN RAD 09/19/20 13:15 09/22/20 13:06 Dextrose/ Electrolytes 1,000 ml @ 75 mls/hr [id number] IV 09/13/20 01:00 10/13/20 00:59 09/21/20 12:32 Heparin Sodium (Porcine) (Heparin 5000 units/ml) 5,000 units EVERY 8 HOURS SUBQ 09/14/20 06:00 10/29/20 05:59 09/21/20 05:13 Meropenem 1 gm/ Sodium Chloride 55 ml @ 110 mls/hr Q8HR IVPB 09/20/20 14:00 09/25/20 13:59 09/21/20 05:11 Metoclopramide HCl (Reglan) 10 mg Q6H PRN IVP Nausea & Vomiting 09/13/20 01:00 10/13/20 00:59 Nicotine (Nicoderm) 1 patch Q24H TDERMAL 09/21/20 12:00 12/20/20 11:59 09/21/20 12:31 Ondansetron HCl (Zofran) 4 mg Q6H PRN IVP Nausea & Vomiting 09/13/20 01:00 10/13/20 00:59 Pantoprazole (Protonix) 40 mg Q12HR IVP 09/13/20 21:00 10/13/20 08:59 09/21/20 10:33 Delio Edgar MD Sep 21, 2020 13:04
[2020-09-21] MEDS ORDERED: NS 275ml ONE ×2 (13:44→14:01)
[2020-09-21] MEDS ORDERED: Tubing IV Secondary IV ONE ×2 (13:44→14:01)
--- NOTE | 2020-09-21 20:58 | General Progress Note ---
Subjective Allergies: Coded Allergies: No Known Allergies (Unverified , 09/12/20) Subjective feels OK confused on regular diet Objective Last 24 Hour Vital Signs Date Time Temp Pulse Resp B/P (MAP) Pulse Ox O2 Delivery O2 Flow Rate FiO2 09/21/20 16:29 97.7 96 16 114/67 (83) 100 96 09/21/20 16:17 93 09/21/20 16:00 Nasal Cannula 2.0 09/21/20 16:00 82 09/21/20 16:00 94 18 109/62 (78) 97 09/21/20 15:30 90 18 94/58 (70) 97 09/21/20 15:00 90 22 99/61 (74) 96 09/21/20 14:30 93 19 105/58 (74) 97 09/21/20 14:00 87 19 95/53 (67) 96 09/21/20 13:30 87 19 101/53 (69) 96 09/21/20 13:00 97 22 108/63 (78) 97 09/21/20 12:30 99 21 124/65 (84) 96 09/21/20 12:00 96.9 122/63 (82) 09/21/20 12:00 95 09/21/20 12:00 Nasal Cannula 2.0 09/21/20 11:30 89 18 120/62 (81) 98 09/21/20 11:00 92 19 123/63 (83) 98 09/21/20 10:30 88 22 129/62 (84) 97 09/21/20 10:00 99 18 128/72 (90) 95 09/21/20 09:30 128/67 (87) 95 09/21/20 09:00 109 22 151/75 (100) 95 09/21/20 08:30 106 24 124/66 (85) 95 09/21/20 08:00 88 20 116/58 (77) 97 09/21/20 08:00 99 09/21/20 08:00 Nasal Cannula 2.0 09/21/20 07:00 92 20 114/59 (77) 96 09/21/20 06:30 95 22 124/68 (86) 96 09/21/20 06:00 98.5 91 19 115/67 (83) 96 09/21/20 05:00 96 19 122/63 (82) 94 09/21/20 04:30 96 21 118/65 (82) 96 09/21/20 04:00 95 09/21/20 04:00 Nasal Cannula 2.0 09/21/20 04:00 95 19 122/54 (76) 97 09/21/20 03:30 99 21 120/61 (80) 95 09/21/20 03:00 100 25 115/64 (81) 94 09/21/20 02:30 95 18 118/67 (84) 94 09/21/20 02:00 98 22 118/62 (80) 94 09/21/20 01:30 96 22 118/68 (85) 95 09/21/20 01:00 97 23 124/60 (81) 94 09/21/20 00:30 95 23 120/62 (81) 92 09/21/20 00:00 98.0 93 21 128/63 (84) 94 09/21/20 00:00 Nasal Cannula 2.0 09/21/20 00:00 93 09/20/20 23:30 94 20 126/61 (82) 96 09/20/20 23:00 94 20 121/59 (79) 98 09/20/20 22:30 95 14 116/70 (85) 96 09/20/20 22:00 102 20 136/71 (92) 96 09/20/20 21:30 103 20 148/58 (88) 94 09/20/20 21:00 101 19 134/70 (91) 95 Intake and Output 09/20/20 09/21/20 19:00 07:00 Intake Total 3305.0 ml 1245 ml Output Total 2370 ml 1675 ml Balance 935.0 ml -430 ml Intake Oral 1480 ml 420 ml IV Total 1795.0 ml 825 ml Other 30 ml Output Urine Total 2370 ml 1400 ml Stool Total 275 ml Laboratory Tests 09/21/20 03:15: White Blood Count 11.3H, Red Blood Count 4.09L, Hemoglobin 11.6L, Hematocrit 35.1L, Mean Corpuscular Volume 86, Mean Corpuscular Hemoglobin 28.2, Mean Corpuscular Hemoglobin Concent 32.9, Red Cell Distribution Width 13.6, Platelet Count 242, Mean Platelet Volume 5.9L, Neutrophils (%) (Auto) 76.8H, Lymphocytes (%) (Auto) 11.0L, Monocytes (%) (Auto) 5.6, Eosinophils (%) (Auto) 5.6H, Basophils (%) (Auto) 1.0, Sodium Level 135L, Potassium Level 4.6, Chloride Level 103, Carbon Dioxide Level 29, Anion Gap 3L, Blood Urea Nitrogen 1L, Creatinine 0.6, Estimat Glomerular Filtration Rate > 60, Glucose Level 97, Uric Acid 1.6L, Calcium Level 7.2L, Phosphorus Level 1.9L, Magnesium Level 2.2, Total Bilirubin 0.4, Aspartate Amino Transf (AST/SGOT) 16, Alanine Aminotransferase (ALT/SGPT) 10L, Alkaline Phosphatase 82, Total Protein 4.3L, Albumin 1.7L, Globulin 2.6, Albumin/Globulin Ratio 0.7L Height (Feet): 6 Height (Inches): 0.00 Weight (Pounds): 155 Objective Thin man NCAT supple CTA RR abd soft , flat no edema Assessment/Plan Status: progressing Assessment/Plan: Assessment - IC valve area SBO and cecal perforation, presumed from appendicitis - s/p ex lap and bowel resection with primary anastomosis - s/p sancho for cholecystitis - post op ileus Recommendations - post op care - push po - OOB - follow labs and exam Froilan De Paz MD Sep 21, 2020 20:58
[2020-09-22] MEDS: D5 1/2NS w/KCl 20mEq 1,000 ML IV SCH ×2 (01:39→15:07)
[2020-09-22] MEDS: Meropenem 1 GM in NS 55 ML IVPB SCH ×3 (05:06→21:01)
[2020-09-22] MEDS: Heparin 5000 units/ml inj SUBQ SCH ×3 (05:06→21:01)
[2020-09-22 08:00] VITALS: BP 139/79
[2020-09-22] MEDS: Pantoprazole Inj IVP SCH ×2 (09:34→21:01)
--- NOTE | 2020-09-22 10:29 | Pulmonology Progress Note ---
Subjective ROS Limited/Unobtainable: Yes Interval Events: Extubated on 09/14/20; CXR shows improved aeration left lung Constitutional: Reports: no symptoms, other - feels better HEENT: Repors: no symptoms Respiratory: Reports: no symptoms Cardiovascular: Reports: no symptoms Gastrointestinal/Abdominal: Reports: other - on clear liquid diet Psychiatric: Reports: other - off of restraint Allergies: Coded Allergies: No Known Allergies (Unverified , 09/12/20) Objective Last 24 Hour Vital Signs Date Time Temp Pulse Resp B/P (MAP) Pulse Ox O2 Delivery O2 Flow Rate FiO2 09/22/20 08:00 97.2 90 19 139/79 (99) 99 90 09/22/20 04:00 Nasal Cannula 2.0 09/22/20 04:00 89 09/22/20 00:00 Nasal Cannula 2.0 09/22/20 00:00 95 09/21/20 20:01 100 Nasal Cannula 2.0 28 09/21/20 20:00 Nasal Cannula 2.0 09/21/20 20:00 96 09/21/20 16:29 97.7 96 16 114/67 (83) 100 96 09/21/20 16:17 93 09/21/20 16:00 Nasal Cannula 2.0 09/21/20 16:00 82 09/21/20 16:00 94 18 109/62 (78) 97 09/21/20 15:30 90 18 94/58 (70) 97 09/21/20 15:00 90 22 99/61 (74) 96 09/21/20 14:30 93 19 105/58 (74) 97 09/21/20 14:00 87 19 95/53 (67) 96 09/21/20 13:30 87 19 101/53 (69) 96 09/21/20 13:00 97 22 108/63 (78) 97 09/21/20 12:30 99 21 124/65 (84) 96 09/21/20 12:00 96.9 122/63 (82) 09/21/20 12:00 95 09/21/20 12:00 Nasal Cannula 2.0 09/21/20 11:30 89 18 120/62 (81) 98 09/21/20 11:00 92 19 123/63 (83) 98 09/21/20 10:30 88 22 129/62 (84) 97 Intake and Output 09/21/20 09/22/20 19:00 07:00 Intake Total 1090 ml 1160 ml Output Total 405 ml 1600 ml Balance 685 ml -440 ml Intake Oral 80 ml IV Total 1010 ml 1160 ml Output Urine Total 205 ml 1500 ml Stool Total 200 ml 100 ml # Voids 1 General Appearance: no acute distress HEENT: normocephalic Respiratory: chest wall non-tender, decreased breath sounds Cardiovascular: normal peripheral pulses, normal rate Abdomen: normal bowel sounds Current Medications Medications (Trade) Dose Ordered Sig/Jojo Route PRN Reason Start Time Stop Time Status Last Admin Dose Admin Barium Sulfate (Varibar [place]) 250 ml NOW PRN RAD 09/19/20 13:15 09/22/20 13:06 Barium Sulfate (Varibar [place]) 240 ml NOW PRN RAD 09/19/20 13:15 09/22/20 13:06 Barium Sulfate (Varibar Pudding) 230 ml NOW PRN RAD 09/19/20 13:15 09/22/20 13:06 Barium Sulfate (Varibar Thin Liquid powder) 148 gm NOW PRN MC RAD 09/19/20 13:15 09/22/20 13:06 Dextrose/ Electrolytes 1,000 ml @ 75 mls/hr [id number] IV 09/13/20 01:00 10/13/20 00:59 09/22/20 01:39 Heparin Sodium (Porcine) (Heparin 5000 units/ml) 5,000 units EVERY 8 HOURS SUBQ 09/14/20 06:00 10/29/20 05:59 09/22/20 05:06 Meropenem 1 gm/ Sodium Chloride 55 ml @ 110 mls/hr Q8HR IVPB 09/20/20 14:00 09/25/20 13:59 09/22/20 05:06 Metoclopramide HCl (Reglan) 10 mg Q6H PRN IVP Nausea & Vomiting 09/13/20 01:00 10/13/20 00:59 Nicotine (Nicoderm) 1 patch Q24H TDERMAL 09/21/20 12:00 12/20/20 11:59 09/21/20 12:31 Ondansetron HCl (Zofran) 4 mg Q6H PRN IVP Nausea & Vomiting 09/13/20 01:00 10/13/20 00:59 Pantoprazole (Protonix) 40 mg Q12HR IVP 09/13/20 21:00 10/13/20 08:59 09/22/20 09:34 Assessment/Plan Assessment/Plan IMPRESSION: 1. Cecal perforation. 2. Status post right colectomy, open cholecystectomy, and abdominal washout. 3. History of COPD. 4. Schizophrenia. 5. Left lung complete atelectasis; resolved post bronchoscopy DISCUSSION: Transfer out of ICU Extubated 09/15/20 Continue broad-spectrum antibiotics. I will follow carefully. CXR shows improved aeration of left lung field Transferred out of ICU Tito Sheffield Omar Syed MD Sep 22, 2020 10:29
--- NOTE | 2020-09-22 11:54 | Nephrology Progress Note ---
Assessment/Plan Problem List: (1) Lactic acid increased (2) Electrolyte imbalance (3) SBO (small bowel obstruction) (4) Sepsis (5) Bowel perforation Assessment Lactic acidosis Bowel perforation Sepsis Plan September 22: No labs drawn today. Clinically improving. On full liquid diet now. Continue to monitor electrolytes and renal parameters. Per orders. September 21: Patient on clear liquid. Labs reviewed. Abnormalities addressed. IV sodium phosphate ordered. Continue per consultants. September 20: Discussed with JAROD Rivas. Patient due for speech therapy evaluation. Labs reviewed. Magnesium and phosphorus supplement ordered. Continue per consultants. Continue to monitor renal parameters and electrolytes. September 19: Labs reviewed. Magnesium and phosphorus supplement intravenously ordered. Discussed with RN. Continue to monitor renal parameters. Defer TPN and feeding to GI/general surgery. September 18: NG tube to suction. Output minimal. Labs reviewed. Phosphorus supplement intravenously ordered. Discussed with Dr. Leslie regarding the need for TPN. Will await for general surgery comment. Continue to monitor renal parameters and electrolytes. September 17: All noted. Discussed with RN. Labs reviewed. Patient has NG tube to suction. It appears that the patient post abdominal surgery may not be started on feeding. Suggest TPN. Deferred to GI/surgeon. September 16: Patient about to undergo bronchoscopy for white out left lung. Labs reviewed. Abnormal electrolytes and chemistries addressed. Continue per consultants. September 15: On nasal cannula, renal parameters stable. Continue per consultants. Previously: Postop care, weaning from ventilator ~failed so far Check urine analysis, noted IV fluid management Keep the electrolytes and renal parameters in check Antibiotics Per consultants Post surgery results: 1. Small bowel obstruction at the level of the ileocecal valve, secondary to unknown etiology, potential tumor mass. 2. Perforated cecum. 3. Acute cholecystitis. Subjective ROS Limited/Unobtainable: No Constitutional: Reports: malaise, weakness Objective Objective Last 24 Hour Vital Signs Date Time Temp Pulse Resp B/P (MAP) Pulse Ox O2 Delivery O2 Flow Rate FiO2 09/22/20 08:00 82 09/22/20 08:00 97.2 90 19 139/79 (99) 99 90 09/22/20 08:00 Nasal Cannula 2.0 09/22/20 04:00 Nasal Cannula 2.0 09/22/20 04:00 89 09/22/20 00:00 Nasal Cannula 2.0 09/22/20 00:00 95 09/21/20 20:01 100 Nasal Cannula 2.0 28 09/21/20 20:00 Nasal Cannula 2.0 09/21/20 20:00 96 09/21/20 16:29 97.7 96 16 114/67 (83) 100 96 09/21/20 16:17 93 09/21/20 16:00 Nasal Cannula 2.0 09/21/20 16:00 82 09/21/20 16:00 94 18 109/62 (78) 97 09/21/20 15:30 90 18 94/58 (70) 97 09/21/20 15:00 90 22 99/61 (74) 96 09/21/20 14:30 93 19 105/58 (74) 97 09/21/20 14:00 87 19 95/53 (67) 96 09/21/20 13:30 87 19 101/53 (69) 96 09/21/20 13:00 97 22 108/63 (78) 97 09/21/20 12:30 99 21 124/65 (84) 96 09/21/20 12:00 96.9 122/63 (82) 09/21/20 12:00 95 09/21/20 12:00 Nasal Cannula 2.0 Intake and Output 09/21/20 09/22/20 19:00 07:00 Intake Total 1090 ml 1160 ml Output Total 405 ml 1600 ml Balance 685 ml -440 ml Intake Oral 80 ml IV Total 1010 ml 1160 ml Output Urine Total 205 ml 1500 ml Stool Total 200 ml 100 ml # Voids 1 No labs drawn today Height (Feet): 6 Height (Inches): 0.00 Weight (Pounds): 155 General Appearance: no apparent distress Cardiovascular: tachycardia Respiratory/Chest: decreased breath sounds Abdomen: distended Price Heart MD Sep 22, 2020 11:54
[2020-09-22 12:00] VITALS: BP 133/70
--- NOTE | 2020-09-22 12:32 | Infectious Diseases Prog Note ---
Assessment/Plan Assessment/Plan IMPRESSION: 1. Sepsis improving 2. Acute appendicitis with perforation. 3. Acute/ chronic cholecystitis. 4. COPD. 5. Fatty liver. 6. Preoperative respiratory failure resolved 7. Pneumonia 8. Peritonitis 9. Colitis with perforation 10. Mucous plug RECOMMENDATION: 1. Continue Meropenem 2. We will follow up the cultures. Subjective ROS Limited/Unobtainable: Yes Constitutional: Reports: other - transferred from ICU to [facility]; Denies: fever Allergies: Coded Allergies: No Known Allergies (Unverified , 09/12/20) Objective Last 24 Hour Vital Signs Date Time Temp Pulse Resp B/P (MAP) Pulse Ox O2 Delivery O2 Flow Rate FiO2 09/22/20 08:00 82 09/22/20 08:00 97.2 90 19 139/79 (99) 99 90 09/22/20 08:00 Nasal Cannula 2.0 09/22/20 04:00 Nasal Cannula 2.0 09/22/20 04:00 89 09/22/20 00:00 Nasal Cannula 2.0 09/22/20 00:00 95 09/21/20 20:01 100 Nasal Cannula 2.0 28 09/21/20 20:00 Nasal Cannula 2.0 09/21/20 20:00 96 09/21/20 16:29 97.7 96 16 114/67 (83) 100 96 09/21/20 16:17 93 09/21/20 16:00 Nasal Cannula 2.0 09/21/20 16:00 82 09/21/20 16:00 94 18 109/62 (78) 97 09/21/20 15:30 90 18 94/58 (70) 97 09/21/20 15:00 90 22 99/61 (74) 96 09/21/20 14:30 93 19 105/58 (74) 97 09/21/20 14:00 87 19 95/53 (67) 96 09/21/20 13:30 87 19 101/53 (69) 96 09/21/20 13:00 97 22 108/63 (78) 97 Height (Feet): 6 Height (Inches): 0.00 Weight (Pounds): 155 General Appearance: no acute distress HEENT: mucous membranes moist Respiratory/Chest: lungs clear, other - oxygen by nasal cannula Cardiovascular: normal rate Abdomen: other - soft Extremities: no edema Neurologic/Psychiatric: other - sleeping Current Medications Medications (Trade) Dose Ordered Sig/Jojo Route PRN Reason Start Time Stop Time Status Last Admin Dose Admin Barium Sulfate (Varibar Honey) 250 ml NOW PRN MC RAD 09/19/20 13:15 09/22/20 13:06 Barium Sulfate (Varibar [place]) 240 ml NOW PRN MC RAD 09/19/20 13:15 09/22/20 13:06 Barium Sulfate (Varibar Pudding) 230 ml NOW PRN MC RAD 09/19/20 13:15 09/22/20 13:06 Barium Sulfate (Varibar Thin Liquid powder) 148 gm NOW PRN MC RAD 09/19/20 13:15 09/22/20 13:06 Dextrose/ Electrolytes 1,000 ml @ 75 mls/hr [id number] IV 09/13/20 01:00 10/13/20 00:59 09/22/20 01:39 Heparin Sodium (Porcine) (Heparin 5000 units/ml) 5,000 units EVERY 8 HOURS SUBQ 09/14/20 06:00 10/29/20 05:59 09/22/20 05:06 Meropenem 1 gm/ Sodium Chloride 55 ml @ 110 mls/hr Q8HR IVPB 09/20/20 14:00 09/25/20 13:59 09/22/20 05:06 Metoclopramide HCl (Reglan) 10 mg Q6H PRN IVP Nausea & Vomiting 09/13/20 01:00 10/13/20 00:59 Nicotine (Nicoderm) 1 patch Q24H TDERMAL 09/21/20 12:00 12/20/20 11:59 09/21/20 12:31 Ondansetron HCl (Zofran) 4 mg Q6H PRN IVP Nausea & Vomiting 09/13/20 01:00 10/13/20 00:59 Pantoprazole (Protonix) 40 mg Q12HR IVP 09/13/20 21:00 10/13/20 08:59 09/22/20 09:34 Delio Edgar MD Sep 22, 2020 12:32
--- NOTE | 2020-09-22 14:53 | Cardiac Electrophysiology PN ---
Assessment/Plan Assessment/Plan 1. Sinus tachycardia due to sepsis/respiratory failure and post op in intensive care unit EF 55%. Troponins negative 2. S/P Respiratory failure. Extubated but CXR showed Left white out. S/P bronchoscopy by Dr. Lambert 09/16/20 that showed mucus plug History of COPD 3. Acute abdomen, status post surgery by Dr. Morrow including cholecystectomy as well as right colectomy and small bowel resection. ( Pathology showed perforated appendicitis) Currently on IV antibiotics. NGT removed and now has clear liquid diet 4. BNP 1800. Nl EF 55%. No clinical CHF DW RN Subjective Subjective Had bedside bronchoscopy 09/16/20 for Left lung white out by Dr. Lambert. Alert and oriented. Transferred out of ICU and off restraints Objective Last 24 Hour Vital Signs Date Time Temp Pulse Resp B/P (MAP) Pulse Ox O2 Delivery O2 Flow Rate FiO2 09/22/20 12:00 97.9 96 20 133/70 (91) 99 96 09/22/20 08:00 82 09/22/20 08:00 99 09/22/20 08:00 97.2 90 19 139/79 (99) 99 90 09/22/20 08:00 Nasal Cannula 2.0 09/22/20 04:00 Nasal Cannula 2.0 09/22/20 04:00 89 09/22/20 00:00 Nasal Cannula 2.0 09/22/20 00:00 95 09/21/20 20:01 100 Nasal Cannula 2.0 28 09/21/20 20:00 Nasal Cannula 2.0 09/21/20 20:00 96 09/21/20 16:29 97.7 96 16 114/67 (83) 100 96 09/21/20 16:17 93 09/21/20 16:00 Nasal Cannula 2.0 09/21/20 16:00 82 09/21/20 16:00 94 18 109/62 (78) 97 09/21/20 15:30 90 18 94/58 (70) 97 09/21/20 15:00 90 22 99/61 (74) 96 Intake and Output 09/21/20 09/22/20 19:00 07:00 Intake Total 1090 ml 1160 ml Output Total 405 ml 1600 ml Balance 685 ml -440 ml Intake Oral 80 ml IV Total 1010 ml 1160 ml Output Urine Total 205 ml 1500 ml Stool Total 200 ml 100 ml # Voids 1 Objective HEAD AND NECK: No JVD. LUNGS: Coarse rhonchi CARDIOVASCULAR: Shows regular S1 and S2 with no gallop. ABDOMEN: Tender and is status post laparotomy. EXTREMITIES: No pitting edema. Jason Li MD Sep 22, 2020 14:53
[2020-09-22 16:00] VITALS: BP 116/62
--- NOTE | 2020-09-22 17:17 | General Progress Note ---
Subjective ROS Limited/Unobtainable: Yes Allergies: Coded Allergies: No Known Allergies (Unverified , 09/12/20) Objective Last 24 Hour Vital Signs Date Time Temp Pulse Resp B/P (MAP) Pulse Ox O2 Delivery O2 Flow Rate FiO2 09/22/20 16:00 Nasal Cannula 2.0 09/22/20 16:00 98.4 91 19 116/62 (80) 97 91 09/22/20 12:00 97.9 96 20 133/70 (91) 99 96 09/22/20 12:00 Nasal Cannula 2.0 09/22/20 08:00 82 09/22/20 08:00 99 09/22/20 08:00 97.2 90 19 139/79 (99) 99 90 09/22/20 08:00 Nasal Cannula 2.0 09/22/20 04:00 Nasal Cannula 2.0 09/22/20 04:00 89 09/22/20 00:00 Nasal Cannula 2.0 09/22/20 00:00 95 09/21/20 20:01 100 Nasal Cannula 2.0 28 09/21/20 20:00 Nasal Cannula 2.0 09/21/20 20:00 96 Intake and Output 09/21/20 09/22/20 19:00 07:00 Intake Total 1090 ml 1160 ml Output Total 405 ml 1600 ml Balance 685 ml -440 ml Intake Oral 80 ml IV Total 1010 ml 1160 ml Output Urine Total 205 ml 1500 ml Stool Total 200 ml 100 ml # Voids 1 Height (Feet): 6 Height (Inches): 0.00 Weight (Pounds): 155 Assessment/Plan Problem List: (1) Bowel perforation ICD Codes: K63.1 - Perforation of intestine (nontraumatic) SNOMED: 00681250 (2) Sepsis ICD Codes: A41.9 - Sepsis, unspecified organism SNOMED: 01575313 (3) SBO (small bowel obstruction) ICD Codes: K56.609 - Unspecified intestinal obstruction, unspecified as to partial versus complete obstruction SNOMED: 413302937 (4) Lactic acidosis ICD Codes: E87.2 - Acidosis SNOMED: 06226850 (5) Abdominal pain ICD Codes: R10.9 - Unspecified abdominal pain SNOMED: 33554907 Status: progressing Assessment/Plan: weak still has loose stool check lytes reviewed chart and labs s/p exploratory lap for perforated bowel s/p cholycystectomy Vania Dwyer MD Sep 22, 2020 17:17
[2020-09-22 20:00] VITALS: BP 114/68
--- NOTE | 2020-09-22 21:42 | General Progress Note ---
Subjective Allergies: Coded Allergies: No Known Allergies (Unverified , 09/12/20) Subjective feels OK confused on regular diet Objective Last 24 Hour Vital Signs Date Time Temp Pulse Resp B/P (MAP) Pulse Ox O2 Delivery O2 Flow Rate FiO2 09/22/20 20:00 95 09/22/20 20:00 Nasal Cannula 2.0 09/22/20 20:00 98.2 94 18 114/68 (83) 99 09/22/20 16:00 97 09/22/20 16:00 Nasal Cannula 2.0 09/22/20 16:00 98.4 91 19 116/62 (80) 97 91 09/22/20 12:00 97.9 96 20 133/70 (91) 99 96 09/22/20 12:00 Nasal Cannula 2.0 09/22/20 08:00 82 09/22/20 08:00 99 09/22/20 08:00 97.2 90 19 139/79 (99) 99 90 09/22/20 08:00 Nasal Cannula 2.0 09/22/20 04:00 Nasal Cannula 2.0 09/22/20 04:00 89 09/22/20 00:00 Nasal Cannula 2.0 09/22/20 00:00 95 Intake and Output 09/21/20 09/22/20 19:00 07:00 Intake Total 1090 ml 1235 ml Output Total 405 ml 1600 ml Balance 685 ml -365 ml Intake Oral 80 ml IV Total 1010 ml 1235 ml Output Urine Total 205 ml 1500 ml Stool Total 200 ml 100 ml # Voids 1 Height (Feet): 6 Height (Inches): 0.00 Weight (Pounds): 155 Objective Thin man NCAT supple CTA RR abd soft , flat no edema Assessment/Plan Status: progressing Assessment/Plan: Assessment - IC valve area SBO and cecal perforation, presumed from appendicitis - s/p ex lap and bowel resection with primary anastomosis - s/p sancho for cholecystitis - post op ileus Recommendations - post op care - push po - OOB - follow labs and exam Froilan De Paz MD Sep 22, 2020 21:41
[2020-09-23] VITALS: BP 124/79
[2020-09-23] MEDS: D5 1/2NS w/KCl 20mEq 1,000 ML IV SCH (03:16)
[2020-09-23 04:00] VITALS: BP 111/65
[2020-09-23] MEDS: Meropenem 1 GM in NS 55 ML IVPB SCH ×3 (05:10→21:15)
[2020-09-23] MEDS: Heparin 5000 units/ml inj SUBQ SCH ×3 (05:10→21:16)
--- NOTE | 2020-09-23 06:58 | Pulmonology Progress Note ---
Subjective ROS Limited/Unobtainable: Yes Interval Events: Extubated on 09/14/20; CXR shows improved aeration left lung Constitutional: Reports: other - transferred from ICU to [facility]; Denies: fever HEENT: Repors: no symptoms Respiratory: Reports: no symptoms Cardiovascular: Reports: no symptoms Gastrointestinal/Abdominal: Reports: other - on clear liquid diet Psychiatric: Reports: other - off of restraint Allergies: Coded Allergies: No Known Allergies (Unverified , 09/12/20) Objective Last 24 Hour Vital Signs Date Time Temp Pulse Resp B/P (MAP) Pulse Ox O2 Delivery O2 Flow Rate FiO2 09/23/20 04:00 Nasal Cannula 2.0 09/23/20 04:00 97.9 91 20 111/65 (80) 98 09/23/20 03:31 83 09/23/20 00:00 98.1 96 20 124/79 (94) 99 09/23/20 00:00 Nasal Cannula 2.0 09/22/20 23:57 92 09/22/20 20:00 95 09/22/20 20:00 Nasal Cannula 2.0 09/22/20 20:00 98.2 94 18 114/68 (83) 99 09/22/20 20:00 99 Nasal Cannula 2.0 28 09/22/20 16:00 97 09/22/20 16:00 Nasal Cannula 2.0 09/22/20 16:00 98.4 91 19 116/62 (80) 97 91 09/22/20 12:00 97.9 96 20 133/70 (91) 99 96 09/22/20 12:00 Nasal Cannula 2.0 09/22/20 08:00 82 09/22/20 08:00 99 09/22/20 08:00 97.2 90 19 139/79 (99) 99 90 09/22/20 08:00 Nasal Cannula 2.0 Intake and Output 09/22/20 09/23/20 19:00 07:00 Intake Total 880 ml 916 ml Output Total 1500 ml 650 ml Balance -620 ml 266 ml IV Total 880 ml 916 ml Output Urine Total 1400 ml 600 ml Stool Total 100 ml 50 ml # Voids 1 General Appearance: no acute distress HEENT: normocephalic Respiratory: chest wall non-tender, decreased breath sounds Cardiovascular: normal peripheral pulses, normal rate Abdomen: normal bowel sounds Current Medications Medications (Trade) Dose Ordered Sig/Jojo Route PRN Reason Start Time Stop Time Status Last Admin Dose Admin Dextrose/ Electrolytes 1,000 ml @ 75 mls/hr [id number] IV 09/13/20 01:00 10/13/20 00:59 09/23/20 03:16 Heparin Sodium (Porcine) (Heparin 5000 units/ml) 5,000 units EVERY 8 HOURS SUBQ 09/14/20 06:00 10/29/20 05:59 09/23/20 05:10 Meropenem 1 gm/ Sodium Chloride 55 ml @ 110 mls/hr Q8HR IVPB 09/20/20 14:00 09/25/20 13:59 09/23/20 05:10 Metoclopramide HCl (Reglan) 10 mg Q6H PRN IVP Nausea & Vomiting 09/13/20 01:00 10/13/20 00:59 Nicotine (Nicoderm) 1 patch Q24H TDERMAL 09/21/20 12:00 12/20/20 11:59 09/22/20 15:07 Ondansetron HCl (Zofran) 4 mg Q6H PRN IVP Nausea & Vomiting 09/13/20 01:00 10/13/20 00:59 Pantoprazole (Protonix) 40 mg Q12HR IVP 09/13/20 21:00 10/13/20 08:59 09/22/20 21:01 Assessment/Plan Assessment/Plan IMPRESSION: 1. Cecal perforation. 2. Status post right colectomy, open cholecystectomy, and abdominal washout. 3. History of COPD. 4. Schizophrenia. 5. Left lung complete atelectasis; resolved post bronchoscopy DISCUSSION: Transferred out of ICU Extubated 09/15/20 Continue broad-spectrum antibiotics. I will follow carefully. CXR shows improved aeration of left lung field Saturating well on nasal o2 Tito Sheffield Omar Syed MD Sep 23, 2020 06:58
[2020-09-23 07:53] VITALS: BP 108/58
[2020-09-23] MEDS: Pantoprazole Inj IVP SCH (08:03)
[2020-09-23 09:24] LABS: ANION GAP 1 mmol/L (5-15); BLOOD UREA NITROGEN 2 mg/dL (7-18); CALCIUM 8.1 MG/DL (8.5-10.1); CARBON DIOXIDE 34 MMOL/L (21-32); CHLORIDE 101 MMOL/L (98-107); CREATININE 0.8 MG/DL (0.55-1.30); POTASSIUM 5.3 MMOL/L (3.5-5.1); SODIUM 136 MMOL/L (136-145)
[2020-09-23 09:29] LABS: ALANINE AMINOTRANSFERASE 12 U/L (12-78); ALBUMIN 2.1 G/DL (3.4-5.0); ALBUMIN/GLOBULIN RATIO 0.8 (1.0-2.7); ALKALINE PHOSPHATASE 88 U/L (46-116); ASPARTATE AMINO TRANSFERASE 20 U/L (15-37); BILIRUBIN,TOTAL 0.3 MG/DL (0.2-1.0); PHOSPHORUS 2.3 MG/DL (2.5-4.9)
--- NOTE | 2020-09-23 10:17 | General Progress Note ---
Subjective Constitutional: Reports: weakness Allergies: Coded Allergies: No Known Allergies (Unverified , 09/12/20) All Systems: reviewed and negative except above Subjective o2nc sleepy Objective Last 24 Hour Vital Signs Date Time Temp Pulse Resp B/P (MAP) Pulse Ox O2 Delivery O2 Flow Rate FiO2 09/23/20 08:00 88 09/23/20 08:00 Nasal Cannula 2.0 09/23/20 07:53 97.5 90 20 108/58 (75) 97 09/23/20 04:00 Nasal Cannula 2.0 09/23/20 04:00 97.9 91 20 111/65 (80) 98 09/23/20 03:31 83 09/23/20 00:00 98.1 96 20 124/79 (94) 99 09/23/20 00:00 Nasal Cannula 2.0 09/22/20 23:57 92 09/22/20 20:00 95 09/22/20 20:00 Nasal Cannula 2.0 09/22/20 20:00 98.2 94 18 114/68 (83) 99 09/22/20 20:00 99 Nasal Cannula 2.0 28 09/22/20 16:00 97 09/22/20 16:00 Nasal Cannula 2.0 09/22/20 16:00 98.4 91 19 116/62 (80) 97 91 09/22/20 12:00 97.9 96 20 133/70 (91) 99 96 09/22/20 12:00 Nasal Cannula 2.0 Intake and Output 09/22/20 09/23/20 19:00 07:00 Intake Total 880 ml 1101 ml Output Total 1500 ml 650 ml Balance -620 ml 451 ml IV Total 880 ml 1101 ml Output Urine Total 1400 ml 600 ml Stool Total 100 ml 50 ml # Voids 1 Laboratory Tests 09/23/20 08:47: Sodium Level 136, Potassium Level 5.3H, Chloride Level 101, Carbon Dioxide Level 34H, Anion Gap 1L, Blood Urea Nitrogen 2L, Creatinine 0.8, Estimat Glomerular Filtration Rate > 60, Glucose Level 114H, Calcium Level 8.1L, Phosphorus Level 2.3L, Magnesium Level 1.9, Total Bilirubin 0.3, Aspartate Amino Transf (AST/SGOT) 20, Alanine Aminotransferase (ALT/SGPT) 12, Alkaline Phosphatase 88, Total Protein 4.8L, Albumin 2.1L, Globulin 2.7, Albumin/Globulin Ratio 0.8L Height (Feet): 6 Height (Inches): 0.00 Weight (Pounds): 155 General Appearance: lethargic EENT: normal ENT inspection Neck: normal alignment Cardiovascular: normal peripheral pulses, normal rate, regular rhythm Respiratory/Chest: chest wall non-tender, lungs clear, normal breath sounds Abdomen: normal bowel sounds, non tender, soft Extremities: normal inspection Edema: no edema noted Arm (L), no edema noted Arm (R), no edema noted Leg (L), no edema noted Leg (R), no edema noted Pedal (L), no edema noted Pedal (R), no edema noted Generalized Neurologic: motor weakness Skin: normal pigmentation, warm/dry Assessment/Plan Problem List: (1) Lactic acid increased ICD Codes: E87.2 - Acidosis SNOMED: 85198642 (2) Electrolyte imbalance ICD Codes: E87.8 - Other disorders of electrolyte and fluid balance, not elsewhere classified SNOMED: 576855468 (3) Bowel perforation ICD Codes: K63.1 - Perforation of intestine (nontraumatic) SNOMED: 61852069 (4) Sepsis ICD Codes: A41.9 - Sepsis, unspecified organism SNOMED: 31991579 (5) SBO (small bowel obstruction) ICD Codes: K56.609 - Unspecified intestinal obstruction, unspecified as to partial versus complete obstruction SNOMED: 941386695 (6) Lactic acidosis ICD Codes: E87.2 - Acidosis SNOMED: 64697643 (7) Abdominal pain ICD Codes: R10.9 - Unspecified abdominal pain SNOMED: 49193571 Status: unchanged Assessment/Plan: abx gi sx f/u pain control cbc bmp am Jarad Rodriguez DO Sep 23, 2020 10:17
--- NOTE | 2020-09-23 11:25 | Nephrology Progress Note ---
Assessment/Plan Problem List: (1) Lactic acid increased (2) Electrolyte imbalance (3) SBO (small bowel obstruction) (4) Sepsis (5) Bowel perforation Assessment Lactic acidosis Bowel perforation Sepsis Plan September 23: Labs reviewed. Potassium 5.3. IV fluid contains potassium. IV fluid changed. Continue per consultants. September 22: No labs drawn today. Clinically improving. On full liquid diet now. Continue to monitor electrolytes and renal parameters. Per orders. September 21: Patient on clear liquid. Labs reviewed. Abnormalities addressed. IV sodium phosphate ordered. Continue per consultants. September 20: Discussed with JAROD Rivas. Patient due for speech therapy evaluation. Labs reviewed. Magnesium and phosphorus supplement ordered. Continue per consultants. Continue to monitor renal parameters and electrolytes. September 19: Labs reviewed. Magnesium and phosphorus supplement intravenously ordered. Discussed with RN. Continue to monitor renal parameters. Defer TPN and feeding to GI/general surgery. September 18: NG tube to suction. Output minimal. Labs reviewed. Phosphorus supplement intravenously ordered. Discussed with Dr. Leslie regarding the need for TPN. Will await for general surgery comment. Continue to monitor renal parameters and electrolytes. September 17: All noted. Discussed with RN. Labs reviewed. Patient has NG tube to suction. It appears that the patient post abdominal surgery may not be sta rted on feeding. Suggest TPN. Deferred to GI/surgeon. September 16: Patient about to undergo bronchoscopy for white out left lung. Labs reviewed. Abnormal electrolytes and chemistries addressed. Continue per consultants. September 15: On nasal cannula, renal parameters stable. Continue per consultants. Previously: Postop care, weaning from ventilator ~failed so far Check urine analysis, noted IV fluid management Keep the electrolytes and renal parameters in check Antibiotics Per consultants Post surgery results: 1. Small bowel obstruction at the level of the ileocecal valve, secondary to unknown etiology, potential tumor mass. 2. Perforated cecum. 3. Acute cholecystitis. Subjective ROS Limited/Unobtainable: No Constitutional: Reports: malaise, weakness Objective Objective Last 24 Hour Vital Signs Date Time Temp Pulse Resp B/P (MAP) Pulse Ox O2 Delivery O2 Flow Rate FiO2 09/23/20 08:00 88 09/23/20 08:00 Nasal Cannula 2.0 09/23/20 07:53 97.5 90 20 108/58 (75) 97 09/23/20 04:00 Nasal Cannula 2.0 09/23/20 04:00 97.9 91 20 111/65 (80) 98 09/23/20 03:31 83 09/23/20 00:00 98.1 96 20 124/79 (94) 99 09/23/20 00:00 Nasal Cannula 2.0 09/22/20 23:57 92 09/22/20 20:00 95 09/22/20 20:00 Nasal Cannula 2.0 09/22/20 20:00 98.2 94 18 114/68 (83) 99 09/22/20 20:00 99 Nasal Cannula 2.0 28 09/22/20 16:00 97 09/22/20 16:00 Nasal Cannula 2.0 09/22/20 16:00 98.4 91 19 116/62 (80) 97 91 09/22/20 12:00 97.9 96 20 133/70 (91) 99 96 09/22/20 12:00 Nasal Cannula 2.0 Intake and Output 09/22/20 09/23/20 19:00 07:00 Intake Total 880 ml 1101 ml Output Total 1500 ml 650 ml Balance -620 ml 451 ml IV Total 880 ml 1101 ml Output Urine Total 1400 ml 600 ml Stool Total 100 ml 50 ml # Voids 1 Current Medications Medications (Trade) Dose Ordered Sig/Jojo Route PRN Reason Start Time Stop Time Status Last Admin Dose Admin Cholestyramine Resin (Questran) 4 gm TIWM ORAL 09/23/20 12:00 10/23/20 11:59 Dextrose/Sodium Chloride 1,000 ml @ 50 mls/hr Q20H IV 09/23/20 11:30 10/23/20 11:29 UNV Heparin Sodium (Porcine) (Heparin 5000 units/ml) 5,000 units EVERY 8 HOURS SUBQ 09/14/20 06:00 10/29/20 05:59 09/23/20 05:10 Meropenem 1 gm/ Sodium Chloride 55 ml @ 110 mls/hr Q8HR IVPB 09/20/20 14:00 09/25/20 13:59 09/23/20 05:10 Metoclopramide HCl (Reglan) 10 mg Q6H PRN IVP Nausea & Vomiting 09/13/20 01:00 10/13/20 00:59 Nicotine (Nicoderm) 1 patch Q24H TDERMAL 09/21/20 12:00 12/20/20 11:59 09/22/20 15:07 Ondansetron HCl (Zofran) 4 mg Q6H PRN IVP Nausea & Vomiting 09/13/20 01:00 10/13/20 00:59 Pantoprazole (Protonix) 40 mg Q12HR IVP 09/13/20 21:00 10/13/20 08:59 09/23/20 08:03 Laboratory Tests 09/23/20 08:47: Sodium Level 136, Potassium Level 5.3H, Chloride Level 101, Carbon Dioxide Level 34H, Anion Gap 1L, Blood Urea Nitrogen 2L, Creatinine 0.8, Estimat Glomerular Filtration Rate > 60, Glucose Level 114H, Calcium Level 8.1L, Phosphorus Level 2.3L, Magnesium Level 1.9, Total Bilirubin 0.3, Aspartate Amino Transf (AST/SGOT) 20, Alanine Aminotransferase (ALT/SGPT) 12, Alkaline Phosphatase 88, Total Protein 4.8L, Albumin 2.1L, Globulin 2.7, Albumin/Globulin Ratio 0.8L Height (Feet): 6 Height (Inches): 0.00 Weight (Pounds): 155 General Appearance: no apparent distress Cardiovascular: tachycardia Respiratory/Chest: decreased breath sounds Abdomen: distended Price Heart MD Sep 23, 2020 11:25
[2020-09-23] MEDS: D5NS 1,000 ML IV SCH (11:52)
[2020-09-23 12:00] VITALS: BP 109/63
[2020-09-23] MEDS: Cholestyramine 4gm Pkt ORAL SCH ×2 (12:00→16:56)
--- NOTE | 2020-09-23 12:14 | Cardiac Electrophysiology PN ---
Assessment/Plan Assessment/Plan 1. Sinus tachycardia due to sepsis/respiratory failure and post op in intensive care unit EF 55%. Troponins negative 2. COPD, S/P Respiratory failure. Extubated but CXR showed Left white out. S/P bronchoscopy by Dr. Lambert 09/16/20 that showed mucus plug 3. Acute abdomen, status post surgery by Dr. Morrow including cholecystectomy as well as right colectomy and small bowel resection. ( Pathology showed perforated appendicitis) Currently on IV antibiotics. NGT removed and has clear liquid diet 4. BNP 1800. Nl EF 55%. No clinical CHF DW RN Subjective Subjective Had bedside bronchoscopy 09/16/20 for Left lung white out by Dr. Lambert. Alert and oriented. Transferred out of ICU and off restraints On Clear liquid diet but not eating much Objective Last 24 Hour Vital Signs Date Time Temp Pulse Resp B/P (MAP) Pulse Ox O2 Delivery O2 Flow Rate FiO2 09/23/20 08:00 88 09/23/20 08:00 Nasal Cannula 2.0 09/23/20 07:53 97.5 90 20 108/58 (75) 97 09/23/20 04:00 Nasal Cannula 2.0 09/23/20 04:00 97.9 91 20 111/65 (80) 98 09/23/20 03:31 83 09/23/20 00:00 98.1 96 20 124/79 (94) 99 09/23/20 00:00 Nasal Cannula 2.0 09/22/20 23:57 92 09/22/20 20:00 95 09/22/20 20:00 Nasal Cannula 2.0 09/22/20 20:00 98.2 94 18 114/68 (83) 99 09/22/20 20:00 99 Nasal Cannula 2.0 28 09/22/20 16:00 97 09/22/20 16:00 Nasal Cannula 2.0 09/22/20 16:00 98.4 91 19 116/62 (80) 97 91 Intake and Output 09/22/20 09/23/20 19:00 07:00 Intake Total 880 ml 1101 ml Output Total 1500 ml 650 ml Balance -620 ml 451 ml IV Total 880 ml 1101 ml Output Urine Total 1400 ml 600 ml Stool Total 100 ml 50 ml # Voids 1 Laboratory Tests Test 09/23/20 08:47 Sodium Level 136 MMOL/L (136-145) Potassium Level 5.3 MMOL/L (3.5-5.1) H Chloride Level 101 MMOL/L (98-107) Carbon Dioxide Level 34 MMOL/L (21-32) H Anion Gap 1 mmol/L (5-15) L Blood Urea Nitrogen 2 mg/dL (7-18) L Creatinine 0.8 MG/DL (0.55-1.30) Estimat Glomerular Filtration Rate > 60 mL/min (>60) Glucose Level 114 MG/DL (74-106) H Calcium Level 8.1 MG/DL (8.5-10.1) L Phosphorus Level 2.3 MG/DL (2.5-4.9) L Magnesium Level 1.9 MG/DL (1.8-2.4) Total Bilirubin 0.3 MG/DL (0.2-1.0) Aspartate Amino Transf (AST/SGOT) 20 U/L (15-37) Alanine Aminotransferase (ALT/SGPT) 12 U/L (12-78) Alkaline Phosphatase 88 U/L (46-116) Total Protein 4.8 G/DL (6.4-8.2) L Albumin 2.1 G/DL (3.4-5.0) L Globulin 2.7 g/dL Albumin/Globulin Ratio 0.8 (1.0-2.7) L Objective HEAD AND NECK: No JVD. LUNGS: Coarse rhonchi CARDIOVASCULAR: Shows regular S1 and S2 with no gallop. ABDOMEN: Tender and is status post laparotomy. EXTREMITIES: No pitting edema. Jason Li MD Sep 23, 2020 12:14
--- NOTE | 2020-09-23 13:01 | Infectious Diseases Prog Note ---
Assessment/Plan Assessment/Plan IMPRESSION: 1. Sepsis improving 2. Acute appendicitis with perforation. 3. Acute/ chronic cholecystitis. 4. COPD. 5. Fatty liver. 6. Preoperative respiratory failure resolved 7. Pneumonia 8. Peritonitis 9. Colitis with perforation 10. Mucous plug RECOMMENDATION: 1. Continue Meropenem X 2 days 2. We will follow up the cultures. Subjective ROS Limited/Unobtainable: Yes Constitutional: Denies: fever Respiratory: Reports: productive cough Gastrointestinal/Abdominal: Reports: no symptoms Genitourinary: Reports: no symptoms Allergies: Coded Allergies: No Known Allergies (Unverified , 09/12/20) Objective Last 24 Hour Vital Signs Date Time Temp Pulse Resp B/P (MAP) Pulse Ox O2 Delivery O2 Flow Rate FiO2 09/23/20 12:00 Nasal Cannula 2.0 09/23/20 08:00 88 09/23/20 08:00 Nasal Cannula 2.0 09/23/20 07:53 97.5 90 20 108/58 (75) 97 09/23/20 04:00 Nasal Cannula 2.0 09/23/20 04:00 97.9 91 20 111/65 (80) 98 09/23/20 03:31 83 09/23/20 00:00 98.1 96 20 124/79 (94) 99 09/23/20 00:00 Nasal Cannula 2.0 09/22/20 23:57 92 09/22/20 20:00 95 09/22/20 20:00 Nasal Cannula 2.0 09/22/20 20:00 98.2 94 18 114/68 (83) 99 09/22/20 20:00 99 Nasal Cannula 2.0 28 09/22/20 16:00 97 09/22/20 16:00 Nasal Cannula 2.0 09/22/20 16:00 98.4 91 19 116/62 (80) 97 91 Height (Feet): 6 Height (Inches): 0.00 Weight (Pounds): 155 General Appearance: no acute distress HEENT: mucous membranes moist Respiratory/Chest: lungs clear, other - oxygen by nasal cannula Cardiovascular: normal rate Abdomen: soft, non tender, other - rectal tube Extremities: no edema Neurologic/Psychiatric: alert, responsive Musculoskeletal: atrophy Laboratory Tests Test 09/23/20 08:47 Sodium Level 136 MMOL/L (136-145) Potassium Level 5.3 MMOL/L (3.5-5.1) H Chloride Level 101 MMOL/L (98-107) Carbon Dioxide Level 34 MMOL/L (21-32) H Anion Gap 1 mmol/L (5-15) L Blood Urea Nitrogen 2 mg/dL (7-18) L Creatinine 0.8 MG/DL (0.55-1.30) Estimat Glomerular Filtration Rate > 60 mL/min (>60) Glucose Level 114 MG/DL (74-106) H Calcium Level 8.1 MG/DL (8.5-10.1) L Phosphorus Level 2.3 MG/DL (2.5-4.9) L Magnesium Level 1.9 MG/DL (1.8-2.4) Total Bilirubin 0.3 MG/DL (0.2-1.0) Aspartate Amino Transf (AST/SGOT) 20 U/L (15-37) Alanine Aminotransferase (ALT/SGPT) 12 U/L (12-78) Alkaline Phosphatase 88 U/L (46-116) Total Protein 4.8 G/DL (6.4-8.2) L Albumin 2.1 G/DL (3.4-5.0) L Globulin 2.7 g/dL Albumin/Globulin Ratio 0.8 (1.0-2.7) L Current Medications Medications (Trade) Dose Ordered Sig/Jojo Route PRN Reason Start Time Stop Time Status Last Admin Dose Admin Cholestyramine Resin (Questran) 4 gm TIWM ORAL 09/23/20 12:00 10/23/20 11:59 Dextrose/Sodium Chloride 1,000 ml @ 50 mls/hr Q20H IV 09/23/20 11:28 10/23/20 11:27 09/23/20 11:52 Heparin Sodium (Porcine) (Heparin 5000 units/ml) 5,000 units EVERY 8 HOURS SUBQ 09/14/20 06:00 10/29/20 05:59 09/23/20 05:10 Meropenem 1 gm/ Sodium Chloride 55 ml @ 110 mls/hr Q8HR IVPB 09/20/20 14:00 09/25/20 13:59 09/23/20 05:10 Metoclopramide HCl (Reglan) 10 mg Q6H PRN IVP Nausea & Vomiting 09/13/20 01:00 10/13/20 00:59 Nicotine (Nicoderm) 1 patch Q24H TDERMAL 09/21/20 12:00 12/20/20 11:59 09/23/20 12:14 Ondansetron HCl (Zofran) 4 mg Q6H PRN IVP Nausea & Vomiting 09/13/20 01:00 10/13/20 00:59 Pantoprazole (Protonix) 40 mg DAILY ORAL 09/24/20 09:00 10/24/20 08:59 Delio Edgar MD Sep 23, 2020 13:01
--- NOTE | 2020-09-23 18:35 | General Progress Note ---
Subjective Allergies: Coded Allergies: No Known Allergies (Unverified , 09/12/20) Subjective feels OK no complaints on regular diet Objective Last 24 Hour Vital Signs Date Time Temp Pulse Resp B/P (MAP) Pulse Ox O2 Delivery O2 Flow Rate FiO2 09/23/20 16:00 91 09/23/20 16:00 Nasal Cannula 2.0 09/23/20 12:00 Nasal Cannula 2.0 09/23/20 12:00 97.0 91 20 109/63 (78) 99 09/23/20 11:33 89 09/23/20 08:00 88 09/23/20 08:00 Nasal Cannula 2.0 09/23/20 07:53 97.5 90 20 108/58 (75) 97 09/23/20 04:00 Nasal Cannula 2.0 09/23/20 04:00 97.9 91 20 111/65 (80) 98 09/23/20 03:31 83 09/23/20 00:00 98.1 96 20 124/79 (94) 99 09/23/20 00:00 Nasal Cannula 2.0 09/22/20 23:57 92 09/22/20 20:00 95 09/22/20 20:00 Nasal Cannula 2.0 09/22/20 20:00 98.2 94 18 114/68 (83) 99 09/22/20 20:00 99 Nasal Cannula 2.0 28 Intake and Output 09/22/20 09/23/20 19:00 07:00 Intake Total 880 ml 1101 ml Output Total 1500 ml 650 ml Balance -620 ml 451 ml IV Total 880 ml 1101 ml Output Urine Total 1400 ml 600 ml Stool Total 100 ml 50 ml # Voids 1 Laboratory Tests 09/23/20 08:47: Sodium Level 136, Potassium Level 5.3H, Chloride Level 101, Carbon Dioxide Level 34H, Anion Gap 1L, Blood Urea Nitrogen 2L, Creatinine 0.8, Estimat Glomerular Filtration Rate > 60, Glucose Level 114H, Calcium Level 8.1L, Phosphorus Level 2.3L, Magnesium Level 1.9, Total Bilirubin 0.3, Aspartate Amino Transf (AST/SGOT) 20, Alanine Aminotransferase (ALT/SGPT) 12, Alkaline Phosphatase 88, Total Protein 4.8L, Albumin 2.1L, Globulin 2.7, Albumin/Globulin Ratio 0.8L Height (Feet): 6 Height (Inches): 0.00 Weight (Pounds): 155 Objective Thin man NCAT supple CTA RR abd soft , flat no edema Assessment/Plan Status: unchanged Assessment/Plan: Assessment - Diarrhea - C Diff (+) - IC valve area SBO and cecal perforation, presumed from appendicitis - s/p ex lap and bowel resection with primary anastomosis - s/p sancho for cholecystitis - post op ileus - resolved Recommendations - stop Questran - start vanco PO - post op care - push po - OOB - follow labs and exam Froilan De Paz MD Sep 23, 2020 18:35
[2020-09-23 19:43] VITALS: BP 115/61
[2020-09-23] MEDS: Vancomycin oral 125mg/2.5ml ORAL SCH (20:19)
[2020-09-23] MEDS ORDERED: Vancomycin oral 125mg/2.5ml ORAL SCH (21:00)
[2020-09-24] VITALS: BP 114/62
[2020-09-24 04:00] VITALS: BP 109/50
[2020-09-24] MEDS: D5NS 1,000 ML IV SCH (05:08)
[2020-09-24] MEDS: Heparin 5000 units/ml inj SUBQ SCH ×3 (05:08→22:47)
[2020-09-24] MEDS: Meropenem 1 GM in NS 55 ML IVPB SCH ×2 (05:08→13:16)
[2020-09-24] MEDS ORDERED: D5NS 1000ml IV ONE (07:00)
[2020-09-24 08:00] VITALS: BP 98/57
[2020-09-24] MEDS: Vancomycin oral 125mg/2.5ml ORAL SCH ×4 (08:28→20:52)
[2020-09-24 08:40] LABS: BASOPHILS % (AUTO) 1.6 % (0.0-2.0); EOSINOPHILS % (AUTO) 2.4 % (0.0-3.0); HEMATOCRIT 37.1 % (42.0-52.0); HEMOGLOBIN 12.1 G/DL (14.2-18.0); LYMPHOCYTES % (AUTO) 12.2 % (20.0-45.0); MEAN CORPUSCULAR VOLUME 87 FL (80-99); MONOCYTES % (AUTO) 4.8 % (1.0-10.0); PLATELET COUNT 262 K/UL (150-450); RED BLOOD COUNT 4.24 M/UL (4.70-6.10); RED CELL DISTRIBUTION WIDTH 13.8 % (11.6-14.8); WHITE BLOOD COUNT 11.4 K/UL (4.8-10.8)
--- NOTE | 2020-09-24 08:58 | General Progress Note ---
Subjective ROS Limited/Unobtainable: Yes Allergies: Coded Allergies: No Known Allergies (Unverified , 09/12/20) Objective Last 24 Hour Vital Signs Date Time Temp Pulse Resp B/P (MAP) Pulse Ox O2 Delivery O2 Flow Rate FiO2 09/24/20 08:00 97.0 80 18 98/57 (71) 97 09/24/20 04:00 Nasal Cannula 2.0 09/24/20 04:00 98.0 93 18 109/50 (69) 99 09/24/20 03:45 79 09/24/20 00:00 89 09/24/20 00:00 Nasal Cannula 2.0 09/24/20 00:00 97.8 88 20 114/62 (79) 98 09/23/20 21:02 99 Nasal Cannula 2.0 28 09/23/20 20:00 Nasal Cannula 2.0 09/23/20 19:43 97.9 90 20 115/61 (79) 97 09/23/20 19:42 96 Nasal Cannula 2.0 28 09/23/20 19:36 89 09/23/20 16:00 91 09/23/20 16:00 Nasal Cannula 2.0 09/23/20 12:00 Nasal Cannula 2.0 09/23/20 12:00 97.0 91 20 109/63 (78) 99 09/23/20 11:33 89 Intake and Output 09/23/20 09/24/20 19:00 07:00 Intake Total 550 ml 762 ml Output Total 1175 ml 700 ml Balance -625 ml 62 ml Intake Oral 500 ml IV Total 50 ml 762 ml Output Urine Total 1100 ml 600 ml Stool Total 75 ml 100 ml Laboratory Tests 09/24/20 08:00: White Blood Count 11.4H, Red Blood Count 4.24L, Hemoglobin 12.1L, Hematocrit 37.1L, Mean Corpuscular Volume 87, Mean Corpuscular Hemoglobin 28.6, Mean Corpuscular Hemoglobin Concent 32.7, Red Cell Distribution Width 13.8, Platelet Count 262, Mean Platelet Volume 6.4L, Neutrophils (%) (Auto) 79.0H, Lymphocytes (%) (Auto) 12.2L, Monocytes (%) (Auto) 4.8, Eosinophils (%) (Auto) 2.4, Basophils (%) (Auto) 1.6, Sodium Level [Pending], Potassium Level [Pending], Chloride Level [Pending], Carbon Dioxide Level [Pending], Blood Urea Nitrogen [Pending], Creatinine [Pending], Estimat Glomerular Filtration Rate [Pending], Glucose Level [Pending], Calcium Level [Pending], Phosphorus Level [Pending], Magnesium Level [Pending], Total Bilirubin [Pending], Aspartate Amino Transf (AST/SGOT) [Pending], Alanine Aminotransferase (ALT/SGPT) [Pending], Alkaline Phosphatase [Pending], C-Reactive Protein, Quantitative [Pending], Pro-B-Type Natriuretic Peptide [Pending], Total Protein [Pending], Albumin [Pending], Globulin [Pending] Height (Feet): 6 Height (Inches): 0.00 Weight (Pounds): 155 General Appearance: no apparent distress EENT: normal ENT inspection Neck: supple Cardiovascular: normal rate Respiratory/Chest: decreased breath sounds Abdomen: hypoactive bowel sounds Extremities: non-tender Assessment/Plan Status: unchanged Assessment/Plan: Assessment - Diarrhea - C Diff (+) - IC valve area SBO and cecal perforation, presumed from appendicitis - s/p ex lap and bowel resection with primary anastomosis - s/p sancho for cholecystitis - post op ileus - resolved Recommendations - vanco PO - post op care - push po - OOB - follow labs and exam -advance diet to puree reg diet -add Davy Wagner MD Sep 24, 2020 08:58
[2020-09-24 09:18] LABS: ALANINE AMINOTRANSFERASE 10 U/L (12-78); ALBUMIN 1.9 G/DL (3.4-5.0); ALBUMIN/GLOBULIN RATIO 0.7 (1.0-2.7); ALKALINE PHOSPHATASE 79 U/L (46-116); ASPARTATE AMINO TRANSFERASE 14 U/L (15-37); BILIRUBIN,TOTAL 0.3 MG/DL (0.2-1.0); BLOOD UREA NITROGEN 3 mg/dL (7-18); CALCIUM 7.8 MG/DL (8.5-10.1); CARBON DIOXIDE 35 MMOL/L (21-32); CHLORIDE 101 MMOL/L (98-107); CREATININE 0.7 MG/DL (0.55-1.30); PHOSPHORUS 2.6 MG/DL (2.5-4.9); POTASSIUM 4.1 MMOL/L (3.5-5.1); SODIUM 136 MMOL/L (136-145)
[2020-09-24] MEDS: Dronabinol 2.5mg Cap ORAL SCH ×2 (09:38→18:17)
--- NOTE | 2020-09-24 10:18 | General Progress Note ---
Subjective Constitutional: Reports: weakness Allergies: Coded Allergies: No Known Allergies (Unverified , 09/12/20) All Systems: reviewed and negative except above Subjective o2nc sleepy Objective Last 24 Hour Vital Signs Date Time Temp Pulse Resp B/P (MAP) Pulse Ox O2 Delivery O2 Flow Rate FiO2 09/24/20 09:00 Nasal Cannula 2.0 09/24/20 08:00 97.0 80 18 98/57 (71) 97 09/24/20 04:00 Nasal Cannula 2.0 09/24/20 04:00 98.0 93 18 109/50 (69) 99 09/24/20 03:45 79 09/24/20 00:00 89 09/24/20 00:00 Nasal Cannula 2.0 09/24/20 00:00 97.8 88 20 114/62 (79) 98 09/23/20 21:02 99 Nasal Cannula 2.0 28 09/23/20 20:00 Nasal Cannula 2.0 09/23/20 19:43 97.9 90 20 115/61 (79) 97 09/23/20 19:42 96 Nasal Cannula 2.0 28 09/23/20 19:36 89 09/23/20 16:00 91 09/23/20 16:00 Nasal Cannula 2.0 09/23/20 12:00 Nasal Cannula 2.0 09/23/20 12:00 97.0 91 20 109/63 (78) 99 09/23/20 11:33 89 Intake and Output 09/23/20 09/24/20 19:00 07:00 Intake Total 550 ml 762 ml Output Total 1175 ml 700 ml Balance -625 ml 62 ml Intake Oral 500 ml IV Total 50 ml 762 ml Output Urine Total 1100 ml 600 ml Stool Total 75 ml 100 ml Laboratory Tests 09/24/20 08:00: White Blood Count 11.4H, Red Blood Count 4.24L, Hemoglobin 12.1L, Hematocrit 37.1L, Mean Corpuscular Volume 87, Mean Corpuscular Hemoglobin 28.6, Mean Corpuscular Hemoglobin Concent 32.7, Red Cell Distribution Width 13.8, Platelet Count 262, Mean Platelet Volume 6.4L, Neutrophils (%) (Auto) 79.0H, Lymphocytes (%) (Auto) 12.2L, Monocytes (%) (Auto) 4.8, Eosinophils (%) (Auto) 2.4, Basophils (%) (Auto) 1.6, Sodium Level 136, Potassium Level 4.1, Chloride Level 101, Carbon Dioxide Level 35H, Blood Urea Nitrogen 3L, Creatinine 0.7, Estimat Glomerular Filtration Rate > 60, Glucose Level 102, Calcium Level 7.8L, Phosph orus Level 2.6, Magnesium Level 1.8, Total Bilirubin 0.3, Aspartate Amino Transf (AST/SGOT) 14L, Alanine Aminotransferase (ALT/SGPT) 10L, Alkaline Phosphatase 79, C-Reactive Protein, Quantitative 2.8H, Pro-B-Type Natriuretic Peptide 351H, Total Protein 4.8L, Albumin 1.9L, Globulin 2.9, Albumin/Globulin Ratio 0.7L Height (Feet): 6 Height (Inches): 0.00 Weight (Pounds): 155 General Appearance: lethargic EENT: normal ENT inspection Neck: normal alignment Cardiovascular: normal peripheral pulses, normal rate, regular rhythm Respiratory/Chest: chest wall non-tender, lungs clear, normal breath sounds Abdomen: normal bowel sounds, non tender, soft Extremities: normal inspection Edema: no edema noted Arm (L), no edema noted Arm (R), no edema noted Leg (L), no edema noted Leg (R), no edema noted Pedal (L), no edema noted Pedal (R), no edema noted Generalized Neurologic: motor weakness Skin: normal pigmentation, warm/dry Assessment/Plan Problem List: (1) Lactic acid increased ICD Codes: E87.2 - Acidosis SNOMED: 39269552 (2) Electrolyte imbalance ICD Codes: E87.8 - Other disorders of electrolyte and fluid balance, not elsewhere classified SNOMED: 749041869 (3) Bowel perforation ICD Codes: K63.1 - Perforation of intestine (nontraumatic) SNOMED: 00868874 (4) Sepsis ICD Codes: A41.9 - Sepsis, unspecified organism SNOMED: 78878864 (5) SBO (small bowel obstruction) ICD Codes: K56.609 - Unspecified intestinal obstruction, unspecified as to partial versus complete obstruction SNOMED: 778447559 (6) Lactic acidosis ICD Codes: E87.2 - Acidosis SNOMED: 08577843 (7) Abdominal pain ICD Codes: R10.9 - Unspecified abdominal pain SNOMED: 26044124 Status: unchanged Assessment/Plan: abx gi sx f/u pain control cbc bmp am Jarad Rodriguez DO Sep 24, 2020 10:18
--- NOTE | 2020-09-24 11:24 | Pulmonology Progress Note ---
Subjective ROS Limited/Unobtainable: Yes Interval Events: Extubated on 09/14/20; Doing well Constitutional: Denies: fever HEENT: Repors: no symptoms Respiratory: Reports: no symptoms Cardiovascular: Reports: no symptoms Gastrointestinal/Abdominal: Reports: no symptoms Psychiatric: Reports: other - off of restraint Allergies: Coded Allergies: No Known Allergies (Unverified , 09/12/20) All Systems: reviewed and negative except above Objective Last 24 Hour Vital Signs Date Time Temp Pulse Resp B/P (MAP) Pulse Ox O2 Delivery O2 Flow Rate FiO2 09/24/20 09:00 Nasal Cannula 2.0 09/24/20 08:00 97.0 80 18 98/57 (71) 97 09/24/20 08:00 77 09/24/20 04:00 Nasal Cannula 2.0 09/24/20 04:00 98.0 93 18 109/50 (69) 99 09/24/20 03:45 79 09/24/20 00:00 89 09/24/20 00:00 Nasal Cannula 2.0 09/24/20 00:00 97.8 88 20 114/62 (79) 98 09/23/20 21:02 99 Nasal Cannula 2.0 28 09/23/20 20:00 Nasal Cannula 2.0 09/23/20 19:43 97.9 90 20 115/61 (79) 97 09/23/20 19:42 96 Nasal Cannula 2.0 28 09/23/20 19:36 89 09/23/20 16:00 91 09/23/20 16:00 Nasal Cannula 2.0 09/23/20 12:00 Nasal Cannula 2.0 09/23/20 12:00 97.0 91 20 109/63 (78) 99 09/23/20 11:33 89 Intake and Output 09/23/20 09/24/20 19:00 07:00 Intake Total 550 ml 762 ml Output Total 1175 ml 700 ml Balance -625 ml 62 ml Intake Oral 500 ml IV Total 50 ml 762 ml Output Urine Total 1100 ml 600 ml Stool Total 75 ml 100 ml General Appearance: no acute distress HEENT: normocephalic Respiratory: chest wall non-tender, decreased breath sounds Cardiovascular: normal peripheral pulses, normal rate Abdomen: normal bowel sounds Microbiology Date/Time Source Procedure Growth Status 09/23/20 09:28 Stool Clostridium difficile Toxin Assay - Final Complete Laboratory Tests 09/24/20 08:00: White Blood Count 11.4H, Red Blood Count 4.24L, Hemoglobin 12.1L, Hematocrit 37.1L, Mean Corpuscular Volume 87, Mean Corpuscular Hemoglobin 28.6, Mean Corpuscular Hemoglobin Concent 32.7, Red Cell Distribution Width 13.8, Platelet Count 262, Mean Platelet Volume 6.4L, Neutrophils (%) (Auto) 79.0H, Lymphocytes (%) (Auto) 12.2L, Monocytes (%) (Auto) 4.8, Eosinophils (%) (Auto) 2.4, Basophils (%) (Auto) 1.6, Sodium Level 136, Potassium Level 4.1, Chloride Level 101, Carbon Dioxide Level 35H, Blood Urea Nitrogen 3L, Creatinine 0.7, Estimat Glomerular Filtration Rate > 60, Glucose Level 102, Calcium Level 7.8L, Phos phorus Level 2.6, Magnesium Level 1.8, Total Bilirubin 0.3, Aspartate Amino Transf (AST/SGOT) 14L, Alanine Aminotransferase (ALT/SGPT) 10L, Alkaline Phosphatase 79, C-Reactive Protein, Quantitative 2.8H, Pro-B-Type Natriuretic Peptide 351H, Total Protein 4.8L, Albumin 1.9L, Globulin 2.9, Albumin/Globulin Ratio 0.7L Current Medications Medications (Trade) Dose Ordered Sig/Jojo Route PRN Reason Start Time Stop Time Status Last Admin Dose Admin Dextrose/Sodium Chloride 1,000 ml @ 50 mls/hr Q20H IV 09/23/20 11:28 10/23/20 11:27 09/24/20 05:08 Dronabinol (Marinol) 2.5 mg BID ORAL 09/24/20 09:00 12/23/20 08:59 09/24/20 09:38 Heparin Sodium (Porcine) (Heparin 5000 units/ml) 5,000 units EVERY 8 HOURS SUBQ 09/14/20 06:00 10/29/20 05:59 09/24/20 05:08 Meropenem 1 gm/ Sodium Chloride 55 ml @ 110 mls/hr Q8HR IVPB 09/20/20 14:00 09/25/20 23:59 09/24/20 05:08 Metoclopramide HCl (Reglan) 10 mg Q6H PRN IVP Nausea & Vomiting 09/13/20 01:00 10/13/20 00:59 Nicotine (Nicoderm) 1 patch Q24H TDERMAL 09/21/20 12:00 12/20/20 11:59 09/23/20 12:14 Ondansetron HCl (Zofran) 4 mg Q6H PRN IVP Nausea & Vomiting 09/13/20 01:00 10/13/20 00:59 Pantoprazole (Protonix) 40 mg DAILY ORAL 09/24/20 09:00 10/24/20 08:59 09/24/20 08:28 Vancomycin HCl (Firvanq) 125 mg FOUR TIMES A DAY ORAL 09/23/20 21:00 09/30/20 20:59 09/24/20 08:28 Assessment/Plan Assessment/Plan IMPRESSION: 1. Cecal perforation. 2. Status post right colectomy, open cholecystectomy, and abdominal washout. 3. History of COPD. 4. Schizophrenia. 5. Left lung complete atelectasis; resolved post bronchoscopy DISCUSSION: Transferred out of ICU Extubated 09/15/20 Continue broad-spectrum antibiotics. I will follow carefully. CXR shows improved aeration of left lung field Saturating well on nasal o2 Venkatesh Lambert M.D. Venkatesh Lambert MD Sep 24, 2020 11:24
[2020-09-24 12:00] VITALS: BP 92/52
--- NOTE | 2020-09-24 14:43 | Infectious Diseases Prog Note ---
Assessment/Plan Assessment/Plan IMPRESSION: 1. Sepsis improving 2. Acute appendicitis with perforation. 3. Acute/ chronic cholecystitis. 4. COPD. 5. Fatty liver. 6. Preoperative respiratory failure resolved 7. Pneumonia 8. Peritonitis 9. Colitis with perforation 10. Mucous plug 11. C.difficile colitis RECOMMENDATION: 1. Discontinue Meropenem 2. Continue PO Vancomycin Subjective ROS Limited/Unobtainable: Yes Gastrointestinal/Abdominal: Reports: diarrhea Allergies: Coded Allergies: No Known Allergies (Unverified , 09/12/20) Objective Last 24 Hour Vital Signs Date Time Temp Pulse Resp B/P (MAP) Pulse Ox O2 Delivery O2 Flow Rate FiO2 09/24/20 12:00 97.9 81 18 92/52 (65) 95 09/24/20 12:00 84 09/24/20 09:00 Nasal Cannula 2.0 09/24/20 08:00 97.0 80 18 98/57 (71) 97 09/24/20 08:00 77 09/24/20 04:00 Nasal Cannula 2.0 09/24/20 04:00 98.0 93 18 109/50 (69) 99 09/24/20 03:45 79 09/24/20 00:00 89 09/24/20 00:00 Nasal Cannula 2.0 09/24/20 00:00 97.8 88 20 114/62 (79) 98 09/23/20 21:02 99 Nasal Cannula 2.0 28 09/23/20 20:00 Nasal Cannula 2.0 09/23/20 19:43 97.9 90 20 115/61 (79) 97 09/23/20 19:42 96 Nasal Cannula 2.0 28 09/23/20 19:36 89 09/23/20 16:00 91 09/23/20 16:00 Nasal Cannula 2.0 Height (Feet): 6 Height (Inches): 0.00 Weight (Pounds): 155 General Appearance: no acute distress HEENT: mucous membranes moist Respiratory/Chest: other - oxygen by nasal cannula Cardiovascular: normal rate Abdomen: soft, non tender, other - Rectal tube Extremities: no edema Microbiology Date/Time Source Procedure Growth Status 09/23/20 09:28 Stool Clostridium difficile Toxin Assay - Final Complete Laboratory Tests Test 09/24/20 08:00 White Blood Count 11.4 K/UL (4.8-10.8) H Red Blood Count 4.24 M/UL (4.70-6.10) L Hemoglobin 12.1 G/DL (14.2-18.0) L Hematocrit 37.1 % (42.0-52.0) L Mean Corpuscular Volume 87 FL (80-99) Mean Corpuscular Hemoglobin 28.6 PG (27.0-31.0) Mean Corpuscular Hemoglobin Concent 32.7 G/DL (32.0-36.0) Red Cell Distribution Width 13.8 % (11.6-14.8) Platelet Count 262 K/UL (150-450) Mean Platelet Volume 6.4 FL (6.5-10.1) L Neutrophils (%) (Auto) 79.0 % (45.0-75.0) H Lymphocytes (%) (Auto) 12.2 % (20.0-45.0) L Monocytes (%) (Auto) 4.8 % (1.0-10.0) Eosinophils (%) (Auto) 2.4 % (0.0-3.0) Basophils (%) (Auto) 1.6 % (0.0-2.0) Sodium Level 136 MMOL/L (136-145) Potassium Level 4.1 MMOL/L (3.5-5.1) Chloride Level 101 MMOL/L (98-107) Carbon Dioxide Level 35 MMOL/L (21-32) H Blood Urea Nitrogen 3 mg/dL (7-18) L Creatinine 0.7 MG/DL (0.55-1.30) Estimat Glomerular Filtration Rate > 60 mL/min (>60) Glucose Level 102 MG/DL (74-106) Calcium Level 7.8 MG/DL (8.5-10.1) L Phosphorus Level 2.6 MG/DL (2.5-4.9) Magnesium Level 1.8 MG/DL (1.8-2.4) Total Bilirubin 0.3 MG/DL (0.2-1.0) Aspartate Amino Transf (AST/SGOT) 14 U/L (15-37) L Alanine Aminotransferase (ALT/SGPT) 10 U/L (12-78) L Alkaline Phosphatase 79 U/L (46-116) C-Reactive Protein, Quantitative 2.8 mg/dL (0.00-0.90) H Pro-B-Type Natriuretic Peptide 351 pg/mL (0-125) H Total Protein 4.8 G/DL (6.4-8.2) L Albumin 1.9 G/DL (3.4-5.0) L Globulin 2.9 g/dL Albumin/Globulin Ratio 0.7 (1.0-2.7) L Current Medications Medications (Trade) Dose Ordered Sig/Jojo Route PRN Reason Start Time Stop Time Status Last Admin Dose Admin Dextrose/Sodium Chloride 1,000 ml @ 50 mls/hr Q20H IV 09/23/20 11:28 10/23/20 11:27 09/24/20 05:08 Dronabinol (Marinol) 2.5 mg BID ORAL 09/24/20 09:00 12/23/20 08:59 09/24/20 09:38 Heparin Sodium (Porcine) (Heparin 5000 units/ml) 5,000 units EVERY 8 HOURS SUBQ 09/14/20 06:00 10/29/20 05:59 09/24/20 13:17 Meropenem 1 gm/ Sodium Chloride 55 ml @ 110 mls/hr Q8HR IVPB 09/20/20 14:00 09/25/20 23:59 09/24/20 13:16 Metoclopramide HCl (Reglan) 10 mg Q6H PRN IVP Nausea & Vomiting 09/13/20 01:00 10/13/20 00:59 Nicotine (Nicoderm) 1 patch Q24H TDERMAL 09/21/20 12:00 12/20/20 11:59 09/24/20 13:12 Ondansetron HCl (Zofran) 4 mg Q6H PRN IVP Nausea & Vomiting 09/13/20 01:00 10/13/20 00:59 Pantoprazole (Protonix) 40 mg DAILY ORAL 09/24/20 09:00 10/24/20 08:59 09/24/20 08:28 Vancomycin HCl (Firvanq) 125 mg FOUR TIMES A DAY ORAL 09/23/20 21:00 09/30/20 20:59 09/24/20 13:12 Delio Edgar MD Sep 24, 2020 14:43
--- NOTE | 2020-09-24 15:01 | Cardiac Electrophysiology PN ---
Assessment/Plan Assessment/Plan 1. Sinus tachycardia due to sepsis/respiratory failure and post op in intensive care unit EF 55%. Troponins negative 2. COPD, S/P Respiratory failure. Extubated CXR Left white out. S/P bronchoscopy by Dr. Lambert 09/16/20 3. Acute abdomen, status post surgery by Dr. Morrow including cholecystectomy as well as right colectomy and small bowel resection. ( Pathology showed perforated appendicitis) Currently on IV antibiotics. On clear liquid diet 4. BNP 1800. Nl EF 55%. No clinical CHF DW RN Subjective Subjective Had bronchoscopy on 09/16/20 for Left lung white out by Dr. Lambert. Alert and oriented. On Clear liquid diet but not eating much. In SR Objective Last 24 Hour Vital Signs Date Time Temp Pulse Resp B/P (MAP) Pulse Ox O2 Delivery O2 Flow Rate FiO2 09/24/20 12:00 97.9 81 18 92/52 (65) 95 09/24/20 12:00 84 09/24/20 09:00 Nasal Cannula 2.0 09/24/20 08:00 97.0 80 18 98/57 (71) 97 09/24/20 08:00 77 09/24/20 04:00 Nasal Cannula 2.0 09/24/20 04:00 98.0 93 18 109/50 (69) 99 09/24/20 03:45 79 09/24/20 00:00 89 09/24/20 00:00 Nasal Cannula 2.0 09/24/20 00:00 97.8 88 20 114/62 (79) 98 09/23/20 21:02 99 Nasal Cannula 2.0 28 09/23/20 20:00 Nasal Cannula 2.0 09/23/20 19:43 97.9 90 20 115/61 (79) 97 09/23/20 19:42 96 Nasal Cannula 2.0 28 09/23/20 19:36 89 09/23/20 16:00 91 09/23/20 16:00 Nasal Cannula 2.0 Intake and Output 09/23/20 09/24/20 19:00 07:00 Intake Total 550 ml 762 ml Output Total 1175 ml 700 ml Balance -625 ml 62 ml Intake Oral 500 ml IV Total 50 ml 762 ml Output Urine Total 1100 ml 600 ml Stool Total 75 ml 100 ml Laboratory Tests Test 09/24/20 08:00 White Blood Count 11.4 K/UL (4.8-10.8) H Red Blood Count 4.24 M/UL (4.70-6.10) L Hemoglobin 12.1 G/DL (14.2-18.0) L Hematocrit 37.1 % (42.0-52.0) L Mean Corpuscular Volume 87 FL (80-99) Mean Corpuscular Hemoglobin 28.6 PG (27.0-31.0) Mean Corpuscular Hemoglobin Concent 32.7 G/DL (32.0-36.0) Red Cell Distribution Width 13.8 % (11.6-14.8) Platelet Count 262 K/UL (150-450) Mean Platelet Volume 6.4 FL (6.5-10.1) L Neutrophils (%) (Auto) 79.0 % (45.0-75.0) H Lymphocytes (%) (Auto) 12.2 % (20.0-45.0) L Monocytes (%) (Auto) 4.8 % (1.0-10.0) Eosinophils (%) (Auto) 2.4 % (0.0-3.0) Basophils (%) (Auto) 1.6 % (0.0-2.0) Sodium Level 136 MMOL/L (136-145) Potassium Level 4.1 MMOL/L (3.5-5.1) Chloride Level 101 MMOL/L (98-107) Carbon Dioxide Level 35 MMOL/L (21-32) H Blood Urea Nitrogen 3 mg/dL (7-18) L Creatinine 0.7 MG/DL (0.55-1.30) Estimat Glomerular Filtration Rate > 60 mL/min (>60) Glucose Level 102 MG/DL (74-106) Calcium Level 7.8 MG/DL (8.5-10.1) L Phosphorus Level 2.6 MG/DL (2.5-4.9) Magnesium Level 1.8 MG/DL (1.8-2.4) Total Bilirubin 0.3 MG/DL (0.2-1.0) Aspartate Amino Transf (AST/SGOT) 14 U/L (15-37) L Alanine Aminotransferase (ALT/SGPT) 10 U/L (12-78) L Alkaline Phosphatase 79 U/L (46-116) C-Reactive Protein, Quantitative 2.8 mg/dL (0.00-0.90) H Pro-B-Type Natriuretic Peptide 351 pg/mL (0-125) H Total Protein 4.8 G/DL (6.4-8.2) L Albumin 1.9 G/DL (3.4-5.0) L Globulin 2.9 g/dL Albumin/Globulin Ratio 0.7 (1.0-2.7) L Microbiology Date/Time Source Procedure Growth Status 09/23/20 09:28 Stool Clostridium difficile Toxin Assay - Final Complete Objective HEAD AND NECK: No JVD. LUNGS: Coarse rhonchi CARDIOVASCULAR: Shows regular S1 and S2 with no gallop. ABDOMEN: Tender and is status post laparotomy. EXTREMITIES: No pitting edema. Jason Li MD Sep 24, 2020 15:01
[2020-09-24 16:00] VITALS: BP 107/61
--- NOTE | 2020-09-24 19:17 | Nephrology Progress Note ---
Assessment/Plan Problem List: (1) Lactic acid increased (2) Electrolyte imbalance (3) SBO (small bowel obstruction) (4) Sepsis (5) Bowel perforation Assessment Lactic acidosis Bowel perforation Sepsis Plan September 24: Late note entry. Status quo. Labs reviewed. Continue per consultants. September 23: Labs reviewed. Potassium 5.3. IV fluid contains potassium. IV fluid changed. Continue per consultants. September 22: No labs drawn today. Clinically improving. On full liquid diet now. Continue to monitor electrolytes and renal parameters. Per orders. September 21: Patient on clear liquid. Labs reviewed. Abnormalities addressed. IV sodium phosphate ordered. Continue per consultants. September 20: Discussed with JAROD Rivas. Patient due for speech therapy evaluation. Labs reviewed. Magnesium and phosphorus supplement ordered. Continue per consultants. Continue to monitor renal parameters and electrolytes. September 19: Labs reviewed. Magnesium and phosphorus supplement intravenously ordered. Discussed with RN. Continue to monitor renal parameters. Defer TPN and feeding to GI/general surgery. September 18: NG tube to suction. Output minimal. Labs reviewed. Phosphorus supplement intravenously ordered. Discussed with Dr. Leslie regarding the need for TPN. Will await for general surgery comment. Continue to monitor renal parameters and electrolytes. September 17: All noted. Discussed with RN. Labs reviewed. Patient has NG tube to suction. It appears that the patient post abdominal surgery may not be started on feeding. Suggest TPN. Deferred to GI/surgeon. September 16: Patient about to undergo bronchoscopy for white out left lung. Labs reviewed. Abnormal electrolytes and chemistries addressed. Continue per consultants. September 15: On nasal cannula, renal parameters stable. Continue per consult ants. Previously: Postop care, weaning from ventilator ~failed so far Check urine analysis, noted IV fluid management Keep the electrolytes and renal parameters in check Antibiotics Per consultants Post surgery results: 1. Small bowel obstruction at the level of the ileocecal valve, secondary to unknown etiology, potential tumor mass. 2. Perforated cecum. 3. Acute cholecystitis. Subjective ROS Limited/Unobtainable: No Constitutional: Reports: malaise, weakness Objective Objective Last 24 Hour Vital Signs Date Time Temp Pulse Resp B/P (MAP) Pulse Ox O2 Delivery O2 Flow Rate FiO2 09/24/20 16:00 88 09/24/20 16:00 97.7 75 20 107/61 (76) 94 09/24/20 12:00 97.9 81 18 92/52 (65) 95 09/24/20 12:00 84 09/24/20 09:00 Nasal Cannula 2.0 09/24/20 08:00 97.0 80 18 98/57 (71) 97 09/24/20 08:00 77 09/24/20 04:00 Nasal Cannula 2.0 09/24/20 04:00 98.0 93 18 109/50 (69) 99 09/24/20 03:45 79 09/24/20 00:00 89 09/24/20 00:00 Nasal Cannula 2.0 09/24/20 00:00 97.8 88 20 114/62 (79) 98 09/23/20 21:02 99 Nasal Cannula 2.0 28 09/23/20 20:00 Nasal Cannula 2.0 09/23/20 19:43 97.9 90 20 115/61 (79) 97 09/23/20 19:42 96 Nasal Cannula 2.0 28 09/23/20 19:36 89 Intake and Output 09/23/20 09/24/20 19:00 07:00 Intake Total 550 ml 762 ml Output Total 1175 ml 700 ml Balance -625 ml 62 ml Intake Oral 500 ml IV Total 50 ml 762 ml Output Urine Total 1100 ml 600 ml Stool Total 75 ml 100 ml Laboratory Tests 09/24/20 08:00: White Blood Count 11.4H, Red Blood Count 4.24L, Hemoglobin 12.1L, Hematocrit 37.1L, Mean Corpuscular Volume 87, Mean Corpuscular Hemoglobin 28.6, Mean Corpuscular Hemoglobin Concent 32.7, Red Cell Distribution Width 13.8, Platelet Count 262, Mean Platelet Volume 6.4L, Neutrophils (%) (Auto) 79.0H, Lymphocytes (%) (Auto) 12.2L, Monocytes (%) (Auto) 4.8, Eosinophils (%) (Auto) 2.4, B asophils (%) (Auto) 1.6, Sodium Level 136, Potassium Level 4.1, Chloride Level 101, Carbon Dioxide Level 35H, Blood Urea Nitrogen 3L, Creatinine 0.7, Estimat Glomerular Filtration Rate > 60, Glucose Level 102, Calcium Level 7.8L, Phosphorus Level 2.6, Magnesium Level 1.8, Total Bilirubin 0.3, Aspartate Amino Transf (AST/SGOT) 14L, Alanine Aminotransferase (ALT/SGPT) 10L, Alkaline Phosphatase 79, C-Reactive Protein, Quantitative 2.8H, Pro-B-Type Natriuretic Peptide 351H, Total Protein 4.8L, Albumin 1.9L, Globulin 2.9, Albumin/Globulin Ratio 0.7L Height (Feet): 6 Height (Inches): 0.00 Weight (Pounds): 155 General Appearance: no apparent distress, lethargic Cardiovascular: normal rate Respiratory/Chest: decreased breath sounds Abdomen: soft Price Heart MD Sep 24, 2020 19:17
[2020-09-24 20:00] VITALS: BP 106/59
[2020-09-25] MEDS: D5NS 1,000 ML IV SCH ×2 (03:39→23:05)
[2020-09-25] MEDS: Heparin 5000 units/ml inj SUBQ SCH ×3 (06:23→21:39)
--- NOTE | 2020-09-25 07:35 | General Progress Note ---
Subjective ROS Limited/Unobtainable: Yes Allergies: Coded Allergies: No Known Allergies (Unverified , 09/12/20) Objective Last 24 Hour Vital Signs Date Time Temp Pulse Resp B/P (MAP) Pulse Ox O2 Delivery O2 Flow Rate FiO2 09/25/20 00:00 79 09/24/20 21:00 Nasal Cannula 2.0 09/24/20 20:00 97.7 95 20 106/59 (75) 95 09/24/20 20:00 89 09/24/20 19:55 95 Nasal Cannula 2.0 28 09/24/20 16:00 88 09/24/20 16:00 97.7 75 20 107/61 (76) 94 09/24/20 12:00 97.9 81 18 92/52 (65) 95 09/24/20 12:00 84 09/24/20 09:00 Nasal Cannula 2.0 09/24/20 08:00 97.0 80 18 98/57 (71) 97 09/24/20 08:00 77 Intake and Output 09/24/20 09/25/20 19:00 07:00 Intake Total 120 ml Output Total 400 ml Balance -280 ml Intake Oral 120 ml Output Urine Total 400 ml # Bowel Movements 3 Laboratory Tests 09/24/20 08:00: White Blood Count 11.4H, Red Blood Count 4.24L, Hemoglobin 12.1L, Hematocrit 37.1L, Mean Corpuscular Volume 87, Mean Corpuscular Hemoglobin 28.6, Mean Corpuscular Hemoglobin Concent 32.7, Red Cell Distribution Width 13.8, Platelet Count 262, Mean Platelet Volume 6.4L, Neutrophils (%) (Auto) 79.0H, Lymphocytes (%) (Auto) 12.2L, Monocytes (%) (Auto) 4.8, Eosinophils (%) (Auto) 2.4, Basophils (%) (Auto) 1.6, Sodium Level 136, Potassium Level 4.1, Chloride Level 101, Carbon Dioxide Level 35H, Blood Urea Nitrogen 3L, Creatinine 0.7, Estimat Glomerular Filtration Rate > 60, Glucose Level 102, Calcium Level 7.8L, Phosphorus Level 2.6, Magnesium Level 1.8, Total Bilirubin 0.3, Aspartate Amino Transf (AST/SGOT) 14L, Alanine Aminotransferase (ALT/SGPT) 10L, Alkaline Phosphatase 79, C-Reactive Protein, Quantitative 2.8H, Pro-B-Type Natriuretic Pe ptide 351H, Total Protein 4.8L, Albumin 1.9L, Globulin 2.9, Albumin/Globulin Ratio 0.7L Height (Feet): 6 Height (Inches): 0.00 Weight (Pounds): 155 General Appearance: no apparent distress EENT: normal ENT inspection Neck: supple Cardiovascular: normal rate Respiratory/Chest: decreased breath sounds Abdomen: hypoactive bowel sounds Extremities: non-tender Assessment/Plan Status: unchanged Assessment/Plan: Assessment - Diarrhea - C Diff (+) - IC valve area SBO and cecal perforation, presumed from appendicitis - s/p ex lap and bowel resection with primary anastomosis - s/p sancho for cholecystitis - post op ileus - resolved Recommendations - vanco PO - post op care - push po - OOB - follow labs and exam - puree reg diet -marinol -still has rectal tube Davy Rahman MD Sep 25, 2020 07:35
[2020-09-25 08:00] VITALS: BP 103/56
--- NOTE | 2020-09-25 08:32 | Pulmonology Progress Note ---
Subjective ROS Limited/Unobtainable: Yes Interval Events: Extubated on 09/14/20; Doing well Constitutional: Denies: fever HEENT: Repors: no symptoms Respiratory: Reports: no symptoms Cardiovascular: Reports: no symptoms Gastrointestinal/Abdominal: Reports: diarrhea Psychiatric: Reports: other - off of restraint Allergies: Coded Allergies: No Known Allergies (Unverified , 09/12/20) All Systems: reviewed and negative except above Objective Last 24 Hour Vital Signs Date Time Temp Pulse Resp B/P (MAP) Pulse Ox O2 Delivery O2 Flow Rate FiO2 09/25/20 04:00 86 09/25/20 00:00 79 09/24/20 21:00 Nasal Cannula 2.0 09/24/20 20:00 97.7 95 20 106/59 (75) 95 09/24/20 20:00 89 09/24/20 19:55 95 Nasal Cannula 2.0 28 09/24/20 16:00 88 09/24/20 16:00 97.7 75 20 107/61 (76) 94 09/24/20 12:00 97.9 81 18 92/52 (65) 95 09/24/20 12:00 84 09/24/20 09:00 Nasal Cannula 2.0 Intake and Output 09/24/20 09/25/20 19:00 07:00 Intake Total 120 ml Output Total 900 ml Balance -780 ml Intake Oral 120 ml Output Urine Total 900 ml # Bowel Movements 6 General Appearance: no acute distress HEENT: normocephalic Respiratory: chest wall non-tender, decreased breath sounds Cardiovascular: normal peripheral pulses, normal rate Abdomen: normal bowel sounds Microbiology Date/Time Source Procedure Growth Status 09/23/20 09:28 Stool Clostridium difficile Toxin Assay - Final Complete Laboratory Tests 09/25/20 06:35: White Blood Count [Pending], Red Blood Count [Pending], Hemoglobin [Pending], Hematocrit [Pending], Mean Corpuscular Volume [Pending], Mean Corpuscular Hemoglobin [Pending], Mean Corpuscular Hemoglobin Concent [Pending], Red Cell Distribution Width [Pending], Platelet Count [Pending], Mean Platelet Volume [Pending], Neutrophils (%) (Auto) [Pending], Lymphocytes (%) (Auto) [Pending], Monocytes (%) (Auto) [Pending], Eosinophils (%) (Auto) [Pending], Basophils (%) (Auto) [Pending] 09/25/20 07:18: Sodium Level [Pending], Potassium Level [Pending], Chloride Level [Pending], Carbon Dioxide Level [Pending], Blood Urea Nitrogen [Pending], Creatinine [Pending], Estimat Glomerular Filtration Rate [Pending], Glucose Level [Pending], Calcium Level [Pending] Current Medications Medications (Trade) Dose Ordered Sig/Jojo Route PRN Reason Start Time Stop Time Status Last Admin Dose Admin Dextrose/Sodium Chloride 1,000 ml @ 50 mls/hr Q20H IV 09/23/20 11:28 10/23/20 11:27 09/25/20 03:39 Dronabinol (Marinol) 2.5 mg BID ORAL 09/24/20 09:00 12/23/20 08:59 09/24/20 18:17 Heparin Sodium (Porcine) (Heparin 5000 units/ml) 5,000 units EVERY 8 HOURS SUBQ 09/14/20 06:00 10/29/20 05:59 09/25/20 06:23 Metoclopramide HCl (Reglan) 10 mg Q6H PRN IVP Nausea & Vomiting 09/13/20 01:00 10/13/20 00:59 Nicotine (Nicoderm) 1 patch Q24H TDERMAL 09/21/20 12:00 12/20/20 11:59 09/24/20 13:12 Ondansetron HCl (Zofran) 4 mg Q6H PRN IVP Nausea & Vomiting 09/13/20 01:00 10/13/20 00:59 Pantoprazole (Protonix) 40 mg DAILY ORAL 09/24/20 09:00 10/24/20 08:59 09/24/20 08:28 Vancomycin HCl (Firvanq) 125 mg FOUR TIMES A DAY ORAL 09/23/20 21:00 09/30/20 20:59 09/24/20 20:52 Assessment/Plan Assessment/Plan IMPRESSION: 1. Cecal perforation. 2. Status post right colectomy, open cholecystectomy, and abdominal washout. 3. History of COPD. 4. Schizophrenia. 5. Left lung complete atelectasis; resolved post bronchoscopy DISCUSSION: Transferred out of ICU Extubated 09/15/20 Continue broad-spectrum antibiotics. I will follow carefully. CXR shows improved aeration of left lung field Saturating well on nasal o2 Tito Sheffield Omar Syed MD Sep 25, 2020 08:32
[2020-09-25 08:33] LABS: BASOPHILS % (AUTO) 1.1 % (0.0-2.0); HEMATOCRIT 36.7 % (42.0-52.0); HEMOGLOBIN 12.2 G/DL (14.2-18.0); LYMPHOCYTES % (AUTO) 14.5 % (20.0-45.0); MEAN CORPUSCULAR VOLUME 88 FL (80-99); MONOCYTES % (AUTO) 7.9 % (1.0-10.0); NEUTROPHILS % (AUTO) 74.5 % (45.0-75.0); PLATELET COUNT 304 K/UL (150-450); RED BLOOD COUNT 4.17 M/UL (4.70-6.10); RED CELL DISTRIBUTION WIDTH 13.5 % (11.6-14.8); WHITE BLOOD COUNT 9.2 K/UL (4.8-10.8)
[2020-09-25 08:42] LABS: ANION GAP 3 mmol/L (5-15); BLOOD UREA NITROGEN 7 mg/dL (7-18); CALCIUM 8.1 MG/DL (8.5-10.1); CARBON DIOXIDE 34 MMOL/L (21-32); CHLORIDE 102 MMOL/L (98-107); CREATININE 0.6 MG/DL (0.55-1.30); POTASSIUM 4.1 MMOL/L (3.5-5.1); SODIUM 139 MMOL/L (136-145)
--- NOTE | 2020-09-25 09:13 | General Progress Note ---
Subjective Constitutional: Reports: weakness Allergies: Coded Allergies: No Known Allergies (Unverified , 09/12/20) All Systems: reviewed and negative except above Subjective o2nc sleepy Objective Last 24 Hour Vital Signs Date Time Temp Pulse Resp B/P (MAP) Pulse Ox O2 Delivery O2 Flow Rate FiO2 09/25/20 04:00 86 09/25/20 00:00 79 09/24/20 21:00 Nasal Cannula 2.0 09/24/20 20:00 97.7 95 20 106/59 (75) 95 09/24/20 20:00 89 09/24/20 19:55 95 Nasal Cannula 2.0 28 09/24/20 16:00 88 09/24/20 16:00 97.7 75 20 107/61 (76) 94 09/24/20 12:00 97.9 81 18 92/52 (65) 95 09/24/20 12:00 84 Intake and Output 09/24/20 09/25/20 19:00 07:00 Intake Total 120 ml Output Total 900 ml Balance -780 ml Intake Oral 120 ml Output Urine Total 900 ml # Bowel Movements 6 Laboratory Tests 09/25/20 06:35: White Blood Count 9.2, Red Blood Count 4.17L, Hemoglobin 12.2L, Hematocrit 36.7L , Mean Corpuscular Volume 88, Mean Corpuscular Hemoglobin 29.2, Mean Corpuscular Hemoglobin Concent 33.2, Red Cell Distribution Width 13.5, Platelet Count 304, Mean Platelet Volume 6.5, Neutrophils (%) (Auto) 74.5, Lymphocytes (%) (Auto) 14.5L, Monocytes (%) (Auto) 7.9, Eosinophils (%) (Auto) 2.0, Basophils (%) (Auto) 1.1 09/25/20 07:18: Sodium Level 139, Potassium Level 4.1, Chloride Level 102, Carbon Dioxide Level 34H, Anion Gap 3L, Blood Urea Nitrogen 7, Creatinine 0.6, Estimat Glomerular Filtration Rate > 60, Glucose Level 105, Calcium Level 8.1L Height (Feet): 6 Height (Inches): 0.00 Weight (Pounds): 155 General Appearance: lethargic EENT: normal ENT inspection Neck: normal alignment Cardiovascular: normal peripheral pulses, normal rate, regular rhythm Respiratory/Chest: chest wall non-tender, lungs clear, normal breath sounds Abdomen: normal bowel sounds, non tender, soft Extremities: normal inspection Edema: no edema noted Arm (L), no edema noted Arm (R), no edema noted Leg (L), no edema noted Leg (R), no edema noted Pedal (L), no edema noted Pedal (R), no edema noted Generalized Neurologic: motor weakness Skin: normal pigmentation, warm/dry Assessment/Plan Problem List: (1) Lactic acid increased ICD Codes: E87.2 - Acidosis SNOMED: 99177389 (2) Electrolyte imbalance ICD Codes: E87.8 - Other disorders of electrolyte and fluid balance, not elsewhere classified SNOMED: 450314978 (3) Bowel perforation ICD Codes: K63.1 - Perforation of intestine (nontraumatic) SNOMED: 63881577 (4) Sepsis ICD Codes: A41.9 - Sepsis, unspecified organism SNOMED: 79131971 (5) SBO (small bowel obstruction) ICD Codes: K56.609 - Unspecified intestinal obstruction, unspecified as to partial versus complete obstruction SNOMED: 861215292 (6) Lactic acidosis ICD Codes: E87.2 - Acidosis SNOMED: 76929687 (7) Abdominal pain ICD Codes: R10.9 - Unspecified abdominal pain SNOMED: 76293945 Status: unchanged Assessment/Plan: abx gi sx f/u pain control cbc bmp Jarad Aponte DO Sep 25, 2020 09:13
[2020-09-25] MEDS: Dronabinol 2.5mg Cap ORAL SCH ×2 (09:50→17:45)
[2020-09-25] MEDS: Vancomycin oral 125mg/2.5ml ORAL SCH ×4 (09:50→21:39)
--- NOTE | 2020-09-25 10:55 | Surgery Progress Note ---
Surgery Progress Note Subjective Procedure Performed 1. exploratory laparotomy 2. right colectomy with primary side to side anastomosis 3. small bowel resection 4. cholecystectomy 5. abdominal washout and closure Additional Comments doing well afebrile HD stable labs okay tolerating diet d/c rectal tube d/c planning Objective Last 24 Hour Vital Signs Date Time Temp Pulse Resp B/P (MAP) Pulse Ox O2 Delivery O2 Flow Rate FiO2 09/25/20 09:34 94 Nasal Cannula 2.0 28 09/25/20 08:00 97.7 85 18 103/56 (72) 94 09/25/20 08:00 79 09/25/20 04:00 86 09/25/20 00:00 79 09/24/20 21:00 Nasal Cannula 2.0 09/24/20 20:00 97.7 95 20 106/59 (75) 95 09/24/20 20:00 89 09/24/20 19:55 95 Nasal Cannula 2.0 28 09/24/20 16:00 88 09/24/20 16:00 97.7 75 20 107/61 (76) 94 09/24/20 12:00 97.9 81 18 92/52 (65) 95 09/24/20 12:00 84 I&O Intake and Output 09/24/20 09/25/20 19:00 07:00 Intake Total 120 ml Output Total 900 ml Balance -780 ml Intake Oral 120 ml Output Urine Total 900 ml # Bowel Movements 6 Laboratory Tests Test 09/25/20 06:35 09/25/20 07:18 White Blood Count 9.2 K/UL (4.8-10.8) Red Blood Count 4.17 M/UL (4.70-6.10) L Hemoglobin 12.2 G/DL (14.2-18.0) L Hematocrit 36.7 % (42.0-52.0) L Mean Corpuscular Volume 88 FL (80-99) Mean Corpuscular Hemoglobin 29.2 PG (27.0-31.0) Mean Corpuscular Hemoglobin Concent 33.2 G/DL (32.0-36.0) Red Cell Distribution Width 13.5 % (11.6-14.8) Platelet Count 304 K/UL (150-450) Mean Platelet Volume 6.5 FL (6.5-10.1) Neutrophils (%) (Auto) 74.5 % (45.0-75.0) Lymphocytes (%) (Auto) 14.5 % (20.0-45.0) L Monocytes (%) (Auto) 7.9 % (1.0-10.0) Eosinophils (%) (Auto) 2.0 % (0.0-3.0) Basophils (%) (Auto) 1.1 % (0.0-2.0) Sodium Level 139 MMOL/L (136-145) Potassium Level 4.1 MMOL/L (3.5-5.1) Chloride Level 102 MMOL/L (98-107) Carbon Dioxide Level 34 MMOL/L (21-32) H Anion Gap 3 mmol/L (5-15) L Blood Urea Nitrogen 7 mg/dL (7-18) Creatinine 0.6 MG/DL (0.55-1.30) Estimat Glomerular Filtration Rate > 60 mL/min (>60) Glucose Level 105 MG/DL (74-106) Calcium Level 8.1 MG/DL (8.5-10.1) L Assessment Post-op Diagnosis 1. small bowel obstruction at ileocecal valve etiology unknown possible mass 2. perforated cecum 3. acute cholecystitis Plan Problems: (1) Lactic acidosis (2) Bowel perforation Assessment & Plan: 70M sbo, free air, lactic acidosis, leukocytosis, generalized tenderness with peritonitis covid negative ct reviewed. labs reviewed exam as above. discussed findings with patient. unfortunately not sure if he truly understands that degree of concern given ct findings and exam. he is full code, expressed desire to live, and has been otherwise functional and per report goes outside to smoke daily. given above, condition, and goals of care surgery emergency is indicated and recommended. npo iv fluids iv abx to OR for exploratory laparotomy, possible bowel resection, possible ostomy thank you npo iv fluids ng tube respiratory support await return of bowel function (3) Sepsis (4) SBO (small bowel obstruction) Assessment & Plan: Lung bases: Evaluation of the right lung base reveals patchy airspace disease presumably on the basis of scarring and atelectasis. Atypical pneumonia cannot be excluded. Presumed areas of scarring atelectasis at the left lung base. Again atypical pneumonia cannot be excluded. Pleural space: Best seen on sagittal image 79 and axial image 32, there is a very small posterior medial loculated pneumothorax at the right lung base of uncertain etiology and significance. Mediastinum: Small hiatal hernia. The distal esophagus is patulous and fluid-filled. ABDOMEN: Liver: Diffuse fatty infiltration of the liver is noted. Gallbladder and bile ducts: Cholelithiasis within the gallbladder is noted. Evaluation of the wall the gallbladder is limited due to motion artifact. Minimal thickening of the gallbladder wall cannot be excluded. Ultrasound imaging is suggested. No ductal dilation. Pancreas: Unremarkable. No ductal dilation. Spleen: Spleen enhance uniformly. Adrenals: Unremarkable. No mass. Kidneys and ureters: Nonspecific stranding about the perinephric spaces without hydronephrosis. 0.2 cm nonobstructing calculus upper pole region of the left kidney. Stomach and bowel: No free intra-abdominal air raising concern for ruptured viscus. This finding is best seen on coronal image 4647 at the dome of the liver. Large quantity of our presumed ingested material in the stomach which is moderately distended. Dilated loops of small bowel containing fluid and fecal material are noted left hypogastrium extending to the right hypogastrium worrisome for are mid to distal small bowel obstruction. There is extensive inflammatory process at the lateral right mid abdomen with air gas bubbles indicative of microperforations of bowel. This finding is best seen on coronal image 30. This may be the transitional zone for obstruction. Minimal distention of the rectosigmoid with stool. No mucosal thickening. PELVIS: Appendix: No findings to suggest acute appendicitis. Bladder: Unremarkable. No stones. Reproductive: Prostate gland is enlarged and measures 4 x 5 cm with coarse calcifications within it centrally. ABDOMEN and PELVIS: Intraperitoneal space: Small quantity of ascites surrounding the liver. Minimal simple free fluid extending about the right paracolic gutter. No free air. Bones/joints: Evaluation of bone window images reveals findings of moderate degenerative disc disease. Moderate to severe osteoarthritic changes about the sacroiliac joints are noted. Alignment of the thoracolumbar spine is unremarkable. Sacrum and coccyx are unremarkable. No acute fracture. Soft tissues: Ischiorectal fat is clean. Vasculature: Atherosclerotic disease of the abdominal aorta without change in caliber. No abdominal aortic aneurysm. Lymph nodes: No retroperitoneal lymphadenopathy. No pelvic or inguinal lymphadenopathy. IMPRESSION: 1. The dominant finding on the current study is are small bowel obstruction. 2. Free intra-abdominal air is noted. 3. There is inflammatory changes in the mesentery of the mid right abdomen laterally possibly representing the transition point for obstruction. Bowel ischemia cannot be excluded. 4. There is cholelithiasis. 5. Possible diffuse gallbladder wall thickening. 6. Very small are loculated pneumothorax posterior medially at the right lung base of uncertain significance. 7. Surgical consultation is highly advised. (5) Abdominal pain Cam Morrow Sep 25, 2020 10:55
[2020-09-25 12:00] VITALS: BP 96/52
--- NOTE | 2020-09-25 12:46 | Nephrology Progress Note ---
Assessment/Plan Problem List: (1) Lactic acid increased (2) Electrolyte imbalance (3) SBO (small bowel obstruction) (4) Sepsis (5) Bowel perforation Assessment Lactic acidosis Bowel perforation Sepsis Plan September 25: Status quo. Labs reviewed. Clinically stable. Continue per consultants. September 24: Late note entry. Status quo. Labs reviewed. Continue per consultants. September 23: Labs reviewed. Potassium 5.3. IV fluid contains potassium. IV fluid changed. Continue per consultants. September 22: No labs drawn today. Clinically improving. On full liquid diet now. Continue to monitor electrolytes and renal parameters. Per orders. September 21: Patient on clear liquid. Labs reviewed. Abnormalities addressed. IV sodium phosphate ordered. Continue per consultants. September 20: Discussed with RN Rob. Patient due for speech therapy evaluation. Labs reviewed. Magnesium and phosphorus supplement ordered. Continue per co nsultants. Continue to monitor renal parameters and electrolytes. September 19: Labs reviewed. Magnesium and phosphorus supplement intravenously ordered. Discussed with RN. Continue to monitor renal parameters. Defer TPN and feeding to GI/general surgery. September 18: NG tube to suction. Output minimal. Labs reviewed. Phosphorus supplement intravenously ordered. Discussed with Dr. Leslie regarding the need for TPN. Will await for general surgery comment. Continue to monitor renal parameters and electrolytes. September 17: All noted. Discussed with RN. Labs reviewed. Patient has NG tube to suction. It appears that the patient post abdominal surgery may not be started on feeding. Suggest TPN. Deferred to GI/surgeon. September 16: Patient about to undergo bronchoscopy for white out left lung. Labs reviewed. Abnormal electrolytes and chemistries addressed. Continue per co nsultants. September 15: On nasal cannula, renal parameters stable. Continue per consultants. Previously: Postop care, weaning from ventilator ~failed so far Check urine analysis, noted IV fluid management Keep the electrolytes and renal parameters in check Antibiotics Per consultants Post surgery results: 1. Small bowel obstruction at the level of the ileocecal valve, secondary to unknown etiology, potential tumor mass. 2. Perforated cecum. 3. Acute cholecystitis. Subjective ROS Limited/Unobtainable: No Constitutional: Reports: malaise Objective Objective Last 24 Hour Vital Signs Date Time Temp Pulse Resp B/P (MAP) Pulse Ox O2 Delivery O2 Flow Rate FiO2 09/25/20 12:00 96.6 85 18 96/52 (67) 97 09/25/20 09:34 94 Nasal Cannula 2.0 28 09/25/20 08:00 97.7 85 18 103/56 (72) 94 09/25/20 08:00 79 09/25/20 04:00 86 09/25/20 00:00 79 09/24/20 21:00 Nasal Cannula 2.0 09/24/20 20:00 97.7 95 20 106/59 (75) 95 09/24/20 20:00 89 09/24/20 19:55 95 Nasal Cannula 2.0 28 09/24/20 16:00 88 09/24/20 16:00 97.7 75 20 107/61 (76) 94 Intake and Output 09/24/20 09/25/20 19:00 07:00 Intake Total 120 ml Output Total 900 ml Balance -780 ml Intake Oral 120 ml Output Urine Total 900 ml # Bowel Movements 6 Current Medications Medications (Trade) Dose Ordered Sig/Jojo Route PRN Reason Start Time Stop Time Status Last Admin Dose Admin Dextrose/Sodium Chloride 1,000 ml @ 50 mls/hr Q20H IV 09/23/20 11:28 10/23/20 11:27 09/25/20 03:39 Dronabinol (Marinol) 2.5 mg BID ORAL 09/24/20 09:00 12/23/20 08:59 09/25/20 09:50 Heparin Sodium (Porcine) (Heparin 5000 units/ml) 5,000 units EVERY 8 HOURS SUBQ 09/14/20 06:00 10/29/20 05:59 09/25/20 06:23 Metoclopramide HCl (Reglan) 10 mg Q6H PRN IVP Nausea & Vomiting 09/13/20 01:00 10/13/20 00:59 Nicotine (Nicoderm) 1 patch Q24H TDERMAL 09/21/20 12:00 12/20/20 11:59 09/24/20 13:12 Ondansetron HCl (Zofran) 4 mg Q6H PRN IVP Nausea & Vomiting 09/13/20 01:00 10/13/20 00:59 Pantoprazole (Protonix) 40 mg DAILY ORAL 09/24/20 09:00 10/24/20 08:59 09/25/20 09:50 Vancomycin HCl (Firvanq) 125 mg FOUR TIMES A DAY ORAL 09/23/20 21:00 09/30/20 20:59 09/25/20 09:50 Laboratory Tests 09/25/20 06:35: White Blood Count 9.2, Red Blood Count 4.17L, Hemoglobin 12.2L, Hematocrit 36.7L , Mean Corpuscular Volume 88, Mean Corpuscular Hemoglobin 29.2, Mean Corpuscular Hemoglobin Concent 33.2, Red Cell Distribution Width 13.5, Platelet Count 304, Mean Platelet Volume 6.5, Neutrophils (%) (Auto) 74.5, Lymphocytes (%) (Auto) 14.5L, Monocytes (%) (Auto) 7.9, Eosinophils (%) (Auto) 2.0, Basophils (%) (Auto) 1.1 09/25/20 07:18: Sodium Level 139, Potassium Level 4.1, Chloride Level 102, Carbon Dioxide Level 34H, Anion Gap 3L, Blood Urea Nitrogen 7, Creatinine 0.6, Estimat Glomerular Filtration Rate > 60, Glucose Level 105, Calcium Level 8.1L Height (Feet): 6 Height (Inches): 0.00 Weight (Pounds): 155 General Appearance: no apparent distress Cardiovascular: normal rate Respiratory/Chest: decreased breath sounds Abdomen: distended Price Heart MD Sep 25, 2020 12:46
--- NOTE | 2020-09-25 14:01 | Cardiac Electrophysiology PN ---
Assessment/Plan Assessment/Plan 1. Sinus tachycardia due to sepsis/respiratory failure and post op. Resolved. EF 55%. Troponins negative 2. COPD esacerbation, S/P Respiratory failure. Extubated S/P Left white out. S/P bronchoscopy by Dr. Lambert 09/16/20 3. Acute abdomen, status post surgery by Dr. Morrow including cholecystectomy as well as right colectomy and small bowel resection. ( Pathology showed perforated appendicitis) on IV antibiotics and clear liquid diet 4. BNP 1800. Nl EF 55%. No clinical CHF DW RN Subjective Subjective Had bronchoscopy on 09/16/20 for Left lung white out by Dr. Lambert. Alert and oriented.Eating better. In SR Objective Last 24 Hour Vital Signs Date Time Temp Pulse Resp B/P (MAP) Pulse Ox O2 Delivery O2 Flow Rate FiO2 09/25/20 12:00 96.6 85 18 96/52 (67) 97 09/25/20 12:00 70 09/25/20 09:34 94 Nasal Cannula 2.0 28 09/25/20 08:00 97.7 85 18 103/56 (72) 94 09/25/20 08:00 79 09/25/20 04:00 86 09/25/20 00:00 79 09/24/20 21:00 Nasal Cannula 2.0 09/24/20 20:00 97.7 95 20 106/59 (75) 95 09/24/20 20:00 89 09/24/20 19:55 95 Nasal Cannula 2.0 28 09/24/20 16:00 88 09/24/20 16:00 97.7 75 20 107/61 (76) 94 Intake and Output 09/24/20 09/25/20 19:00 07:00 Intake Total 120 ml Output Total 900 ml Balance -780 ml Intake Oral 120 ml Output Urine Total 900 ml # Bowel Movements 6 Laboratory Tests Test 09/25/20 06:35 09/25/20 07:18 White Blood Count 9.2 K/UL (4.8-10.8) Red Blood Count 4.17 M/UL (4.70-6.10) L Hemoglobin 12.2 G/DL (14.2-18.0) L Hematocrit 36.7 % (42.0-52.0) L Mean Corpuscular Volume 88 FL (80-99) Mean Corpuscular Hemoglobin 29.2 PG (27.0-31.0) Mean Corpuscular Hemoglobin Concent 33.2 G/DL (32.0-36.0) Red Cell Distribution Width 13.5 % (11.6-14.8) Platelet Count 304 K/UL (150-450) Mean Platelet Volume 6.5 FL (6.5-10.1) Neutrophils (%) (Auto) 74.5 % (45.0-75.0) Lymphocytes (%) (Auto) 14.5 % (20.0-45.0) L Monocytes (%) (Auto) 7.9 % (1.0-10.0) Eosinophils (%) (Auto) 2.0 % (0.0-3.0) Basophils (%) (Auto) 1.1 % (0.0-2.0) Sodium Level 139 MMOL/L (136-145) Potassium Level 4.1 MMOL/L (3.5-5.1) Chloride Level 102 MMOL/L (98-107) Carbon Dioxide Level 34 MMOL/L (21-32) H Anion Gap 3 mmol/L (5-15) L Blood Urea Nitrogen 7 mg/dL (7-18) Creatinine 0.6 MG/DL (0.55-1.30) Estimat Glomerular Filtration Rate > 60 mL/min (>60) Glucose Level 105 MG/DL (74-106) Calcium Level 8.1 MG/DL (8.5-10.1) L Microbiology Date/Time Source Procedure Growth Status 09/23/20 09:28 Stool Clostridium difficile Toxin Assay - Final Complete Objective HEAD AND NECK: No JVD. LUNGS: Coarse rhonchi CARDIOVASCULAR: Shows regular S1 and S2 with no gallop. ABDOMEN: Tender and is status post laparotomy. EXTREMITIES: No pitting edema. Jason Li MD Sep 25, 2020 14:01
[2020-09-25 16:00] VITALS: BP 101/65
[2020-09-26] VITALS: BP 133/65
[2020-09-26 04:00] VITALS: BP 116/62
[2020-09-26] MEDS: Heparin 5000 units/ml inj SUBQ SCH ×3 (06:04→22:30)
[2020-09-26 08:00] VITALS: BP 107/57
[2020-09-26] MEDS: Vancomycin oral 125mg/2.5ml ORAL SCH ×4 (08:53→22:27)
[2020-09-26] MEDS: Dronabinol 2.5mg Cap ORAL SCH ×2 (08:53→17:16)
[2020-09-26 09:08] LABS: BASOPHILS % (AUTO) 2.3 % (0.0-2.0); EOSINOPHILS % (AUTO) 1.8 % (0.0-3.0); HEMATOCRIT 35.4 % (42.0-52.0); HEMOGLOBIN 11.6 G/DL (14.2-18.0); LYMPHOCYTES % (AUTO) 16.3 % (20.0-45.0); MEAN CORPUSCULAR VOLUME 88 FL (80-99); MONOCYTES % (AUTO) 6.5 % (1.0-10.0); NEUTROPHILS % (AUTO) 73.1 % (45.0-75.0); PLATELET COUNT 280 K/UL (150-450); RED BLOOD COUNT 4.03 M/UL (4.70-6.10); RED CELL DISTRIBUTION WIDTH 13.9 % (11.6-14.8); WHITE BLOOD COUNT 9.2 K/UL (4.8-10.8)
[2020-09-26 09:30] LABS: ANION GAP 2 mmol/L (5-15); BLOOD UREA NITROGEN 6 mg/dL (7-18); CALCIUM 8.1 MG/DL (8.5-10.1); CARBON DIOXIDE 34 MMOL/L (21-32); CHLORIDE 103 MMOL/L (98-107); CREATININE 0.6 MG/DL (0.55-1.30); SODIUM 139 MMOL/L (136-145)
--- NOTE | 2020-09-26 10:26 | Pulmonology Progress Note ---
Subjective ROS Limited/Unobtainable: No Interval Events: Extubated on 09/14/20; Doing well Constitutional: Denies: fever HEENT: Repors: no symptoms Respiratory: Reports: no symptoms Cardiovascular: Reports: no symptoms Gastrointestinal/Abdominal: Reports: diarrhea Psychiatric: Reports: other Allergies: Coded Allergies: No Known Allergies (Unverified , 09/12/20) All Systems: reviewed and negative except above Objective Last 24 Hour Vital Signs Date Time Temp Pulse Resp B/P (MAP) Pulse Ox O2 Delivery O2 Flow Rate FiO2 09/26/20 08:00 96.6 78 20 107/57 (74) 99 09/26/20 08:00 86 09/26/20 04:00 98.1 81 22 116/62 (80) 95 09/26/20 04:00 87 09/26/20 00:00 75 09/26/20 00:00 98.4 78 22 133/65 (87) 96 09/25/20 21:00 Nasal Cannula 2.0 09/25/20 20:00 85 09/25/20 19:30 96 Nasal Cannula 2.0 28 09/25/20 16:00 98.2 87 20 101/65 (77) 97 09/25/20 16:00 76 09/25/20 12:00 96.6 85 18 96/52 (67) 97 09/25/20 12:00 70 Intake and Output 09/25/20 09/26/20 19:00 07:00 Intake Total 440 ml 100 ml Output Total 200 ml Balance 440 ml -100 ml Intake Oral 440 ml 100 ml Stool Total 200 ml # Voids 2 2 General Appearance: no acute distress HEENT: normocephalic Respiratory: chest wall non-tender, decreased breath sounds Cardiovascular: normal peripheral pulses, normal rate Abdomen: normal bowel sounds Laboratory Tests 09/26/20 08:40: White Blood Count 9.2, Red Blood Count 4.03L, Hemoglobin 11.6L, Hematocrit 35.4L , Mean Corpuscular Volume 88, Mean Corpuscular Hemoglobin 28.8, Mean Corpuscular Hemoglobin Concent 32.8, Red Cell Distribution Width 13.9, Platelet Count 280, Mean Platelet Volume 6.7, Neutrophils (%) (Auto) 73.1, Lymphocytes (%) (Auto) 16.3L, Monocytes (%) (Auto) 6.5, Eosinophils (%) (Auto) 1.8, Basophils (%) (Auto) 2.3H, Sodium Level 139, Potassium Level 4.0, Chloride Level 103, Carbon Dioxide Level 34H, Anion Gap 2L, Blood Urea Nitrogen 6L, Creatinine 0.6, Estimat Glomerular Filtration Rate > 60, Glucose Level 121H, Calcium Level 8.1L Current Medications Medications (Trade) Dose Ordered Sig/Jojo Route PRN Reason Start Time Stop Time Status Last Admin Dose Admin Dextrose/Sodium Chloride 1,000 ml @ 50 mls/hr Q20H IV 09/23/20 11:28 10/23/20 11:27 09/25/20 23:05 Dronabinol (Marinol) 2.5 mg BID ORAL 09/24/20 09:00 12/23/20 08:59 09/26/20 08:53 Heparin Sodium (Porcine) (Heparin 5000 units/ml) 5,000 units EVERY 8 HOURS SUBQ 09/14/20 06:00 10/29/20 05:59 09/26/20 06:04 Metoclopramide HCl (Reglan) 10 mg Q6H PRN IVP Nausea & Vomiting 09/13/20 01:00 10/13/20 00:59 Nicotine (Nicoderm) 1 patch Q24H TDERMAL 09/21/20 12:00 12/20/20 11:59 09/25/20 13:21 Ondansetron HCl (Zofran) 4 mg Q6H PRN IVP Nausea & Vomiting 09/13/20 01:00 10/13/20 00:59 Pantoprazole (Protonix) 40 mg DAILY ORAL 09/24/20 09:00 10/24/20 08:59 09/26/20 08:53 Vancomycin HCl (Firvanq) 125 mg FOUR TIMES A DAY ORAL 09/23/20 21:00 09/30/20 20:59 09/26/20 08:53 Assessment/Plan Assessment/Plan IMPRESSION: 1. Cecal perforation. 2. Status post right colectomy, open cholecystectomy, and abdominal washout. 3. History of COPD. 4. Schizophrenia. 5. Left lung complete atelectasis; resolved post bronchoscopy DISCUSSION: Transferred out of ICU Extubated 09/15/20 Continue broad-spectrum antibiotics. I will follow carefully. CXR shows improved aeration of left lung field Saturating well on nasal o2 Tito Sheffield Omar Syed MD Sep 26, 2020 10:26
--- NOTE | 2020-09-26 10:36 | General Progress Note ---
Subjective ROS Limited/Unobtainable: Yes Allergies: Coded Allergies: No Known Allergies (Unverified , 09/12/20) Objective Last 24 Hour Vital Signs Date Time Temp Pulse Resp B/P (MAP) Pulse Ox O2 Delivery O2 Flow Rate FiO2 09/26/20 08:00 96.6 78 20 107/57 (74) 99 09/26/20 08:00 86 09/26/20 04:00 98.1 81 22 116/62 (80) 95 09/26/20 04:00 87 09/26/20 00:00 75 09/26/20 00:00 98.4 78 22 133/65 (87) 96 09/25/20 21:00 Nasal Cannula 2.0 09/25/20 20:00 85 09/25/20 19:30 96 Nasal Cannula 2.0 28 09/25/20 16:00 98.2 87 20 101/65 (77) 97 09/25/20 16:00 76 09/25/20 12:00 96.6 85 18 96/52 (67) 97 09/25/20 12:00 70 Intake and Output 09/25/20 09/26/20 19:00 07:00 Intake Total 440 ml 100 ml Output Total 200 ml Balance 440 ml -100 ml Intake Oral 440 ml 100 ml Stool Total 200 ml # Voids 2 2 Laboratory Tests 09/26/20 08:40: White Blood Count 9.2, Red Blood Count 4.03L, Hemoglobin 11.6L, Hematocrit 35.4L , Mean Corpuscular Volume 88, Mean Corpuscular Hemoglobin 28.8, Mean Corpuscular Hemoglobin Concent 32.8, Red Cell Distribution Width 13.9, Platelet Count 280, Mean Platelet Volume 6.7, Neutrophils (%) (Auto) 73.1, Lymphocytes (%) (Auto) 16.3L, Monocytes (%) (Auto) 6.5, Eosinophils (%) (Auto) 1.8, Basophils (%) (Auto) 2.3H, Sodium Level 139, Potassium Level 4.0, Chloride Level 103, Carbon Dioxide Level 34H, Anion Gap 2L, Blood Urea Nitrogen 6L, Creatinine 0.6, Estimat Glomerular Filtration Rate > 60, Glucose Level 121H, Calcium Level 8.1L Height (Feet): 6 Height (Inches): 0.00 Weight (Pounds): 155 Assessment/Plan Problem List: (1) Bowel perforation ICD Codes: K63.1 - Perforation of intestine (nontraumatic) SNOMED: 49691947 (2) Sepsis ICD Codes: A41.9 - Sepsis, unspecified organism SNOMED: 24094639 (3) SBO (small bowel obstruction) ICD Codes: K56.609 - Unspecified intestinal obstruction, unspecified as to partial versus complete obstruction SNOMED: 768713824 (4) Lactic acidosis ICD Codes: E87.2 - Acidosis SNOMED: 67164621 (5) Abdominal pain ICD Codes: R10.9 - Unspecified abdominal pain SNOMED: 68760482 Status: unchanged Assessment/Plan: is positive stool c diff abx per id dr labs wnl s/p exploratory lap for perforated bowel Vania Dwyer MD Sep 26, 2020 10:36
--- NOTE | 2020-09-26 10:45 | Cardiac Electrophysiology PN ---
Assessment/Plan Assessment/Plan 1. Sinus tachycardia due to sepsis/respiratory failure and post op. Resolved now. EF 55%. Troponins negative 2. COPD esacerbation, S/P Respiratory failure. Extubated S/P Left white out. S/P bronchoscopy by Dr. Lambert 09/16/20 3. Acute abdomen, status post surgery by Dr. Morrow including cholecystectomy as well as right colectomy and small bowel resection. ( Pathology showed perforated appendicitis) on antibiotics and full liquid diet 4. BNP 1800. Nl EF 55%. No clinical CHF 5. C Diff Colitis, on Po Vancomycin DW RN Subjective Subjective Had bronchoscopy on 09/16/20 for Left lung white out by Dr. Lambert. Alert and oriented.Eating better. In SR. Now positive for C Diff and in isolation Objective Last 24 Hour Vital Signs Date Time Temp Pulse Resp B/P (MAP) Pulse Ox O2 Delivery O2 Flow Rate FiO2 09/26/20 08:00 96.6 78 20 107/57 (74) 99 09/26/20 08:00 86 09/26/20 04:00 98.1 81 22 116/62 (80) 95 09/26/20 04:00 87 09/26/20 00:00 75 09/26/20 00:00 98.4 78 22 133/65 (87) 96 09/25/20 21:00 Nasal Cannula 2.0 09/25/20 20:00 85 09/25/20 19:30 96 Nasal Cannula 2.0 28 09/25/20 16:00 98.2 87 20 101/65 (77) 97 09/25/20 16:00 76 09/25/20 12:00 96.6 85 18 96/52 (67) 97 09/25/20 12:00 70 Intake and Output 09/25/20 09/26/20 19:00 07:00 Intake Total 440 ml 100 ml Output Total 200 ml Balance 440 ml -100 ml Intake Oral 440 ml 100 ml Stool Total 200 ml # Voids 2 2 Laboratory Tests Test 09/26/20 08:40 White Blood Count 9.2 K/UL (4.8-10.8) Red Blood Count 4.03 M/UL (4.70-6.10) L Hemoglobin 11.6 G/DL (14.2-18.0) L Hematocrit 35.4 % (42.0-52.0) L Mean Corpuscular Volume 88 FL (80-99) Mean Corpuscular Hemoglobin 28.8 PG (27.0-31.0) Mean Corpuscular Hemoglobin Concent 32.8 G/DL (32.0-36.0) Red Cell Distribution Width 13.9 % (11.6-14.8) Platelet Count 280 K/UL (150-450) Mean Platelet Volume 6.7 FL (6.5-10.1) Neutrophils (%) (Auto) 73.1 % (45.0-75.0) Lymphocytes (%) (Auto) 16.3 % (20.0-45.0) L Monocytes (%) (Auto) 6.5 % (1.0-10.0) Eosinophils (%) (Auto) 1.8 % (0.0-3.0) Basophils (%) (Auto) 2.3 % (0.0-2.0) H Sodium Level 139 MMOL/L (136-145) Potassium Level 4.0 MMOL/L (3.5-5.1) Chloride Level 103 MMOL/L (98-107) Carbon Dioxide Level 34 MMOL/L (21-32) H Anion Gap 2 mmol/L (5-15) L Blood Urea Nitrogen 6 mg/dL (7-18) L Creatinine 0.6 MG/DL (0.55-1.30) Estimat Glomerular Filtration Rate > 60 mL/min (>60) Glucose Level 121 MG/DL (74-106) H Calcium Level 8.1 MG/DL (8.5-10.1) L Objective HEAD AND NECK: No JVD. LUNGS: Coarse rhonchi CARDIOVASCULAR: Shows regular S1 and S2 with no gallop. ABDOMEN: Tender and is status post laparotomy. Has rectal tube EXTREMITIES: No pitting edema. Jason iL MD Sep 26, 2020 10:45
--- NOTE | 2020-09-26 11:06 | Infectious Diseases Prog Note ---
Assessment/Plan Assessment/Plan IMPRESSION: 1. Sepsis improving 2. Acute appendicitis with perforation. 3. Acute/ chronic cholecystitis. 4. COPD. 5. Fatty liver. 6. Preoperative respiratory failure resolved 7. Pneumonia 8. Peritonitis 9. Colitis with perforation 10. Mucous plug 11. C.difficile colitis RECOMMENDATION: 1. Continue PO Vancomycin Subjective ROS Limited/Unobtainable: Yes Gastrointestinal/Abdominal: Reports: no symptoms Genitourinary: Reports: no symptoms Allergies: Coded Allergies: No Known Allergies (Unverified , 09/12/20) Objective Last 24 Hour Vital Signs Date Time Temp Pulse Resp B/P (MAP) Pulse Ox O2 Delivery O2 Flow Rate FiO2 09/26/20 08:00 96.6 78 20 107/57 (74) 99 09/26/20 08:00 86 09/26/20 04:00 98.1 81 22 116/62 (80) 95 09/26/20 04:00 87 09/26/20 00:00 75 09/26/20 00:00 98.4 78 22 133/65 (87) 96 09/25/20 21:00 Nasal Cannula 2.0 09/25/20 20:00 85 09/25/20 19:30 96 Nasal Cannula 2.0 28 09/25/20 16:00 98.2 87 20 101/65 (77) 97 09/25/20 16:00 76 09/25/20 12:00 96.6 85 18 96/52 (67) 97 09/25/20 12:00 70 Height (Feet): 6 Height (Inches): 0.00 Weight (Pounds): 155 Abdomen: soft, non tender, other - midline surgical jennifer are clean Extremities: no edema Neurologic/Psychiatric: alert, responsive Laboratory Tests Test 09/26/20 08:40 White Blood Count 9.2 K/UL (4.8-10.8) Red Blood Count 4.03 M/UL (4.70-6.10) L Hemoglobin 11.6 G/DL (14.2-18.0) L Hematocrit 35.4 % (42.0-52.0) L Mean Corpuscular Volume 88 FL (80-99) Mean Corpuscular Hemoglobin 28.8 PG (27.0-31.0) Mean Corpuscular Hemoglobin Concent 32.8 G/DL (32.0-36.0) Red Cell Distribution Width 13.9 % (11.6-14.8) Platelet Count 280 K/UL (150-450) Mean Platelet Volume 6.7 FL (6.5-10.1) Neutrophils (%) (Auto) 73.1 % (45.0-75.0) Lymphocytes (%) (Auto) 16.3 % (20.0-45.0) L Monocytes (%) (Auto) 6.5 % (1.0-10.0) Eosinophils (%) (Auto) 1.8 % (0.0-3.0) Basophils (%) (Auto) 2.3 % (0.0-2.0) H Sodium Level 139 MMOL/L (136-145) Potassium Level 4.0 MMOL/L (3.5-5.1) Chloride Level 103 MMOL/L (98-107) Carbon Dioxide Level 34 MMOL/L (21-32) H Anion Gap 2 mmol/L (5-15) L Blood Urea Nitrogen 6 mg/dL (7-18) L Creatinine 0.6 MG/DL (0.55-1.30) Estimat Glomerular Filtration Rate > 60 mL/min (>60) Glucose Level 121 MG/DL (74-106) H Calcium Level 8.1 MG/DL (8.5-10.1) L Current Medications Medications (Trade) Dose Ordered Sig/Jojo Route PRN Reason Start Time Stop Time Status Last Admin Dose Admin Dextrose/Sodium Chloride 1,000 ml @ 50 mls/hr Q20H IV 09/23/20 11:28 10/23/20 11:27 09/25/20 23:05 Dronabinol (Marinol) 2.5 mg BID ORAL 09/24/20 09:00 12/23/20 08:59 09/26/20 08:53 Heparin Sodium (Porcine) (Heparin 5000 units/ml) 5,000 units EVERY 8 HOURS SUBQ 09/14/20 06:00 10/29/20 05:59 09/26/20 06:04 Metoclopramide HCl (Reglan) 10 mg Q6H PRN IVP Nausea & Vomiting 09/13/20 01:00 10/13/20 00:59 Nicotine (Nicoderm) 1 patch Q24H TDERMAL 09/21/20 12:00 12/20/20 11:59 09/25/20 13:21 Ondansetron HCl (Zofran) 4 mg Q6H PRN IVP Nausea & Vomiting 09/13/20 01:00 10/13/20 00:59 Pantoprazole (Protonix) 40 mg DAILY ORAL 09/24/20 09:00 10/24/20 08:59 09/26/20 08:53 Vancomycin HCl (Firvanq) 125 mg FOUR TIMES A DAY ORAL 09/23/20 21:00 09/30/20 20:59 09/26/20 08:53 Delio Edgar MD Sep 26, 2020 11:06
[2020-09-26 12:00] VITALS: BP 103/57
--- NOTE | 2020-09-26 12:49 | Nephrology Progress Note ---
Assessment/Plan Problem List: (1) Lactic acid increased (2) Electrolyte imbalance (3) SBO (small bowel obstruction) (4) Sepsis (5) Bowel perforation Assessment Lactic acidosis Bowel perforation Sepsis Plan September 26: Labs reviewed. Stable from renal standpoint view. Continue. GI and general surgery. September 25: Status quo. Labs reviewed. Clinically stable. Continue per consultants. September 24: Late note entry. Status quo. Labs reviewed. Continue per consultants. September 23: Labs reviewed. Potassium 5.3. IV fluid contains potassium. IV fluid changed. Continue per consultants. September 22: No labs drawn today. Clinically improving. On full liquid diet now. Continue to monitor electrolytes and renal parameters. Per orders. September 21: Patient on clear liquid. Labs reviewed. Abnormalities addressed. IV sodium phosphate ordered. Continue per consultants. September 20: Discussed with JAROD Rivas. Patient due for speech therapy evaluation. Labs reviewed. Magnesium and phosphorus supplement ordered. Continue per consultants. Continue to monitor renal parameters and electrolytes. September 19: Labs reviewed. Magnesium and phosphorus supplement intravenously ordered. Discussed with RN. Continue to monitor renal parameters. Defer TPN and feeding to GI/general surgery. September 18: NG tube to suction. Output minimal. Labs reviewed. Phosphorus supplement intravenously ordered. Discussed with Dr. Leslie regarding the need for TPN. Will await for general surgery comment. Continue to monitor renal parameters and electrolytes. September 17: All noted. Discussed with RN. Labs reviewed. Patient has NG tube to suction. It appears that the patient post abdominal surgery may not be started on feeding. Suggest TPN. Deferred to GI/surgeon. September 16: Patient about to undergo bronchoscopy for white out left lung. Labs reviewed. Abnormal electrolytes and chemistries addressed. Continue per consultants. September 15: On nasal cannula, renal parameters stable. Continue per consultants. Previously: Postop care, weaning from ventilator ~failed so far Check urine analysis, noted IV fluid management Keep the electrolytes and renal parameters in check Antibiotics Per consultants Post surgery results: 1. Small bowel obstruction at the level of the ileocecal valve, secondary to unknown etiology, potential tumor mass. 2. Perforated cecum. 3. Acute cholecystitis. Subjective ROS Limited/Unobtainable: No Constitutional: Reports: malaise Objective Objective Last 24 Hour Vital Signs Date Time Temp Pulse Resp B/P (MAP) Pulse Ox O2 Delivery O2 Flow Rate FiO2 11/2/20 08:00 96.6 78 20 107/57 (74) 99 09/26/20 08:00 86 09/26/20 04:00 98.1 81 22 116/62 (80) 95 09/26/20 04:00 87 09/26/20 00:00 75 09/26/20 00:00 98.4 78 22 133/65 (87) 96 09/25/20 21:00 Nasal Cannula 2.0 09/25/20 20:00 85 09/25/20 19:30 96 Nasal Cannula 2.0 28 09/25/20 16:00 98.2 87 20 101/65 (77) 97 09/25/20 16:00 76 Intake and Output 09/25/20 09/26/20 19:00 07:00 Intake Total 440 ml 100 ml Output Total 200 ml Balance 440 ml -100 ml Intake Oral 440 ml 100 ml Stool Total 200 ml # Voids 2 2 Laboratory Tests 09/26/20 08:40: White Blood Count 9.2, Red Blood Count 4.03L, Hemoglobin 11.6L, Hematocrit 35.4L , Mean Corpuscular Volume 88, Mean Corpuscular Hemoglobin 28.8, Mean Corpuscular Hemoglobin Concent 32.8, Red Cell Distribution Width 13.9, Platelet Count 280, Mean Platelet Volume 6.7, Neutrophils (%) (Auto) 73.1, Lymphocytes (%) (Auto) 16.3L, Monocytes (%) (Auto) 6.5, Eosinophils (%) (Auto) 1.8, Basophils (%) (Auto) 2.3H, Sodium Level 139, Potassium Level 4.0, Chloride Level 103, Carbon Dioxide Level 34H, Anion Gap 2L, Blood Urea Nitrogen 6L, Creatinine 0.6, Estimat Glomerular Filtration Rate > 60, Glucose Level 121H, Calcium Level 8.1L Height (Feet): 6 Height (Inches): 0.00 Weight (Pounds): 155 General Appearance: no apparent distress, lethargic Cardiovascular: normal rate Respiratory/Chest: decreased breath sounds Abdomen: distended Price Heart MD Sep 26, 2020 12:48
[2020-09-26 16:00] VITALS: BP 130/70
[2020-09-26 20:00] VITALS: BP 119/60
--- NOTE | 2020-09-26 21:20 | General Progress Note ---
Subjective Allergies: Coded Allergies: No Known Allergies (Unverified , 09/12/20) Subjective feels OK no complaints Objective Last 24 Hour Vital Signs Date Time Temp Pulse Resp B/P (MAP) Pulse Ox O2 Delivery O2 Flow Rate FiO2 09/26/20 16:00 87 09/26/20 16:00 96.9 85 20 130/70 (90) 97 09/26/20 12:00 89 09/26/20 12:00 96.7 73 20 103/57 (72) 99 09/26/20 08:00 96.6 78 20 107/57 (74) 99 09/26/20 08:00 86 09/26/20 04:00 98.1 81 22 116/62 (80) 95 09/26/20 04:00 87 09/26/20 00:00 75 09/26/20 00:00 98.4 78 22 133/65 (87) 96 Intake and Output 09/25/20 09/26/20 19:00 07:00 Intake Total 440 ml 100 ml Output Total 200 ml Balance 440 ml -100 ml Intake Oral 440 ml 100 ml Stool Total 200 ml # Voids 2 2 Laboratory Tests 09/26/20 08:40: White Blood Count 9.2, Red Blood Count 4.03L, Hemoglobin 11.6L, Hematocrit 35.4L , Mean Corpuscular Volume 88, Mean Corpuscular Hemoglobin 28.8, Mean Corpuscular Hemoglobin Concent 32.8, Red Cell Distribution Width 13.9, Platelet Count 280, Mean Platelet Volume 6.7, Neutrophils (%) (Auto) 73.1, Lymphocytes (%) (Auto) 16.3L, Monocytes (%) (Auto) 6.5, Eosinophils (%) (Auto) 1.8, Basophils (%) (Auto) 2.3H, Sodium Level 139, Potassium Level 4.0, Chloride Level 103, Carbon Dioxide Level 34H, Anion Gap 2L, Blood Urea Nitrogen 6L, Creatinine 0.6, Estimat Glomerular Filtration Rate > 60, Glucose Level 121H, Calcium Level 8.1L Height (Feet): 6 Height (Inches): 0.00 Weight (Pounds): 155 Objective Thin man NCAT supple CTA RR abd soft , flat no edema Assessment/Plan Status: unchanged Assessment/Plan: Assessment - Diarrhea - C Diff (+) - IC valve area SBO and cecal perforation, presumed from appendicitis - s/p ex lap and bowel resection with primary anastomosis - s/p sancho for cholecystitis - post op ileus - resolved Recommendations vanco PO - post op care - push po - OOB - follow labs and exam Froilan De Paz MD Sep 26, 2020 21:20
[2020-09-26] MEDS: D5NS 1,000 ML IV SCH (22:27)
[2020-09-27] VITALS: BP 124/67
[2020-09-27 04:00] VITALS: BP 130/65
[2020-09-27] MEDS: Heparin 5000 units/ml inj SUBQ SCH ×3 (06:21→20:14)
[2020-09-27 08:00] VITALS: BP 100/55
[2020-09-27] MEDS: Dronabinol 2.5mg Cap ORAL SCH ×2 (08:18→17:19)
[2020-09-27] MEDS: Vancomycin oral 125mg/2.5ml ORAL SCH ×4 (08:18→20:14)
--- NOTE | 2020-09-27 10:16 | General Progress Note ---
Subjective ROS Limited/Unobtainable: Yes Allergies: Coded Allergies: No Known Allergies (Unverified , 09/12/20) Objective Last 24 Hour Vital Signs Date Time Temp Pulse Resp B/P (MAP) Pulse Ox O2 Delivery O2 Flow Rate FiO2 09/27/20 08:00 97.1 85 18 100/55 (70) 94 09/27/20 04:00 98.1 70 18 130/65 (86) 98 09/27/20 00:00 97.6 65 17 124/67 (86) 98 09/26/20 21:00 Nasal Cannula 2.0 09/26/20 20:00 98.3 88 20 119/60 (79) 96 09/26/20 20:00 82 09/26/20 16:00 87 09/26/20 16:00 96.9 85 20 130/70 (90) 97 09/26/20 12:00 89 09/26/20 12:00 96.7 73 20 103/57 (72) 99 Intake and Output 09/26/20 09/27/20 19:00 07:00 Intake Total 720 ml 250 ml Output Total 950 ml 1200 ml Balance -230 ml -950 ml Intake Oral 720 ml IV Total 250 ml Output Urine Total 950 ml 1200 ml # Voids 1 Height (Feet): 6 Height (Inches): 0.00 Weight (Pounds): 155 Assessment/Plan Problem List: (1) Bowel perforation ICD Codes: K63.1 - Perforation of intestine (nontraumatic) SNOMED: 72651133 (2) Sepsis ICD Codes: A41.9 - Sepsis, unspecified organism SNOMED: 71874696 (3) SBO (small bowel obstruction) ICD Codes: K56.609 - Unspecified intestinal obstruction, unspecified as to partial versus complete obstruction SNOMED: 542863983 (4) Lactic acidosis ICD Codes: E87.2 - Acidosis SNOMED: 80262063 (5) Abdominal pain ICD Codes: R10.9 - Unspecified abdominal pain SNOMED: 40721457 Status: unchanged Assessment/Plan: is positive stool c diff soft stool on isolation s/p exploratory lap for perforated bowel Vania Dwyer MD Sep 27, 2020 10:16
--- NOTE | 2020-09-27 10:52 | Pulmonology Progress Note ---
Subjective ROS Limited/Unobtainable: Yes Interval Events: Extubated on 09/14/20; Doing well Constitutional: Denies: fever HEENT: Repors: no symptoms Respiratory: Reports: no symptoms Cardiovascular: Reports: no symptoms Gastrointestinal/Abdominal: Reports: no symptoms Psychiatric: Reports: other Allergies: Coded Allergies: No Known Allergies (Unverified , 09/12/20) All Systems: reviewed and negative except above Objective Last 24 Hour Vital Signs Date Time Temp Pulse Resp B/P (MAP) Pulse Ox O2 Delivery O2 Flow Rate FiO2 09/27/20 08:00 97.1 85 18 100/55 (70) 94 09/27/20 04:00 98.1 70 18 130/65 (86) 98 09/27/20 00:00 97.6 65 17 124/67 (86) 98 09/26/20 21:00 Nasal Cannula 2.0 09/26/20 20:00 98.3 88 20 119/60 (79) 96 09/26/20 20:00 82 09/26/20 16:00 87 09/26/20 16:00 96.9 85 20 130/70 (90) 97 09/26/20 12:00 89 09/26/20 12:00 96.7 73 20 103/57 (72) 99 Intake and Output 09/26/20 09/27/20 19:00 07:00 Intake Total 720 ml 250 ml Output Total 950 ml 1200 ml Balance -230 ml -950 ml Intake Oral 720 ml IV Total 250 ml Output Urine Total 950 ml 1200 ml # Voids 1 General Appearance: no acute distress HEENT: normocephalic Respiratory: chest wall non-tender, decreased breath sounds Cardiovascular: normal peripheral pulses, normal rate Abdomen: normal bowel sounds Current Medications Medications (Trade) Dose Ordered Sig/Jojo Route PRN Reason Start Time Stop Time Status Last Admin Dose Admin Dextrose/Sodium Chloride 1,000 ml @ 50 mls/hr Q20H IV 09/23/20 11:28 10/23/20 11:27 09/26/20 22:27 Dronabinol (Marinol) 2.5 mg BID ORAL 09/24/20 09:00 12/23/20 08:59 09/27/20 08:18 Heparin Sodium (Porcine) (Heparin 5000 units/ml) 5,000 units EVERY 8 HOURS SUBQ 09/14/20 06:00 10/29/20 05:59 09/27/20 06:21 Metoclopramide HCl (Reglan) 10 mg Q6H PRN IVP Nausea & Vomiting 09/13/20 01:00 10/13/20 00:59 Nicotine (Nicoderm) 1 patch Q24H TDERMAL 09/21/20 12:00 12/20/20 11:59 09/26/20 12:16 Ondansetron HCl (Zofran) 4 mg Q6H PRN IVP Nausea & Vomiting 09/13/20 01:00 10/13/20 00:59 Pantoprazole (Protonix) 40 mg DAILY ORAL 09/24/20 09:00 10/24/20 08:59 09/27/20 08:18 Vancomycin HCl (Firvanq) 125 mg FOUR TIMES A DAY ORAL 09/26/20 13:00 10/03/20 12:59 09/27/20 08:18 Assessment/Plan Assessment/Plan IMPRESSION: 1. Cecal perforation. 2. Status post right colectomy, open cholecystectomy, and abdominal washout. 3. History of COPD. 4. Schizophrenia. 5. Left lung complete atelectasis; resolved post bronchoscopy DISCUSSION: Transferred out of ICU Extubated 09/15/20 Continue broad-spectrum antibiotics. I will follow carefully. CXR shows improved aeration of left lung field Saturating well on nasal o2 Tito Sheffield Omar Syed MD Sep 27, 2020 10:52
--- NOTE | 2020-09-27 11:21 | Nephrology Progress Note ---
Assessment/Plan Problem List: (1) Lactic acid increased (2) Electrolyte imbalance (3) SBO (small bowel obstruction) (4) Sepsis (5) Bowel perforation Assessment Lactic acidosis Bowel perforation Sepsis Plan September 27: No labs drawn today. Remains stable from renal standpoint of view. Medication reviewed. September 26: Labs reviewed. Stable from renal standpoint view. Continue. GI and general surgery. September 25: Status quo. Labs reviewed. Clinically stable. Continue per consultants. September 24: Late note entry. Status quo. Labs reviewed. Continue per consultants. September 23: Labs reviewed. Potassium 5.3. IV fluid contains potassium. IV fluid changed. Continue per consultants. September 22: No labs drawn today. Clinically improving. On full liquid diet now. Continue to monitor electrolytes and renal parameters. Per orders. September 21: Patient on clear liquid. Labs reviewed. Abnormalities addressed. IV sodium phosphate ordered. Continue per consultants. September 20: Discussed with JAROD Rivas. Patient due for speech therapy evaluation. Labs reviewed. Magnesium and phosphorus supplement ordered. Continue per consultants. Continue to monitor renal parameters and electrolytes. September 19: Labs reviewed. Magnesium and phosphorus supplement intravenously ordered. Discussed with RN. Continue to monitor renal parameters. Defer TPN and feeding to GI/general surgery. September 18: NG tube to suction. Output minimal. Labs reviewed. Phosphorus supplement intravenously ordered. Discussed with Dr. Leslie regarding the need for TPN. Will await for general surgery comment. Continue to monitor renal parameters and electrolytes. September 17: All noted. Discussed with RN. Labs reviewed. Patient has NG tube to suction. It appears that the patient post abdominal surgery may not be started on feeding. Suggest TPN. Deferred to GI/surgeon. September 16: Patient about to undergo bronchoscopy for white out left lung. Labs reviewed. Abnormal electrolytes and chemistries addressed. Continue per consultants. September 15: On nasal cannula, renal parameters stable. Continue per consultants. Previously: Postop care, weaning from ventilator ~failed so far Check urine analysis, noted IV fluid management Keep the electrolytes and renal parameters in check Antibiotics Per consultants Post surgery results: 1. Small bowel obstruction at the level of the ileocecal valve, secondary to unknown etiology, potential tumor mass. 2. Perforated cecum. 3. Acute cholecystitis. Subjective ROS Limited/Unobtainable: No Constitutional: Reports: malaise Objective Objective Last 24 Hour Vital Signs Date Time Temp Pulse Resp B/P (MAP) Pulse Ox O2 Delivery O2 Flow Rate FiO2 09/27/20 08:00 97.1 85 18 100/55 (70) 94 09/27/20 04:00 98.1 70 18 130/65 (86) 98 09/27/20 00:00 97.6 65 17 124/67 (86) 98 09/26/20 21:00 Nasal Cannula 2.0 09/26/20 20:00 98.3 88 20 119/60 (79) 96 09/26/20 20:00 82 09/26/20 16:00 87 09/26/20 16:00 96.9 85 20 130/70 (90) 97 09/26/20 12:00 89 09/26/20 12:00 96.7 73 20 103/57 (72) 99 Intake and Output 09/26/20 09/27/20 19:00 07:00 Intake Total 720 ml 250 ml Output Total 950 ml 1200 ml Balance -230 ml -950 ml Intake Oral 720 ml IV Total 250 ml Output Urine Total 950 ml 1200 ml # Voids 1 Current Medications Medications (Trade) Dose Ordered Sig/Jojo Route PRN Reason Start Time Stop Time Status Last Admin Dose Admin Dextrose/Sodium Chloride 1,000 ml @ 50 mls/hr Q20H IV 09/23/20 11:28 10/23/20 11:27 09/26/20 22:27 Dronabinol (Marinol) 2.5 mg BID ORAL 09/24/20 09:00 12/23/20 08:59 09/27/20 08:18 Heparin Sodium (Porcine) (Heparin 5000 units/ml) 5,000 units EVERY 8 HOURS SUBQ 09/14/20 06:00 10/29/20 05:59 09/27/20 06:21 Metoclopramide HCl (Reglan) 10 mg Q6H PRN IVP Nausea & Vomiting 09/13/20 01:00 10/13/20 00:59 Nicotine (Nicoderm) 1 patch Q24H TDERMAL 09/21/20 12:00 12/20/20 11:59 09/26/20 12:16 Ondansetron HCl (Zofran) 4 mg Q6H PRN IVP Nausea & Vomiting 09/13/20 01:00 10/13/20 00:59 Pantoprazole (Protonix) 40 mg DAILY ORAL 09/24/20 09:00 10/24/20 08:59 09/27/20 08:18 Vancomycin HCl (Firvanq) 125 mg FOUR TIMES A DAY ORAL 09/26/20 13:00 10/03/20 12:59 09/27/20 08:18 No labs drawn today Height (Feet): 6 Height (Inches): 0.00 Weight (Pounds): 155 General Appearance: no apparent distress Cardiovascular: normal rate Respiratory/Chest: decreased breath sounds Abdomen: soft Price Heart MD Sep 27, 2020 11:21
[2020-09-27 12:00] VITALS: BP 101/57
--- NOTE | 2020-09-27 12:32 | Cardiac Electrophysiology PN ---
Assessment/Plan Assessment/Plan 1. Sinus tachycardia due to sepsis/respiratory failure and post op. Resolved now. EF 55%. Troponins negative 2. COPD esacerbation, S/P Respiratory failure. Extubated S/P Left white out. S/P bronchoscopy by Dr. Lambert 09/16/20 3. Acute abdomen, status post surgery by Dr. Morrow including cholecystectomy as well as right colectomy and small bowel resection. ( Pathology showed perforated appendicitis) on antibiotics and full liquid diet 4. BNP 1800. Nl EF 55%. No clinical CHF 5. C Diff Colitis, on Po Vancomycin DW RN Subjective Subjective Had bronchoscopy on 09/16/20 for Left lung white out by Dr. Lambert. Alert and oriented.Eating better. In SR. Positive for C Diff and in isolation Objective Last 24 Hour Vital Signs Date Time Temp Pulse Resp B/P (MAP) Pulse Ox O2 Delivery O2 Flow Rate FiO2 09/27/20 12:00 97.9 82 18 101/57 (72) 99 09/27/20 08:00 97.1 85 18 100/55 (70) 94 09/27/20 04:00 98.1 70 18 130/65 (86) 98 09/27/20 00:00 97.6 65 17 124/67 (86) 98 09/26/20 21:00 Nasal Cannula 2.0 09/26/20 20:00 98.3 88 20 119/60 (79) 96 09/26/20 20:00 82 09/26/20 16:00 87 09/26/20 16:00 96.9 85 20 130/70 (90) 97 Intake and Output 09/26/20 09/27/20 19:00 07:00 Intake Total 720 ml 250 ml Output Total 950 ml 1200 ml Balance -230 ml -950 ml Intake Oral 720 ml IV Total 250 ml Output Urine Total 950 ml 1200 ml # Voids 1 Objective HEAD AND NECK: No JVD. LUNGS: Coarse rhonchi CARDIOVASCULAR: Shows regular S1 and S2 with no gallop. ABDOMEN: Tender and is status post laparotomy. Has rectal tube EXTREMITIES: No pitting edema. Jason Li MD Sep 27, 2020 12:32
--- NOTE | 2020-09-27 12:38 | Infectious Diseases Prog Note ---
Assessment/Plan Assessment/Plan IMPRESSION: 1. Sepsis improving 2. Acute appendicitis with perforation. 3. Acute/ chronic cholecystitis. 4. COPD. 5. Fatty liver. 6. Preoperative respiratory failure resolved 7. Pneumonia 8. Peritonitis 9. Colitis with perforation 10. Mucous plug 11. C.difficile colitis RECOMMENDATION: 1. Continue PO Vancomycin Subjective ROS Limited/Unobtainable: Yes Gastrointestinal/Abdominal: Reports: diarrhea Allergies: Coded Allergies: No Known Allergies (Unverified , 09/12/20) Objective Last 24 Hour Vital Signs Date Time Temp Pulse Resp B/P (MAP) Pulse Ox O2 Delivery O2 Flow Rate FiO2 09/27/20 12:00 97.9 82 18 101/57 (72) 99 09/27/20 08:00 97.1 85 18 100/55 (70) 94 09/27/20 04:00 98.1 70 18 130/65 (86) 98 09/27/20 00:00 97.6 65 17 124/67 (86) 98 09/26/20 21:00 Nasal Cannula 2.0 09/26/20 20:00 98.3 88 20 119/60 (79) 96 09/26/20 20:00 82 09/26/20 16:00 87 09/26/20 16:00 96.9 85 20 130/70 (90) 97 Height (Feet): 6 Height (Inches): 0.00 Weight (Pounds): 155 HEENT: mucous membranes moist Respiratory/Chest: lungs clear Cardiovascular: normal rate Abdomen: soft, non tender, other - rectal tube Extremities: no edema Neurologic/Psychiatric: alert, responsive Current Medications Medications (Trade) Dose Ordered Sig/Jojo Route PRN Reason Start Time Stop Time Status Last Admin Dose Admin Dextrose/Sodium Chloride 1,000 ml @ 50 mls/hr Q20H IV 09/23/20 11:28 10/23/20 11:27 09/26/20 22:27 Dronabinol (Marinol) 2.5 mg BID ORAL 09/24/20 09:00 12/23/20 08:59 09/27/20 08:18 Heparin Sodium (Porcine) (Heparin 5000 units/ml) 5,000 units EVERY 8 HOURS SUBQ 09/14/20 06:00 10/29/20 05:59 09/27/20 06:21 Metoclopramide HCl (Reglan) 10 mg Q6H PRN IVP Nausea & Vomiting 09/13/20 01:00 10/13/20 00:59 Nicotine (Nicoderm) 1 patch Q24H TDERMAL 09/21/20 12:00 12/20/20 11:59 09/27/20 12:06 Ondansetron HCl (Zofran) 4 mg Q6H PRN IVP Nausea & Vomiting 09/13/20 01:00 10/13/20 00:59 Pantoprazole (Protonix) 40 mg DAILY ORAL 09/24/20 09:00 10/24/20 08:59 09/27/20 08:18 Vancomycin HCl (Firvanq) 125 mg FOUR TIMES A DAY ORAL 09/26/20 13:00 10/03/20 12:59 09/27/20 12:06 Delio Edgar MD Sep 27, 2020 12:38
[2020-09-27] MEDS: D5NS 1,000 ML IV SCH (15:27)
[2020-09-27 16:00] VITALS: BP 121/65
--- NOTE | 2020-09-27 19:07 | General Progress Note ---
Subjective Allergies: Coded Allergies: No Known Allergies (Unverified , 09/12/20) Subjective feels OK resting comfortably seen earlier today Objective Last 24 Hour Vital Signs Date Time Temp Pulse Resp B/P (MAP) Pulse Ox O2 Delivery O2 Flow Rate FiO2 09/27/20 16:00 97.8 82 18 121/65 (83) 94 09/27/20 12:00 97.9 82 18 101/57 (72) 99 09/27/20 08:00 97.1 85 18 100/55 (70) 94 09/27/20 04:00 98.1 70 18 130/65 (86) 98 09/27/20 00:00 97.6 65 17 124/67 (86) 98 09/26/20 21:00 Nasal Cannula 2.0 09/26/20 20:00 98.3 88 20 119/60 (79) 96 09/26/20 20:00 82 Intake and Output 09/26/20 09/27/20 19:00 07:00 Intake Total 720 ml 250 ml Output Total 950 ml 1200 ml Balance -230 ml -950 ml Intake Oral 720 ml IV Total 250 ml Output Urine Total 950 ml 1200 ml # Voids 1 Height (Feet): 6 Height (Inches): 0.00 Weight (Pounds): 155 Objective Thin man NCAT supple CTA RR abd soft , flat no edema Assessment/Plan Status: unchanged Assessment/Plan: Assessment - Diarrhea - C Diff (+) - IC valve area SBO and cecal perforation, presumed from appendicitis - s/p ex lap and bowel resection with primary anastomosis - s/p sancho for cholecystitis - post op ileus - resolved Recommendations - vanco PO - post op care - push po - OOB - follow labs and exam Froilan De Paz MD Sep 27, 2020 19:07
[2020-09-27 20:00] VITALS: BP 112/57
[2020-09-28] VITALS: BP 114/60
[2020-09-28 04:00] VITALS: BP 106/57
[2020-09-28] MEDS: Heparin 5000 units/ml inj SUBQ SCH ×3 (05:15→21:11)
[2020-09-28 08:00] VITALS: BP 98/56
--- NOTE | 2020-09-28 08:00 | Pulmonology Progress Note ---
Subjective ROS Limited/Unobtainable: Yes Interval Events: Extubated on 09/14/20; Doing well Constitutional: Denies: fever HEENT: Repors: no symptoms Respiratory: Reports: no symptoms Cardiovascular: Reports: no symptoms Gastrointestinal/Abdominal: Reports: diarrhea Psychiatric: Reports: other Allergies: Coded Allergies: No Known Allergies (Unverified , 09/12/20) All Systems: reviewed and negative except above Objective Last 24 Hour Vital Signs Date Time Temp Pulse Resp B/P (MAP) Pulse Ox O2 Delivery O2 Flow Rate FiO2 09/28/20 04:00 97.2 77 18 106/57 (73) 94 09/28/20 00:00 97.5 75 18 114/60 (78) 94 09/27/20 22:04 Nasal Cannula 2.0 09/27/20 20:00 97.0 85 18 112/57 (75) 94 09/27/20 19:30 96 Nasal Cannula 2.0 28 09/27/20 16:00 97.8 82 18 121/65 (83) 94 09/27/20 12:00 97.9 82 18 101/57 (72) 99 Intake and Output 09/27/20 09/28/20 19:00 07:00 Intake Total 960 ml Output Total 700 ml 400 ml Balance 260 ml -400 ml Intake Oral 960 ml Output Urine Total 700 ml 400 ml General Appearance: no acute distress HEENT: normocephalic Respiratory: chest wall non-tender, decreased breath sounds Cardiovascular: normal peripheral pulses, normal rate Abdomen: normal bowel sounds Current Medications Medications (Trade) Dose Ordered Sig/Jojo Route PRN Reason Start Time Stop Time Status Last Admin Dose Admin Dextrose/Sodium Chloride 1,000 ml @ 50 mls/hr Q20H IV 09/23/20 11:28 10/23/20 11:27 09/27/20 15:27 Dronabinol (Marinol) 2.5 mg BID ORAL 09/24/20 09:00 12/23/20 08:59 09/27/20 17:19 Heparin Sodium (Porcine) (Heparin 5000 units/ml) 5,000 units EVERY 8 HOURS SUBQ 09/14/20 06:00 10/29/20 05:59 09/28/20 05:15 Metoclopramide HCl (Reglan) 10 mg Q6H PRN IVP Nausea & Vomiting 09/13/20 01:00 11/19/20 00:59 Nicotine (Nicoderm) 1 patch Q24H TDERMAL 09/21/20 12:00 12/20/20 11:59 09/27/20 12:06 Ondansetron HCl (Zofran) 4 mg Q6H PRN IVP Nausea & Vomiting 09/13/20 01:00 10/13/20 00:59 Pantoprazole (Protonix) 40 mg DAILY ORAL 09/24/20 09:00 10/24/20 08:59 09/27/20 08:18 Vancomycin HCl (Firvanq) 125 mg FOUR TIMES A DAY ORAL 09/26/20 13:00 10/03/20 12:59 09/27/20 20:14 Assessment/Plan Assessment/Plan IMPRESSION: 1. Cecal perforation. 2. Status post right colectomy, open cholecystectomy, and abdominal washout. 3. History of COPD. 4. Schizophrenia. 5. Left lung complete atelectasis; resolved post bronchoscopy DISCUSSION: Transferred out of ICU Extubated 09/15/20 Continue broad-spectrum antibiotics. I will follow carefully. CXR shows improved aeration of left lung field Saturating well on nasal o2 Venkatesh Lambert M.D. Venkatesh Lambert MD Sep 28, 2020 08:00
[2020-09-28] MEDS: Vancomycin oral 125mg/2.5ml ORAL SCH ×4 (08:22→21:04)
[2020-09-28] MEDS: Dronabinol 2.5mg Cap ORAL SCH ×2 (08:23→17:16)
--- NOTE | 2020-09-28 10:52 | Infectious Diseases Prog Note ---
Assessment/Plan Assessment/Plan IMPRESSION: 1. Sepsis improving 2. Acute appendicitis with perforation. 3. Acute/ chronic cholecystitis. 4. COPD. 5. Fatty liver. 6. Preoperative respiratory failure resolved 7. Pneumonia 8. Peritonitis 9. Colitis with perforation 10. Mucous plug 11. C.difficile colitis RECOMMENDATION: 1. Continue PO Vancomycin Subjective ROS Limited/Unobtainable: Yes Constitutional: Denies: fever Respiratory: Reports: productive cough Allergies: Coded Allergies: No Known Allergies (Unverified , 09/12/20) Objective Last 24 Hour Vital Signs Date Time Temp Pulse Resp B/P (MAP) Pulse Ox O2 Delivery O2 Flow Rate FiO2 09/28/20 08:06 97 Nasal Cannula 2.0 28 09/28/20 08:00 98.1 87 18 98/56 (70) 99 09/28/20 04:00 97.2 77 18 106/57 (73) 94 09/28/20 00:00 97.5 75 18 114/60 (78) 94 09/27/20 22:04 Nasal Cannula 2.0 09/27/20 20:00 97.0 85 18 112/57 (75) 94 09/27/20 19:30 96 Nasal Cannula 2.0 28 09/27/20 16:00 97.8 82 18 121/65 (83) 94 09/27/20 12:00 97.9 82 18 101/57 (72) 99 Height (Feet): 6 Height (Inches): 0.00 Weight (Pounds): 155 HEENT: mucous membranes moist Respiratory/Chest: lungs clear Cardiovascular: normal rate Abdomen: soft, non tender, other - clean midline surgical jennifer Extremities: no edema Neurologic/Psychiatric: alert, responsive Current Medications Medications (Trade) Dose Ordered Sig/Jojo Route PRN Reason Start Time Stop Time Status Last Admin Dose Admin Dextrose/Sodium Chloride 1,000 ml @ 50 mls/hr Q20H IV 09/23/20 11:28 10/23/20 11:27 09/27/20 15:27 Dronabinol (Marinol) 2.5 mg BID ORAL 09/24/20 09:00 12/23/20 08:59 09/28/20 08:23 Heparin Sodium (Porcine) (Heparin 5000 units/ml) 5,000 units EVERY 8 HOURS SUBQ 09/14/20 06:00 10/29/20 05:59 09/28/20 05:15 Metoclopramide HCl (Reglan) 10 mg Q6H PRN IVP Nausea & Vomiting 09/13/20 01:00 10/13/20 00:59 Nicotine (Nicoderm) 1 patch Q24H TDERMAL 09/21/20 12:00 12/20/20 11:59 09/27/20 12:06 Ondansetron HCl (Zofran) 4 mg Q6H PRN IVP Nausea & Vomiting 09/13/20 01:00 10/13/20 00:59 Pantoprazole (Protonix) 40 mg DAILY ORAL 09/24/20 09:00 10/24/20 08:59 09/28/20 08:23 Vancomycin HCl (Firvanq) 125 mg FOUR TIMES A DAY ORAL 09/26/20 13:00 10/03/20 12:59 09/28/20 08:22 Delio Edgar MD Sep 28, 2020 10:52
[2020-09-28 12:00] VITALS: BP 100/60
[2020-09-28] MEDS: D5NS 1,000 ML IV SCH (12:13)
--- NOTE | 2020-09-28 13:05 | General Progress Note ---
Subjective ROS Limited/Unobtainable: Yes Allergies: Coded Allergies: No Known Allergies (Unverified , 09/12/20) Objective Last 24 Hour Vital Signs Date Time Temp Pulse Resp B/P (MAP) Pulse Ox O2 Delivery O2 Flow Rate FiO2 09/28/20 12:00 96.8 86 20 100/60 (73) 99 09/28/20 08:06 97 Nasal Cannula 2.0 28 09/28/20 08:00 98.1 87 18 98/56 (70) 99 09/28/20 04:00 97.2 77 18 106/57 (73) 94 09/28/20 00:00 97.5 75 18 114/60 (78) 94 09/27/20 22:04 Nasal Cannula 2.0 09/27/20 20:00 97.0 85 18 112/57 (75) 94 09/27/20 19:30 96 Nasal Cannula 2.0 28 09/27/20 16:00 97.8 82 18 121/65 (83) 94 Intake and Output 09/27/20 09/28/20 19:00 07:00 Intake Total 960 ml Output Total 700 ml 400 ml Balance 260 ml -400 ml Intake Oral 960 ml Output Urine Total 700 ml 400 ml Height (Feet): 6 Height (Inches): 0.00 Weight (Pounds): 155 Assessment/Plan Problem List: (1) Bowel perforation ICD Codes: K63.1 - Perforation of intestine (nontraumatic) SNOMED: 30154649 (2) Sepsis ICD Codes: A41.9 - Sepsis, unspecified organism SNOMED: 26507501 (3) SBO (small bowel obstruction) ICD Codes: K56.609 - Unspecified intestinal obstruction, unspecified as to partial versus complete obstruction SNOMED: 226758865 (4) Lactic acidosis ICD Codes: E87.2 - Acidosis SNOMED: 22237579 (5) Abdominal pain ICD Codes: R10.9 - Unspecified abdominal pain SNOMED: 02738998 Status: progressing, unchanged Assessment/Plan: is positive stool c diff continue treating c diff pna copd is improved on isolation s/p exploratory lap for perforated bowel Vania Dwyer MD Sep 28, 2020 13:05
--- NOTE | 2020-09-28 15:33 | Cardiac Electrophysiology PN ---
Assessment/Plan Assessment/Plan 1. Sinus tachycardia due to sepsis/respiratory failure and post op. Resolved now. EF 55%. Troponins negative 2. COPD esacerbation, S/P Respiratory failure. Extubated S/P Left white out. S/P bronchoscopy by Dr. Lambert 09/16/20 3. Acute abdomen, status post surgery by Dr. Morrow including cholecystectomy as well as right colectomy and small bowel resection. ( Pathology showed perforated appendicitis) on antibiotics and full liquid diet 4. BNP 1800. Nl EF 55%. No clinical CHF 5. C Diff Colitis, on Po Vancomycin DW able seaman pending Subjective Subjective Had bronchoscopy on 09/16/20 for Left lung white out by Dr. Lambert. Alert and oriented. Positive for C Diff and in isolation Objective Last 24 Hour Vital Signs Date Time Temp Pulse Resp B/P (MAP) Pulse Ox O2 Delivery O2 Flow Rate FiO2 09/28/20 12:00 96.8 86 20 100/60 (73) 99 09/28/20 08:06 97 Nasal Cannula 2.0 28 09/28/20 08:00 98.1 87 18 98/56 (70) 99 09/28/20 04:00 97.2 77 18 106/57 (73) 94 09/28/20 00:00 97.5 75 18 114/60 (78) 94 09/27/20 22:04 Nasal Cannula 2.0 09/27/20 20:00 97.0 85 18 112/57 (75) 94 09/27/20 19:30 96 Nasal Cannula 2.0 28 09/27/20 16:00 97.8 82 18 121/65 (83) 94 Intake and Output 09/27/20 09/28/20 19:00 07:00 Intake Total 960 ml Output Total 700 ml 400 ml Balance 260 ml -400 ml Intake Oral 960 ml Output Urine Total 700 ml 400 ml Objective HEAD AND NECK: No JVD. LUNGS: Coarse rhonchi CARDIOVASCULAR: Shows regular S1 and S2 with no gallop. ABDOMEN: Tender and is status post laparotomy. Has rectal tube EXTREMITIES: No pitting edema. Jason Li MD Sep 28, 2020 15:33
[2020-09-28 16:00] VITALS: BP 107/57
--- NOTE | 2020-09-28 17:02 | Nephrology Progress Note ---
Assessment/Plan Problem List: (1) Lactic acid increased (2) Electrolyte imbalance (3) SBO (small bowel obstruction) (4) Sepsis (5) Bowel perforation Assessment Lactic acidosis Bowel perforation Sepsis Plan September 28: No labs drawn today. Stable from renal standpoint of view. Will check labs tomorrow. September 27: No labs drawn today. Remains stable from renal standpoint of view. Medication reviewed. September 26: Labs reviewed. Stable from renal standpoint view. Continue. GI and general surgery. September 25: Status quo. Labs reviewed. Clinically stable. Continue per consultants. September 24: Late note entry. Status quo. Labs reviewed. Continue per consultants. September 23: Labs reviewed. Potassium 5.3. IV fluid contains potassium. IV fluid changed. Continue per consultants. September 22: No labs drawn today. Clinically improving. On full liquid diet now. Continue to monitor electrolytes and renal parameters. Per orders. September 21: Patient on clear liquid. Labs reviewed. Abnormalities addressed. IV sodium phosphate ordered. Continue per consultants. September 20: Discussed with JAROD Rivas. Patient due for speech therapy evaluation. Labs reviewed. Magnesium and phosphorus supplement ordered. Continue per consultants. Continue to monitor renal parameters and electrolytes. September 19: Labs reviewed. Magnesium and phosphorus supplement intravenously ordered. Discussed with RN. Continue to monitor renal parameters. Defer TPN and feeding to GI/general surgery. September 18: NG tube to suction. Output minimal. Labs reviewed. Phosphorus supplement intravenously ordered. Discussed with Dr. Leslie regarding the need for TPN. Will await for general surgery comment. Continue to monitor renal parameters and electrolytes. September 17: All noted. Discussed with RN. Labs reviewed. Patient has NG tube to suction. It appears that the patient post abdominal surgery may not be started on feeding. Suggest TPN. Deferred to GI/surgeon. September 16: Patient about to undergo bronchoscopy for white out left lung. Labs reviewed. Abnormal electrolytes and chemistries addressed. Continue per consultants. September 15: On nasal cannula, renal parameters stable. Continue per cons ultants. Previously: Postop care, weaning from ventilator ~failed so far Check urine analysis, noted IV fluid management Keep the electrolytes and renal parameters in check Antibiotics Per consultants Post surgery results: 1. Small bowel obstruction at the level of the ileocecal valve, secondary to unknown etiology, potential tumor mass. 2. Perforated cecum. 3. Acute cholecystitis. Subjective ROS Limited/Unobtainable: No Constitutional: Reports: malaise Objective Objective Last 24 Hour Vital Signs Date Time Temp Pulse Resp B/P (MAP) Pulse Ox O2 Delivery O2 Flow Rate FiO2 09/28/20 16:00 97.0 92 18 107/57 (74) 99 09/28/20 12:00 96.8 86 20 100/60 (73) 99 09/28/20 08:06 97 Nasal Cannula 2.0 28 09/28/20 08:00 98.1 87 18 98/56 (70) 99 09/28/20 04:00 97.2 77 18 106/57 (73) 94 09/28/20 00:00 97.5 75 18 114/60 (78) 94 09/27/20 22:04 Nasal Cannula 2.0 09/27/20 20:00 97.0 85 18 112/57 (75) 94 09/27/20 19:30 96 Nasal Cannula 2.0 28 Intake and Output 09/27/20 09/28/20 19:00 07:00 Intake Total 960 ml Output Total 700 ml 400 ml Balance 260 ml -400 ml Intake Oral 960 ml Output Urine Total 700 ml 400 ml Current Medications Medications (Trade) Dose Ordered Sig/Jojo Route PRN Reason Start Time Stop Time Status Last Admin Dose Admin Dextrose/Sodium Chloride 1,000 ml @ 50 mls/hr Q20H IV 09/23/20 11:28 10/23/20 11:27 09/28/20 12:13 Dronabinol (Marinol) 2.5 mg BID ORAL 09/24/20 09:00 12/23/20 08:59 09/28/20 08:23 Heparin Sodium (Porcine) (Heparin 5000 units/ml) 5,000 units EVERY 8 HOURS SUBQ 09/14/20 06:00 10/29/20 05:59 09/28/20 13:27 Metoclopramide HCl (Reglan) 10 mg Q6H PRN IVP Nausea & Vomiting 09/13/20 01:00 10/13/20 00:59 Nicotine (Nicoderm) 1 patch Q24H TDERMAL 09/21/20 12:00 12/20/20 11:59 09/28/20 12:13 Ondansetron HCl (Zofran) 4 mg Q6H PRN IVP Nausea & Vomiting 09/13/20 01:00 10/13/20 00:59 Pantoprazole (Protonix) 40 mg DAILY ORAL 09/24/20 09:00 10/24/20 08:59 09/28/20 08:23 Vancomycin HCl (Firvanq) 125 mg FOUR TIMES A DAY ORAL 09/26/20 13:00 10/03/20 12:59 09/28/20 12:13 No labs drawn today Height (Feet): 6 Height (Inches): 0.00 Weight (Pounds): 155 General Appearance: no apparent distress Cardiovascular: tachycardia Respiratory/Chest: decreased breath sounds Abdomen: distended Price Heart MD Sep 28, 2020 17:02
[2020-09-28 20:00] VITALS: BP 112/65
--- NOTE | 2020-09-28 20:02 | General Progress Note ---
Subjective Allergies: Coded Allergies: No Known Allergies (Unverified , 09/12/20) Subjective feels OK resting comfortably Objective Last 24 Hour Vital Signs Date Time Temp Pulse Resp B/P (MAP) Pulse Ox O2 Delivery O2 Flow Rate FiO2 09/28/20 16:00 97.0 92 18 107/57 (74) 99 09/28/20 12:00 96.8 86 20 100/60 (73) 99 09/28/20 08:06 97 Nasal Cannula 2.0 28 09/28/20 08:00 98.1 87 18 98/56 (70) 99 09/28/20 04:00 97.2 77 18 106/57 (73) 94 09/28/20 00:00 97.5 75 18 114/60 (78) 94 09/27/20 22:04 Nasal Cannula 2.0 Intake and Output 09/27/20 09/28/20 19:00 07:00 Intake Total 960 ml Output Total 700 ml 400 ml Balance 260 ml -400 ml Intake Oral 960 ml Output Urine Total 700 ml 400 ml Height (Feet): 6 Height (Inches): 0.00 Weight (Pounds): 155 Objective Thin man NCAT supple CTA RR abd soft , flat no edema Assessment/Plan Status: progressing, unchanged Assessment/Plan: Assessment - Diarrhea - C Diff (+) - IC valve area SBO and cecal perforation, presumed from appendicitis - s/p ex lap and bowel resection with primary anastomosis - s/p sancho for cholecystitis - post op ileus - resolved Recommendations - vanco PO - post op care - push po - OOB - follow labs and exam Froilan De Paz MD Sep 28, 2020 20:02
[2020-09-29] VITALS (7 sets, daily range): BP systolic 101–125; BP diastolic 55–63
[2020-09-29] MEDS: Heparin 5000 units/ml inj SUBQ SCH ×3 (06:15→21:16)
[2020-09-29 07:15] LABS: ALANINE AMINOTRANSFERASE 9 U/L (12-78); ALBUMIN 2.1 G/DL (3.4-5.0); ALBUMIN/GLOBULIN RATIO 0.7 (1.0-2.7); ALKALINE PHOSPHATASE 97 U/L (46-116); ANION GAP 3 mmol/L (5-15); ASPARTATE AMINO TRANSFERASE 12 U/L (15-37); BILIRUBIN,TOTAL 0.3 MG/DL (0.2-1.0); BLOOD UREA NITROGEN 7 mg/dL (7-18); CALCIUM 8.3 MG/DL (8.5-10.1); CARBON DIOXIDE 33 MMOL/L (21-32); CHLORIDE 102 MMOL/L (98-107); CREATININE 0.6 MG/DL (0.55-1.30); PHOSPHORUS 2.9 MG/DL (2.5-4.9); POTASSIUM 3.9 MMOL/L (3.5-5.1); SODIUM 138 MMOL/L (136-145)
[2020-09-29 07:20] LABS: BASOPHILS % (AUTO) 1.3 % (0.0-2.0); EOSINOPHILS % (AUTO) 1.7 % (0.0-3.0); HEMATOCRIT 38.1 % (42.0-52.0); HEMOGLOBIN 12.1 G/DL (14.2-18.0); LYMPHOCYTES % (AUTO) 18.6 % (20.0-45.0); MEAN CORPUSCULAR VOLUME 90 FL (80-99); MONOCYTES % (AUTO) 7.1 % (1.0-10.0); NEUTROPHILS % (AUTO) 71.3 % (45.0-75.0); PLATELET COUNT 333 K/UL (150-450); RED BLOOD COUNT 4.21 M/UL (4.70-6.10); RED CELL DISTRIBUTION WIDTH 14.1 % (11.6-14.8); WHITE BLOOD COUNT 7.8 K/UL (4.8-10.8)
[2020-09-29] MEDS: Dronabinol 2.5mg Cap ORAL SCH ×2 (08:35→17:10)
[2020-09-29] MEDS: Vancomycin oral 125mg/2.5ml ORAL SCH ×4 (08:35→21:15)
[2020-09-29] MEDS: D5NS 1,000 ML IV SCH (08:36)
--- NOTE | 2020-09-29 09:28 | Pulmonology Progress Note ---
Subjective ROS Limited/Unobtainable: No Interval Events: Extubated on 09/14/20; Doing well Constitutional: Denies: fever HEENT: Repors: no symptoms Respiratory: Reports: no symptoms Cardiovascular: Reports: no symptoms Gastrointestinal/Abdominal: Reports: diarrhea Psychiatric: Reports: other Allergies: Coded Allergies: No Known Allergies (Unverified , 09/12/20) All Systems: reviewed and negative except above Objective Last 24 Hour Vital Signs Date Time Temp Pulse Resp B/P (MAP) Pulse Ox O2 Delivery O2 Flow Rate FiO2 09/29/20 09:22 95 Room Air 21 09/29/20 08:00 98.6 92 18 104/57 (73) 99 09/29/20 04:00 97.2 80 17 113/63 (80) 93 09/29/20 00:00 96.8 87 19 125/63 (83) 93 09/28/20 21:00 Room Air 09/28/20 20:12 97 Nasal Cannula 2.0 28 09/28/20 20:00 98.2 86 19 112/65 (81) 96 09/28/20 16:00 97.0 92 18 107/57 (74) 99 09/28/20 12:00 96.8 86 20 100/60 (73) 99 Intake and Output 09/28/20 09/29/20 19:00 07:00 Intake Total 650 ml 350 ml Output Total 1650 ml 1100 ml Balance -1000 ml -750 ml Intake Oral 600 ml IV Total 50 ml 350 ml Output Urine Total 1650 ml 1000 ml Stool Total 100 ml General Appearance: no acute distress HEENT: normocephalic Respiratory: chest wall non-tender, decreased breath sounds Cardiovascular: normal peripheral pulses, normal rate Abdomen: normal bowel sounds Laboratory Tests 09/29/20 05:45: White Blood Count 7.8, Red Blood Count 4.21L, Hemoglobin 12.1L, Hematocrit 38.1L , Mean Corpuscular Volume 90, Mean Corpuscular Hemoglobin 28.8, Mean Corpuscular Hemoglobin Concent 31.8L, Red Cell Distribution Width 14.1, Platelet Count 333, Mean Platelet Volume 6.0L, Neutrophils (%) (Auto) 71.3, Lymphocytes (%) (Auto) 18.6L, Monocytes (%) (Auto) 7.1, Eosinophils (%) (Auto) 1.7, Basophils (%) (Auto) 1.3, Sodium Level 138, Potassium Level 3.9, Chloride Level 102, Carbon Dioxide Level 33H, Anion Gap 3L, Blood Urea Nitrogen 7, Creatinine 0.6, Estimat Glomerular Filtration Rate > 60, Glucose Level 99, Calcium Level 8.3L, Phosphorus Level 2.9, Magnesium Level 1.8, Total Bilirubin 0.3, Aspartate Amino Transf (AST/SGOT) 12L, Alanine Aminotransferase (ALT/SGPT) 9L, Alkaline Phosphatase 97, Total Protein 5.1L, Albumin 2.1L, Globulin 3.0, Albumin/Globulin Ratio 0.7L Current Medications Medications (Trade) Dose Ordered Sig/Jojo Route PRN Reason Start Time Stop Time Status Last Admin Dose Admin Dextrose/Sodium Chloride 1,000 ml @ 50 mls/hr Q20H IV 09/23/20 11:28 10/23/20 11:27 09/29/20 08:36 Dronabinol (Marinol) 2.5 mg BID ORAL 09/24/20 09:00 12/23/20 08:59 09/29/20 08:35 Heparin Sodium (Porcine) (Heparin 5000 units/ml) 5,000 units EVERY 8 HOURS SUBQ 09/14/20 06:00 10/29/20 05:59 09/29/20 06:15 Metoclopramide HCl (Reglan) 10 mg Q6H PRN IVP Nausea & Vomiting 09/13/20 01:00 10/13/20 00:59 Nicotine (Nicoderm) 1 patch Q24H TDERMAL 09/21/20 12:00 12/20/20 11:59 09/28/20 12:13 Ondansetron HCl (Zofran) 4 mg Q6H PRN IVP Nausea & Vomiting 09/13/20 01:00 10/13/20 00:59 Pantoprazole (Protonix) 40 mg DAILY ORAL 09/24/20 09:00 10/24/20 08:59 09/29/20 08:35 Vancomycin HCl (Firvanq) 125 mg FOUR TIMES A DAY ORAL 09/26/20 13:00 10/03/20 12:59 09/29/20 08:35 Assessment/Plan Assessment/Plan IMPRESSION: 1. Cecal perforation. 2. Status post right colectomy, open cholecystectomy, and abdominal washout. 3. History of COPD. 4. Schizophrenia. 5. Left lung complete atelectasis; resolved post bronchoscopy DISCUSSION: Transferred out of ICU Extubated 09/15/20 Continue broad-spectrum antibiotics. I will follow carefully. CXR shows improved aeration of left lung field Saturating well on nasal o2 Tito Sheffield Omar Syed MD Sep 29, 2020 09:28
--- NOTE | 2020-09-29 12:22 | Infectious Diseases Prog Note ---
Assessment/Plan Assessment/Plan IMPRESSION: 1. Sepsis improving 2. Acute appendicitis with perforation. 3. Acute/ chronic cholecystitis. 4. COPD. 5. Fatty liver. 6. Preoperative respiratory failure resolved 7. Pneumonia 8. Peritonitis 9. Colitis with perforation 10. Mucous plug 11. C.difficile colitis RECOMMENDATION: 1. Continue PO Vancomycin Subjective ROS Limited/Unobtainable: Yes Constitutional: Reports: no symptoms Respiratory: Reports: productive cough Gastrointestinal/Abdominal: Reports: no symptoms Allergies: Coded Allergies: No Known Allergies (Unverified , 09/12/20) Objective Last 24 Hour Vital Signs Date Time Temp Pulse Resp B/P (MAP) Pulse Ox O2 Delivery O2 Flow Rate FiO2 09/29/20 12:00 97.3 71 17 101/55 (70) 94 09/29/20 09:22 95 Room Air 21 09/29/20 08:00 98.6 92 18 104/57 (73) 99 09/29/20 04:00 97.2 80 17 113/63 (80) 93 09/29/20 00:00 96.8 87 19 125/63 (83) 93 09/28/20 21:00 Room Air 09/28/20 20:12 97 Nasal Cannula 2.0 28 09/28/20 20:00 98.2 86 19 112/65 (81) 96 09/28/20 16:00 97.0 92 18 107/57 (74) 99 Height (Feet): 6 Height (Inches): 0.00 Weight (Pounds): 155 HEENT: mucous membranes moist Respiratory/Chest: other - few crackles Cardiovascular: normal rate Abdomen: soft, non tender Extremities: no edema Neurologic/Psychiatric: alert, responsive Laboratory Tests Test 09/29/20 05:45 White Blood Count 7.8 K/UL (4.8-10.8) Red Blood Count 4.21 M/UL (4.70-6.10) L Hemoglobin 12.1 G/DL (14.2-18.0) L Hematocrit 38.1 % (42.0-52.0) L Mean Corpuscular Volume 90 FL (80-99) Mean Corpuscular Hemoglobin 28.8 PG (27.0-31.0) Mean Corpuscular Hemoglobin Concent 31.8 G/DL (32.0-36.0) L Red Cell Distribution Width 14.1 % (11.6-14.8) Platelet Count 333 K/UL (150-450) Mean Platelet Volume 6.0 FL (6.5-10.1) L Neutrophils (%) (Auto) 71.3 % (45.0-75.0) Lymphocytes (%) (Auto) 18.6 % (20.0-45.0) L Monocytes (%) (Auto) 7.1 % (1.0-10.0) Eosinophils (%) (Auto) 1.7 % (0.0-3.0) Basophils (%) (Auto) 1.3 % (0.0-2.0) Sodium Level 138 MMOL/L (136-145) Potassium Level 3.9 MMOL/L (3.5-5.1) Chloride Level 102 MMOL/L (98-107) Carbon Dioxide Level 33 MMOL/L (21-32) H Anion Gap 3 mmol/L (5-15) L Blood Urea Nitrogen 7 mg/dL (7-18) Creatinine 0.6 MG/DL (0.55-1.30) Estimat Glomerular Filtration Rate > 60 mL/min (>60) Glucose Level 99 MG/DL (74-106) Calcium Level 8.3 MG/DL (8.5-10.1) L Phosphorus Level 2.9 MG/DL (2.5-4.9) Magnesium Level 1.8 MG/DL (1.8-2.4) Total Bilirubin 0.3 MG/DL (0.2-1.0) Aspartate Amino Transf (AST/SGOT) 12 U/L (15-37) L Alanine Aminotransferase (ALT/SGPT) 9 U/L (12-78) L Alkaline Phosphatase 97 U/L (46-116) Total Protein 5.1 G/DL (6.4-8.2) L Albumin 2.1 G/DL (3.4-5.0) L Globulin 3.0 g/dL Albumin/Globulin Ratio 0.7 (1.0-2.7) L Current Medications Medications (Trade) Dose Ordered Sig/Jojo Route PRN Reason Start Time Stop Time Status Last Admin Dose Admin Dextrose/Sodium Chloride 1,000 ml @ 50 mls/hr Q20H IV 09/23/20 11:28 10/23/20 11:27 09/29/20 08:36 Dronabinol (Marinol) 2.5 mg BID ORAL 09/24/20 09:00 12/23/20 08:59 09/29/20 08:35 Heparin Sodium (Porcine) (Heparin 5000 units/ml) 5,000 units EVERY 8 HOURS SUBQ 09/14/20 06:00 10/29/20 05:59 09/29/20 06:15 Metoclopramide HCl (Reglan) 10 mg Q6H PRN IVP Nausea & Vomiting 09/13/20 01:00 10/13/20 00:59 Nicotine (Nicoderm) 1 patch Q24H TDERMAL 09/21/20 12:00 12/20/20 11:59 09/29/20 12:15 Ondansetron HCl (Zofran) 4 mg Q6H PRN IVP Nausea & Vomiting 09/13/20 01:00 10/13/20 00:59 Pantoprazole (Protonix) 40 mg DAILY ORAL 09/24/20 09:00 10/24/20 08:59 09/29/20 08:35 Vancomycin HCl (Firvanq) 125 mg FOUR TIMES A DAY ORAL 09/26/20 13:00 10/03/20 12:59 09/29/20 12:15 Delio Edgar MD Sep 29, 2020 12:22
--- NOTE | 2020-09-29 12:25 | Nephrology Progress Note ---
Assessment/Plan Problem List: (1) Lactic acid increased (2) Electrolyte imbalance (3) SBO (small bowel obstruction) (4) Sepsis (5) Bowel perforation Assessment Lactic acidosis Bowel perforation Sepsis Plan September 29: Labs reviewed. Stable from renal standpoint of view. September 28: No labs drawn today. Stable from renal standpoint of view. Will check labs tomorrow. September 27: No labs drawn today. Remains stable from renal standpoint of view. Medication reviewed. September 26: Labs reviewed. Stable from renal standpoint view. Continue. GI and general surgery. September 25: Status quo. Labs reviewed. Clinically stable. Continue per consultants. September 24: Late note entry. Status quo. Labs reviewed. Continue per consultants. September 23: Labs reviewed. Potassium 5.3. IV fluid contains potassium. IV fluid changed. Continue per consultants. September 22: No labs drawn today. Clinically improving. On full liquid diet now . Continue to monitor electrolytes and renal parameters. Per orders. September 21: Patient on clear liquid. Labs reviewed. Abnormalities addressed. IV sodium phosphate ordered. Continue per consultants. September 20: Discussed with JAROD Rivas. Patient due for speech therapy evaluation. Labs reviewed. Magnesium and phosphorus supplement ordered. Continue per consultants. Continue to monitor renal parameters and electrolytes. September 19: Labs reviewed. Magnesium and phosphorus supplement intravenously o rdered. Discussed with RN. Continue to monitor renal parameters. Defer TPN and feeding to GI/general surgery. September 18: NG tube to suction. Output minimal. Labs reviewed. Phosphorus supplement intravenously ordered. Discussed with Dr. Leslie regarding the need for TPN. Will await for general surgery comment. Continue to monitor renal parameters and electrolytes. September 17: All noted. Discussed with RN. Labs reviewed. Patient has NG tube to suction. It appears that the patient post abdominal surgery may not be started on feeding. Suggest TPN. Deferred to GI/surgeon. September 16: Patient about to undergo bronchoscopy for white out left lung. Labs reviewed. Abnormal electrolytes and chemistries addressed. Continue per consultants. September 15: On nasal cannula, renal parameters stable. Continue per consultants. Previously: Postop care, weaning from ventilator ~failed so far Check urine analysis, noted IV fluid management Keep the electrolytes and renal parameters in check Antibiotics Per consultants Post surgery results: 1. Small bowel obstruction at the level of the ileocecal valve, secondary to unknown etiology, potential tumor mass. 2. Perforated cecum. 3. Acute cholecystitis. Subjective ROS Limited/Unobtainable: No Constitutional: Reports: malaise Objective Objective Last 24 Hour Vital Signs Date Time Temp Pulse Resp B/P (MAP) Pulse Ox O2 Delivery O2 Flow Rate FiO2 09/29/20 12:00 97.3 71 17 101/55 (70) 94 09/29/20 09:22 95 Room Air 21 09/29/20 08:00 98.6 92 18 104/57 (73) 99 09/29/20 04:00 97.2 80 17 113/63 (80) 93 09/29/20 00:00 96.8 87 19 125/63 (83) 93 09/28/20 21:00 Room Air 09/28/20 20:12 97 Nasal Cannula 2.0 28 09/28/20 20:00 98.2 86 19 112/65 (81) 96 09/28/20 16:00 97.0 92 18 107/57 (74) 99 Intake and Output 09/28/20 09/29/20 19:00 07:00 Intake Total 650 ml 350 ml Output Total 1650 ml 1100 ml Balance -1000 ml -750 ml Intake Oral 600 ml IV Total 50 ml 350 ml Output Urine Total 1650 ml 1000 ml Stool Total 100 ml Current Medications Medications (Trade) Dose Ordered Sig/Jojo Route PRN Reason Start Time Stop Time Status Last Admin Dose Admin Dextrose/Sodium Chloride 1,000 ml @ 50 mls/hr Q20H IV 09/23/20 11:28 10/23/20 11:27 09/29/20 08:36 Dronabinol (Marinol) 2.5 mg BID ORAL 09/24/20 09:00 12/23/20 08:59 09/29/20 08:35 Heparin Sodium (Porcine) (Heparin 5000 units/ml) 5,000 units EVERY 8 HOURS SUBQ 09/14/20 06:00 10/29/20 05:59 09/29/20 06:15 Metoclopramide HCl (Reglan) 10 mg Q6H PRN IVP Nausea & Vomiting 09/13/20 01:00 10/13/20 00:59 Nicotine (Nicoderm) 1 patch Q24H TDERMAL 09/21/20 12:00 12/20/20 11:59 09/29/20 12:15 Ondansetron HCl (Zofran) 4 mg Q6H PRN IVP Nausea & Vomiting 09/13/20 01:00 10/13/20 00:59 Pantoprazole (Protonix) 40 mg DAILY ORAL 09/24/20 09:00 10/24/20 08:59 09/29/20 08:35 Vancomycin HCl (Firvanq) 125 mg FOUR TIMES A DAY ORAL 09/26/20 13:00 10/03/20 12:59 09/29/20 12:15 Laboratory Tests 09/29/20 05:45: White Blood Count 7.8, Red Blood Count 4.21L, Hemoglobin 12.1L, Hematocrit 38.1L , Mean Corpuscular Volume 90, Mean Corpuscular Hemoglobin 28.8, Mean Corpuscular Hemoglobin Concent 31.8L, Red Cell Distribution Width 14.1, Platelet Count 333, Mean Platelet Volume 6.0L, Neutrophils (%) (Auto) 71.3, Lymphocytes (%) (Auto) 18.6L, Monocytes (%) (Auto) 7.1, Eosinophils (%) (Auto) 1.7, Basophils (%) (Auto) 1.3, Sodium Level 138, Potassium Level 3.9, Chloride Level 102, Carbon Dioxide Level 33H, Anion Gap 3L, Blood Urea Nitrogen 7, Creatinine 0.6, Estimat Glomerular Filtration Rate > 60, Glucose Level 99, Calcium Level 8.3L, Phosphorus Level 2.9, Magnesium Level 1.8, Total Bilirubin 0.3, Aspartate Amino Transf (AST/SGOT) 12L, Alanine Aminotransferase (ALT/SGPT) 9L, Alkaline Phosphatase 97, Total Protein 5.1L, Albumin 2.1L, Globulin 3.0, Albumin/Globulin Ratio 0.7L Height (Feet): 6 Height (Inches): 0.00 Weight (Pounds): 155 General Appearance: no apparent distress Cardiovascular: normal rate Respiratory/Chest: decreased breath sounds Abdomen: distended Price Heart MD Sep 29, 2020 12:25
--- NOTE | 2020-09-29 17:07 | General Progress Note ---
Subjective ROS Limited/Unobtainable: Yes Allergies: Coded Allergies: No Known Allergies (Unverified , 09/12/20) Objective Last 24 Hour Vital Signs Date Time Temp Pulse Resp B/P (MAP) Pulse Ox O2 Delivery O2 Flow Rate FiO2 09/29/20 16:00 97.1 71 17 107/58 (74) 94 09/29/20 12:00 97.3 71 17 101/55 (70) 94 09/29/20 09:22 95 Room Air 21 09/29/20 08:00 98.6 92 18 104/57 (73) 99 09/29/20 04:00 97.2 80 17 113/63 (80) 93 09/29/20 00:00 96.8 87 19 125/63 (83) 93 09/28/20 21:00 Room Air 09/28/20 20:12 97 Nasal Cannula 2.0 28 09/28/20 20:00 98.2 86 19 112/65 (81) 96 Intake and Output 09/28/20 09/29/20 18:59 06:59 Intake Total 600 ml 400 ml Output Total 1650 ml 1100 ml Balance -1050 ml -700 ml Intake Oral 600 ml IV Total 400 ml Output Urine Total 1650 ml 1000 ml Stool Total 100 ml Laboratory Tests 09/29/20 05:45: White Blood Count 7.8, Red Blood Count 4.21L, Hemoglobin 12.1L, Hematocrit 38.1L , Mean Corpuscular Volume 90, Mean Corpuscular Hemoglobin 28.8, Mean Corpuscular Hemoglobin Concent 31.8L, Red Cell Distribution Width 14.1, Platelet Count 333, Mean Platelet Volume 6.0L, Neutrophils (%) (Auto) 71.3, Lymphocytes (%) (Auto) 18.6L, Monocytes (%) (Auto) 7.1, Eosinophils (%) (Auto) 1.7, Basophils (%) (Auto) 1.3, Sodium Level 138, Potassium Level 3.9, Chloride Level 102, Carbon Dioxide Level 33H, Anion Gap 3L, Blood Urea Nitrogen 7, Creatinine 0.6, Estimat Glomerular Filtration Rate > 60, Glucose Level 99, Calcium Level 8.3L, Phosphorus Level 2.9, Magnesium Level 1.8, Total Bilirubin 0.3, Aspartate Amino Transf (AST/SGOT) 12L, Alanine Aminotransferase (ALT/SGPT) 9L, Alkaline Phosphatase 97, Total Protein 5.1L, Albumin 2.1L, Globulin 3.0, Albumin/Globulin Ratio 0.7L Height (Feet): 6 Height (Inches): 0.00 Weight (Pounds): 155 Assessment/Plan Problem List: (1) Bowel perforation ICD Codes: K63.1 - Perforation of intestine (nontraumatic) SNOMED: 72315441 (2) Sepsis ICD Codes: A41.9 - Sepsis, unspecified organism SNOMED: 56526580 (3) SBO (small bowel obstruction) ICD Codes: K56.609 - Unspecified intestinal obstruction, unspecified as to partial versus complete obstruction SNOMED: 383124598 (4) Lactic acidosis ICD Codes: E87.2 - Acidosis SNOMED: 12662825 (5) Abdominal pain ICD Codes: R10.9 - Unspecified abdominal pain SNOMED: 74134499 Status: progressing, unchanged Assessment/Plan: is positive stool c diff has rectal tube afebrile on po vanc s/p exploratory lap for perforated bowel Vania Dwyer MD Sep 29, 2020 17:07
--- NOTE | 2020-09-29 19:02 | Cardiac Electrophysiology PN ---
Assessment/Plan Assessment/Plan 1. Sinus tachycardia due to sepsis/respiratory failure and post op. Resolved now. EF 55%. Troponins negative 2. COPD esacerbation, S/P Respiratory failure. Extubated S/P Left white out. S/P bronchoscopy by Dr. Lambert 09/16/20 3. Acute abdomen, status post surgery by Dr. Morrow including cholecystectomy as well as right colectomy and small bowel resection. (Pathology showed perforated appendicitis) on antibiotics and full liquid diet 4. BNP 1800. Nl EF 55%. No clinical CHF 5. C Diff Colitis, on Po Vancomycin DW RN Colin [facility] pending Subjective Subjective Had bronchoscopy on 09/16/20 for Left lung white out by Dr. Lambert. Alert and oriented. Positive for C. Diff and in isolation. Objective Last 24 Hour Vital Signs Date Time Temp Pulse Resp B/P (MAP) Pulse Ox O2 Delivery O2 Flow Rate FiO2 09/29/20 16:00 97.1 71 17 107/58 (74) 94 09/29/20 12:00 97.3 71 17 101/55 (70) 94 09/29/20 09:22 95 Room Air 21 09/29/20 08:00 98.6 92 18 104/57 (73) 99 09/29/20 04:00 97.2 80 17 113/63 (80) 93 09/29/20 00:00 96.8 87 19 125/63 (83) 93 09/28/20 21:00 Room Air 09/28/20 20:12 97 Nasal Cannula 2.0 28 09/28/20 20:00 98.2 86 19 112/65 (81) 96 Intake and Output 09/28/20 09/29/20 19:00 07:00 Intake Total 650 ml 350 ml Output Total 1650 ml 1100 ml Balance -1000 ml -750 ml Intake Oral 600 ml IV Total 50 ml 350 ml Output Urine Total 1650 ml 1000 ml Stool Total 100 ml Laboratory Tests Test 09/29/20 05:45 White Blood Count 7.8 K/UL (4.8-10.8) Red Blood Count 4.21 M/UL (4.70-6.10) L Hemoglobin 12.1 G/DL (14.2-18.0) L Hematocrit 38.1 % (42.0-52.0) L Mean Corpuscular Volume 90 FL (80-99) Mean Corpuscular Hemoglobin 28.8 PG (27.0-31.0) Mean Corpuscular Hemoglobin Concent 31.8 G/DL (32.0-36.0) L Red Cell Distribution Width 14.1 % (11.6-14.8) Platelet Count 333 K/UL (150-450) Mean Platelet Volume 6.0 FL (6.5-10.1) L Neutrophils (%) (Auto) 71.3 % (45.0-75.0) Lymphocytes (%) (Auto) 18.6 % (20.0-45.0) L Monocytes (%) (Auto) 7.1 % (1.0-10.0) Eosinophils (%) (Auto) 1.7 % (0.0-3.0) Basophils (%) (Auto) 1.3 % (0.0-2.0) Sodium Level 138 MMOL/L (136-145) Potassium Level 3.9 MMOL/L (3.5-5.1) Chloride Level 102 MMOL/L (98-107) Carbon Dioxide Level 33 MMOL/L (21-32) H Anion Gap 3 mmol/L (5-15) L Blood Urea Nitrogen 7 mg/dL (7-18) Creatinine 0.6 MG/DL (0.55-1.30) Estimat Glomerular Filtration Rate > 60 mL/min (>60) Glucose Level 99 MG/DL (74-106) Calcium Level 8.3 MG/DL (8.5-10.1) L Phosphorus Level 2.9 MG/DL (2.5-4.9) Magnesium Level 1.8 MG/DL (1.8-2.4) Total Bilirubin 0.3 MG/DL (0.2-1.0) Aspartate Amino Transf (AST/SGOT) 12 U/L (15-37) L Alanine Aminotransferase (ALT/SGPT) 9 U/L (12-78) L Alkaline Phosphatase 97 U/L (46-116) Total Protein 5.1 G/DL (6.4-8.2) L Albumin 2.1 G/DL (3.4-5.0) L Globulin 3.0 g/dL Albumin/Globulin Ratio 0.7 (1.0-2.7) L Objective HEAD AND NECK: No JVD. LUNGS: Coarse rhonchi CARDIOVASCULAR: Shows regular S1 and S2 with no gallop. ABDOMEN: Tender and is status post laparotomy. Has rectal tube EXTREMITIES: No pitting edema. Jason Li MD Sep 29, 2020 19:02
--- NOTE | 2020-09-29 21:28 | General Progress Note ---
Subjective Allergies: Coded Allergies: No Known Allergies (Unverified , 09/12/20) Subjective resting comfortably d/c planning d/w PMD d/w RN appetite fair Objective Last 24 Hour Vital Signs Date Time Temp Pulse Resp B/P (MAP) Pulse Ox O2 Delivery O2 Flow Rate FiO2 09/29/20 20:00 98.8 94 17 106/63 (77) 94 09/29/20 16:00 97.1 71 17 107/58 (74) 94 09/29/20 12:00 97.3 71 17 101/55 (70) 94 09/29/20 09:22 95 Room Air 21 09/29/20 08:00 98.6 92 18 104/57 (73) 99 09/29/20 04:00 97.2 80 17 113/63 (80) 93 09/29/20 00:00 96.8 87 19 125/63 (83) 93 Intake and Output 09/28/20 09/29/20 19:00 07:00 Intake Total 650 ml 350 ml Output Total 1650 ml 1100 ml Balance -1000 ml -750 ml Intake Oral 600 ml IV Total 50 ml 350 ml Output Urine Total 1650 ml 1000 ml Stool Total 100 ml Laboratory Tests 09/29/20 05:45: White Blood Count 7.8, Red Blood Count 4.21L, Hemoglobin 12.1L, Hematocrit 38.1L , Mean Corpuscular Volume 90, Mean Corpuscular Hemoglobin 28.8, Mean Corpuscular Hemoglobin Concent 31.8L, Red Cell Distribution Width 14.1, Platelet Count 333, Mean Platelet Volume 6.0L, Neutrophils (%) (Auto) 71.3, Lymphocytes (%) (Auto) 18.6L, Monocytes (%) (Auto) 7.1, Eosinophils (%) (Auto) 1.7, Basophils (%) (Auto) 1.3, Sodium Level 138, Potassium Level 3.9, Chloride Level 102, Carbon Dioxide Level 33H, Anion Gap 3L, Blood Urea Nitrogen 7, Creatinine 0.6, Estimat Glomerular Filtration Rate > 60, Glucose Level 99, Calcium Level 8.3L, Phosphorus Level 2.9, Magnesium Level 1.8, Total Bilirubin 0.3, Aspartate Amino Transf (AST/SGOT) 12L, Alanine Aminotransferase (ALT/SGPT) 9L, Alkaline Phosphatase 97, Total Protein 5.1L, Albumin 2.1L, Globulin 3.0, Albumin/Globulin Ratio 0.7L Height (Feet): 6 Height (Inches): 0.00 Weight (Pounds): 155 Objective Thin man NCAT supple CTA RR abd soft , flat no edema Assessment/Plan Status: progressing, unchanged Assessment/Plan: Assessment - Diarrhea - C Diff (+) - IC valve area SBO and cecal perforation, presumed from appendicitis - s/p ex lap and bowel resection with primary anastomosis - s/p sancho for cholecystitis - post op ileus - resolved Recommendations - vanco PO - post op care - push po - OOB - follow labs and exam - d/c rectal tube Froilan De Paz MD Sep 29, 2020 21:28
[2020-09-30] MEDS: D5NS 1,000 ML IV SCH (03:19)
[2020-09-30 04:00] VITALS: BP 111/70
[2020-09-30] MEDS: Heparin 5000 units/ml inj SUBQ SCH ×2 (05:11→13:19)
[2020-09-30 08:00] VITALS: BP 135/78
[2020-09-30] MEDS: Dronabinol 2.5mg Cap ORAL SCH (09:05)
[2020-09-30] MEDS: Vancomycin oral 125mg/2.5ml ORAL SCH ×2 (09:05→13:17)
--- NOTE | 2020-09-30 09:30 | Pulmonology Progress Note ---
Subjective ROS Limited/Unobtainable: Yes Interval Events: Extubated on 09/14/20; Doing well Constitutional: Reports: no symptoms HEENT: Repors: no symptoms Respiratory: Reports: no symptoms Cardiovascular: Reports: no symptoms Gastrointestinal/Abdominal: Reports: no symptoms Psychiatric: Reports: other Allergies: Coded Allergies: No Known Allergies (Unverified , 09/12/20) All Systems: reviewed and negative except above Objective Last 24 Hour Vital Signs Date Time Temp Pulse Resp B/P (MAP) Pulse Ox O2 Delivery O2 Flow Rate FiO2 09/30/20 08:00 97.4 70 18 135/78 (97) 99 09/30/20 04:00 98.5 80 18 111/70 (84) 94 09/29/20 23:49 98.6 88 20 106/57 (73) 94 09/29/20 21:15 100 Nasal Cannula 2.0 28 09/29/20 21:00 Nasal Cannula 2.0 09/29/20 20:00 98.8 94 17 106/63 (77) 94 09/29/20 16:00 97.1 71 17 107/58 (74) 94 09/29/20 12:00 97.3 71 17 101/55 (70) 94 Intake and Output 09/29/20 09/30/20 19:00 07:00 Intake Total 350 ml 650 ml Output Total 700 ml 600 ml Balance -350 ml 50 ml Intake Oral 300 ml 100 ml IV Total 50 ml 550 ml Output Urine Total 700 ml 400 ml Stool Total 200 ml # Bowel Movements 1 General Appearance: no acute distress HEENT: normocephalic Respiratory: chest wall non-tender, decreased breath sounds Cardiovascular: normal peripheral pulses, normal rate Abdomen: normal bowel sounds Current Medications Medications (Trade) Dose Ordered Sig/Jojo Route PRN Reason Start Time Stop Time Status Last Admin Dose Admin Dextrose/Sodium Chloride 1,000 ml @ 50 mls/hr Q20H IV 09/23/20 11:28 10/23/20 11:27 09/30/20 03:19 Dronabinol (Marinol) 2.5 mg BID ORAL 09/24/20 09:00 12/23/20 08:59 09/30/20 09:05 Heparin Sodium (Porcine) (Heparin 5000 units/ml) 5,000 units EVERY 8 HOURS SUBQ 09/14/20 06:00 10/29/20 05:59 11/6/20 05:11 Metoclopramide HCl (Reglan) 10 mg Q6H PRN IVP Nausea & Vomiting 09/13/20 01:00 10/13/20 00:59 Nicotine (Nicoderm) 1 patch Q24H TDERMAL 09/21/20 12:00 12/20/20 11:59 09/29/20 12:15 Ondansetron HCl (Zofran) 4 mg Q6H PRN IVP Nausea & Vomiting 09/13/20 01:00 10/13/20 00:59 Pantoprazole (Protonix) 40 mg DAILY ORAL 09/24/20 09:00 10/24/20 08:59 09/30/20 09:05 Vancomycin HCl (Firvanq) 125 mg FOUR TIMES A DAY ORAL 09/26/20 13:00 10/03/20 12:59 09/30/20 09:05 Assessment/Plan Assessment/Plan IMPRESSION: 1. Cecal perforation. 2. Status post right colectomy, open cholecystectomy, and abdominal washout. 3. History of COPD. 4. Schizophrenia. 5. Left lung complete atelectasis; resolved post bronchoscopy DISCUSSION: Transferred out of ICU Extubated 09/15/20 Continue broad-spectrum antibiotics. I will follow carefully. CXR shows improved aeration of left lung field Saturating well on nasal o2 Tito Sheffield Omar Syed MD Sep 30, 2020 09:30
--- NOTE | 2020-09-30 10:45 | Nephrology Progress Note ---
Assessment/Plan Problem List: (1) Lactic acid increased (2) Electrolyte imbalance (3) SBO (small bowel obstruction) (4) Sepsis (5) Bowel perforation Assessment Lactic acidosis Bowel perforation Sepsis Plan September 30: No labs drawn today. Remains stable from renal standpoint of view. September 29: Labs reviewed. Stable from renal standpoint of view. September 28: No labs drawn today. Stable from renal standpoint of view. Will c heck labs tomorrow. September 27: No labs drawn today. Remains stable from renal standpoint of view. Medication reviewed. September 26: Labs reviewed. Stable from renal standpoint view. Continue. GI and general surgery. September 25: Status quo. Labs reviewed. Clinically stable. Continue per consultants. September 24: Late note entry. Status quo. Labs reviewed. Continue per cons ultants. September 23: Labs reviewed. Potassium 5.3. IV fluid contains potassium. IV fluid changed. Continue per consultants. September 22: No labs drawn today. Clinically improving. On full liquid diet now. Continue to monitor electrolytes and renal parameters. Per orders. September 21: Patient on clear liquid. Labs reviewed. Abnormalities addressed. IV sodium phosphate ordered. Continue per consultants. September 20: Discussed with JAROD Rivas. Patient due for speech therapy evaluation. Labs reviewed. Magnesium and phosphorus supplement ordered. Continue per consultants. Continue to monitor renal parameters and electrolytes. September 19: Labs reviewed. Magnesium and phosphorus supplement intravenously ordered. Discussed with RN. Continue to monitor renal parameters. Defer TPN and feeding to GI/general surgery. September 18: NG tube to suction. Output minimal. Labs reviewed. Phosphorus supplement intravenously ordered. Discussed with Dr. Leslie regarding the need for TPN. Will await for general surgery comment. Continue to monitor renal parameters and electrolytes. September 17: All noted. Discussed with RN. Labs reviewed. Patient has NG tube to suction. It appears that the patient post abdominal surgery may not be started on feeding. Suggest TPN. Deferred to GI/surgeon. September 16: Patient about to undergo bronchoscopy for white out left lung. Labs reviewed. Abnormal electrolytes and chemistries addressed. Continue per consultants. September 15: On nasal cannula, renal parameters stable. Continue per consultants. Previously: Postop care, weaning from ventilator ~failed so far Check urine analysis, noted IV fluid management Keep the electrolytes and renal parameters in check Antibiotics Per consultants Post surgery results: 1. Small bowel obstruction at the level of the ileocecal valve, secondary to unknown etiology, potential tumor mass. 2. Perforated cecum. 3. Acute cholecystitis. Subjective ROS Limited/Unobtainable: No Constitutional: Reports: malaise, weakness Objective Objective Last 24 Hour Vital Signs Date Time Temp Pulse Resp B/P (MAP) Pulse Ox O2 Delivery O2 Flow Rate FiO2 09/30/20 08:00 97.4 70 18 135/78 (97) 99 09/30/20 04:00 98.5 80 18 111/70 (84) 94 09/29/20 23:49 98.6 88 20 106/57 (73) 94 09/29/20 21:15 100 Nasal Cannula 2.0 28 09/29/20 21:00 Nasal Cannula 2.0 09/29/20 20:00 98.8 94 17 106/63 (77) 94 09/29/20 16:00 97.1 71 17 107/58 (74) 94 09/29/20 12:00 97.3 71 17 101/55 (70) 94 Intake and Output 09/29/20 09/30/20 19:00 07:00 Intake Total 350 ml 650 ml Output Total 700 ml 600 ml Balance -350 ml 50 ml Intake Oral 300 ml 100 ml IV Total 50 ml 550 ml Output Urine Total 700 ml 400 ml Stool Total 200 ml # Bowel Movements 1 No chemistry panel Height (Feet): 6 Height (Inches): 0.00 Weight (Pounds): 155 General Appearance: no apparent distress Cardiovascular: normal rate Respiratory/Chest: decreased breath sounds Abdomen: soft Price Heart MD Sep 30, 2020 10:45
[2020-09-30 12:00] VITALS: BP 129/83
--- NOTE | 2020-09-30 12:25 | Infectious Diseases Prog Note ---
Assessment/Plan Assessment/Plan IMPRESSION: 1. Sepsis improving 2. Acute appendicitis with perforation. 3. Acute/ chronic cholecystitis. 4. COPD. 5. Fatty liver. 6. Preoperative respiratory failure resolved 7. Pneumonia 8. Peritonitis 9. Colitis with perforation 10. Mucous plug 11. C.difficile colitis RECOMMENDATION: 1. Continue PO Vancomycin until 10/06 2. If patient has no diarrhea can discontinue isolation 3. Case was D/W RN & primary MD Subjective ROS Limited/Unobtainable: Yes Gastrointestinal/Abdominal: Reports: other - rectal tube is removed; Denies: diarrhea Allergies: Coded Allergies: No Known Allergies (Unverified , 09/12/20) Objective Last 24 Hour Vital Signs Date Time Temp Pulse Resp B/P (MAP) Pulse Ox O2 Delivery O2 Flow Rate FiO2 09/30/20 08:00 97.4 70 18 135/78 (97) 99 09/30/20 04:00 98.5 80 18 111/70 (84) 94 09/29/20 23:49 98.6 88 20 106/57 (73) 94 09/29/20 21:15 100 Nasal Cannula 2.0 28 09/29/20 21:00 Nasal Cannula 2.0 09/29/20 20:00 98.8 94 17 106/63 (77) 94 09/29/20 16:00 97.1 71 17 107/58 (74) 94 Height (Feet): 6 Height (Inches): 0.00 Weight (Pounds): 155 General Appearance: no acute distress HEENT: mucous membranes moist Respiratory/Chest: lungs clear Cardiovascular: normal rate Abdomen: soft, non tender Extremities: no edema Neurologic/Psychiatric: other - sleeping Current Medications Medications (Trade) Dose Ordered Sig/Jojo Route PRN Reason Start Time Stop Time Status Last Admin Dose Admin Dextrose/Sodium Chloride 1,000 ml @ 50 mls/hr Q20H IV 09/23/20 11:28 10/23/20 11:27 09/30/20 03:19 Dronabinol (Marinol) 2.5 mg BID ORAL 09/24/20 09:00 12/23/20 08:59 09/30/20 09:05 Heparin Sodium (Porcine) (Heparin 5000 units/ml) 5,000 units EVERY 8 HOURS SUBQ 09/14/20 06:00 10/29/20 05:59 09/30/20 05:11 Metoclopramide HCl (Reglan) 10 mg Q6H PRN IVP Nausea & Vomiting 09/13/20 01:00 10/13/20 00:59 Nicotine (Nicoderm) 1 patch Q24H TDERMAL 09/21/20 12:00 12/20/20 11:59 09/29/20 12:15 Ondansetron HCl (Zofran) 4 mg Q6H PRN IVP Nausea & Vomiting 09/13/20 01:00 10/13/20 00:59 Pantoprazole (Protonix) 40 mg DAILY ORAL 09/24/20 09:00 10/24/20 08:59 09/30/20 09:05 Vancomycin HCl (Firvanq) 125 mg FOUR TIMES A DAY ORAL 09/26/20 13:00 10/03/20 12:59 09/30/20 09:05 Delio Edgar MD Sep 30, 2020 12:25
--- NOTE | 2020-09-30 13:09 | Cardiac Electrophysiology PN ---
Assessment/Plan Assessment/Plan 1. Sinus tachycardia due to sepsis/respiratory failure and post op. Resolved now. EF 55%. Troponins negative 2. COPD esacerbation, S/P Respiratory failure. Extubated S/P Left white out. S/P bronchoscopy by Dr. Lambert 09/16/20 3. Acute abdomen, status post surgery by Dr. Morrow including cholecystectomy as well as right colectomy and small bowel resection. (Pathology showed perforated appendicitis) on antibiotics and full liquid diet 4. BNP 1800. Nl EF 55%. No clinical CHF 5. C Diff Colitis, on Po Vancomycin DW RN Colin [facility] pending Subjective Subjective Had bronchoscopy on 09/16/20 for Left lung white out by Dr. Lambert. Alert and oriented. Positive for C. Diff and in isolation. Rectal tube removed. Objective Last 24 Hour Vital Signs Date Time Temp Pulse Resp B/P (MAP) Pulse Ox O2 Delivery O2 Flow Rate FiO2 09/30/20 08:00 97.4 70 18 135/78 (97) 99 09/30/20 04:00 98.5 80 18 111/70 (84) 94 09/29/20 23:49 98.6 88 20 106/57 (73) 94 09/29/20 21:15 100 Nasal Cannula 2.0 28 09/29/20 21:00 Nasal Cannula 2.0 09/29/20 20:00 98.8 94 17 106/63 (77) 94 09/29/20 16:00 97.1 71 17 107/58 (74) 94 Intake and Output 09/29/20 09/30/20 19:00 07:00 Intake Total 350 ml 650 ml Output Total 700 ml 600 ml Balance -350 ml 50 ml Intake Oral 300 ml 100 ml IV Total 50 ml 550 ml Output Urine Total 700 ml 400 ml Stool Total 200 ml # Bowel Movements 1 Objective HEAD AND NECK: No JVD. LUNGS: Coarse rhonchi CARDIOVASCULAR: Shows regular S1 and S2 with no gallop. ABDOMEN: Tender and is status post laparotomy. Has rectal tube EXTREMITIES: No pitting edema. Jason Li MD Sep 30, 2020 13:09
[2020-09-30 16:00] VITALS: BP 129/77
[2020-09-30] MEDS ORDERED: D5NS 1000ml IV ONE (16:33)
--- NOTE | 2020-09-30 17:21 | General Progress Note ---
Subjective Allergies: Coded Allergies: No Known Allergies (Unverified , 09/12/20) Subjective resting comfortably rectal tube out still with diarrhea x 2 overnight Objective Last 24 Hour Vital Signs Date Time Temp Pulse Resp B/P (MAP) Pulse Ox O2 Delivery O2 Flow Rate FiO2 09/30/20 16:00 98.1 83 17 129/77 (94) 98 09/30/20 12:00 98.1 74 18 129/83 (98) 98 09/30/20 08:00 97.4 70 18 135/78 (97) 99 09/30/20 04:00 98.5 80 18 111/70 (84) 94 09/29/20 23:49 98.6 88 20 106/57 (73) 94 09/29/20 21:15 100 Nasal Cannula 2.0 28 09/29/20 21:00 Nasal Cannula 2.0 09/29/20 20:00 98.8 94 17 106/63 (77) 94 Intake and Output 09/29/20 09/30/20 19:00 07:00 Intake Total 350 ml 650 ml Output Total 700 ml 600 ml Balance -350 ml 50 ml Intake Oral 300 ml 100 ml IV Total 50 ml 550 ml Output Urine Total 700 ml 400 ml Stool Total 200 ml # Bowel Movements 1 Height (Feet): 6 Height (Inches): 0.00 Weight (Pounds): 155 Objective Thin man NCAT supple CTA RR abd soft , flat no edema Assessment/Plan Status: progressing, unchanged Assessment/Plan: Assessment - Diarrhea - C Diff (+) - IC valve area SBO and cecal perforation, presumed from appendicitis - s/p ex lap and bowel resection with primary anastomosis - s/p sancho for cholecystitis - post op ileus - resolved Recommendations - vanco PO - post op care - push po - OOB - follow labs and exam - monitor stool output Froilan De Paz MD Sep 30, 2020 17:21
--- NOTE | 2020-10-03 10:27 | Discharge Summary ---
Discharge Summary Discharge Summary _ DATE OF ADMISSION: 09/12/2020 DATE OF DISCHARGE: 09/30/2020 DISCHARGED BY: Dr. Vania Bean CONSULTANTS: Dr. Cam Edgar [facility] HOSPITAL COURSE: Patient is a 70-year-old male, who presented to ED due to cough, shortness of breath and abdominal discomfort. Patient was confused and slow to respond. Patient is a poor historian. On evaluation at ED, blood work did not show any leukocytosis. He was hemodynamically stable. He was tachycardic at 125 on arrival. Tachycardia resolved with IV bolus. Initial lactate was 2.7. Repeat lactate after IV bolus went down to 2.4. Chest x-ray was largely unremarkable aside from a distended abdomen. CT of the abdomen and pelvis showed small bowel obstruction. He was started on IV antibiotics. He was placed on n.p.o. Surgeon was emergently consulted. Patient underwent exploratory laparotomy. Cecum was identified and there was a perforation into the anterior portion of the mid cecum. Perforation was clearly identified as there were stools evacuating out from it. He underwent right colectomy and small bowel resection. He also had very thickened gallbladder w all and 2 very large stones within the gallbladder. There was concern for potential active acute cholecystitis patient then underwent cholecystectomy. He tolerated procedure well. Patient has tobacco abuse history and COPD. He will require slow weaning with ventilatory support. Postoperatively, he remained intubated and was transferred to ICU. He was continued on Zosyn. Renal parameters were monitored. Patient was tachycardic. He was placed on weaning protocol. Echocardiogram showed ejection fraction of 55%. Cardiac enzymes were negative. Patient was extubated on 09/14/2020. Chest x-ray showed atelectasis, complete opacification of left lung. He underwent bedside bronchoscopy on 09/16/[address] Vnekatesh Lambert that showed mucous plug. Secretions were better with the enteric tube placement. Surveillance chest x-ray showed improved aeration in the left lung field. Antib iotic was changed to meropenem. Upper extremity was swollen. Ultrasound was negative for DVT. NGT was eventually removed. He was tolerating clear liquid diet. Diet was eventually advanced. Patient had diarrhea. C. difficile was positive. He was given vancomycin. Diarrhea resolved. Rectal tube was eventually discontinued. Patient was discharged to [facility]. FINAL DIAGNOSES: Sepsis Small bowel loops obstruction with cecal perforation, presumed from appendicitis Status post ex lap and bowel resection with primary anastomosis Status post cholecystectomy for cholecystitis Postop ileus resolved. Tachycardia due to sepsis COPD exacerbation status post respiratory failure, status post extubation No clinical CHF with elevated BNP Colitis Mucous plug Pneumonia Peritonitis Fatty liver Schizophrenia Left lung complete atelectasis, resolved post bronchoscopy DISPOSITION: DC to SNF. DISCHARGE MEDICATIONS: Refer to Discharge Medication List. I have been assigned to complete a discharge summary on this account, I was not involved with the patient's management.--TREVOR Martinez Jacqueline Robles NP Oct 03, 2020 10:27
== END 2020-09-30 17:28 | DRG 853 ==
LOC: EDBD 17:52 → EMR 18:30 → 2E 18:58 → EDBEDREQ 20:28 → 2W 21:46 → ICU 21:56 → 2W 09-21 16:20 → 2E 09-24 05:54 → 4E 09-26 20:59
PROC: 0FT40ZZ Resection of Gallbladder, Open Approach (ICD-10-PCS; principal; 2020-09-13)
PROC: 0DTF0ZZ Resection of Right Large Intestine, Open Approach (ICD-10-PCS; principal; 2020-09-13)
PROC: 0DB80ZZ Excision of Small Intestine, Open Approach (ICD-10-PCS; principal; 2020-09-13)
PROC: 0BC78ZZ Extirpation of Matter from Left Main Bronchus, Via Natural or Artificial Opening Endoscopic (ICD-10-PCS; 2020-09-16)
DX: A41.9 Sepsis, unspecified organism (principal); J18.9 Pneumonia, unspecified organism; J96.00 Acute respiratory failure, unspecified whether with hypoxia or hypercapnia; K56.699 Other intestinal obstruction unspecified as to partial versus complete obstruction; K35.20 Acute appendicitis with generalized peritonitis, without abscess; J44.1 Chronic obstructive pulmonary disease with (acute) exacerbation; J44.0 Chronic obstructive pulmonary disease with (acute) lower respiratory infection; T17.890A Other foreign object in other parts of respiratory tract causing asphyxiation, initial encounter; A04.72 Enterocolitis due to Clostridium difficile, not specified as recurrent; K56.7 Ileus, unspecified; E46 Unspecified protein-calorie malnutrition; J98.11 Atelectasis; K80.12 Calculus of gallbladder with acute and chronic cholecystitis without obstruction; K76.0 Fatty (change of) liver, not elsewhere classified; F20.9 Schizophrenia, unspecified; Z68.21 Body mass index [BMI] 21.0-21.9, adult
CPT/HCPCS: 31645; 36415; 70450; 71045; 74018; 74176; 80048; 80053; 80061; 80076; 81001; 82140; 82150; 82550; 82553; 82607; 82746; 82803; 82977; 83036; 83605; 83690; 83735; 83880; 84100; 84443; 84484; 84550; 85007; 85025; 85610; 85730; 86140; 87040; 87070; 87075; 87081; 87086; 87181; 87205; 87324; 93005; 93306; 93970; 94002; 94003; 94150; 94640; 94664; 96365; 96368; 99291; J7030; J7620; U0002